=== PATIENT | female | born 1950 | race Caucasian/White ===

== ENCOUNTER 2017-06-09 10:31 | Day surgery (SDC) | payer MEDICARE, BC ==
[2017-06-05 16:12] VITALS: BMI 36.2
[~2017-06-09 10:31] MED LIST: ceFAZolin 1,000 MG in SODIUM CHLORIDE 0.9% IRRIGATIO 250 ML IRRIGATION ONE; ceFAZolin IN SWFI 2 GM/20 ML SYRINGE IVP ONE
[2017-06-09 12:01] LABS: Glucose,Whole Blood 138 mg/dL (75-99)
[2017-06-09] MEDS ORDERED: IV FLUID CONTINUATION 375 ML IV ONE (13:13)
[2017-06-09] MEDS ORDERED: MIDAZOLAM 2 MG/2 ML VIAL ONE (13:46)
[2017-06-09] MEDS ORDERED: ACETAMINOPHEN TAB 325 MG TAB PO PRN (13:48)
[2017-06-09] MEDS ORDERED: ACETAMINOPHEN IV (For NPO) 1,000 MG in EMPTY BAG 1 BAG IVPB ONE (13:48)
[2017-06-09] MEDS ORDERED: MIDAZOLAM 2 MG/2 ML VIAL IV ONE (13:52)
[2017-06-09] MEDS ORDERED: LIDOCAINE 1% INJ 10MG/ML (20 ML MDV) SQ ONE (14:00)
[2017-06-09] MEDS: LIDOCAINE 1% INJ 10MG/ML (20 ML MDV) SQ ONE ×2 (14:06→14:25)
[2017-06-09] MEDS ORDERED: LIDOCAINE 1% INJ 10MG/ML (20 ML MDV) ONE (14:18)
[2017-06-09 15:24] LABS: Glucose,Whole Blood 115 mg/dL (75-99)
--- NOTE | 2017-06-09 15:53 | CE ---
CARDIAC ELECTROPHYSIOLOGY REPORT Fatmata Jones is 67-year-old female with a history of bradycardia and was implanted with a permanent pacemaker about 11 years back. She has chronic renal failure, on dialysis. She was referred for a pacemaker generator change on account of normal battery depletion. Patient was brought to the EP lab in a fasting state. Written informed consent was obtained prior to the procedure. Left shoulder area was prepped and draped as per protocol. Lidocaine 1% was used for local anesthesia. A 4 cm incision was made directly over the pacemaker generator and carried down to the level of the generator. The generator was explanted. The device was clearly subcutaneous in location. A new subfascial pocket was made. The leads were partially freed from the surrounding soft tissue and capsule and the old generator was explanted. A new generator was implanted. The new generator is an Assurity MRI 227, serial number [id number]. The atrial lead was a Tendril SDX [id number], 52 cm length and serial number [id number]. P waves were consistent with preoperative numbers. P waves were 0.4 mV, pacing threshold 0.75 V at 1 millisecond, pacing impedance of 360 ohms. These numbers are consistent with preoperative measurements. The ventricular lead was a Tendril SDX 1688TC, 58 cm length and serial number [id number]. Once again, the ventricular pacing and sensing parameters and impedances were stable with the preoperative measurements. R waves 1.4 mV, pacing impedance 450 ohms, pacing threshold 0.75 V at 0.5 milliseconds. The device was then programmed to DDD 50 ppm with long AV delay, mode. The wound was closed in 3 layers and dressed per protocol. RESULTS: 1. Successful dual-chamber pacemaker generator change. 2. New subfascial pocket, as the original pocket was subcutaneous in location. MMODL / IJN: [id number] /
[2017-06-09 16:15] VITALS: RESP 16
[2017-06-09 18:15] LABS: Glucose,Whole Blood 190 mg/dL (75-99)
[2017-06-09] MEDS: INSULIN ASPART 100 UNIT/ML 1 ML 10 ML VIAL SQ SCH (18:35)
[2017-06-09 20:36] LABS: Glucose,Whole Blood 218 mg/dL (75-99)
[2017-06-09] MEDS: ceFAZolin IN SWFI 2 GM/20 ML SYRINGE IVP SCH (20:47)
[2017-06-09] MEDS ORDERED: AMITRIPTYLINE HCL 50 MG TAB PO SCH (21:00)
[2017-06-09] MEDS ORDERED: INSULIN DETEMIR 100 UNIT/ML 10 ML VIAL SQ SCH (21:00)
[2017-06-09] MEDS: HYDROcodone/APAP 5-325MG 1 EACH TAB PO PRN (21:24)
[2017-06-09] MEDS: SODIUM CHLORIDE 0.9% 1,000 ML IV SCH ×4 (21:28→23:05)
[2017-06-10] MEDS: ceFAZolin IN SWFI 2 GM/20 ML SYRINGE IVP SCH ×3 (03:51→14:12)
[2017-06-10] MEDS: HYDROcodone/APAP 5-325MG 1 EACH TAB PO PRN (03:54)
[2017-06-10] MEDS ORDERED: LEVOTHYROXINE 125 MCG TAB PO SCH (06:30)
[2017-06-10 06:35] LABS: Glucose,Whole Blood 76 mg/dL (75-99)
[2017-06-10] MEDS ORDERED: AMIODARONE 200 MG TAB PO SCH (09:00)
[2017-06-10] MEDS ORDERED: METOPROLOL SUCCINATE (ER) 25 MG TAB.ER.24H PO SCH (09:00)
[2017-06-10] MEDS ORDERED: ASPIRIN 81 MG PO SCH (09:00)
[2017-06-10] MEDS ORDERED: ISOSORBIDE MONONITRATE ER 30 MG TAB.ER.24H PO SCH (09:00)
[2017-06-10] MEDS ORDERED: ATORVASTATIN 40 MG TAB PO SCH (09:00)
[2017-06-10] MEDS ORDERED: ALLOPURINOL 100 MG TAB PO SCH (09:00)
[2017-06-10 09:02] VITALS: PULSE 51
[2017-06-10] MEDS: INSULIN ASPART 100 UNIT/ML 1 ML 10 ML VIAL SQ SCH ×2 (09:18→12:43)
--- NOTE | 2017-06-10 09:41 | P.NPCON ---
History of Present Illness - Reason for Consult end stage renal disease - History of Present Illness Reason for consultation: End-stage renal disease History of present illness: Patient is a 67-year-old female seen in renal consultation for end-stage renal disease. She is maintained on hemodialysis on a Friday schedule via right upper extremity AV graft. Patient has history of bradycardia and has a pacemaker that was placed about 11 years ago. Patient was admitted to get the battery changed of the pacemaker. She tolerated the procedure well yesterday. She is currently resting in bed. Denies any chest pain or shortness of breath. No vomiting or diarrhea. Denies fever or chills. She completed hemodialysis this morning. She has no active complaints at this time. Vital signs are stable. General: The patient appeared well nourished and normally developed. HEENT: Head exam is unremarkable. Neck is without jugular venous distension. LUNGS: Lungs are clear to auscultation and percussion. Breath sounds decreased. HEART: Rate and Rhythm are regular. First and second heart sounds normal. No murmurs, rubs or gallops. ABDOMEN: Abdominal exam reveals normal bowel sounds. Non-tender and non- distended. No evidence of peritonitis. EXTREMITITES: No clubbing, cyanosis, or edema. Right [id number] amputation noted. Past Medical History Past Medical History: Heart Failure, COPD, Diabetes Mellitus, Eye Disorder, GERD /Reflux, Renal Disease Additional Past Medical History / Comment(s): See Dr. Lazo's H&P. Hx. 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, graft in right arm and old one in left arm,hx.of chest tube on left side after pneumothorax, brea upper arm tumor removal, benign large mass removed from ovaries, partial thyroidectomy, spinal surgery done at [facility] 10 years ago for infection with eliel placement.01/17/16 ANGIOPLASTY/STENT RT SFA , rt bka 02/01 Past Anesthesia/Blood Transfusion Reactions: No Reported Reaction Additional Past Anesthesia/Blood Transfusion Reaction / Comment(s): HAD BLOOD TRANFUSIONS WITHOUT COMPLICATION Type of Cardiac Device: Permanent Pacemaker Device Placement Date:: 2008 Past Psychological History: Anxiety, Depression Smoking Status: Never smoker Past Alcohol Use History: None Reported Additional Past Alcohol Use History / Comment(s): Patient is a lifelong nonsmoker. She denies any medical marijuana, marijuana, street drug or alcohol use. She lives at home with her and adult son. There is 1 dog in the home. Past Drug Use History: None Reported - Past Family History Father Family Medical History: Hypertension Additional Family Medical History / Comment(s): Father at age 56 from lung cancer. Mother Family Medical History: Cancer Additional Family Medical History / Comment(s): Mother at age 56 from lung cancer. Brother(s) Family Medical History: Diabetes Mellitus, Renal Disease Additional Family Medical History / Comment(s): Patient has 2 brothers. One at age 45 from myocardial infarction with history of heart defect from . Second brother is alive at age 59 with history of coronary artery disease and diabetes, bone marrow transplant Sister(s) Additional Family Medical History / Comment(s): Patient has a sister age 57 alive with history of diabetes and spina bifida. Daughter(s) Family Medical History: No Reported History Additional Family Medical History / Comment(s): Pre-diabetes Medications and Allergies Home Medications Medication Instructions Recorded Confirmed Type Allopurinol [Zyloprim] 100 mg PO DAILY 08/16/13 06/05/17 History Amiodarone HCl [Pacerone] 200 mg PO DAILY 08/16/13 06/05/17 History Insulin Glargine [Lantus] 50 unit SQ HS 08/16/13 06/09/17 History Isosorbide Mononitrate [Imdur] 30 mg PO DAILY 08/16/13 06/05/17 History Amitriptyline HCl 50 mg PO HS 02/06/15 06/05/17 History Levothyroxine Sodium [Synthroid] 125 mcg PO DAILY 02/06/15 06/05/17 History Metoprolol Succinate [Toprol XL] 12.5 mg PO DAILY 02/06/15 06/05/17 History Albuterol Inhaler [Ventolin Hfa 2 puff INHALATION RT-QID PRN 06/08/15 06/05/17 History Inhaler] Aspirin EC [Ecotrin Low Dose] 81 mg PO DAILY 05/12/17 06/05/17 History INSULIN LISPRO (humaLOG) [humaLOG] 10 unit SQ AC-TID 05/12/17 06/05/17 History Ofloxacin 0.3% Ophth Soln [Ocuflox 1 drops LEFT EYE QID ml 05/14/17 06/05/17 Rx Ophth Soln] Atorvastatin [Lipitor] 40 mg PO DAILY 06/05/17 06/05/17 History Justine-Kacy 1 tab PO DAILY 06/05/17 06/05/17 History Allergies Allergy/AdvReac Type Severity Reaction Status Date / Time meperidine HCl [From Demerol] AdvReac Nausea & Verified 06/05/17 15:54 Vomiting & Diarrhea Physical Exam Vitals: Vital Signs Temp Pulse Pulse Resp BP Pulse Ox 06/10/17 08:00 98.1 F 51 L 16 123/55 96 06/10/17 04:00 97.4 F L 52 L 50 L 16 125/46 98 06/09/17 23:57 54 L 16 06/09/17 23:19 98.4 F 56 L 16 120/56 97 06/09/17 20:00 43 L 16 06/09/17 19:32 98.2 F 50 L 16 127/56 95 06/09/17 17:45 134/58 06/09/17 17:15 50 L 132/53 97 06/09/17 16:45 50 L 130/59 100 06/09/17 16:30 52 L 130/58 99 06/09/17 16:15 50 L 128/58 96 06/09/17 16:00 98 F 50 L 16 132/59 99 06/09/17 15:45 18 132/62 100 06/09/17 15:30 16 136/59 99 06/09/17 15:15 16 135/60 99 06/09/17 11:06 97.7 F 99 20 129/57 99 Intake and Output 06/09/17 06/10/17 06/10/17 22:59 06:59 14:59 Intake Total 600 200 Balance 600 200 Intake: Oral 600 200 Other: Voiding Method Ileal Conduit (Right) Ileal Conduit (Right) # Voids 0 0 Weight 89.811 kg Assessment and Plan Plan: Assessment: #1. End-stage renal disease maintained on hemodialysis on a Friday schedule via right upper extremity AV graft. #2. History of bradycardia with pacemaker placement. She had the battery changed yesterday. #3. Insulin-dependent diabetes mellitus. #4. Hypertension with chronic kidney disease. Controlled. Plan: Patient completed hemodialysis this morning without any problems. Stable to be discharged home from nephrology standpoint. Thank you for the consultation. I will continue to follow the patient with you during her hospital stay.
[2017-06-10 11:59] VITALS: BP 119/58; TEMP 97.8
[2017-06-10 12:19] LABS: Glucose,Whole Blood 84 mg/dL (75-99)
--- NOTE | 2017-06-10 13:34 | P.DS ---
Providers Attending physician: Herbert Lazo Consults: 06/09/17 13:51 Consult Physician Routine Consulting Provider: Arti Jefferson Consult Reason/Comments: need for hemodialysis, one time Do you want consulting provider notified?: Yes Primary care physician: Jarret Mckeon [facility] Hospital Course: Patient is doing well. Her pacemaker site is healed well. There is minimal soakage no hematoma. Minimal discomfort Vitals are stable she's afebrile 98.1F but pressure 123/55 mmHg pulse rate in the 50s Breath sounds are clear Heart sounds are normal Patient underwent dialysis this morning Impression Sick sinus syndrome status post permanent pacemaker 11 years back status post dual-chamber pacemaker generator change yesterday for normal battery depletion Advanced chronic kidney disease on hemodialysis Adult-onset diabetes type 2 Suggest Discharge home after completion of IV antibiotics and follow-up in the device clinic in 5 days and follow with primary certified marine mechanic as before Continue current medications, no changes Patient Condition at Discharge: Stable Plan - Discharge Summary Discharge Rx Participant: Yes New Discharge Prescriptions: No Action Amiodarone HCl [Pacerone] 200 mg PO DAILY Insulin Glargine [Lantus] 50 unit SQ HS Isosorbide Mononitrate [Imdur] 30 mg PO DAILY Allopurinol [Zyloprim] 100 mg PO DAILY Metoprolol Succinate [Toprol XL] 12.5 mg PO DAILY Levothyroxine Sodium [Synthroid] 125 mcg PO DAILY Amitriptyline HCl 50 mg PO HS Albuterol Inhaler [Ventolin Hfa Inhaler] 2 puff INHALATION RT-QID PRN PRN Reason: Shortness Of Breath INSULIN LISPRO (humaLOG) [humaLOG] 10 unit SQ AC-TID Aspirin EC [Ecotrin Low Dose] 81 mg PO DAILY Ofloxacin 0.3% Ophth Soln [Ocuflox Ophth Soln] 1 drops LEFT EYE QID ml Atorvastatin [Lipitor] 40 mg PO DAILY Justine-Kacy 1 tab PO DAILY Discharge Medication List Allopurinol [Zyloprim] 100 mg PO DAILY 08/16/13 [History] Amiodarone HCl [Pacerone] 200 mg PO DAILY 08/16/13 [History] Insulin Glargine [Lantus] 50 unit SQ HS 08/16/13 [History] Isosorbide Mononitrate [Imdur] 30 mg PO DAILY 08/16/13 [History] Amitriptyline HCl 50 mg PO HS 02/06/15 [History] Levothyroxine Sodium [Synthroid] 125 mcg PO DAILY 02/06/15 [History] Metoprolol Succinate [Toprol XL] 12.5 mg PO DAILY 02/06/15 [History] Albuterol Inhaler [Ventolin Hfa Inhaler] 2 puff INHALATION RT-QID PRN 06/08/15 [ History] Aspirin EC [Ecotrin Low Dose] 81 mg PO DAILY 05/12/17 [History] INSULIN LISPRO (humaLOG) [humaLOG] 10 unit SQ AC-TID 05/12/17 [History] Ofloxacin 0.3% Ophth Soln [Ocuflox Ophth Soln] 1 drops LEFT EYE QID ml [Rx] Atorvastatin [Lipitor] 40 mg PO DAILY 06/05/17 [History] Justine-Kacy 1 tab PO DAILY 06/05/17 [History] Activity/Diet/Wound Care/Special Instructions: Keep wound dry for 5 days and follow-up in device clinic in 5 days. No changes in home medications Patient may be discharged home after completion of IV antibiotics Patient needs hemodialysis. This may be performed tomorrow while she is in the hospital and then she can go home Device clinic follow-up in 5 days and follow with primary certified marine mechanic as scheduled Discharge Disposition: HOME SELF-CARE
[2017-06-10 14:57] LABS: Hemoglobin A1C 6.6 % (4.0-6.0)
== END 2017-06-10 15:41 | disposition home or self-care (01) ==
LOC: CATHEP 10:31 → 3OBS 15:45 → CATHEP 06-10 15:41
PROVIDERS: ATTEND Internal Medicine Clinical Cardiac Electrophysiology
DX: Z45.010 Encounter for checking and testing of cardiac pacemaker pulse generator [battery] (principal); R00.1 Bradycardia, unspecified; E11.22 Type 2 diabetes mellitus with diabetic chronic kidney disease; E11.51 Type 2 diabetes mellitus with diabetic peripheral angiopathy without gangrene; Z79.4 Long term (current) use of insulin; I13.2 Hypertensive heart and chronic kidney disease with heart failure and with stage 5 chronic kidney disease, or end stage renal disease; I50.9 Heart failure, unspecified; Z99.2 Dependence on renal dialysis; E78.5 Hyperlipidemia, unspecified; Z79.82 Long term (current) use of aspirin; Z79.890 Hormone replacement therapy; Z79.899 Other long term (current) drug therapy; Z88.5 Allergy status to narcotic agent; Z86.14 Personal history of Methicillin resistant Staphylococcus aureus infection
CPT/HCPCS: 33228; 83036; G0257; C1785; J2250; J0690 ×3; J2001; 90935

== ENCOUNTER 2017-07-08 16:15 | Inpatient (IN) | payer MEDICARE, BC ==
[2017-07-08] MEDS ORDERED: AMPICILLIN-SULBACTAM 3 GM in SODIUM CHLORIDE 0.9% 100 ML IVPB STA (17:06)
[2017-07-08] MEDS ORDERED: NALOXONE 0.4 MG/ML 1 ML VIAL IV PRN (17:22)
--- NOTE | 2017-07-08 17:22 | ED ---
General Adult HPI - General Chief complaint: Wound/Laceration Stated complaint: Pacemaker poss infected Time Seen by Provider: 07/08/17 16:53 Source: patient Mode of arrival: ambulatory Limitations: no limitations - History of Present Illness Initial comments: Patient is a 67-year-old female who presents with a chief complaint of a cellulitis over the site of her pacemaker implant. The patient states that she washed the area with antibacterial soap yesterday and thinks she prematurely covered it with a Band-Aid before it was dry. The patient states that there is mild pain to the area. Area appears erythematous however it is mild in nature. The patient was instructed to come to the emergency department for IV antibiotics. The patient denies any fever, chills, nausea. Patient states she otherwise feels well. - Related Data Home Medications Medication Instructions Recorded Confirmed Allopurinol [Zyloprim] 100 mg PO DAILY 08/16/13 06/05/17 Amiodarone HCl [Pacerone] 200 mg PO DAILY 08/16/13 06/05/17 Insulin Glargine [Lantus] 50 unit SQ HS 08/16/13 06/09/17 Isosorbide Mononitrate [Imdur] 30 mg PO DAILY 08/16/13 06/05/17 Amitriptyline HCl 50 mg PO HS 02/06/15 06/05/17 Levothyroxine Sodium [Synthroid] 125 mcg PO DAILY 02/06/15 06/05/17 Metoprolol Succinate [Toprol XL] 12.5 mg PO DAILY 02/06/15 06/05/17 Albuterol Inhaler [Ventolin Hfa 2 puff INHALATION RT-QID PRN 06/08/15 06/05/17 Inhaler] Aspirin EC [Ecotrin Low Dose] 81 mg PO DAILY 05/12/17 06/05/17 INSULIN LISPRO (humaLOG) [humaLOG] 10 unit SQ AC-TID 05/12/17 06/05/17 Atorvastatin [Lipitor] 40 mg PO DAILY 06/05/17 06/05/17 Justine-Kacy 1 tab PO DAILY 06/05/17 06/05/17 Previous Rx's Medication Instructions Recorded Ofloxacin 0.3% Ophth Soln [Ocuflox 1 drops LEFT EYE QID ml 05/14/17 Ophth Soln] Allergies Allergy/AdvReac Type Severity Reaction Status Date / Time meperidine HCl [From Demerol] AdvReac Nausea & Verified 07/08/17 16:52 Vomiting & Diarrhea Review of Systems ROS Statement: Those systems with pertinent positive or pertinent negative responses have been documented in the HPI. ROS Other: All systems not noted in ROS Statement are negative. Skin: Reports: lesions Past Medical History Past Medical History: Heart Failure, COPD, Diabetes Mellitus, Eye Disorder, GERD /Reflux, Renal Disease Additional Past Medical History / Comment(s): See Dr. Lazo's H&P. Hx. 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, graft in right arm and old one in left arm,hx.of chest tube on left side after pneumothorax, brea upper arm tumor removal, benign large mass removed from ovaries, partial thyroidectomy, spinal surgery done at [facility] 10 years ago for infection with eliel placement.01/17/16 ANGIOPLASTY/STENT RT SFA , rt bka 02/01 Past Anesthesia/Blood Transfusion Reactions: No Reported Reaction Additional Past Anesthesia/Blood Transfusion Reaction / Comment(s): HAD BLOOD TRANFUSIONS WITHOUT COMPLICATION Type of Cardiac Device: Permanent Pacemaker Device Placement Date:: 2008 Past Psychological History: Anxiety, Depression Smoking Status: Never smoker Past Alcohol Use History: None Reported Past Drug Use History: None Reported - Past Family History Father Family Medical History: Hypertension Additional Family Medical History / Comment(s): Father at age 56 from lung cancer. Mother Family Medical History: Cancer Additional Family Medical History / Comment(s): Mother at age 56 from lung cancer. Brother(s) Family Medical History: Diabetes Mellitus, Renal Disease Additional Family Medical History / Comment(s): Patient has 2 brothers. One at age 45 from myocardial infarction with history of heart defect from . Second brother is alive at age 59 with history of coronary artery disease and diabetes, bone marrow transplant Sister(s) Additional Family Medical History / Comment(s): Patient has a sister age 57 alive with history of diabetes and spina bifida. Daughter(s) Family Medical History: No Reported History Additional Family Medical History / Comment(s): Pre-diabetes General Exam Limitations: no limitations General appearance: alert, in no apparent distress Head exam: Present: atraumatic, normocephalic Eye exam: Present: normal appearance ENT exam: Present: normal exam Neck exam: Present: normal inspection Respiratory exam: Present: normal lung sounds bilaterally. Absent: respiratory distress, wheezes Cardiovascular Exam: Present: regular rate, normal rhythm GI/Abdominal exam: Present: soft. Absent: distended, tenderness Rectal exam: Present: deferred Extremities exam: Present: normal inspection, other (Patient has a fistula in the right forearm with a palpable thrill. There is no old fistula in the left forearm.) Back exam: Present: normal inspection Neurological exam: Present: alert, oriented X3 Psychiatric exam: Present: normal affect, normal mood Course Vital Signs 07/08/17 16:48 Temperature 97.8 F Pulse Rate 60 Respiratory 18 Rate Blood Pressure 131/62 O2 Sat by Pulse 99 Oximetry Medical Decision Making - Medical Decision Making Patient presents with a chief complaint of cellulitis over the area of her pacemaker. She recently had a pacemaker placed. She was sent to the emergency department for concerns of infection. On initial evaluation, vital signs are stable, patient in no distress. The area appears mildly cellulitic however given the risks of infection at the pacemaker site, the patient was started on antibiotics and will be admitted for further evaluation and consult to infectious disease. The patient is agreeable to this care plan. Disposition Referrals: Jarret Arredondo MD [Primary Care Provider] - 1-2 days
[2017-07-08 18:16] LABS: Anisocytosis Slight; Basophils % (A) 1 %; Eosinophils # (A) 0.2 k/uL (0-0.7); Eosinophils % (A) 5 %; HCT 35.6 % (34.0-46.0); HGB 11.8 gm/dL (11.4-16.0); Hypochromasia Slight; Lymphocytes # (A) 0.7 k/uL (1.0-4.8); Lymphocytes % (A) 16 %; MCH 32.9 pg (25.0-35.0); MCHC 33.1 g/dL (31.0-37.0); MCV 99.5 fL (80.0-100.0); Macrocytosis Slight; Mean Platelet Volume 7.3; Monocytes # (A) 0.4 k/uL (0-1.0); Monocytes % (A) 9 %; Neutrophils % (A) 67 %; Platelet Count 180 k/uL (150-450); RBC 3.58 m/uL (3.80-5.40); RDW 16.4 % (11.5-15.5); WBC 4.5 k/uL (3.8-10.6)
[2017-07-08 18:28] LABS: Calcium 9.3 mg/dL (8.4-10.2); Potassium 5.1 mmol/L (3.5-5.1)
[2017-07-08 19:45] LABS: Glucose,Whole Blood 177 mg/dL (75-99)
[2017-07-09 05:04] LABS: Glucose,Whole Blood 216 mg/dL (75-99)
[2017-07-09 05:09] VITALS: PULSE 60
[2017-07-09] MEDS: INSULIN ASPART 100 UNIT/ML 1 ML 10 ML VIAL SQ SCH ×2 (05:56→12:44)
[2017-07-09 06:44] LABS: Glucose,Whole Blood 230 mg/dL (75-99)
[2017-07-09 07:34] LABS: Glucose,Whole Blood 208 mg/dL (75-99)
[2017-07-09 08:20] LABS: Anisocytosis Slight; Basophils % (A) 1 %; Eosinophils # (A) 0.2 k/uL (0-0.7); Eosinophils % (A) 4 %; HCT 36.4 % (34.0-46.0); HGB 11.8 gm/dL (11.4-16.0); Hypochromasia Slight; Lymphocytes # (A) 0.7 k/uL (1.0-4.8); Lymphocytes % (A) 16 %; MCH 32.4 pg (25.0-35.0); MCHC 32.4 g/dL (31.0-37.0); Macrocytosis Slight; Mean Platelet Volume 6.9; Monocytes # (A) 0.5 k/uL (0-1.0); Monocytes % (A) 11 %; Neutrophils # (A) 2.8 k/uL (1.3-7.7); Neutrophils % (A) 66 %; Platelet Count 160 k/uL (150-450); RBC 3.64 m/uL (3.80-5.40); RDW 16.4 % (11.5-15.5); WBC 4.2 k/uL (3.8-10.6)
[2017-07-09 08:27] LABS: Albumin 4.1 g/dL (3.5-5.0); Magnesium 1.8 mg/dL (1.6-2.3); Phosphorus 4.3 mg/dL (2.5-4.5); Potassium 4.6 mmol/L (3.5-5.1); Total Bilirubin 0.7 mg/dL (0.2-1.3); Total Protein 7.2 g/dL (6.3-8.2)
[2017-07-09 09:09] VITALS: BMI 36.2
--- NOTE | 2017-07-09 11:12 | P.NPCON ---
History of Present Illness - Reason for Consult end stage renal disease - History of Present Illness Reason for consultation: End-stage renal disease History of present illness: Patient is a 67-year-old female seen in renal consultation for end-stage renal disease. She is maintained on hemodialysis on a Friday schedule via right upper extremity AV graft. Patient had a pacemaker battery changed in May 2017. Yesterday she noted erythema around the pacemaker site and came to the hospital due to concern for infection. She did receive IV ampicillin in the ER. Patient denies any drainage. She denies any fever or chills. Denies chest pain or shortness of breath. No vomiting or diarrhea. Hemodynamically stable. Afebrile. She did have hemodialysis yesterday. Vital signs are stable. General: The patient appeared well nourished and normally developed. Mild erythema around pacemaker site noted. No obvious drainage. HEENT: Head exam is unremarkable. Neck is without jugular venous distension. LUNGS: Lungs are clear to auscultation and percussion. Breath sounds decreased. HEART: Rate and Rhythm are regular. First and second heart sounds normal. No murmurs, rubs or gallops. ABDOMEN: Abdominal exam reveals normal bowel sounds. Non-tender and non- distended. No evidence of peritonitis. EXTREMITITES: No clubbing, cyanosis, or edema. Past Medical History Past Medical History: Heart Failure, COPD, Diabetes Mellitus, Eye Disorder, GERD /Reflux, Renal Disease Additional Past Medical History / Comment(s): See Dr. Lazo's H&P. Hx. 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, graft in right arm and old one in left arm,hx.of chest tube on left side after pneumothorax, brea upper arm tumor removal, benign large mass removed from ovaries, partial thyroidectomy, spinal surgery done at [facility] 10 years ago for infection with eliel placement.01/17/16 ANGIOPLASTY/STENT RT SFA , rt bka 02/01 Past Anesthesia/Blood Transfusion Reactions: No Reported Reaction Additional Past Anesthesia/Blood Transfusion Reaction / Comment(s): HAD BLOOD TRANFUSIONS WITHOUT COMPLICATION Type of Cardiac Device: Permanent Pacemaker Device Placement Date:: 2017 Past Psychological History: Anxiety, Depression Smoking Status: Never smoker Past Alcohol Use History: None Reported Additional Past Alcohol Use History / Comment(s): Patient is a lifelong nonsmoker. She denies any medical marijuana, marijuana, street drug or alcohol use. She lives at home with heradult son. There is 1 dog in the home. Past Drug Use History: None Reported - Past Family History Father Family Medical History: Hypertension Additional Family Medical History / Comment(s): Father at age 56 from lung cancer. Mother Family Medical History: Cancer Additional Family Medical History / Comment(s): Mother at age 56 from lung cancer. Brother(s) Family Medical History: Diabetes Mellitus, Renal Disease Additional Family Medical History / Comment(s): Patient has 2 brothers. One at age 45 from myocardial infarction with history of heart defect from . Second brother is alive at age 59 with history of coronary artery disease and diabetes, bone marrow transplant Sister(s) Additional Family Medical History / Comment(s): Patient has a sister age 57 alive with history of diabetes and spina bifida. Daughter(s) Family Medical History: No Reported History Additional Family Medical History / Comment(s): Pre-diabetes, choley, colostomy , GI issues Medications and Allergies Home Medications Medication Instructions Recorded Confirmed Type Allopurinol [Zyloprim] 100 mg PO DAILY 08/16/13 07/08/17 History Amiodarone HCl [Pacerone] 200 mg PO DAILY 08/16/13 07/08/17 History Insulin Glargine [Lantus] 50 unit SQ HS 08/16/13 07/08/17 History Isosorbide Mononitrate [Imdur] 30 mg PO DAILY 08/16/13 07/08/17 History Amitriptyline HCl 50 mg PO HS 02/06/15 07/08/17 History Levothyroxine Sodium [Synthroid] 125 mcg PO DAILY 02/06/15 07/08/17 History Metoprolol Succinate [Toprol XL] 12.5 mg PO DAILY 02/06/15 07/08/17 History Albuterol Inhaler [Ventolin Hfa 2 puff INHALATION RT-QID PRN 06/08/15 07/08/17 History Inhaler] Aspirin EC [Ecotrin Low Dose] 81 mg PO DAILY 05/12/17 07/08/17 History INSULIN LISPRO (humaLOG) [humaLOG] 10 unit SQ ACHS 05/12/17 07/09/17 History Atorvastatin [Lipitor] 40 mg PO DAILY 06/05/17 07/09/17 History Justine-Kacy 1 tab PO DAILY 06/05/17 07/08/17 History Calcium Acetate [Phoslo] 667 mg PO TID 07/09/17 07/09/17 History SILVER sulfADIAZINE CREAM 1 applic TOPICAL HS 07/09/17 07/09/17 History [Silvadene Cream] Allergies Allergy/AdvReac Type Severity Reaction Status Date / Time meperidine HCl [From Demerol] AdvReac Nausea & Verified 07/08/17 17:06 Vomiting & Diarrhea Physical Exam Vitals: Vital Signs Temp Pulse Resp BP Pulse Ox 07/09/17 06:01 60 18 139/62 100 07/09/17 05:00 97.0 F L 60 19 127/60 100 07/09/17 04:00 15 07/09/17 02:45 97.8 F 65 16 125/57 98 07/08/17 22:24 60 19 125/58 07/08/17 19:52 60 16 144/66 96 07/08/17 16:48 97.8 F 60 18 131/62 99 Intake and Output 07/08/17 07/09/17 07/09/17 22:59 06:59 14:59 Intake Total 80 Balance 80 Intake: IV 80 Normal Saline 80 Other: # Bowel Movements 1 1 Weight 89.811 kg 89.81 kg Results - Lab Results Most recent lab results Calcium 9.0 mg/dL (8.4-10.2) 07/09/17 07:56 Phosphorus 4.3 mg/dL (2.5-4.5) 07/09/17 07:56 Magnesium 1.8 mg/dL (1.6-2.3) 07/09/17 07:56 05/23/18 07:56 07/09/17 07:56 Assessment and Plan Plan: Assessment: 1. End-stage renal disease maintained on hemodialysis on a Friday schedule via right upper extremity AV graft. 2. Questionable cellulitis around pacemaker site. 3. Insulin-dependent diabetes mellitus. 4. Chronic kidney disease mineral bone disease maintained on PhosLo. Phosphorus level at goal. Plan: Hemodialysis tomorrow with goal 2-3 L ultrafiltration. Potential discharge if cleared by infectious disease. Negative for the consultation. I will continue to follow the patient with you during her hospital stay.
--- NOTE | 2017-07-09 11:28 | P.CRDCN ---
History of Present Illness Consult date: 07/09/17 History of present illness: This is a 67-year-old female with history of end-stage renal disease on dialysis who had a GENERATOR change for the pacemaker in May of this year by Dr. Lazo. At the time, new pocket was created because old pocket was subcutaneous. Patient had follow-up yesterday in the office and seen by Dr. Mccain. Patient had significant erythema over the pocket site with a break in the skin suggestive of possible erosion. Patient denied any chest pain, shortness of breath. He doesn't seem to be any active drainage. The skin seems to be free and and not adherent. Because of her renal failure, it is not clear. And clear the infection with antibiotics alone. Dr. Lazo felt that patient to be transferred to [facility] for further care and possible lead extraction. I'll talk to Dr. Chambers, and make necessary arrangements for transfer. Review of Systems REVIEW OF SYSTEMS: CONSTITUTIONAL:. Patient is doing well. No complaints of fever or chills EYES: Denies diplopia, blurring of vision EARS, NOSE, MOUTH, THROAT: Denies headaches, denies sore throat. CARDIOVASCULAR: Denies chest pain, denies shortness of breath, denies palpitations RESPIRATORY: Denies shortness of breath, denies cough. GASTROINTESTINAL: Denies change in appetite, denies abdominal pain, denies diarrhea GENITOURINARY: Denies hematuria, denies infections. MUSKULOSKELETAL: Denies pain, denies swelling. Denies any cramps or claudication INTEGUMENTARY: Denies rash, denies eczema. NEUROLOGICAL: Denies focal weakness, or visual disturbance. Denies any dizziness or syncope PSYCHIATRIC: Denies anxiety, denies depression. HEMATOLOGIC/LYMPHATIC: Denies any bleeding, denies enlarged lymph nodes. Past Medical History Past Medical History: Heart Failure, COPD, Diabetes Mellitus, Eye Disorder, GERD /Reflux, Renal Disease Additional Past Medical History / Comment(s): See Dr. Lazo's H&P. Hx. 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, graft in right arm and old one in left arm,hx.of chest tube on left side after pneumothorax, brea upper arm tumor removal, benign large mass removed from ovaries, partial thyroidectomy, spinal surgery done at [facility] 10 years ago for infection with eliel placement.01/17/16 ANGIOPLASTY/STENT RT SFA , rt bka 02/01 Past Anesthesia/Blood Transfusion Reactions: No Reported Reaction Additional Past Anesthesia/Blood Transfusion Reaction / Comment(s): HAD BLOOD TRANFUSIONS WITHOUT COMPLICATION Type of Cardiac Device: Permanent Pacemaker Device Placement Date:: 2017 Past Psychological History: Anxiety, Depression Smoking Status: Never smoker Past Alcohol Use History: None Reported Additional Past Alcohol Use History / Comment(s): Patient is a lifelong nonsmoker. She denies any medical marijuana, marijuana, street drug or alcohol use. She lives at home with heradult son. There is 1 dog in the home. Past Drug Use History: None Reported - Past Family History Father Family Medical History: Hypertension Additional Family Medical History / Comment(s): Father at age 56 from lung cancer. Mother Family Medical History: Cancer Additional Family Medical History / Comment(s): Mother at age 56 from lung cancer. Brother(s) Family Medical History: Diabetes Mellitus, Renal Disease Additional Family Medical History / Comment(s): Patient has 2 brothers. One at age 45 from myocardial infarction with history of heart defect from . Second brother is alive at age 59 with history of coronary artery disease and diabetes, bone marrow transplant Sister(s) Additional Family Medical History / Comment(s): Patient has a sister age 57 alive with history of diabetes and spina bifida. Daughter(s) Family Medical History: No Reported History Additional Family Medical History / Comment(s): Pre-diabetes, choley, colostomy , GI issues Medications and Allergies Home Medications Medication Instructions Recorded Confirmed Type Allopurinol [Zyloprim] 100 mg PO DAILY 08/16/14 07/08/17 History Amiodarone HCl [Pacerone] 200 mg PO DAILY 08/16/13 07/08/17 History Insulin Glargine [Lantus] 50 unit SQ HS 08/16/13 07/08/17 History Isosorbide Mononitrate [Imdur] 30 mg PO DAILY 08/16/13 07/08/17 History Amitriptyline HCl 50 mg PO HS 02/06/15 07/08/17 History Levothyroxine Sodium [Synthroid] 125 mcg PO DAILY 02/06/15 07/08/17 History Metoprolol Succinate [Toprol XL] 12.5 mg PO DAILY 02/06/15 07/08/17 History Albuterol Inhaler [Ventolin Hfa 2 puff INHALATION RT-QID PRN 06/08/15 07/08/17 History Inhaler] Aspirin EC [Ecotrin Low Dose] 81 mg PO DAILY 05/12/17 07/08/17 History INSULIN LISPRO (humaLOG) [humaLOG] 10 unit SQ ACHS 05/12/17 07/09/17 History Atorvastatin [Lipitor] 40 mg PO DAILY 06/05/17 07/09/17 History Justine-Kacy 1 tab PO DAILY 06/05/17 07/08/17 History Calcium Acetate [Phoslo] 667 mg PO TID 07/09/17 07/09/17 History SILVER sulfADIAZINE CREAM 1 applic TOPICAL HS 07/09/17 07/09/17 History [Silvadene Cream] Allergies Allergy/AdvReac Type Severity Reaction Status Date / Time meperidine HCl [From Demerol] AdvReac Nausea & Verified 07/08/17 17:06 Vomiting & Diarrhea Physical Exam Vitals: Vital Signs Temp Pulse Resp BP Pulse Ox 07/09/17 06:01 60 18 139/62 100 07/09/17 05:00 97.0 F L 60 19 127/60 100 07/09/17 04:00 15 07/09/17 02:45 97.8 F 65 16 125/57 98 07/08/17 22:24 60 19 125/58 07/08/17 19:52 60 16 144/66 96 07/08/17 16:48 97.8 F 60 18 131/62 99 Intake and Output 07/08/17 07/09/17 07/09/17 22:59 06:59 14:59 Intake Total 80 Balance 80 Intake: IV 80 Normal Saline 80 Other: # Bowel Movements 1 1 Weight 89.811 kg 89.81 kg GENERAL EXAM: Patient is alert and oriented and doesn't appear to be in any acute distress HEENT: Normocephalic. Normal reaction of pupils, equal size, normal range of extraocular motion. No erythema or exudates in the throat. NECK: No masses, no nuchal rigidity. CHEST: No chest wall deformity. LUNGS: Equal air entry with no crackles or wheeze. HEART: S1 and S2 normal with no audible mumurs or gallops. Regular rhythm, femorals equal on both sides.. ABDOMEN: No hepatosplenomegaly, normal bowel sounds, no guarding or rigidity. SKIN: No rashes CENTRAL NERVOUS SYSTEM: No focal deficits. EXTREMITIES: No cyanosis, clubbing or edema. Pacemaker site: The skin is erythematous with a break in the skin in the middle. The skin is free. The pocket itself appears to be soft. Results 07/09/17 07:56 07/09/17 07:56 Cardiac Enzymes 07/09/17 Range/Units 07:56 AST 32 (14-36) U/L CBC 07/08/17 07/09/17 Range/Units 18:00 07:56 WBC 4.5 4.2 (3.8-10.6) k/uL RBC 3.58 L 3.64 L (3.80-5.40) m/uL Hgb 11.8 11.8 (11.4-16.0) gm/dL Hct 35.6 36.4 (34.0-46.0) % Plt Count 180 160 (150-450) k/uL Comprehensive Metabolic Panel 07/08/17 07/09/17 Range/Units 18:00 07:56 Sodium 142 145 (137-145) mmol/L Potassium 5.1 4.6 (3.5-5.1) mmol/L Chloride 97 L 99 (98-107) mmol/L Carbon Dioxide 28 27 (22-30) mmol/L BUN 32 H 40 H (7-17) mg/dL Creatinine 3.35 H 4.21 H (0.52-1.04) mg/dL Glucose 188 H 195 H (74-99) mg/dL Calcium 9.3 9.0 (8.4-10.2) mg/dL AST 32 (14-36) U/L ALT 26 (9-52) U/L Alkaline Phosphatase 102 (38-126) U/L Total Protein 7.2 (6.3-8.2) g/dL Albumin 4.1 (3.5-5.0) g/dL Current Medications Generic Name Dose Route Start Last Admin Trade Name Freq PRN Reason Stop Dose Admin Calcium Acetate 667 mg 07/09/17 12:30 Phoslo PO TID-W/MEALS DOMINIQUE Insulin Aspart 0 unit 07/09/17 07:30 07/09/17 05:56 Novolog SQ 3 unit ACHS [facility] Administration Protocol Naloxone HCl 0.2 mg 07/08/17 17:22 Narcan IV Q2M PRN Opioid Reversal Intake and Output 07/08/17 07/09/17 07/09/17 22:59 06:59 14:59 Intake Total 80 Balance 80 Intake: IV 80 Normal Saline 80 Other: # Bowel Movements 1 1 Weight 89.811 kg 89.81 kg Patient Weight 07/10/17 06:59 Weight 89.81 kg 07/09/17 07:56 07/09/17 07:56 EKG Interpretations (text) Not available Assessment and Plan Assessment: This patient is admitted with pocket infection with possible erosion. Patient doesn't have any fever or signs of systemic infection at this time. Patient received ampicillin last night. I'm going to talk Dr. Chambers regarding antibiotic coverage. Dr. Lazo feels that patient be transferred to [facility]. I will make arrangements for possible transfer, after discussed with the Dr. Chambers.
--- NOTE | 2017-07-09 11:40 | P.CONS ---
History of Present Illness - Reason for Consult Consult date: 07/09/17 Cellulitis at pacemaker site - History of Present Illness This is a 65-year-old female known to ID service as patient has had non-healing wound to the right leg seen in the wound healing Center status post [id number] amputation was done by Dr. Rollins in January 2016 for gangrene. Patient also has significant history for end-stage renal failure with dialysis on Friday, diabetes mellitus type 1 that has been recently uncontrolled. Patient had a permanent pacemaker done 11 years ago and she was recently brought back in for dual-chamber pacemaker generator change that was done by Dr. Stein on June 09. A new subfascial pocket was made at the time area patient states that the site was sore for about 3 days but then about 1-2 weeks later became sore again. Patient is blind but her son has been checking it every day. He has told her that it was a little red or pink. There is been no drainage. She went to dialysis treatment yesterday and while she was there the nurse noticed that she had some redness at the site and patient was recommended to go see a pile driving setter. Patient saw Dr. Bowman in the office and there was a concern for infection that was not ruled out and patient was sent into [facility] emergency center for evaluation. Patient has denied having any fever or chills. She denies any appetite changes. No body aches. Her blood sugars have been high but she states for the past 3 years she has been under a lot of stress starting with her above-the- knee amputation in 2016 and last year her . Patient has been afebrile with white count of 4.5. Patient has been admitted to the [facility] care for evaluation by cardiology as well and nephrology is also on consult. Patient was given 1 dose of Unasyn. Vision does not make any urine. She is wheelchair bound and does not have a paracentesis for the right leg. Patient also has chronic wound across to her abdomen that has been present for a number of years. Patient uses Silvadene to the area. Review of Systems All systems: negative Constitutional: Reports poor appetite, Denies anorexia, Denies chills, Denies fatigue, Denies fever, Denies weakness, Denies weight gain, Denies weight loss Eyes: denies blurred vision, denies pain Ears, nose, mouth and throat: Denies dental pain, Denies headache, Denies mouth pain, Denies sore throat Cardiovascular: Denies chest pain, Denies decreased exercise tolerance, Denies dyspnea on exertion, Denies edema, Denies leg edema, Denies lightheadedness, Denies shortness of breath, Denies syncope Respiratory: Denies cough, Denies cough with sputum, Denies dyspnea, Denies excessive sputum, Denies hemoptysis, Denies home oxygen, Denies wheezing Gastrointestinal: Denies abdominal pain, Denies diarrhea, Denies nausea, Denies vomiting Musculoskeletal: Denies myalgias Integumentary: Reports wounds, Denies pruritus, Denies rash Neurological: Denies numbness, Denies weakness Psychiatric: Denies anxiety, Denies depression Endocrine: Denies fatigue, Denies weight change Past Medical History Past Medical History: Heart Failure, COPD, Diabetes Mellitus, Eye Disorder, GERD /Reflux, Renal Disease Additional Past Medical History / Comment(s): See Dr. Lazo's H&P. Hx. 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, graft in right arm and old one in left arm,hx.of chest tube on left side after pneumothorax, brea upper arm tumor removal, benign large mass removed from ovaries, partial thyroidectomy, spinal surgery done at [facility] 10 years ago for infection with eliel placement.01/17/16 ANGIOPLASTY/STENT RT SFA , rt bka 02/01 Past Anesthesia/Blood Transfusion Reactions: No Reported Reaction Additional Past Anesthesia/Blood Transfusion Reaction / Comm: HAD BLOOD TRANFUSIONS WITHOUT COMPLICATION Type of Cardiac Device: Permanent Pacemaker Device Placement Date:: 2006, generator change 2017 Past Psychological History: Anxiety, Depression Smoking Status: Never smoker Past Alcohol Use History: None Reported Additional Past Alcohol Use History / Comment(s): Patient is a lifelong nonsmoker. She denies any medical marijuana, marijuana, street drug or alcohol use. She lives at home with heradult son. There is 1 dog in the home. Past Drug Use History: None Reported - Past Family History Father Family Medical History: Hypertension Additional Family Medical History / Comment(s): Father at age 56 from lung cancer. Mother Family Medical History: Cancer Additional Family Medical History / Comment(s): Mother at age 56 from lung cancer. Brother(s) Family Medical History: Diabetes Mellitus, Renal Disease Additional Family Medical History / Comment(s): Patient has 2 brothers. One at age 45 from myocardial infarction with history of heart defect from . Second brother is alive at age 59 with history of coronary artery disease and diabetes, bone marrow transplant Sister(s) Additional Family Medical History / Comment(s): Patient has a sister age 57 alive with history of diabetes and spina bifida. Daughter(s) Family Medical History: No Reported History Additional Family Medical History / Comment(s): Pre-diabetes, choley, colostomy , GI issues Medications and Allergies Home Medications Medication Instructions Recorded Confirmed Type Allopurinol [Zyloprim] 100 mg PO DAILY 08/16/13 07/08/17 History Amiodarone HCl [Pacerone] 200 mg PO DAILY 08/16/13 07/08/17 History Insulin Glargine [Lantus] 50 unit SQ HS 08/16/13 07/08/17 History Isosorbide Mononitrate [Imdur] 30 mg PO DAILY 08/16/13 07/08/17 History Amitriptyline HCl 50 mg PO HS 02/06/15 07/08/17 History Levothyroxine Sodium [Synthroid] 125 mcg PO DAILY 02/06/15 07/08/17 History Metoprolol Succinate [Toprol XL] 12.5 mg PO DAILY 02/06/15 07/08/17 History Albuterol Inhaler [Ventolin Hfa 2 puff INHALATION RT-QID PRN 06/08/15 07/08/17 History Inhaler] Aspirin EC [Ecotrin Low Dose] 81 mg PO DAILY 05/12/17 07/08/17 History INSULIN LISPRO (humaLOG) [humaLOG] 10 unit SQ ACHS 05/12/17 07/09/17 History Atorvastatin [Lipitor] 40 mg PO DAILY 06/05/17 07/09/17 History Justine-Kacy 1 tab PO DAILY 06/05/17 07/08/17 History Calcium Acetate [Phoslo] 667 mg PO TID 07/09/17 07/09/17 History SILVER sulfADIAZINE CREAM 1 applic TOPICAL HS 07/09/17 07/09/17 History [Silvadene Cream] Allergies Allergy/AdvReac Type Severity Reaction Status Date / Time meperidine HCl [From Demerol] AdvReac Nausea & Verified 07/08/17 17:06 Vomiting & Diarrhea Physical Exam Vitals: Vital Signs Temp Pulse Resp BP Pulse Ox 07/09/17 06:01 60 18 139/62 100 07/09/17 05:00 97.0 F L 60 19 127/60 100 07/09/17 04:00 15 07/09/17 02:45 97.8 F 65 16 125/57 98 07/08/17 22:24 60 19 125/58 07/08/17 19:52 60 16 144/66 96 07/08/17 16:48 97.8 F 60 18 131/62 99 Intake and Output 07/08/17 07/09/17 07/09/17 22:59 06:59 14:59 Intake Total 80 Balance 80 Intake: IV 80 Normal Saline 80 Other: # Bowel Movements 1 1 Weight 89.811 kg 89.81 kg Gen: This is a morbidly obese 67-year-old female. She is sittingup in bed and appears to be in no acute distress. HEENT: Head is atraumatic, normocephalic. Pupils equal, round. Sclerae is anicteric. Conjunctiva pink. Mucous membranes of the mouth are moist. No thrush noted. NECK: Supple. No JVD. No lymphadenopathy. No thyromegaly. LUNGS: Clear to auscultation. No wheezes or rhonchi. No intercostal retractions. HEART: Regular rate and rhythm. No murmur. Pacemaker to the left anterior chest wall with erythema/ecchymosis. No drainage. ABDOMEN: Morbidly obese with lungs across the abdominal fold. Soft. Bowel sounds are present. No masses. No tenderness. EXTREMITIES: Trace pedal edema. Dorsalis pedis is weak on the left. There is an [id number]-[id number] amputation on the right. Wound has completely healed with no erythema to the stump. NEUROLOGICAL: Patient is awake, alert and oriented x3. Cranial nerves 2 through 12 are grossly intact. Results Results: Laboratory Results WBC 4.2 k/uL (3.8-10.6) 07/09/17 07:56 RBC 3.64 m/uL (3.80-5.40) L 07/09/17 07:56 Hgb 11.8 gm/dL (11.4-16.0) 07/09/17 07:56 Hct 36.4 % (34.0-46.0) 07/09/17 07:56 MCV 100.0 fL (80.0-100.0) 07/09/17 07:56 MCH 32.4 pg (25.0-35.0) 07/09/17 07:56 MCHC 32.4 g/dL (31.0-37.0) 07/09/17 07:56 RDW 16.4 % (11.5-15.5) H 07/09/17 07:56 Plt Count 160 k/uL (150-450) 07/09/17 07:56 Neutrophils % 66 % 07/09/17 07:56 Lymphocytes % 16 % 07/09/17 07:56 Monocytes % 11 % 07/09/17 07:56 Eosinophils % 4 % 07/09/17 07:56 Basophils % 1 % 07/09/17 07:56 Neutrophils # 2.8 k/uL (1.3-7.7) 07/09/17 07:56 Lymphocytes # 0.7 k/uL (1.0-4.8) L 07/09/17 07:56 Monocytes # 0.5 k/uL (0-1.0) 07/09/17 07:56 Eosinophils # 0.2 k/uL (0-0.7) 07/09/17 07:56 Basophils # 0.0 k/uL (0-0.2) 07/09/17 07:56 Hypochromasia Slight 07/09/17 07:56 Anisocytosis Slight 07/09/17 07:56 Macrocytosis Slight 07/09/17 07:56 Sodium 145 mmol/L (137-145) 07/09/17 07:56 Potassium 4.6 mmol/L (3.5-5.1) 07/09/17 07:56 Chloride 99 mmol/L (98-107) 07/09/17 07:56 Carbon Dioxide 27 mmol/L (22-30) 07/09/17 07:56 Anion Gap 19 mmol/L 07/09/17 07:56 BUN 40 mg/dL (7-17) H 07/09/17 07:56 Creatinine 4.21 mg/dL (0.52-1.04) H 07/09/17 07:56 Est GFR (CKD-EPI)AfAm 12 (>60 ml/min/1.73 sqM) 07/09/17 07:56 Est GFR (CKD-EPI)NonAf 10 (>60 ml/min/1.73 sqM) 07/09/17 07:56 Glucose 195 mg/dL (74-99) H 07/09/17 07:56 POC Glucose (mg/dL) 208 mg/dL (75-99) H 07/09/17 07:33 POC Glu Ticket Counter ID Leonila Au 07/09/17 07:33 Calcium 9.0 mg/dL (8.4-10.2) 07/09/17 07:56 Phosphorus 4.3 mg/dL (2.5-4.5) 07/09/17 07:56 Magnesium 1.8 mg/dL (1.6-2.3) 07/09/17 07:56 Total Bilirubin 0.7 mg/dL (0.2-1.3) 07/09/17 07:56 AST 32 U/L (14-36) 07/09/17 07:56 ALT 26 U/L (9-52) 07/09/17 07:56 Alkaline Phosphatase 102 U/L (38-126) 07/09/17 07:56 Total Protein 7.2 g/dL (6.3-8.2) 07/09/17 07:56 Albumin 4.1 g/dL (3.5-5.0) 07/09/17 07:56 CBC & Chem 7: 07/09/17 07:56 07/09/17 07:56 Labs: Abnormal Lab Results - Last 24 Hours (Table) 07/08/17 07/08/17 07/08/17 Range/Units 18:00 18:00 19:43 RBC 3.58 L (3.80-5.40) m/uL RDW 16.4 H (11.5-15.5) % Lymphocytes # 0.7 L (1.0-4.8) k/uL Chloride 97 L (98-107) mmol/L BUN 32 H (7-17) mg/dL Creatinine 3.35 H (0.52-1.04) mg/dL Glucose 188 H (74-99) mg/dL POC Glucose (mg/dL) 177 H (75-99) mg/dL 07/09/17 07/09/17 07/09/17 Range/Units 05:03 06:42 07:33 RBC (3.80-5.40) m/uL RDW (11.5-15.5) % Lymphocytes # (1.0-4.8) k/uL Chloride (98-107) mmol/L BUN (7-17) mg/dL Creatinine (0.52-1.04) mg/dL Glucose (74-99) mg/dL POC Glucose (mg/dL) 216 H 230 H 208 H (75-99) mg/dL 07/09/17 07/09/17 Range/Units 07:56 07:56 RBC 3.64 L (3.80-5.40) m/uL RDW 16.4 H (11.5-15.5) % Lymphocytes # 0.7 L (1.0-4.8) k/uL Chloride (98-107) mmol/L BUN 40 H (7-17) mg/dL Creatinine 4.21 H (0.52-1.04) mg/dL Glucose 195 H (74-99) mg/dL POC Glucose (mg/dL) (75-99) mg/dL Assessment and Plan Plan: This is a 67-year-old female who presented to the hospital with possible infection of pacemaker generator change pocket. Patient will be placed on vancomycin pharmacy to dose for now. There is no active drainage at this site. Continue supportive care. Further recommendations as patient progresses. The above dictated assessment and findings were discussed with Dr. Chambers. The impression and plan of care have been directed as dictated. Darcy Mendoza nurse practitioner acting as scribe for Dr. Chambers.
[2017-07-09] MEDS ORDERED: VANCOMYCIN IV PER PHARMACY 1 EACH MISC MISCELLANE SCH (11:45)
[2017-07-09] MEDS ORDERED: VANCOMYCIN IV PER PHARMACY 1 EACH MISC MISCELLANE PRN (11:48)
[2017-07-09 12:27] LABS: Glucose,Whole Blood 245 mg/dL (75-99)
[2017-07-09] MEDS ORDERED: ALBUTEROL NEBULIZED 2.5 MG/3 ML INHALATION PRN (12:27)
[2017-07-09] MEDS ORDERED: CALCIUM ACETATE 667 MG CAP PO SCH ×2 (12:30)
[2017-07-09] MEDS ORDERED: ATORVASTATIN 40 MG TAB PO SCH (12:30)
[2017-07-09] MEDS ORDERED: FOLIC ACID-VIT B COMPLEX-VIT C 1 CAP PO SCH (12:30)
[2017-07-09] MEDS ORDERED: ISOSORBIDE MONONITRATE ER 30 MG TAB.ER.24H PO SCH (12:30)
[2017-07-09] MEDS ORDERED: ALLOPURINOL 100 MG TAB PO SCH (12:30)
[2017-07-09] MEDS ORDERED: METOPROLOL SUCCINATE (ER) 25 MG TAB.ER.24H PO SCH (12:30)
[2017-07-09] MEDS ORDERED: ASPIRIN 81 MG PO SCH (12:30)
[2017-07-09] MEDS ORDERED: LEVOTHYROXINE 125 MCG TAB PO SCH (12:30)
[2017-07-09] MEDS ORDERED: VANCOMYCIN 1,750 MG in SODIUM CHLORIDE 0.9% 250 ML IVPB ONE (12:30)
[2017-07-09] MEDS ORDERED: AMIODARONE 200 MG TAB PO SCH (12:30)
[2017-07-09] MEDS ORDERED: INSULIN ASPART 100 UNIT/ML 1 ML 10 ML VIAL SQ SCH (12:30)
--- NOTE | 2017-07-09 14:01 | HP ---
HISTORY AND PHYSICAL DATE OF ADMISSION: 07/08/2017 PRESENTING COMPLAINT: Swelling over the left pacemaker skin site. HISTORY OF PRESENTING COMPLAINT: This is a pleasant 67-year-old patient of Dr. Arredondo. Chronic stable medical conditions include diabetes with neuropathy, peripheral artery disease, permanent pacemaker, hypertensive heart disease, COPD, hypothyroid and end-stage kidney disease on hemodialysis. Gets dialyzed on Tuesdays, , and Saturdays. Patient has noticed the skin over the pacemaker getting irritated and tender and swelling. Denies any fever. The patient has been putting on it and finally decided to come in. No dizziness. No lightheadedness. REVIEW OF SYSTEMS: CONSTITUTIONAL: None. HEENT: None. RESPIRATORY: None. CARDIOVASCULAR: None. GASTROINTESTINAL: None. GENITOURINARY: None. MUSCULOSKELETAL: Pain in the joints. DERMATOLOGICAL: As above. LYMPHATICS: None. PSYCHIATRY: None. NEUROLOGICAL: Peripheral neuropathy. PAST MEDICAL HISTORY: Right above-knee amputation, end-stage kidney disease on hemodialysis Friday, and Friday, diabetes mellitus type 2 with peripheral neuropathy, peripheral artery disease, permanent pacemaker, history of atrial fibrillation, hypertensive heart disease, COPD, obstructive sleep apnea, does use CPAP, chronic anemia, hypothyroid, hemorrhoids, osteoarthritis. 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 SOCIAL HISTORY: Lives at home with her adult son. No smoking. No alcohol. FAMILY HISTORY: Father had lung cancer in his 50s. HOME MEDICATIONS: 1. Silvadene cream topical q.h.s. 2. PhosLo 667 mg p.o. t.i.d. 3. Humalog 10 units subcu a.c. and at bedtime. 4. Lipitor 40 mg p.o. daily. 5. Justine Kacy 1 tablet p.o. daily. 6. Toprol-XL 12.5 p.o. daily. 7. Synthroid 125 mcg p.o. daily. 8. Imdur 30 mg p.o. daily. 9. Lantus 50 units subcu q.h.s. 10.Aspirin 81 mg p.o. daily. 11.Amitriptyline 50 mg q.h.s. 12.Pacerone 200 mg p.o. daily. 13.Allopurinol 100 mg p.o. daily. 14.Ventolin HFA 2 puffs q.i.d. p.r.n. ALLERGIES: To MEPERIDINE causing nausea, vomiting. PHYSICAL EXAMINATION: Vital signs on presentation, temperature 97.8, pulse 50, respiration 18, blood pressure 120/62, pulse ox 99% on room air. GENERAL APPEARANCE: Well built, BMI 36.2, lying in bed, comfortable. EYES: Pupils equal, conjunctivae normal. HEENT: External appearance of the noses and ears normal, oral cavity normal. NECK: JVD not raised. Mass not palpable. RESPIRATORY: Effort normal. LUNGS: Fair entry. CARDIOVASCULAR: First and second sounds are normal. No edema. ABDOMEN: Distended, soft, liver and spleen not palpable. LYMPHATICS: No lymph node palpable in neck or axillae. PSYCHIATRY: Alert and oriented x3, mood and affect normal. NEUROLOGICAL: Pupils equal, cranial nerves grossly intact. Decreased sensation peripherally,. extremities graft in right upper extremity, right above knee amputation. DERMATOLOGICAL: Patient has got dried scab retana on the abdominal wall. The patient has got swelling and tenderness of the skin over the pacemaker site with some break in skin, slight redness. INVESTIGATIONS: White count 4.5, hemoglobin 11.8 potassium 5.1, BUN 32, creatinine 3.35. ASSESSMENT: 1. Possible infected pacemaker pocket site with probably some chronic scar tissue and some probably acute inflammation of slight infection. Patient does not have a fever or a white count and this may be inflamed scar tissue. 2. End-stage kidney disease on hemodialysis Friday, , and Friday. 3. Right above-knee amputation. 4. Diabetes mellitus type 2, chronically on insulin causing peripheral neuropathy. 5. Peripheral artery disease. 6. Permanent pacemaker for history of atrial fibrillation. 7. Hypertensive heart disease. 8. Obstructive sleep apnea, uses CPAP. 9. Chronic gout. 10.Hypothyroidism. 11.Osteoporosis. 12.Primary osteoarthritis. 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 14.Obesity; body mass index 36.2. PLAN: Consultation was made to Infectious Disease, Cardiology. Patient admitted for the same. Care was discussed with the patient. MMODL / IJN: [id number] /
[2017-07-09 16:01] VITALS: BP 140/64; RESP 26; TEMP 97.6
[2017-07-09 18:28] LABS: Hemoglobin A1C 6.8 % (4.0-6.0)
--- NOTE | 2017-07-09 20:53 | P.CON ---
Consult Note - . Consult date: 07/09/17 Assessment/Plan:: This is a 65-year-old female known to ID service as patient has had non-healing wound to the right leg seen in the wound healing Center status post [id number]-[id number] amputation was done by Dr. Rollins in January 2016 for gangrene. Patient also has significant history for end-stage renal failure with dialysis on Friday, diabetes mellitus type 1 that has been recently uncontrolled. Patient had a permanent pacemaker done 11 years ago and she was recently brought back in for dual-chamber pacemaker generator change that was done by Dr. Stein on June 09. A new subfascial pocket was made at the time area patient states that the site was sore for about 3 days but then about 1-2 weeks later became sore again. Patient is blind but her son has been checking it every day. He has told her that it was a little red or pink. There is been no drainage. She went to dialysis treatment yesterday and while she was there the nurse noticed that she had some redness at the site and patient was recommended to go see a guest request runner. Patient saw Dr. Bowman in the office and there was a concern for infection that was not ruled out and patient was sent into [facility] emergency center for evaluation. Patient has denied having any fever or chills. She denies any appetite changes. No body aches. Her blood sugars have been high but she states for the past 3 years she has been under a lot of stress starting with her above-the- knee amputation in 2016 and last year her . Patient has been afebrile with white count of 4.5. Patient has been admitted to the [facility] care for evaluation by cardiology as well and nephrology is also on consult. Patient was given 1 dose of Unasyn. Vision does not make any urine. She is wheelchair bound and does not have a paracentesis for the right leg. Patient also has chronic wound across to her abdomen that has been present for a number of years. Patient uses Silvadene to the area. Please see the consult note is dictated by nurse practitioner Darcy Cabralesstacy This pleasant woman is well-known to the service and has had further decline of her status since last being seen. Her vision is now worse and she is legally blind. She's had worsening cardiac disease and required a generator change last month. Since that time apparently has been some increasing difficulties in the areas become scabbed with erythema and no drainage but is fluctuant. The inserting surgeon is not available and the plans are for the patient to be transferred to [facility] for removal of the generator and wires. Temporary pacing since she does appear to be completely pacemaker dependent. And then replacement of the pacemaker in the future. She has chronic irritation to her large abdominal pannus for which she apply some topical Silvadene which may be continued for now. She relates that her world is very difficult in that her has since I last taking care of her. At her adult daughter has run off with an old flame leaving her adult children in somewhat of a quandary. This is all weighing heavily on her at this time. We can follow after treatment it [facility] locally and that she may require antibiotic therapy for some time that we need to be treated with her dialysis center. A quick evaluation, discussed plan as dictated by nurse practitioner Mrs. Darcy Mendoza.
[2017-07-09] MEDS ORDERED: INSULIN DETEMIR 100 UNIT/ML 10 ML VIAL SQ SCH (21:00)
[2017-07-09] MEDS ORDERED: AMITRIPTYLINE HCL 50 MG TAB PO SCH (21:00)
[2017-07-10] MEDS ORDERED: VANCOMYCIN 1,500 MG in SODIUM CHLORIDE 0.9% 250 ML IVPB ONE (18:00)
--- NOTE | 2017-07-10 22:59 | DS ---
DISCHARGE SUMMARY DATE OF ADMISSION: 07/08/2017. DATE OF TRANSFER: 07/09/2017 FINAL DIAGNOSES: 1. Infected pacemaker pocket site. 2. End-stage kidney disease on hemodialysis Friday, and Friday. 3. Right above-knee amputation, chronic. 4. Diabetes mellitus type 2 on insulin, causing peripheral neuropathy. 5. Peripheral artery disease. 6. Permanent pacemaker for atrial fibrillation. 7. Hypertensive heart disease. 8. Obstructive sleep apnea, uses a CPAP. 9. Chronic gout. 10.Hypothyroidism. 11.Chronic osteoporosis. 12.Primary osteoarthritis. 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 14.Obesity, BMI 36.2. HOSPITAL COURSE: This patient presented with infected pacemaker pocket. Because of the complex nature of same, Dr. Angulo wanted the patient to be transferred to [facility]. The patient to be transferred to the outside facility that was arranged. PHYSICAL EXAMINATION: Lungs are clear. CARDIOVASCULAR: First and second sounds normal. Skin over the pacemaker site infected- appearing. LABS: White count 4.2. BUN 40, creatinine 4.21. DISPOSITION: [facility]. MMODL / IJN: [id number] /
== END 2017-07-09 17:13 | disposition short-term general hospital (02) | DRG 314 ==
LOC: EC 16:15 → 6SEL 17:22 → 6ICU 07-09 05:36
PROVIDERS: ADMIT Hospitalist; ATTEND Hospitalist
DX: T82.7XXA Infection and inflammatory reaction due to other cardiac and vascular devices, implants and grafts, initial encounter (principal); N18.6 End stage renal disease; L03.313 Cellulitis of chest wall; I12.0 Hypertensive chronic kidney disease with stage 5 chronic kidney disease or end stage renal disease; I13.2 Hypertensive heart and chronic kidney disease with heart failure and with stage 5 chronic kidney disease, or end stage renal disease; Y71.8 Miscellaneous cardiovascular devices associated with adverse incidents, not elsewhere classified; E11.22 Type 2 diabetes mellitus with diabetic chronic kidney disease; E11.42 Type 2 diabetes mellitus with diabetic polyneuropathy; E11.51 Type 2 diabetes mellitus with diabetic peripheral angiopathy without gangrene; Z99.2 Dependence on renal dialysis; E89.0 Postprocedural hypothyroidism; G47.33 Obstructive sleep apnea (adult) (pediatric); H54.62 Unqualified visual loss, left eye, normal vision right eye; I48.91 Unspecified atrial fibrillation; I50.9 Heart failure, unspecified; J44.9 Chronic obstructive pulmonary disease, unspecified; K21.9 Gastro-esophageal reflux disease without esophagitis; M19.91 Primary osteoarthritis, unspecified site; M1A.9XX0 Chronic gout, unspecified, without tophus (tophi); M81.0 Age-related osteoporosis without current pathological fracture; Y83.1 Surgical operation with implant of artificial internal device as the cause of abnormal reaction of the patient, or of later complication, without mention of misadventure at the time of the procedure; Z68.36 Body mass index [BMI] 36.0-36.9, adult; Z79.4 Long term (current) use of insulin; Z79.82 Long term (current) use of aspirin; Z79.899 Other long term (current) drug therapy; Z80.1 Family history of malignant neoplasm of trachea, bronchus and lung; Z82.49 Family history of ischemic heart disease and other diseases of the circulatory system; Z83.3 Family history of diabetes mellitus; Z89.511 Acquired absence of right leg below knee; Z89.611 Acquired absence of right leg above knee; Z90.710 Acquired absence of both cervix and uterus; Z95.0 Presence of cardiac pacemaker; Z99.3 Dependence on wheelchair; Z79.890 Hormone replacement therapy; Z79.891 Long term (current) use of opiate analgesic; E66.01 Morbid (severe) obesity due to excess calories
CPT/HCPCS: 36415; 80048; 80053; 83036; 83735; 84100; 85025; 96365; 99284

== ENCOUNTER 2018-02-05 19:50 | Inpatient (IN) | payer MEDICARE, BC ==
[2018-02-05] MEDS ORDERED: PIPERACILLIN-TAZOBACTAM 3.375 GM in SODIUM CHLORIDE 0.9% 100 ML IVPB STA (20:29)
[2018-02-05] MEDS ORDERED: VANCOMYCIN IV PER PHARMACY 1 EACH MISC MISCELLANE PRN (20:29)
--- NOTE | 2018-02-05 20:35 | ED ---
Extremity Problem HPI - General Source: patient, family, RN notes reviewed, old records reviewed, Caregiver Mode of arrival: wheelchair Limitations: no limitations <Anay Blakely - Last Filed: 02/05/18 23:20> <Suyapa Hawkins - Last Filed: 02/11/18 03:34> - General Chief complaint: Extremity Problem,Nontraumatic Stated complaint: Leg infection Time Seen by Provider: 02/05/18 19:58 - History of Present Illness Initial comments: Patient is a 67-year-old female, with a extensive past medical history including diabetes, chronic kidney disease requiring dialysis, coronary artery disease, and right limb amputation. Patient presents emergency room today with a abscess and cellulitis over the left lower extremity. She reports that she caused a small abrasion over her wheelchair or her bed approximately 2 weeks ago. Patient reports that earlier this week she started noticed some pus coming from the area. She was seen by her primary care physician and a culture was obtained. It was revealed that the bacteria staff coppola. She was on Keflex and IM Rocephin. She reports the area is continuing to spread and worsened. She is concerned with her high blood sugars that she may have resistance infection. Patient has had no known fevers. She does receive dialysis on Tuesdays and Saturdays. Patient relates that her lead furnace operator is Dr. Jefferson. Her acquisitions editor is Dr. Bowman. (Anay Blakely) - Related Data Home Medications Medication Instructions Recorded Confirmed Allopurinol [Zyloprim] 100 mg PO DAILY 08/16/13 02/06/18 Amiodarone HCl [Pacerone] 200 mg PO DAILY 08/16/13 02/06/18 Isosorbide Mononitrate [Imdur] 30 mg PO DAILY 08/16/13 02/06/18 Insulin Aspart [NovoLOG 5 unit SQ AC-TID 02/05/18 02/06/18 (formulary)] Aspirin 81 mg PO DAILY 02/06/18 02/06/18 Atorvastatin [Lipitor] 40 mg PO HS 02/06/18 02/06/18 Calcium Acetate [PhosLo] 667 mg PO TID-W/MEALS 02/06/18 02/06/18 Insulin Glargine,Hum.rec.anlog 10 unit SQ HS 02/06/18 02/06/18 [Basaglar Kwikpen U-100] Levothyroxine Sodium [Synthroid] 125 mcg PO DAILY 02/06/18 02/06/18 Metoprolol Succinate [Kapspargo 12.5 mg PO DAILY 02/06/18 02/06/18 Sprinkle] Zmn-Lpcc-Dwuyc Acid 1 cap PO DAILY 02/06/18 02/06/18 [-U Capsule (formulary)] Previous Rx's Medication Instructions Recorded Cephalexin [Keflex] 500 mg PO Q8HR #30 cap 02/09/18 Allergies Allergy/AdvReac Type Severity Reaction Status Date / Time meperidine HCl [From Demerol] AdvReac Nausea & Verified 02/05/18 19:53 Vomiting & Diarrhea Review of Systems ROS Other: All systems not noted in ROS Statement are negative. <Anay Blakely - Last Filed: 02/05/18 23:20> ROS Other: All systems not noted in ROS Statement are negative. <Suyapa Hawkins - Last Filed: 02/11/18 03:34> ROS Statement: Those systems with pertinent positive or pertinent negative responses have been documented in the HPI. Past Medical History Past Medical History: Heart Failure, COPD, Diabetes Mellitus, Eye Disorder, GERD /Reflux, Renal Disease Additional Past Medical History / Comment(s): See Dr. Lazo's H&P. Hx. 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, graft in right arm and old one in left arm,hx.of chest tube on left side after pneumothorax, brea upper arm tumor removal, benign large mass removed from ovaries, partial thyroidectomy, spinal surgery done at [facility] 10 years ago for infection with eliel placement.01/17/16 ANGIOPLASTY/STENT RT SFA , rt bka 02/01 Past Anesthesia/Blood Transfusion Reactions: No Reported Reaction Additional Past Anesthesia/Blood Transfusion Reaction / Comment(s): HAD BLOOD TRANFUSIONS WITHOUT COMPLICATION Type of Cardiac Device: Permanent Pacemaker Device Placement Date:: 2008 Past Psychological History: Anxiety, Depression Smoking Status: Never smoker Past Alcohol Use History: None Reported Past Drug Use History: None Reported - Past Family History Father Family Medical History: Hypertension Additional Family Medical History / Comment(s): Father at age 56 from lung cancer. Mother Family Medical History: Cancer Additional Family Medical History / Comment(s): Mother at age 56 from lung cancer. Brother(s) Family Medical History: Diabetes Mellitus, Renal Disease Additional Family Medical History / Comment(s): Patient has 2 brothers. One at age 45 from myocardial infarction with history of heart defect from . Second brother is alive at age 59 with history of coronary artery disease and diabetes, bone marrow transplant Sister(s) Additional Family Medical History / Comment(s): Patient has a sister age 57 alive with history of diabetes and spina bifida. Daughter(s) Family Medical History: No Reported History Additional Family Medical History / Comment(s): Pre-diabetes <Anay Blakely - Last Filed: 02/05/18 23:20> General Exam Limitations: no limitations General appearance: alert, in no apparent distress Head exam: Present: atraumatic, normocephalic, normal inspection Eye exam: Present: normal appearance, PERRL, EOMI. Absent: scleral icterus, conjunctival injection, periorbital swelling ENT exam: Present: normal exam, mucous membranes moist Neck exam: Present: normal inspection. Absent: tenderness, meningismus, lymphadenopathy Respiratory exam: Present: normal lung sounds bilaterally. Absent: respiratory distress, wheezes, rales, rhonchi, stridor Cardiovascular Exam: Present: regular rate, normal rhythm, normal heart sounds. Absent: systolic murmur, diastolic murmur, rubs, gallop, clicks GI/Abdominal exam: Present: soft, normal bowel sounds. Absent: distended, tenderness, guarding, rebound, rigid Extremities exam: Present: full ROM, normal capillary refill, other (Patient is a right lower extremity amputation above the knee.). Absent: normal inspection , tenderness, pedal edema, joint swelling, calf tenderness Left Lower Leg exam: Absent: normal inspection (Patient has an area of abscess and ulceration over the anterior lower vasquez. Area measures proximally 3 cm. There are some pustular drainage. Culture was obtained. She has some surrounding cellulitis of the lower leg.) Ankle exam: Present: normal inspection, full ROM Foot/Toe exam: Absent: normal inspection ( has a less than 1 cm ulceration over the left second toe.) Neurovascular tendon exam: Present: no vascular compromise Back exam: Present: normal inspection Neurological exam: Present: alert, oriented X3, CN II-XII intact Psychiatric exam: Present: normal affect, normal mood Skin exam: Present: warm, dry, intact, normal color. Absent: rash <Anay Blakely - Last Filed: 02/05/18 23:20> <Suyapa Hawkins - Last Filed: 02/11/18 03:34> - General Exam Comments Initial Comments: This is a 67-year-old female. Alert and oriented. Patient appears in no acute distress. (Anay Blakely) Vital Signs 02/05/18 02/05/18 02/05/18 19:51 21:00 21:30 Temperature 98.6 F Pulse Rate 73 67 61 Respiratory 18 18 20 Rate Blood Pressure 104/58 116/54 112/58 O2 Sat by Pulse 95 96 87 L Oximetry 02/05/18 02/05/18 02/06/18 22:00 22:30 00:00 Temperature 98.2 F Pulse Rate 72 65 81 Respiratory 16 26 H 20 Rate Blood Pressure 107/53 123/57 118/54 O2 Sat by Pulse 93 L 92 L 96 Oximetry Medical Decision Making - Lab Data Result diagrams: 02/05/18 20:11 02/05/18 20:11 - Radiology Data Radiology results: report reviewed <Anay Blakely - Last Filed: 02/05/18 23:20> - Lab Data Result diagrams: 02/05/18 20:11 02/09/18 08:17 <Suyapa Hawkins - Last Filed: 02/11/18 03:34> - Medical Decision Making Is a 26-year-old female who presents emergency room today with chief complaint of left leg wound. Patient hit her leg on the edge of a wheelchair that approximately one week ago. She was started on Keflex and Rocephin through her primary physician. She's been on antibiotics for 3 days. Culture at that time grew staph aureus. Patient was evaluated again by her primary today they sent her in for completion of IV antibiotics. She has extensive medical history including chronic kidney disease requiring dialysis, diabetes. She also has a small ulceration over the left second toe. She does have capillary refill, and a normal dorsalis pedis pulse. Patient at this time was started on Zosyn and vancomycin. White blood cell count was normal. Tib-fib and foot x-ray were reviewed and negative for any acute process. Patient's EKG does show some changes. She denies any associated chest pain or shortness of breath. Patient does have an elevated troponin most likely chronic nature. We will trend these at this time. Patient will be admitted with consult to infectious disease, cardiology, and nephrology. (Anay Blakely) I was available for consultation in the emergency department. The history and physical exam were done by the midlevel provider. I was consulted for this patient's care. I reviewed the case with the midlevel provider and based on their presentation of the patient, I agree with the assessment, medical decision making and plan of care as documented. Agree with plan for admission. Admission orders were placed. (Suyapa Hawkins) - Lab Data Lab Results 02/05/18 02/05/18 02/05/18 Range/Units 20:11 20:11 20:11 WBC 5.6 (3.8-10.6) k/uL RBC 3.98 (3.80-5.40) m/uL Hgb 12.2 (11.4-16.0) gm/dL Hct 38.2 (34.0-46.0) % MCV 95.9 (80.0-100.0) fL MCH 30.5 (25.0-35.0) pg MCHC 31.8 (31.0-37.0) g/dL RDW 14.8 (11.5-15.5) % Plt Count 156 (150-450) k/uL Neutrophils % 69 % Lymphocytes % 15 % Monocytes % 8 % Eosinophils % 5 % Basophils % 1 % Neutrophils # 3.9 (1.3-7.7) k/uL Lymphocytes # 0.8 L (1.0-4.8) k/uL Monocytes # 0.4 (0-1.0) k/uL Eosinophils # 0.3 (0-0.7) k/uL Basophils # 0.0 (0-0.2) k/uL PT (9.0-12.0) sec INR (<1.2) APTT (22.0-30.0) sec Sodium 140 (137-145) mmol/L Potassium 4.3 (3.5-5.1) mmol/L Chloride 99 (98-107) mmol/L Carbon Dioxide 27 (22-30) mmol/L Anion Gap 14 mmol/L BUN 31 H (7-17) mg/dL Creatinine 3.69 H (0.52-1.04) mg/dL Est GFR (CKD-EPI)AfAm 14 (>60 ml/min/1.73 sqM) Est GFR (CKD-EPI)NonAf 12 (>60 ml/min/1.73 sqM) Glucose 238 H (74-99) mg/dL Plasma Lactic Acid Nick 1.1 (0.7-2.0) mmol/L Calcium 9.1 (8.4-10.2) mg/dL Total Bilirubin 0.6 (0.2-1.3) mg/dL AST 26 (14-36) U/L ALT 25 (9-52) U/L Alkaline Phosphatase 76 (38-126) U/L Troponin I (0.000-0.034) ng/mL Total Protein 7.4 (6.3-8.2) g/dL Albumin 4.3 (3.5-5.0) g/dL 02/05/18 02/05/18 Range/Units 20:11 22:20 WBC (3.8-10.6) k/uL RBC (3.80-5.40) m/uL Hgb (11.4-16.0) gm/dL Hct (34.0-46.0) % MCV (80.0-100.0) fL MCH (25.0-35.0) pg MCHC (31.0-37.0) g/dL RDW (11.5-15.5) % Plt Count (150-450) k/uL Neutrophils % % Lymphocytes % % Monocytes % % Eosinophils % % Basophils % % Neutrophils # (1.3-7.7) k/uL Lymphocytes # (1.0-4.8) k/uL Monocytes # (0-1.0) k/uL Eosinophils # (0-0.7) k/uL Basophils # (0-0.2) k/uL PT 11.2 (9.0-12.0) sec INR 1.1 (<1.2) APTT 30.5 H (22.0-30.0) sec Sodium (137-145) mmol/L Potassium (3.5-5.1) mmol/L Chloride (98-107) mmol/L Carbon Dioxide (22-30) mmol/L Anion Gap mmol/L BUN (7-17) mg/dL Creatinine (0.52-1.04) mg/dL Est GFR (CKD-EPI)AfAm (>60 ml/min/1.73 sqM) Est GFR (CKD-EPI)NonAf (>60 ml/min/1.73 sqM) Glucose (74-99) mg/dL Plasma Lactic Acid Nick (0.7-2.0) mmol/L Calcium (8.4-10.2) mg/dL Total Bilirubin (0.2-1.3) mg/dL AST (14-36) U/L ALT (9-52) U/L Alkaline Phosphatase (38-126) U/L Troponin I 0.043 H* (0.000-0.034) ng/mL Total Protein (6.3-8.2) g/dL Albumin (3.5-5.0) g/dL 02/05/18 22:10 EKG performed at 2046 shows atrial paced rhythm with prolonged AV conduction. Right bundle branch block. T-wave abnormality considering inferior lateral ischemia. Ventricular rate of 61 bpm. UT interval is 308 ms. QRS duration is 178 ms. QT QTc is 510/513 ms. T-wave inversions noted through leads 1 through 6 as well as II, III, and F aVF. (Anay Blakely) - Radiology Data No acute abnormality in the left tibia and fibula. Foot x-ray shows evidence of calcaneal spurring. No fracture. (Anay Blakely) Disposition Time of Disposition: 23:23 <Anay Blakely - Last Filed: 02/05/18 23:20> <Hawkins,Suyapa P - Last Filed: 02/11/18 03:34> Clinical Impression: Leg wound, left, Cellulitis and abscess of left leg, Chronic renal failure, Elevated troponin, Diabetes, Failure of outpatient treatment Disposition: ADMITTED IP TO THIS HOSP Condition: Stable
[2018-02-05 20:51] LABS: Basophils % (A) 1 %; Eosinophils # (A) 0.3 k/uL (0-0.7); Eosinophils % (A) 5 %; HCT 38.2 % (34.0-46.0); HGB 12.2 gm/dL (11.4-16.0); Lymphocytes # (A) 0.8 k/uL (1.0-4.8); Lymphocytes % (A) 15 %; MCH 30.5 pg (25.0-35.0); MCHC 31.8 g/dL (31.0-37.0); MCV 95.9 fL (80.0-100.0); Monocytes # (A) 0.4 k/uL (0-1.0); Monocytes % (A) 8 %; Neutrophils # (A) 3.9 k/uL (1.3-7.7); Neutrophils % (A) 69 %; Platelet Count 156 k/uL (150-450); RBC 3.98 m/uL (3.80-5.40); RDW 14.8 % (11.5-15.5); WBC 5.6 k/uL (3.8-10.6)
[2018-02-05 21:00] LABS: INR 1.1 (<1.2); Partial Thromboplastin Time 30.5 sec (22.0-30.0); Prothrombin Time 11.2 sec (9.0-12.0)
[2018-02-05] MEDS ORDERED: VANCOMYCIN 1,750 MG in SODIUM CHLORIDE 0.9% 500 ML 500 ML IVPB ONE (21:00)
[2018-02-05 21:07] LABS: Albumin 4.3 g/dL (3.5-5.0); Calcium 9.1 mg/dL (8.4-10.2); Potassium 4.3 mmol/L (3.5-5.1); Total Bilirubin 0.6 mg/dL (0.2-1.3); Total Protein 7.4 g/dL (6.3-8.2)
--- NOTE | 2018-02-05 21:23 | XR ---
EXAMINATION TYPE: XR foot complete LT DATE OF EXAM: 02/05/2018 COMPARISON: NONE HISTORY: Foot pain TECHNIQUE: 3 views FINDINGS: There are moderate plantar and Achilles calcaneal spurs. Metatarsals are intact. There is v ascular calcification. I see no fracture nor dislocation. IMPRESSION: Calcaneal spurring. No fracture.
--- NOTE | 2018-02-05 21:24 | XR ---
EXAMINATION TYPE: XR tibia fibula LT DATE OF EXAM: 02/05/2018 COMPARISON: NONE HISTORY: Pain TECHNIQUE: 3 views FINDINGS: There are plantar and Achilles calcaneal spurs. The tibia and fibula appear intact. I see n o fracture nor dislocation. There is some osteopenia. IMPRESSION: No acute abnormality left tibia and fibula.
[2018-02-05] MEDS: SODIUM CHLORIDE 0.9% 500 ML 500 ML IV SCH (21:48)
[2018-02-05] MEDS ORDERED: NALOXONE 0.4 MG/ML 1 ML VIAL IV PRN (23:23)
[2018-02-05] MEDS ORDERED: HYDROcodone/APAP 5-325MG 1 EACH TAB PO PRN (23:23)
[2018-02-05] MEDS ORDERED: ACETAMINOPHEN TAB 325 MG TAB PO PRN (23:23)
[2018-02-06 01:02] LABS: Glucose,Whole Blood 267 mg/dL (75-99)
[2018-02-06 06:10] LABS: Glucose,Whole Blood 206 mg/dL (75-99)
[2018-02-06] MEDS: SODIUM CHLORIDE 0.45% 1,000 ML IV SCH ×2 (06:20→11:19)
[2018-02-06] MEDS: INSULIN ASPART 100 UNIT/ML 1 ML 10 ML VIAL SQ SCH ×6 (07:32→21:38)
[2018-02-06] MEDS: ASPIRIN 81 MG PO SCH (10:42)
[2018-02-06] MEDS: AMIODARONE 200 MG TAB PO SCH (10:43)
[2018-02-06] MEDS: LEVOTHYROXINE 125 MCG TAB PO SCH (10:43)
[2018-02-06] MEDS: ALLOPURINOL 100 MG TAB PO SCH (10:43)
[2018-02-06] MEDS: METOPROLOL SUCCINATE (ER) 25 MG TAB.ER.24H PO SCH (11:21)
[2018-02-06] MEDS: ISOSORBIDE MONONITRATE ER 30 MG TAB.ER.24H PO SCH (11:22)
[2018-02-06 11:53] LABS: Glucose,Whole Blood 266 mg/dL (75-99)
[2018-02-06] MEDS: CALCIUM ACETATE 667 MG CAP PO SCH ×2 (12:47→17:35)
[2018-02-06 13:58] LABS: Hemoglobin A1C 10.1 % (4.0-6.0)
[2018-02-06 16:15] LABS: Glucose,Whole Blood 225 mg/dL (75-99)
--- NOTE | 2018-02-06 17:38 | CONS ---
CONSULTATION Fatmata Jones is a 67-year-old lady with a known history of type 2 diabetes, hypertension, hyperlipidemia, peripheral artery disease with a history of amputation of one foot and amputation of one lower extremity and cellulitis on the other one. She is here mainly with a cellulitis type issue, but had a mild troponin elevation and I was asked to see her in this regard. She has had what seems to be a history of amputation of right lower extremity. She has had extensive medical history including type 2 diabetes, chronic kidney disease on end-stage renal disease on hemodialysis with a right lower extremity amputation. She is here with purulent area from the left lower foot with where she had an abrasion before and she is on Keflex and Rocephin. I was asked to see her mainly because of elevated troponins which are very equivocal. She sees Dr. Bowman and has stable CAD. No recent issues with CHF or CAD at this point. She is resting comfortably at the time of my evaluation. PAST MEDICAL HISTORY: Past medical history is remarkable for multiple hospitalizations. Apparently she had a pulse generator. She has underlying sick sinus syndrome and has a pacemaker with a pulse generator change. She has history of COPD, type 2 diabetes. She has gastroesophageal reflux disease. End-stage renal disease on hemodialysis. LABORATORY DATA: Suggests that her that her troponin level initially was 0.04. Subsequently, there were 2 levels of 0.03. The troponin profile does not suggest any myocardial injury and there is no significant elevation. Her potassium levels are normal. There is no white count elevation. Please refer to the detailed note by Dr. Fairchild for other information. PHYSICAL EXAMINATION: Blood pressure is 118/70, pulse rate is 60 per minute. HEENT: Unremarkable. Fundus was not examined by me. NECK: Supple there is JVD of 1 cm. No carotid bruit. Heart exam reveals S1, S2 with a short systolic murmur. Lungs reveal diminished air entry. Abdomen is soft. Lower extremities reveal cellulitis on the left lower extremity. There is amputation on the right side. EKG revealed atrial paced rhythm with a right bundle branch block pattern, repolarization abnormality. IMPRESSION: 1. Cellulitis of the left foot. 2. End-stage renal disease on hemodialysis. 3. Type 2 diabetes. 4. Elevated troponin, not suggestive of myocardial injury. 5. History of sick sinus syndrome with a permanent pacemaker and also the patient has a type 2 diabetes mellitus. RECOMMENDATIONS: No intervention is necessary from a cardiac standpoint in view of the troponin rise. Troponin profile does not suggest myocardial injury. I am recommending that we can move her to the medical floor and I will see her as needed. Thank you very much for the consult. RIYA / MIAH: [id number] /
--- NOTE | 2018-02-06 19:59 | CONS ---
CONSULTATION REASON FOR CONSULT: End-stage renal disease. HISTORY OF PRESENT ILLNESS: Patient is a 67-year-old female with a history of end-stage renal disease, on hemodialysis on a Friday, , Friday schedule. Patient was admitted to the hospital with a left leg wound. She denied any fever or chills. There was some drainage, but patient states she had Neosporin on her wound at that time. Patient was being followed at the wound clinic previously. She has had a right above-knee amputation. PAST MEDICAL HISTORY: 1. End-stage renal disease, on hemodialysis. 2. Coronary artery disease. 3. History of CHF. 4. Chronic back pain. 5. CKD mineral bone disorder. 6. Anemia of chronic disease. 7. History of diverticulitis. 8. Shingles. PAST SURGICAL HISTORY: 1. AV graft in the right arm, which is new. 2. Previous placement of chest tubes. 3. Large mass removed from the ovary which was benign. 4. Partial thyroidectomy. 5. Spinal surgery. 6. History of right BKA. 7. Pacemaker placement. SOCIAL HISTORY: Negative for smoking, drug abuse or alcohol abuse. MEDICATIONS: Medications at home prior to admission included: 1. Insulin. 2. Pacerone. 3. Zyloprim. 4. Imdur. ALLERGIES: Include DEMEROL, which causes nausea, vomiting and diarrhea. PHYSICAL EXAMINATION: Patient is currently comfortable this morning, awake, not in any acute distress. Alert, oriented x3. Blood pressure was 126/56, heart rate 64 per minute. She is afebrile. EXAMINATION OF THE HEART: S1, S2. EXAMINATION OF LUNGS: Bilateral breath sounds are heard. ABDOMEN: Soft, non-tender. Examination of lower extremities shows right BKA. Patient has a wound on the left leg on the lateral aspect of the vasquez. No drainage is noted from it at this time. SUPERCHARGE REPAIR SUPERVISOR exam is grossly intact. Labs show troponin 0.043. Sodium 140, potassium 4.3, hemoglobin 12.2 g/dL. ASSESSMENT: 1. End-stage renal disease, on hemodialysis on a Friday, , Friday schedule. We will plan for hemodialysis tomorrow. 2. Wound, left lower extremity, maintained on antibiotics. 3. Chronic kidney disease mineral bone disorder. 4. History of coronary artery disease. 5. History of atrial fibrillation. PLAN: Continue with PhosLo. Continue current medications. We will plan for hemodialysis in a.m. RIYA / MIAH: [phone] /
[2018-02-06 20:06] LABS: Glucose,Whole Blood 195 mg/dL (75-99)
--- NOTE | 2018-02-06 20:41 | US ---
EXAMINATION TYPE: US venous doppler duplex LE LT DATE OF EXAM: 02/06/2018 8:20 PM COMPARISON: NONE CLINICAL HISTORY: DVT left leg. Pt states left leg pain/ Right leg amputated SIDE PERFORMED: Left TECHNIQUE: The lower extremity deep venous system is examined utilizing real time linear array sonog richard with graded compression, doppler sonography and color-flow sonography. VESSELS IMAGED: External Iliac Vein (EIV) Common Femoral Vein Deep Femoral Vein Greater Saphenous Vein * Femoral Vein Popliteal Vein Small Saphenous Vein * Proximal Calf Veins (* superficial vessels) Large pt body habitus, groin difficult to visualize Left Leg: Negative for DVT, probable Roman's cyst left pop fossa= 3.4 x 1.0 x 1.9 cm IMPRESSION: No evidence of deep venous thrombosis in the left leg. Popliteal cyst is noted.
[2018-02-06] MEDS: ATORVASTATIN 40 MG TAB PO SCH (21:38)
[2018-02-06] MEDS: INSULIN DETEMIR 100 UNIT/ML 10 ML VIAL SQ SCH (21:38)
--- NOTE | 2018-02-06 23:25 | P.CONS ---
History of Present Illness - Reason for Consult Consult date: 02/06/18 - Chief Complaint Cellulitis left leg - History of Present Illness 67-year-old female presents to Hospital from home with complaints of injury to the left leg with increasing pain and discomfort. She long-standing history of multiple medical troubles that includes her obesity, diabetes mellitus type 2 with multiple complications that include end-stage renal disease on hemodialysis as well as peripheral vascular disease with a resultant right [id number] amputation actually near the hip joint. She relates that she injured the left leg in her wheelchair possibly with transfer. It has rapidly worsened and currently sought care in the emergency center because of the swelling to the right leg and her concerns because of her prior amputation. She will exercise become somewhat painful she's not sure that she's had any fever she's not had chills rigors or night sweats. She definitely does not feel very well but this injury and secondary infection have surgery made her feel worse and her baseline. Review of Systems HEENT:Denies headache or acute visual change. Denies sinus or mouth discomforts. Denies neck stiffness or pain. Denies significant oral cavity pain. Denies difficulty on swallowing. Lungs: Chronic shortness of breath but no new sputum production or hemoptysis Cardiovascular: She has chronic shortness of breath, she has dyspnea with exertion but denies syncope or chest pain at this time Gastrointestinal:Denies nausea, vomiting, diarrhea, constipation, hematemesis, melena, hematochezia. No no significant change of bowel habit noticed. Musculoskeletal: denies significant myalgias or arthralgias. No new joint swelling. Denies new back pain. Skin: As per the HPI injury to the left leg no new difficulties with the right residual limb Neuro: Denies headache or visual change. Denies any new onset weakness or difficulty with ambulation. Denies falls or seizures. Psychiatric:Denies anxiety or depression. Endocrine: Denies significant fatigue, denies significant weight loss or weight gain. Past Medical History Past Medical History: No Reported History, Heart Failure, COPD, Diabetes Mellitus, Eye Disorder, GERD/Reflux, Renal Disease, Thyroid Disorder Additional Past Medical History / Comment(s): Hx. 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 rt bka 02/01 Past Anesthesia/Blood Transfusion Reactions: No Reported Reaction Additional Past Anesthesia/Blood Transfusion Reaction / Comm: HAD BLOOD TRANFUSIONS WITHOUT COMPLICATION Type of Cardiac Device: Permanent Pacemaker Device Placement Date:: 2008 Past Psychological History: Anxiety, Depression Smoking Status: Never smoker Past Alcohol Use History: None Reported Additional Past Alcohol Use History / Comment(s): Patient is a lifelong nonsmoker. She denies any medical marijuana, marijuana, street drug or alcohol use. She lives at home with her adult son. There is 1 dog in the home. Past Drug Use History: None Reported - Past Family History Father Family Medical History: Hypertension Additional Family Medical History / Comment(s): Father at age 56 from lung cancer. Mother Family Medical History: Cancer Additional Family Medical History / Comment(s): Mother at age 56 from lung cancer. Brother(s) Family Medical History: Diabetes Mellitus, Renal Disease Additional Family Medical History / Comment(s): Patient has 2 brothers. One at age 45 from myocardial infarction with history of heart defect from . Second brother is alive at age 59 with history of coronary artery disease and diabetes, bone marrow transplant Sister(s) Additional Family Medical History / Comment(s): Patient has a sister age 57 alive with history of diabetes and spina bifida. Daughter(s) Family Medical History: No Reported History Additional Family Medical History / Comment(s): Pre-diabetes Medications and Allergies Home Medications and Allergies Comment(s): Current Medications Acetaminophen (Tylenol Tab) 650 mg PO Q6HR PRN PRN Reason: Mild Pain or Fever > 100.5 Hydrocodone Bitart/Acetaminophen ([place] 5-325) 1 each PO Q4HR PRN PRN Reason: Moderate Pain Allopurinol (Zyloprim) 100 mg PO DAILY [facility] Last Admin: 02/06/18 10:43 Dose: 100 mg Amiodarone HCl (Cordarone) 200 mg PO DAILY [facility] Last Admin: 02/06/18 10:43 Dose: 200 mg Aspirin (Aspirin) 81 mg PO DAILY [facility] Last Admin: 02/06/18 10:42 Dose: 81 mg Atorvastatin Calcium (Lipitor) 40 mg PO HS [facility] Last Admin: 02/06/18 21:38 Dose: 40 mg Calcium Acetate (Phoslo) 667 mg PO TID-W/MEALS [facility] Last Admin: 02/06/18 17:35 Dose: 667 mg Ceftriaxone Sodium 1,000 mg/ (Sodium Chloride) 50 mls @ 100 mls/hr IVPB Q24HR [facility] Last Admin: 02/06/18 20:57 Dose: 100 mls/hr Insulin Aspart (Novolog) 0 unit SQ ACHS [facility]; Protocol Last Admin: 02/06/18 21:38 Dose: 3 unit Insulin Aspart (Novolog) 5 unit SQ AC-TID [facility] Last Admin: 02/06/18 17:36 Dose: 5 unit Insulin Detemir (Levemir) 10 unit SQ HS [facility] Last Admin: 02/06/18 21:38 Dose: 10 unit Isosorbide Mononitrate (Imdur) 30 mg PO DAILY [facility] Last Admin: 02/06/18 11:22 Dose: 30 mg Levothyroxine Sodium (Synthroid) 125 mcg PO DAILY@0630 [facility] Last Admin: 02/06/18 10:43 Dose: 125 mcg Metoprolol Succinate (Toprol Xl) 12.5 mg PO DAILY [facility] Last Admin: 02/06/18 11:21 Dose: 12.5 mg Miscellaneous Information (Pharmacy To Dose Iv Vancomycin) 1 each MISCELLANE DIRECTED PRN PRN Reason: Per Protocol Multivi/Iron Carb/Fe Sulf/FA/Prenat (-U Capsule) 1 each PO DAILY [facility] Naloxone HCl (Narcan) 0.2 mg IV Q2M PRN PRN Reason: Opioid Reversal Oxycodone/Acetaminophen (Percocet 5-325) 1 each PO Q4HR PRN PRN Reason: Severe Pain Home Medications Medication Instructions Recorded Confirmed Type Allopurinol [Zyloprim] 100 mg PO DAILY 08/16/13 02/06/18 History Amiodarone HCl [Pacerone] 200 mg PO DAILY 08/16/13 02/06/18 History Isosorbide Mononitrate [Imdur] 30 mg PO DAILY 08/16/13 02/06/18 History Cephalexin [Keflex] 500 mg PO Q8HR 02/05/18 02/06/18 History Insulin Aspart [NovoLOG 5 unit SQ AC-TID 02/05/18 02/06/18 History (formulary)] Aspirin 81 mg PO DAILY 02/06/18 02/06/18 History Atorvastatin [Lipitor] 40 mg PO HS 02/06/18 02/06/18 History Calcium Acetate [Phoslo] 667 mg PO TID-W/MEALS 02/06/18 02/06/18 History Insulin Glargine,Hum.rec.anlog 10 unit SQ HS 02/06/18 02/06/18 History [Basaglar Kwikpen U-100] Levothyroxine Sodium [Synthroid] 125 mcg PO DAILY 02/06/18 02/06/18 History Metoprolol Succinate [Kapspargo 12.5 mg PO DAILY 02/06/18 02/06/18 History Sprinkle] Waz-Dftz-Vigta Acid 1 cap PO DAILY 02/06/18 02/06/18 History [-U Capsule (formulary)] Allergies Allergy/AdvReac Type Severity Reaction Status Date / Time meperidine HCl [From Demerol] AdvReac Nausea & Verified 02/05/18 19:53 Vomiting & Diarrhea Physical Exam Vitals: Vital Signs Temp Pulse Pulse Resp BP BP Pulse Ox 02/06/18 15:49 98.1 F 65 16 118/56 96 02/06/18 11:17 97.3 F L 64 16 126/56 95 02/06/18 08:00 98.2 F 60 16 118/57 96 02/06/18 05:06 77 16 120/56 95 02/06/18 00:00 98.2 F 81 20 118/54 96 Intake and Output 02/06/18 02/06/18 02/07/18 14:59 22:59 06:59 Intake Total 687 222 Balance 687 222 Intake: IV 225 Sodium Chloride 0.45% 1, 225 000 ml @ 75 mls/hr IV . [id number] [facility] Rx#:[id number] Oral 462 222 Other: Voiding Method Bedside Commode Bedside Commode 67-year-old woman with obesity is comfortable at this time. This relates she is a bit short of breath is in need of dialysis which is planned for the morning HEENT: Anicteric conjunctiva are pink and moist nasal mucosa grossly intact without significant lesions, there is no thrush. Neck: The neck is supple without significant lymphadenopathy or thyromegaly. Lungs: Symmetrical air entry is noted. Basilar crackles are heard expiratory wheezes are scattered no bronchial sounds are noted Heart: Irregular with an audible S1 and S2 soft S4 2/6 systolic murmur left sternal border Abdomen: Obese, Positive bowel sounds soft and nontender without palpable masses or organomegaly. There was no guarding or rebound. Extremities: Upper extremity reveals evidence of the fistula to the right arm that is functioning well, no significant petechiae or telangiectasia. No splinter hemorrhages were noted. The residual limb on the right has no open lesions. Left lower extremity reveals evidence of the poor pulse to the left foot the foot is cool but not cold there is no open ulcerations to the foot. On the left lateral aspect of the calf is evidence of the injury. There is near induration and ecchymosis is present is quite tender. There is nothing expressible at this time. It is indurated but not fluctuant. There is surrounding erythematous change around the site. It is not is in the groin and there is no significant inguinal lymphadenopathy. No other abnormal lymph nodes are noted Neuro: Awake alert oriented to person place and time. There are no acute new gross focal sensory motor deficits. Results CBC & Chem 7: 02/05/18 20:11 02/05/18 20:11 Labs: Abnormal Lab Results - Last 24 Hours (Table) 02/06/18 02/06/18 02/06/18 Range/Units 00:59 02:15 06:09 POC Glucose (mg/dL) 267 H 206 H (75-99) mg/dL Hemoglobin A1c 10.1 H (4.0-6.0) % 02/06/18 02/06/18 02/06/18 Range/Units 11:51 16:07 20:05 POC Glucose (mg/dL) 266 H 225 H 195 H (75-99) mg/dL Hemoglobin A1c (4.0-6.0) % Microbiology - Last 24 Hours (Table) 02/05/18 20:11 Blood Culture - Preliminary Blood No Growth after 24 hours 02/05/18 20:11 Gram Stain - Preliminary Leg - Left Wound Culture - Preliminary Presumptive Staph aureus Microbiology 02/05/18 20:11 Blood Blood Culture - Preliminary No Growth after 24 hours 02/05/18 20:11 Leg - Left Gram Stain - Preliminary 02/05/18 20:11 Leg - Left Wound Culture - Preliminary Presumptive Staph aureus Assessment and Plan (1) Cellulitis and abscess of left leg Narrative/Plan: 67-year-old woman presents to hospital with increasing pain swelling erythema and tenderness to the left lateral leg. She recalls tabetic injury from her wheelchair at the start of the wound. There is distinct tenderness erythema and induration patient has history of multiple infections in the past and has high risk infection is a retired diabetes and peripheral vascular disease. Antimicrobial therapy with vancomycin has been started we'll add and Rocephin for now pending further culture data with you give us coverage if MSSA is isolated or other gram-negative organisms such as E. coli based on her history. Local wound care with a therahoney dressing is requested and wrapped in place. Elevation limb while at rest is helpful. We'll obtain a duplex to ensure there is no deep venous thrombosis to the area. Current Visit: Yes Status: Acute Code(s): L03.116 - CELLULITIS OF LEFT LOWER LIMB; L02.416 - CUTANEOUS ABSCESS OF LEFT LOWER LIMB SNOMED Code(s): 500690059
--- NOTE | 2018-02-06 23:47 | HP ---
HISTORY AND PHYSICAL DATE OF ADMISSION: February 06, 2018. DATE OF SERVICE: February 06, 2018. PRESENTING COMPLAINT: Left leg wound. HISTORY OF PRESENTING COMPLAINT: This is a very pleasant 67-year-old patient of Dr. Arredondo. The patient's chronic stable medical conditions include pacemaker, end-stage kidney disease on hemodialysis, right above-knee amputation, diabetes mellitus type 2, peripheral neuropathy, peripheral artery disease, obstructive sleep apnea, and gout hypothyroidism, primary osteoarthritis. Normally patient uses a wheelchair to get about. The patient bumped her left leg about a month ago. There was an open gash that was actually looking clean. She said she was using soap water topical antibiotics and continued to do that. Last couple of days, she noticed increasing amount of pain in that area and the area started becoming red. There was no fever, chills, and she decided to present to the ER. She was found to have infected appearing superficial abscess and maybe cellulitis. Admitted for the same. The patient was started on IV ceftriaxone by Dr. Chambers in the ER. The patient did get IV Zosyn and also got a dose of IV vancomycin. REVIEW OF SYSTEMS: CONSTITUTIONAL: None. HEENT: Tired. RESPIRATORY none. CARDIOVASCULAR: None. GASTROINTESTINAL: None. GENITOURINARY: None. MUSCULOSKELETAL: Pain in joints. DERMATOLOGICAL as above. LYMPHATICS: None. PSYCHIATRY none. NEUROLOGICAL: Peripheral neuropathy. PAST MEDICAL HISTORY: Right above-knee amputation, End-stage kidney disease on hemodialysis Friday, , Friday, diabetes, peripheral neuropathy, peripheral artery disease, permanent pacemaker, atrial fibrillation, hypertensive heart disease, COPD, obstructive sleep apnea uses CPAP, chronic anemia, hypothyroid, hemorrhoids, osteoarthritis. 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 SOCIAL HISTORY: Lives at home with her adult son. Uses a wheelchair. No smoking. No alcohol. FAMILY HISTORY: Lung cancer in his 50s. Father had the same. HOME MEDICATIONS: 1. PhosLo 667 mg p.o. t.i.d. with meals. 2. NovoLog 5 units a.c. t.i.d. 3. Multivitamin 1 capsule p.o. daily. 4. Lipitor 40 mg q.h.s. 5. Insulin glargine 10 units subcu q.h.s. 6. Metoprolol 12.5 p.o. daily. 7. Synthroid 125 mcg p.o. daily. 8. Imdur 30 mg daily. 9. Keflex 500 mg p.o. q.8h. 10.Amiodarone 200 mg p.o. daily. 11.Allopurinol 100 mg p.o. daily. 12.Aspirin 81 mg p.o. daily. Meperidine causing nausea, vomiting. PHYSICAL EXAMINATION: VITAL SIGNS ON PRESENTATION: Temperature 98.6, pulse 73, respiratory 18, blood pressure 104/58, pulse 95 ox 95 percent on room air. GENERAL APPEARANCE: Well built BMI 43.3, sitting at the edge of the bed tired- appearing. EYES: Pupils equal. Conjunctivae normal. HEENT: External appearance of nose and ears normal. Oral cavity normal. NECK: Short thick, JVD unable to assess. Mass not palpable. RESPIRATORY: Effort increased. LUNGS: Diminished breath sounds. CARDIOVASCULAR: 1st and 2nd sounds normal. Minimal edema. ABDOMEN: Distended, soft. Liver and spleen not palpable. LYMPHATIC: No lymph nodes palpable in the neck and axilla. PSYCHIATRY: Alert and oriented x3. Mood and affect normal. NEUROLOGICAL: Pupils equal. Cranial nerves grossly intact. Decreased sensation distally. EXTREMITIES: Right above-knee amputation. Left leg over the vasquez. There is a wound with surrounding cellulitis with superficial scab. INVESTIGATIONS: White count 5.6, hemoglobin 12.2, potassium 4.3, BUN 31, creatinine 3.69. ASSESSMENT: 1. Left lower extremity wound from local trauma having failed outpatient treatment. 2. End-stage kidney disease on hemodialysis Friday, , and Friday. 3. Right above-knee amputation. 4. Diabetes mellitus type 2, chronically on insulin causing peripheral neuropathy. 5. Peripheral artery disease. 6. Permanent pacemaker for atrial fibrillation. 7. Hypertensive heart disease. 8. Obstructive sleep apnea uses CPAP. 9. Chronic gout. 10.Hypothyroidism. 11.Primary osteoarthritis. 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 13.Morbid obesity BMI 43.3. PLAN: Home medications are resumed. Accu-Cheks will be followed. Nephrology will be consulted for dialysis schedule. The patient was started on IV ceftriaxone by Dr. Chambers. Patient also received Vanco and Zosyn in the ER. Care was discussed the patient. Questions were answered. Copy to Dr. Arredondo. MMODL / IJN: [id number] /
[2018-02-07] MEDS: oxyCODONE-APAP 5-325MG 1 EACH TAB PO PRN ×3 (05:56→22:49)
[2018-02-07 06:23] LABS: Glucose,Whole Blood 119 mg/dL (75-99)
[2018-02-07] MEDS: INSULIN ASPART 100 UNIT/ML 1 ML 10 ML VIAL SQ SCH ×7 (06:36→21:23)
[2018-02-07] MEDS: CALCIUM ACETATE 667 MG CAP PO SCH ×3 (06:52→17:28)
[2018-02-07] MEDS: LEVOTHYROXINE 125 MCG TAB PO SCH (06:52)
[2018-02-07 06:58] LABS: Calcium 8.8 mg/dL (8.4-10.2); Potassium 5.1 mmol/L (3.5-5.1)
[2018-02-07 07:03] LABS: Vancomycin,Random 13.4 ug/mL
[2018-02-07] MEDS: METOPROLOL SUCCINATE (ER) 25 MG TAB.ER.24H PO SCH (07:58)
[2018-02-07] MEDS: AMIODARONE 200 MG TAB PO SCH (07:58)
[2018-02-07] MEDS: ASPIRIN 81 MG PO SCH (07:59)
[2018-02-07] MEDS: ISOSORBIDE MONONITRATE ER 30 MG TAB.ER.24H PO SCH (07:59)
[2018-02-07] MEDS: ALLOPURINOL 100 MG TAB PO SCH (07:59)
[2018-02-07] MEDS: PRENATAL VIT-IRON-FOLIC ACID 1 EACH CAP PO SCH (09:32)
[2018-02-07 10:44] VITALS: BMI 42.7
[2018-02-07] MEDS ORDERED: VANCOMYCIN 1,750 MG in SODIUM CHLORIDE 0.9% 500 ML 500 ML IVPB ONE (11:00)
--- NOTE | 2018-02-07 11:29 | PN ---
PROGRESS NOTE Patient is seen for followup for end-stage renal disease. This morning she is comfortable. Patient denies any complaints. On examination blood pressure was 123/57, heart rate 62 per minute. She is afebrile. Examination of the heart S1, S2. Examination of the lungs, decreased breath sounds in the bases. Abdomen is soft, nontender, obese. Examination lower extremity shows right BKA. AUTOMATION TECH exam is grossly intact. Wound culture grew presumptive Staph aureus. Labs show potassium 5.1 today. ASSESSMENT: 1. End-stage renal disease, on hemodialysis on a Friday, , Friday schedule. 2. Left leg wound with wound culture growing presumptive Staph, maintained on vancomycin. 3. Fluid overload, currently off of IV fluids. We will increase UF as tolerated today. 4. Anemia of chronic disease. 5. CKD mineral bone disorder. PLAN: Increase UF as tolerated today. MMODL / IJN: [id number] /
[2018-02-07 11:53] LABS: Glucose,Whole Blood 206 mg/dL (75-99)
[2018-02-07 17:04] LABS: Glucose,Whole Blood 143 mg/dL (75-99)
[2018-02-07 20:20] LABS: Glucose,Whole Blood 218 mg/dL (75-99)
[2018-02-07] MEDS: INSULIN DETEMIR 100 UNIT/ML 10 ML VIAL SQ SCH (21:23)
[2018-02-07] MEDS: ATORVASTATIN 40 MG TAB PO SCH (21:23)
--- NOTE | 2018-02-08 00:09 | PN ---
PROGRESS NOTE DATE OF SERVICE: 02/07/2018. PRESENTING COMPLAINT: Left leg wound. INTERVAL HISTORY: This patient presented with traumatic left leg wound that did not heal, got infected. Also getting topical care. Did get hemodialysis today. Dressing is in place. Tolerating a diet. REVIEW OF SYSTEMS: Done for constitutional, cardiovascular, GI, pulmonary; relevant findings as above. CURRENT MEDICATIONS: Reviewed that include IV ceftriaxone and vancomycin. PHYSICAL EXAMINATION: Temperature 98.1, pulse 63, respirations 16, blood pressure 99/62, pulse ox 93 percent room air. GENERAL APPEARANCE: Sitting on the edge of bed, comfortable. Eyes pupils equal. Conjunctivae normal. NECK: JVD not raised. Mass not palpable. Respiratory effort normal. LUNGS: Decreased breath sounds. CARDIOVASCULAR: 1st and 2nd heart sounds normal. No edema. ABDOMEN: Soft. Liver and spleen not palpable. EXTREMITIES: Right above-knee amputation and left leg wound on the left vasquez. INVESTIGATIONS: Potassium 5.1, BUN 53, creatinine 5.77. Wound culture is growing MSSA. ASSESSMENT: 1. Left lower extremity wound from local trauma that failed outpatient treatment, growing MSSA. 2. End-stage kidney disease on hemodialysis Friday, , and Friday. 3. Right above-knee amputation. 4. Diabetes mellitus type 2, chronically on insulin, causing peripheral neuropathy. 5. Peripheral artery disease. 6. Permanent pacemaker for atrial fibrillation. 7. Hypertensive heart disease. 8. Obstructive sleep apnea uses CPAP. 9. Chronic gout. 10.Hypothyroidism. 11.Primary osteoarthritis. 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 13.Morbid obesity BMI 42.3. PLAN: Continue with IV ceftriaxone. Now dialyzed today. Probably patient can be discharged home in 1 or 2 days when wound is significantly healing better. Should be able to be discharged on Keflex. MMODL / IJN: [id number] /
[2018-02-08] MEDS: LEVOTHYROXINE 125 MCG TAB PO SCH (06:21)
[2018-02-08 06:58] LABS: Glucose,Whole Blood 161 mg/dL (75-99)
[2018-02-08 07:11] LABS: Calcium 8.5 mg/dL (8.4-10.2); Potassium 4.6 mmol/L (3.5-5.1)
[2018-02-08 07:16] LABS: Vancomycin,Random 24.1 ug/mL
[2018-02-08] MEDS: INSULIN ASPART 100 UNIT/ML 1 ML 10 ML VIAL SQ SCH ×7 (07:57→21:12)
[2018-02-08] MEDS: CALCIUM ACETATE 667 MG CAP PO SCH ×3 (07:58→17:45)
[2018-02-08] MEDS: METOPROLOL SUCCINATE (ER) 25 MG TAB.ER.24H PO SCH (08:01)
[2018-02-08] MEDS: PRENATAL VIT-IRON-FOLIC ACID 1 EACH CAP PO SCH (08:01)
[2018-02-08] MEDS: ISOSORBIDE MONONITRATE ER 30 MG TAB.ER.24H PO SCH (08:01)
[2018-02-08] MEDS: ALLOPURINOL 100 MG TAB PO SCH (08:01)
[2018-02-08] MEDS: ASPIRIN 81 MG PO SCH (08:01)
[2018-02-08] MEDS: AMIODARONE 200 MG TAB PO SCH (08:01)
[2018-02-08 11:58] LABS: Glucose,Whole Blood 206 mg/dL (75-99)
[2018-02-08 16:43] LABS: Glucose,Whole Blood 178 mg/dL (75-99)
[2018-02-08 20:39] LABS: Glucose,Whole Blood 147 mg/dL (75-99)
[2018-02-08] MEDS: ATORVASTATIN 40 MG TAB PO SCH (21:12)
[2018-02-08] MEDS: INSULIN DETEMIR 100 UNIT/ML 10 ML VIAL SQ SCH (21:13)
--- NOTE | 2018-02-08 22:16 | PN ---
PROGRESS NOTE DATE OF SERVICE: 02/08/2018 PRESENTING COMPLAINT: Left leg wound. INTERVAL HISTORY: Patient presented with traumatic left leg wound that was infected. Failed outpatient treatment. The patient is on hemodialysis. Overall feeling better, tolerating a diet. No fever. No chills. REVIEW OF SYSTEMS: Done for constitutional, cardiovascular, GI, pulmonary and findings as above. CURRENT MEDICATIONS: Reviewed that include IV ceftriaxone and vancomycin. PHYSICAL EXAMINATION: Temperature 98.7, pulse 66, respirations 16, blood pressure 103/68, pulse ox 99% on room air. GENERAL APPEARANCE: Sitting up in a chair, comfortable. EYES: Pupils equal. Conjunctivae normal. NECK: JVD not raised. Mass not palpable. Respiratory effort normal. LUNGS: Decreased breath sounds. CARDIOVASCULAR: First and second normal, no edema. ABDOMEN: Soft, nontender. Liver and spleen not palpable. EXTREMITIES: Right above-knee amputation. Left leg wound on left vasquez. INVESTIGATIONS: Potassium 4.6. Accu-Cheks are noted. Wound cultures is growing MSSA. ASSESSMENT: 1. Left lower extremity wound from local trauma that failed outpatient treatment growing MSSA. 2. End-stage kidney disease on hemodialysis Friday, , and Friday. 3. Right above-knee amputation. 4. Diabetes mellitus type 2, chronically on insulin causing peripheral neuropathy. 5. Peripheral artery disease. 6. Permanent pacemaker for atrial fibrillation. 7. Hypertensive heart disease. 8. Obstructive sleep apnea, uses CPAP. 9. Chronic gout. 10.Hypothyroidism. 11.Primary osteoarthritis. 12.Near blindness in left eye. 13.Morbid obesity, BMI 42.3. PLAN: Will give another day of IV antibiotic and should be able to switch over to Keflex before discharge. Hoping this can be done tomorrow. MMODL / IJN: [id number] /
[2018-02-09] MEDS: oxyCODONE-APAP 5-325MG 1 EACH TAB PO PRN (02:39)
[2018-02-09] MEDS: LEVOTHYROXINE 125 MCG TAB PO SCH (06:06)
[2018-02-09 07:24] LABS: Glucose,Whole Blood 168 mg/dL (75-99)
[2018-02-09 07:40] VITALS: PULSE 63
[2018-02-09] MEDS: CALCIUM ACETATE 667 MG CAP PO SCH ×2 (08:18→16:35)
[2018-02-09] MEDS: INSULIN ASPART 100 UNIT/ML 1 ML 10 ML VIAL SQ SCH ×4 (08:19→16:35)
[2018-02-09 09:24] LABS: Calcium 9.2 mg/dL (8.4-10.2); Potassium 5.6 mmol/L (3.5-5.1)
[2018-02-09 11:59] LABS: Glucose,Whole Blood 188 mg/dL (75-99)
--- NOTE | 2018-02-09 12:22 | P.PN ---
Subjective Progress Note Date: 02/09/18 Seen and examined for the follow-up of ESRD. Doing better. Objective - Vital Signs Vital signs: Vital Signs Temp 98.7 F 02/09/18 07:30 Pulse 63 02/09/18 07:30 Resp 18 02/09/18 07:30 BP 113/47 02/09/18 07:30 Pulse Ox 98 02/09/18 07:30 Intake & Output 02/08/18 02/09/18 02/09/18 18:59 06:59 18:59 Intake Total 60 150 Output Total 0 Balance 60 150 0 Weight 109 kg Intake: IV 10 0.9 10 Intake, IV Titration 50 Amount cefTRIAXone 1,000 mg In 50 Sodium Chloride 0.9% 50 ml @ 100 mls/hr IVPB Q24HR [facility] Rx#:[id number] Oral 150 Output: Stool 0 Other: Voiding Method Bedside Commode Bedside Commode # Voids 0 0 - Exam No acute distress S1-S2 heard Lungs clear No edema. Right BKA - Labs CBC & Chem 7: 02/05/18 20:11 02/09/18 08:17 Labs: Abnormal Lab Results - Last 24 Hours (Table) 02/08/18 02/08/18 02/09/18 Range/Units 16:31 20:28 07:11 Potassium (3.5-5.1) mmol/L BUN (7-17) mg/dL Creatinine (0.52-1.04) mg/dL Glucose (74-99) mg/dL POC Glucose (mg/dL) 178 H 147 H 168 H (75-99) mg/dL 02/09/18 02/09/18 Range/Units 08:17 11:47 Potassium 5.6 H (3.5-5.1) mmol/L BUN 67 H (7-17) mg/dL Creatinine 6.50 H (0.52-1.04) mg/dL Glucose 144 H (74-99) mg/dL POC Glucose (mg/dL) 188 H (75-99) mg/dL Microbiology - Last 24 Hours (Table) 02/05/18 20:11 Blood Culture - Preliminary Blood No Growth after 72 hours Assessment and Plan Assessment: #1 left leg wound cellulitis on antibiotics as per infectious diseases #2 ESRD TTS #3 hypertension with ESRD #4 anemia with ESRD #5 metabolic bone disease with ESRD. Plan: #1 hemodialysis today as per holiday schedule. Plan again on . #2 ESRD medications
[2018-02-09 15:43] VITALS: BP 108/64; RESP 16; TEMP 98.2
[2018-02-09] MEDS: ALLOPURINOL 100 MG TAB PO SCH (16:34)
[2018-02-09] MEDS: ISOSORBIDE MONONITRATE ER 30 MG TAB.ER.24H PO SCH (16:35)
[2018-02-09] MEDS: PRENATAL VIT-IRON-FOLIC ACID 1 EACH CAP PO SCH (16:35)
[2018-02-09] MEDS: AMIODARONE 200 MG TAB PO SCH (16:35)
[2018-02-09] MEDS: ASPIRIN 81 MG PO SCH (16:35)
[2018-02-09] MEDS: METOPROLOL SUCCINATE (ER) 25 MG TAB.ER.24H PO SCH (16:35)
--- NOTE | 2018-02-10 12:57 | DS ---
DISCHARGE SUMMARY DATE OF ADMISSION: 02/06/2018 DATE OF DISCHARGE: 02/09/2018 FINAL DIAGNOSES: 1. Left lower extremity wound from local trauma that failed outpatient treatment growing MSSA. 2. End-stage kidney disease on hemodialysis Friday, , and Friday. 3. Right above-knee amputation. 4. Diabetes mellitus type 2, chronically on insulin causing peripheral neuropathy. 5. Peripheral artery disease. 6. Permanent pacemaker for atrial fibrillation. 7. Hypertensive heart disease. 8. Obstructive sleep apnea, uses CPAP. 9. Chronic gout. 10.Hypothyroidism. 11.Primary osteoarthritis. 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 13.Morbid obesity, BMI 42.3. HOSPITAL COURSE: This patient who was nursing her like after she got bumped on a blunt object and it started draining, presented for the same. Cultures did grow MSSA. The patient also got honey wound dressing to which she greatly responded. The patient did get IV ceftriaxone and vancomycin here. CONSULTATION: Dr. Pattersons from Nephrology, Dr. Chambers, Infectious Disease. The patient doing much better at time of discharge. PHYSICAL EXAMINATION: Temperature 98.2, pulse 63, respirations 16, blood pressure 118/64. Lungs have fair entry. INVESTIGATIONS: Potassium 5.6, BUN 67, creatinine 6.50 before dialysis today. HOME GO MEDICATIONS: 1. Allopurinol 100 mg a day. 2. Amiodarone 200 mg a day. 3. Imdur 30 mg a day. 4. NovoLog 5 units subcu a.c. t.i.d. 5. Aspirin 81 mg a day. 6. Lipitor 40 mg q.h.s. 7. PhosLo 667 mg p.o. t.i.d. 8. Insulin Lantus 10 units subcu q.h.s. 9. Synthroid 125 mcg a day. 10.Metoprolol 12.5 p.o. daily. 11.-U capsule, 1 capsule p.o. daily. 12.Keflex 100 mg q.8, 30 capsules. 13.Wound dressing with honey on Friday, Friday and Friday with home care. Discussion and discharge planning more than [address] Arredondo in 1 week and follow with [facility]. FOLLOW UP: And follow up with [facility] copy Dr. Arredondo. MMODL / IJN: [id number] /
--- NOTE | 2018-02-12 11:44 | CDI ---
Documentation Clarification Form Date: 02/12/18 From: JAIDEN Bales Phone: If you have question, contact Anette Clark at [phone] M-F 8:30 am to 6pm Admit Date: 02/05/2018 11:20:00 PM Patient Name: Fatmata Jones Visit Number: [id number] Discharge Date: 02/09/2018 5:20:00 PM ATTENTION: The Clinical Documentation Specialists (CDI) and [facility] Coding Staff appreciate your assistance in clarifying documentation. Please respond to the clarification below the line at the bottom and electronically sign. The CDI & [facility] Coding staff will review the response and follow-up if needed. Please note: Queries are made part of the Legal Health Record. If you have any questions, please contact the author of this message via ITS. Dr. Sadiq Fairchild Ms Jones is admitted with cellulitis and abscess of the left leg. The patient has a history of diabetes with peripheral neuropathy as well as a history of peripheral artery disease with a history of one foot amputation and a right BKA. Treatment: vancomycin Compromise of the blood supply from microvascular disease, often in association with lack of sensation because of neuropathy, predisposes persons with diabetes mellitus to foot infections. These infections span the spectrum from simple, superficial cellulitis to chronic osteomyelitis. In order to link the diabetes and the cellulitis, the provider would need to document cellulitis as a diabetic skin complication. Further clarification regarding a possible link between diabetes and cellulitis is needed for proper reporting purposes. Cellulitis related to diabetes mellitus Cellulitis not related to diabetes mellitus Other (please specify) Unable to determine ____ acute cellulitis secondary to trauma NOT diabetes mellitus MTDD
== END 2018-02-09 17:20 | disposition home health service (06) | DRG 602 ==
LOC: EC 19:50 → 3SCARD 23:20 → 4SSUR 02-07 16:35
PROVIDERS: ADMIT Hospitalist; ATTEND Hospitalist
DX: L03.116 Cellulitis of left lower limb (principal); N18.6 End stage renal disease; Z68.41 Body mass index [BMI] 40.0-44.9, adult; I13.2 Hypertensive heart and chronic kidney disease with heart failure and with stage 5 chronic kidney disease, or end stage renal disease; L02.416 Cutaneous abscess of left lower limb; E11.51 Type 2 diabetes mellitus with diabetic peripheral angiopathy without gangrene; D63.1 Anemia in chronic kidney disease; M1A.9XX0 Chronic gout, unspecified, without tophus (tophi); E66.01 Morbid (severe) obesity due to excess calories; E03.9 Hypothyroidism, unspecified; M19.91 Primary osteoarthritis, unspecified site; E11.22 Type 2 diabetes mellitus with diabetic chronic kidney disease; E11.42 Type 2 diabetes mellitus with diabetic polyneuropathy; E78.5 Hyperlipidemia, unspecified; E88.89 Other specified metabolic disorders; H54.62 Unqualified visual loss, left eye, normal vision right eye; I50.9 Heart failure, unspecified; I25.10 Atherosclerotic heart disease of native coronary artery without angina pectoris; J44.9 Chronic obstructive pulmonary disease, unspecified; K21.9 Gastro-esophageal reflux disease without esophagitis; G47.33 Obstructive sleep apnea (adult) (pediatric); M81.0 Age-related osteoporosis without current pathological fracture; I48.91 Unspecified atrial fibrillation; B95.61 Methicillin susceptible Staphylococcus aureus infection as the cause of diseases classified elsewhere; Z99.2 Dependence on renal dialysis; Z79.4 Long term (current) use of insulin; Z99.89 Dependence on other enabling machines and devices; Z95.0 Presence of cardiac pacemaker; Z79.82 Long term (current) use of aspirin; Z79.890 Hormone replacement therapy; Z79.899 Other long term (current) drug therapy; Z80.1 Family history of malignant neoplasm of trachea, bronchus and lung; Z82.49 Family history of ischemic heart disease and other diseases of the circulatory system; Z83.3 Family history of diabetes mellitus; Z89.511 Acquired absence of right leg below knee; S80.922S Unspecified superficial injury of left lower leg, sequela
CPT/HCPCS: 36415; 80048; 80053; 80202; 83036; 83605; 84484; 85025; 85610; 85730; 87040; 87070; 87077; 87186; 87205; 90935; 93005; 96365; 96366; 99285

== ENCOUNTER 2018-05-15 12:52 | Inpatient (IN) | payer MEDICARE, BC ==
--- NOTE | 2018-05-15 13:02 | US ---
EXAMINATION TYPE: US venous doppler duplex UE RT DATE OF EXAM: 05/15/2018 COMPARISON: NONE CLINICAL HISTORY: M79.601 right arm pain. Pain right arm for 4 months. Dialysis graft right forearm 5 -6 years SIDE PERFORMED: right Grayscale, color doppler, spectral doppler imaging performed of the deep veins of the right upper ext remity. There is normal flow, compressibility and vascular waveforms. Right Arm: +positive for DVT, thrombus with no compression right IJV. Thready flow proximal subclavia n vein. Flow is seen within the mid subclavian vein and there is flow with compressibility of the axi llary, brachial, basilic and cephalic veins with flow seen in the ulnar and radial veins as well as c ompression. IMPRESSION: Positive deep venous thrombosis within the internal jugular vein extending into the proxi mal subclavian vein. Preliminary results given to Suyapa at the ordering physician's office at end o f exam by the oleo hasher and renderer.
[2018-05-15] MEDS ORDERED: SODIUM CHLORIDE 0.9% 500 ML 500 ML IV STA (14:26)
[2018-05-15] MEDS ORDERED: HEPARIN SODIUM,PORCINE 5,000 UNIT/ML 1 ML VIAL IV PRN (14:32)
[2018-05-15] MEDS ORDERED: HEPARIN SODIUM,PORCINE 10,000 UNIT/ML 1 ML VIAL IV ONE (14:32)
--- NOTE | 2018-05-15 14:56 | ED ---
General Adult HPI - General Chief complaint: Recheck/Abnormal Lab/Rx Stated complaint: DVT Source: patient, RN notes reviewed Mode of arrival: ambulatory Limitations: no limitations - History of Present Illness Initial comments: 68-year-old female with a past medical history of end-stage renal disease or arrhythmia dialysis, diabetes mellitus, GERD, heart failure, COPD presents to the emergency department for a chief complaint of abnormal ultrasound. Patient states she has been experiencing pain and paresthesias in the right arm for 4 months. Patient states she had an outpatient ultrasound done today. This does show a DVT was in the internal jugular vein extending into the proximal subclavian vein. Patient was sent here to the emergency department for this, started on high-dose hepari denies any significant shortness of breath. Denies chest pain. Patient states she last received dialysis yesterday through the right arm. Patient has no other complaints at this time including shortness of breath, chest pain, abdominal pain, nausea or vomiting, headache, or visual changes. - Related Data Home Medications Medication Instructions Recorded Confirmed Allopurinol [Zyloprim] 100 mg PO DAILY 08/16/13 05/15/18 Amiodarone HCl [Pacerone] 200 mg PO DAILY 08/16/13 05/15/18 Isosorbide Mononitrate [Imdur] 30 mg PO DAILY 08/16/13 05/15/18 INSULIN ASPART (NovoLOG) [NovoLOG 10 unit SQ AC-TID 02/05/18 05/15/18 (formulary)] Aspirin 81 mg PO DAILY 02/06/18 05/15/18 Atorvastatin [Lipitor] 40 mg PO HS 02/06/18 05/15/18 Insulin Glargine,Hum.rec.anlog 20 unit SQ HS 02/06/18 05/15/18 [Basaglar Kwikpen U-100] Psa-Keby-Zyeod Acid 1 cap PO DAILY 02/06/18 05/15/18 [-U Capsule (formulary)] Albuterol Inhaler [Ventolin Hfa 2 puff INHALATION RT-Q4H PRN 05/15/18 05/15/18 Inhaler] Amitriptyline HCl [Elavil] 50 mg PO HS 05/15/18 05/15/18 Levothyroxine Sodium [Synthroid] 100 mcg PO DAILY 05/15/18 05/15/18 Metoprolol Succinate (ER) [Toprol 12.5 mg PO DAILY 05/15/18 05/15/18 Xl] Allergies Allergy/AdvReac Type Severity Reaction Status Date / Time meperidine HCl [From Demerol] AdvReac Nausea & Verified 05/15/18 13:28 Vomiting & Diarrhea Review of Systems ROS Statement: Those systems with pertinent positive or pertinent negative responses have been documented in the HPI. ROS Other: All systems not noted in ROS Statement are negative. Past Medical History Past Medical History: No Reported History, Heart Failure, COPD, Diabetes Mellitus, Eye Disorder, GERD/Reflux, Renal Disease, Thyroid Disorder Additional Past Medical History / Comment(s): Hx. 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 10 years ago for infection with eliel placement.01/17/16 ANGIOPLASTY/STENT RT SFA, eye surgery. rt bka 02/01 Past Anesthesia/Blood Transfusion Reactions: No Reported Reaction Additional Past Anesthesia/Blood Transfusion Reaction / Comment(s): HAD BLOOD TRANFUSIONS WITHOUT COMPLICATION Type of Cardiac Device: Permanent Pacemaker Device Placement Date:: 2008 Past Psychological History: Anxiety, Depression Smoking Status: Never smoker Past Alcohol Use History: None Reported Past Drug Use History: None Reported - Past Family History Father Family Medical History: Hypertension Additional Family Medical History / Comment(s): Father at age 56 from lung cancer. Mother Family Medical History: Cancer Additional Family Medical History / Comment(s): Mother at age 56 from lung cancer. Brother(s) Family Medical History: Diabetes Mellitus, Renal Disease Additional Family Medical History / Comment(s): Patient has 2 brothers. One at age 45 from myocardial infarction with history of heart defect from . Second brother is alive at age 59 with history of coronary artery disease and diabetes, bone marrow transplant Sister(s) Additional Family Medical History / Comment(s): Patient has a sister age 57 alive with history of diabetes and spina bifida. Daughter(s) Family Medical History: No Reported History Additional Family Medical History / Comment(s): Pre-diabetes General Exam Limitations: no limitations General appearance: alert, in no apparent distress Head exam: Present: atraumatic, normocephalic, normal inspection Eye exam: Present: normal appearance, PERRL, EOMI. Absent: scleral icterus, conjunctival injection, periorbital swelling ENT exam: Present: normal exam, mucous membranes moist Neck exam: Present: normal inspection, full ROM. Absent: tenderness, meningismus, lymphadenopathy Respiratory exam: Present: normal lung sounds bilaterally. Absent: respiratory distress, wheezes, rales, rhonchi, stridor Cardiovascular Exam: Present: regular rate, normal rhythm, normal heart sounds. Absent: systolic murmur, diastolic murmur, rubs, gallop, clicks GI/Abdominal exam: Present: soft, normal bowel sounds. Absent: distended, tenderness, guarding, rebound, rigid Extremities exam: Present: other (port noted in the right forear, thrill palpated) Neurological exam: Present: alert, oriented X3, CN II-XII intact Psychiatric exam: Present: normal affect, normal mood Course Vital Signs 05/15/18 05/15/18 05/15/18 12:55 15:35 17:01 Temperature 97.7 F Pulse Rate 61 64 61 Respiratory 16 18 18 Rate Blood Pressure 117/61 115/59 128/59 O2 Sat by Pulse 100 99 99 Oximetry 05/15/18 18:28 Temperature 98.0 F Pulse Rate 60 Respiratory 16 Rate Blood Pressure 127/56 O2 Sat by Pulse 98 Oximetry - Reevaluation(s) Reevaluation #1: 05/15/18 17:43 Dr Rollins saw patient, recommends transfer to facility of patients vascular surgeon, Dr Hodgson, at [facility]. Discussed case with ER physician at [facility] as well as admissions department who are not able to accept patient as both the ER and the hospital are full Spoke with Dr. Hodgson personally, recommends no transfer, anticoagulation therapy. Medical Decision Making - Medical Decision Making 60-year-old female with a past medical history significant for ESRD, diabetes, COPD, heart failure presents to the emergency department for a chief complaint of DVT in the right internal jugular vein extending into the proximal subclavian vein. This was done outpatient as patient has been having her see does in the right arm for several months. Patient last received dialysis in the right arm yesterday, scheduled for dialysis tomorrow. Thrill and bruit noted in right port. CBC unremarkable. CMP does show a sodium of 133. Creatinine 6.23, this is patient's baseline. Glucose 46, patient given 6 units of regular insulin IV. Multiple phone calls were made throughout this patient's stay. Dr. Oakley first of the patient who then recommended she be transferred to facility where she has her vascular surgeon. Attempted to transfer patient to [facility] however they were full and could not accept transfer. I did then speak with her vascular surgeon Dr. Hodgson who states transfer is not necessary, patient can receive anticoagulation therapy without transfer. Dr. Lala then made several phone calls as well to ensure proper placement for patient. Patient will be admitted here for anticoagulation therapy. - Lab Data Result diagrams: 05/15/18 14:40 05/15/18 14:40 Lab Results 05/15/18 05/15/18 05/15/18 Range/Units 14:40 14:40 14:40 WBC 6.7 (3.8-10.6) k/uL RBC 3.59 L (3.80-5.40) m/uL Hgb 11.7 (11.4-16.0) gm/dL Hct 35.6 (34.0-46.0) % MCV 99.4 (80.0-100.0) fL MCH 32.5 (25.0-35.0) pg MCHC 32.7 (31.0-37.0) g/dL RDW 14.5 (11.5-15.5) % Plt Count 138 L (150-450) k/uL Neutrophils % 72 % Lymphocytes % 15 % Monocytes % 7 % Eosinophils % 4 % Basophils % 1 % Neutrophils # 4.8 (1.3-7.7) k/uL Lymphocytes # 1.0 (1.0-4.8) k/uL Monocytes # 0.4 (0-1.0) k/uL Eosinophils # 0.3 (0-0.7) k/uL Basophils # 0.0 (0-0.2) k/uL Hypochromasia Slight Poikilocytosis Slight Macrocytosis Slight PT 10.7 (9.0-12.0) sec INR 1.0 (<1.2) APTT 28.4 (22.0-30.0) sec Sodium 133 L (137-145) mmol/L Potassium 4.7 (3.5-5.1) mmol/L Chloride 93 L (98-107) mmol/L Carbon Dioxide 25 (22-30) mmol/L Anion Gap 15 mmol/L BUN 68 H (7-17) mg/dL Creatinine 6.23 H (0.52-1.04) mg/dL Est GFR (CKD-EPI)AfAm 7 (>60 ml/min/1.73 sqM) Est GFR (CKD-EPI)NonAf 6 (>60 ml/min/1.73 sqM) Glucose 486 H (74-99) mg/dL Calcium 8.7 (8.4-10.2) mg/dL Total Bilirubin 0.6 (0.2-1.3) mg/dL AST 20 (14-36) U/L ALT 32 (9-52) U/L Alkaline Phosphatase 88 (38-126) U/L Total Protein 6.9 (6.3-8.2) g/dL Albumin 4.1 (3.5-5.0) g/dL Disposition Clinical Impression: ESRD (end stage renal disease), DVT (deep venous thrombosis) Disposition: ADMITTED IP TO THIS HOSP Condition: Fair Is patient prescribed a controlled substance at d/c from ED?: No Time of Disposition: 18:51
[2018-05-15 14:58] LABS: Basophils % (A) 1 %; Eosinophils # (A) 0.3 k/uL (0-0.7); Eosinophils % (A) 4 %; HCT 35.6 % (34.0-46.0); HGB 11.7 gm/dL (11.4-16.0); Hypochromasia Slight; Lymphocytes % (A) 15 %; MCH 32.5 pg (25.0-35.0); MCHC 32.7 g/dL (31.0-37.0); MCV 99.4 fL (80.0-100.0); Macrocytosis Slight; Mean Platelet Volume 7.6; Monocytes # (A) 0.4 k/uL (0-1.0); Monocytes % (A) 7 %; Neutrophils # (A) 4.8 k/uL (1.3-7.7); Neutrophils % (A) 72 %; Platelet Count 138 k/uL (150-450); Poikilocytosis Slight; RBC 3.59 m/uL (3.80-5.40); RDW 14.5 % (11.5-15.5); WBC 6.7 k/uL (3.8-10.6)
[2018-05-15 15:07] LABS: Albumin 4.1 g/dL (3.5-5.0); Calcium 8.7 mg/dL (8.4-10.2); Potassium 4.7 mmol/L (3.5-5.1); Total Bilirubin 0.6 mg/dL (0.2-1.3); Total Protein 6.9 g/dL (6.3-8.2)
[2018-05-15 15:13] LABS: Partial Thromboplastin Time 28.4 sec (22.0-30.0); Prothrombin Time 10.7 sec (9.0-12.0)
[2018-05-15] MEDS: HEPARIN SOD,PORK IN 0.45% NACL 25,000 UNIT in 0.45% NACL 1 250ML.BAG IV SCH (15:33)
[2018-05-15] MEDS ORDERED: INSULIN REGULAR 100 UNIT/ML VIAL IV ONE (15:52)
[2018-05-15] MEDS ORDERED: NALOXONE 0.4 MG/ML 1 ML VIAL IV PRN (18:43)
--- NOTE | 2018-05-15 19:26 | P.HPIM ---
History of Present Illness H&P Date: 05/15/18 The patient is a 68 yo F with a PMH of ESRD on HD (via RUE graft), HTN, HLD, DM, COPD, and gout who presented due to R arm numbness along with R sided neck pain. The patient reports that her pain has been ongoing for several weeks to months but recently noticed that it gotten worse which prompted her to come to the ED. She associates the pain went occasional right arm numbness and tingling. She otherwise denied fever, chills, nausea, vomiting, headaches, weakness, chest pain, or SOB. The patient underwent an extensive evaluation in the emergency room with WBC count 6.0 hemoglobin 10.6, and a right upper extremity venous duplex which revealed an internal jugular and proximal subclavian vein DVT. The patient was started on heparin infusion and vascular surgery was consulted. The patient was ultimately admitted to the medicine service for further management. Review of Systems Pertinent positives and negatives as discussed in HPI, a complete review of syst ems was performed and all other systems are negative. Past Medical History Past Medical History: No Reported History, Heart Failure, COPD, Diabetes Mellitus, Eye Disorder, GERD/Reflux, Renal Disease, Thyroid Disorder Additional Past Medical History / Comment(s): Hx. 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 rt bka 02/01 Past Anesthesia/Blood Transfusion Reactions: No Reported Reaction Additional Past Anesthesia/Blood Transfusion Reaction / Comment(s): HAD BLOOD TRANFUSIONS WITHOUT COMPLICATION Type of Cardiac Device: Permanent Pacemaker Device Placement Date:: 2008 Past Psychological History: Anxiety, Depression Smoking Status: Never smoker Past Alcohol Use History: None Reported Past Drug Use History: None Reported - Past Family History Father Family Medical History: Hypertension Additional Family Medical History / Comment(s): Father at age 56 from lung cancer. Mother Family Medical History: Cancer Additional Family Medical History / Comment(s): Mother at age 56 from lung cancer. Brother(s) Family Medical History: Diabetes Mellitus, Renal Disease Additional Family Medical History / Comment(s): Patient has 2 brothers. One at age 45 from myocardial infarction with history of heart defect from . Second brother is alive at age 59 with history of coronary artery disease and diabetes, bone marrow transplant Sister(s) Additional Family Medical History / Comment(s): Patient has a sister age 57 alive with history of diabetes and spina bifida. Daughter(s) Family Medical History: No Reported History Additional Family Medical History / Comment(s): Pre-diabetes Medications and Allergies Home Medications Medication Instructions Recorded Confirmed Type Allopurinol [Zyloprim] 100 mg PO DAILY 08/16/13 05/15/18 History Amiodarone HCl [Pacerone] 200 mg PO DAILY 08/16/13 05/15/18 History Isosorbide Mononitrate [Imdur] 30 mg PO DAILY 08/16/13 05/15/18 History INSULIN ASPART (NovoLOG) [NovoLOG 10 unit SQ AC-TID 02/05/18 05/15/18 History (formulary)] Aspirin 81 mg PO DAILY 02/06/18 05/15/18 History Atorvastatin [Lipitor] 40 mg PO HS 02/06/18 05/15/18 History Insulin Glargine,Hum.rec.anlog 20 unit SQ HS 02/06/18 05/15/18 History [Gavin Hummel U-100] Xef-Tdaf-Lluqz Acid 1 cap PO DAILY 02/06/18 05/15/18 History [-U Capsule (formulary)] Albuterol Inhaler [Ventolin Hfa 2 puff INHALATION RT-Q4H PRN 05/15/18 05/15/18 History Inhaler] Amitriptyline HCl [Elavil] 50 mg PO HS 05/15/18 05/15/18 History Levothyroxine Sodium [Synthroid] 100 mcg PO DAILY 05/15/18 05/15/18 History Metoprolol Succinate (ER) [Toprol 12.5 mg PO DAILY 05/15/18 05/15/18 History Xl] Allergies Allergy/AdvReac Type Severity Reaction Status Date / Time meperidine HCl [From Demerol] AdvReac Nausea & Verified 05/15/18 13:28 Vomiting & Diarrhea Physical Exam Vitals: Vital Signs Temp Pulse Resp BP Pulse Ox 05/15/18 18:28 98.0 F 60 16 127/56 98 05/15/18 17:01 61 18 128/59 99 05/15/18 15:35 64 18 115/59 99 05/15/18 12:55 97.7 F 61 16 117/61 100 Intake and Output 05/15/18 05/15/18 05/15/18 06:59 14:59 22:59 Other: Weight 90.718 kg General: non toxic, no distress, appears older than age, obese Derm: no unusual rashes/lesions no unusual ecchymoses, warm, dry Head: atraumatic, normocephalic, symmetric Eyes: EOMI, no lid lag, anicteric sclera, pupils equal round reactive to light ENT: Nose and ears atraumatic, no thrush, no pharyngeal erythema Neck: No thyromegaly, no cervical lymphadenopathy, trachea midline, supple Mouth: no lip lesion, mucus membranes moist Cardiovascular: S1S2 reg, no murmur, positive posterior tibial pulse bilateral, no edema, capillary refill less than 2 seconds Lungs: Mild bibasilar rales, no accessory muscle use Abdominal: soft, nontender to palpation, no guarding, no appreciable organomegaly, normal bowel sounds Ext: no gross muscle atrophy, muscle strength 5 out of 5 in all 4 extremities grossly, no contractures, right upper extremity graft with decreased thrill and mild audible bruit Neuro: CN II-XI grossly intact, light touch intact all 4 extremities, finger to nose within normal limits, Psych: Alert, oriented, appropriate affect Results CBC & Chem 7: 05/16/18 03:17 05/15/18 14:40 Labs: Abnormal Lab Results - Last 24 Hours (Table) 05/15/18 05/15/18 Range/Units 14:40 14:40 RBC 3.59 L (3.80-5.40) m/uL Plt Count 138 L (150-450) k/uL Sodium 133 L (137-145) mmol/L Chloride 93 L (98-107) mmol/L BUN 68 H (7-17) mg/dL Creatinine 6.23 H (0.52-1.04) mg/dL Glucose 486 H (74-99) mg/dL Assessment and Plan Plan: Internal jugular and subclavian vein DVT -C/w Heparin infusion -Vascular surgery consulted -Monitor CBC ESRD on HD -Dialysis as per schedule -Nephrology consulted Hypertension, hyperlipidemia, COPD -Resume home medications DVT//GI prophylaxis -Heparin infusion -Protonix The patient is admitted with an anticipated greater than 2 midnight stay for evaluation of neck and arm pain. CODE STATUS:Full Code Discussed with: patient Anticipated discharge date: 05/18/[address]: Home A total of 35 minutes was spent on the care of this complex patient more than 50% of the time was spent in counseling and care coordination.
[2018-05-15 20:05] LABS: Glucose,Whole Blood 350 mg/dL (75-99)
[2018-05-15 20:50] LABS: Glucose,Whole Blood 379 mg/dL (75-99)
[2018-05-15] MEDS: INSULIN ASPART (NovoLOG) 100 UNIT/ML VIAL SQ SCH (21:12)
[2018-05-15 22:32] LABS: Glucose,Whole Blood 338 mg/dL (75-99)
[2018-05-15] MEDS ORDERED: INSULIN ASPART (NovoLOG) 100 UNIT/ML VIAL SQ ONE (23:56)
[2018-05-16] MEDS: INSULIN DETEMIR (LEVEMIR) 100 UNIT/ML SYR SQ SCH ×2 (00:32→20:43)
[2018-05-16 03:44] LABS: Basophils % (A) 1 %; Eosinophils # (A) 0.3 k/uL (0-0.7); Eosinophils % (A) 5 %; HCT 32.9 % (34.0-46.0); HGB 10.6 gm/dL (11.4-16.0); Hypochromasia Slight; Lymphocytes # (A) 1.3 k/uL (1.0-4.8); Lymphocytes % (A) 22 %; MCH 31.9 pg (25.0-35.0); MCHC 32.1 g/dL (31.0-37.0); MCV 99.2 fL (80.0-100.0); Macrocytosis Slight; Mean Platelet Volume 7.1; Monocytes # (A) 0.3 k/uL (0-1.0); Monocytes % (A) 5 %; Neutrophils # (A) 3.9 k/uL (1.3-7.7); Neutrophils % (A) 65 %; Platelet Count 119 k/uL (150-450); Poikilocytosis Slight; RBC 3.32 m/uL (3.80-5.40); RDW 14.5 % (11.5-15.5)
[2018-05-16 04:43] LABS: Glucose,Whole Blood 178 mg/dL (75-99)
[2018-05-16 07:40] LABS: Glucose,Whole Blood 115 mg/dL (75-99)
[2018-05-16] MEDS: INSULIN ASPART (NovoLOG) 100 UNIT/ML VIAL SQ SCH ×6 (08:04→20:43)
[2018-05-16] MEDS ORDERED: ALBUTEROL NEBULIZED 2.5 MG/3 ML INHALATION PRN (08:35)
[2018-05-16] MEDS: AMIODARONE 200 MG TAB PO SCH (10:39)
[2018-05-16] MEDS: ASPIRIN 81 MG PO SCH (10:39)
[2018-05-16] MEDS: ISOSORBIDE MONONITRATE ER 30 MG TAB.ER.24H PO SCH (10:39)
[2018-05-16] MEDS: ALLOPURINOL 100 MG TAB PO SCH (10:39)
[2018-05-16] MEDS: METOPROLOL SUCCINATE (ER) 25 MG TAB.ER.24H PO SCH (10:39)
[2018-05-16] MEDS: LEVOTHYROXINE 100 MCG TAB PO SCH (10:40)
[2018-05-16] MEDS: HEPARIN SOD,PORK IN 0.45% NACL 25,000 UNIT in 0.45% NACL 1 250ML.BAG IV SCH (11:22)
[2018-05-16 11:57] LABS: Glucose,Whole Blood 278 mg/dL (75-99)
[2018-05-16] MEDS: DOCUSATE 100 MG CAP PO PRN (14:20)
[2018-05-16] MEDS: PRENATAL VIT-IRON-FOLIC ACID 1 EACH CAP PO SCH (14:20)
--- NOTE | 2018-05-16 15:44 | P.NPCON ---
History of Present Illness - Reason for Consult Consult date: 05/16/18 end stage renal disease - Chief Complaint Right arm pain. - History of Present Illness Patient of Dr. Jefferson ESRD on hemodialysis. Coming to the hospital with right arm pain. Workup showed right IJ and subclavian DVT. She has multiple grafts with clotting issues. No nausea vomiting diarrhea. Tolerated. Runoff dialysis today. Currently on heparin drip. No chest pain shortness of breath or palpitations. Review of Systems Constitutional: Reports as per HPI Past Medical History Past Medical History: No Reported History, Heart Failure, COPD, Diabetes Mellitus, Eye Disorder, GERD/Reflux, Renal Disease, Thyroid Disorder Additional Past Medical History / Comment(s): Hx. 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 rt bka 02/01 Past Anesthesia/Blood Transfusion Reactions: No Reported Reaction Additional Past Anesthesia/Blood Transfusion Reaction / Comment(s): HAD BLOOD TRANFUSIONS WITHOUT COMPLICATION Type of Cardiac Device: Permanent Pacemaker Device Placement Date:: 2008 Past Psychological History: Anxiety, Depression Smoking Status: Never smoker Past Alcohol Use History: None Reported Past Drug Use History: None Reported - Past Family History Father Family Medical History: Hypertension Additional Family Medical History / Comment(s): Father at age 56 from lung cancer. Mother Family Medical History: Cancer Additional Family Medical History / Comment(s): Mother at age 56 from lung cancer. Brother(s) Family Medical History: Diabetes Mellitus, Renal Disease Additional Family Medical History / Comment(s): Patient has 2 brothers. One at age 45 from myocardial infarction with history of heart defect from . Second brother is alive at age 59 with history of coronary artery disease and diabetes, bone marrow transplant Sister(s) Additional Family Medical History / Comment(s): Patient has a sister age 57 alive with history of diabetes and spina bifida. Daughter(s) Family Medical History: No Reported History Additional Family Medical History / Comment(s): Pre-diabetes Medications and Allergies Home Medications Medication Instructions Recorded Confirmed Type Allopurinol [Zyloprim] 100 mg PO DAILY 08/16/13 05/15/18 History Amiodarone HCl [Pacerone] 200 mg PO DAILY 08/16/13 05/15/18 History Isosorbide Mononitrate [Imdur] 30 mg PO DAILY 08/16/13 05/15/18 History INSULIN ASPART (NovoLOG) [NovoLOG 10 unit SQ AC-TID 02/05/18 05/15/18 History (formulary)] Aspirin 81 mg PO DAILY 02/06/18 05/15/18 History Atorvastatin [Lipitor] 40 mg PO HS 02/06/18 05/15/18 History Insulin Glargine,Hum.rec.anlog 20 unit SQ HS 02/06/18 05/15/18 History [Basaglar Kwikpen U-100] Vzi-Rcjv-Abxsl Acid 1 cap PO DAILY 02/06/18 05/15/18 History [-U Capsule (formulary)] Albuterol Inhaler [Ventolin Hfa 2 puff INHALATION RT-Q4H PRN 05/15/18 05/15/18 History Inhaler] Amitriptyline HCl [Elavil] 50 mg PO HS 05/15/18 05/15/18 History Levothyroxine Sodium [Synthroid] 100 mcg PO DAILY 05/15/18 05/15/18 History Metoprolol Succinate (ER) [Toprol 12.5 mg PO DAILY 05/15/18 05/15/18 History Xl] Allergies Allergy/AdvReac Type Severity Reaction Status Date / Time meperidine HCl [From Demerol] AdvReac Nausea & Verified 05/15/18 13:28 Vomiting & Diarrhea Physical Exam Vitals: Vital Signs Temp Pulse Pulse Pulse Resp BP BP 05/16/18 15:33 58 L 12 05/16/18 08:00 12 05/16/18 07:00 98 F 58 L 12 103/70 05/16/18 01:02 98.2 F 60 16 112/71 05/15/18 20:40 74 18 125/78 05/15/18 18:28 98.0 F 60 16 127/56 05/15/18 17:01 61 18 128/59 Pulse Ox 05/16/18 15:33 05/16/18 08:00 05/16/18 07:00 100 05/16/18 01:02 98 05/15/18 20:40 100 05/15/18 18:28 98 05/15/18 17:01 99 Intake and Output 05/16/18 05/16/18 05/16/18 06:59 14:59 22:59 Intake Total 366.278 685.259 Balance 366.278 685.259 Intake: Intake, IV Titration 126.278 185.259 Amount Heparin Sod,Pork in 0.45% 126.278 185.259 NaCl 25,000 unit In 0.45 % NaCl 1 250ml.bag @ 18 UNITS/KG/HR 16.329 mls/hr IV .[id number] [facility] Rx#: [id number] Oral 240 500 No acute distress sitting comfortably. S1-S2 heard lungs clear Right forearm loop graft. Good radial pulse. Results - Lab Results Most recent lab results Calcium 8.7 mg/dL (8.4-10.2) 05/15/18 14:40 05/16/18 03:17 05/15/18 14:40 Assessment and Plan Assessment: #1 ESRD TTS #2 right jugular and subclavian DVT #3 hypertension with ESRD #4 anemia with ESRD #5 metabolic bone disease with ESRD Plan: #1 hemodialysis as per outpatient schedule today. #2 currently on heparin drip. Can be changed to oral anticoagulants and Eliquis or warfarin at discharge to be followed up with vascular surgery as outpatient. #3 ESRD medications
[2018-05-16 17:05] LABS: Glucose,Whole Blood 187 mg/dL (75-99)
--- NOTE | 2018-05-16 17:58 | P.PN ---
Subjective Progress Note Date: 05/16/18 The patient is a 68 yo F with a PMH of ESRD on HD (via RUE graft), HTN, HLD, DM, COPD, and gout who presented due to R arm numbness along with R sided neck pain. The patient noted that the pain has been ongoing for weeks to months and had only recently gotten worse at which point she decided to come to the ED. In the emergency room, the patient was noted to have a right internal jugular and proximal subclavian DVT. She was started on a heparin infusion and a vascular surgery consult was placed. Nephrology was also consulted for resumption of hemodialysis. Discussed the case with vascular surgery insulation cupola operator who recommended that the patient's DVT is very likely be chronic due to the timeline of her symptoms along with the fact that she continues to have function of the RUE graft. Furthermore, he noted that the patient has had multiple procedures of the upper extremity and thereby has had several provoking factors. The patient underwent hemodialysis via the graft uneventfully following hospitalization. The patient was seen and examined at the bedside on 05/16/2018. She reports no further episodes of right arm pain or dizziness continues to have mild right neck pain. She otherwise denied chest pain, shortness of breath or nausea, or vomiting. Objective - Vital Signs Vital signs: Vital Signs Temp 98 F 05/16/18 07:00 Pulse 58 L 05/16/18 07:00 Resp 12 05/16/18 08:00 BP 103/70 05/16/18 07:00 Pulse Ox 100 05/16/18 07:00 Intake & Output 05/15/18 05/16/18 05/16/18 18:59 06:59 18:59 Intake Total 606.278 123.722 Balance 606.278 123.722 Weight 90.718 kg Intake: Intake, IV Titration 126.278 123.722 Amount Heparin Sod,Pork in 0.45% 126.278 123.722 NaCl 25,000 unit In 0.45 % NaCl 1 250ml.bag @ 18 UNITS/KG/HR 16.329 mls/hr IV .[id number] [facility] Rx#: [id number] Oral 480 - Exam General: Non-toxic, in no acute distress, appears older than age, obese HEENT: NC/AT, anicteric sclerae, moist conjunctiva, no lid-lag, PERRLA Cardiovascular: S1/S2 wnl, no murmurs, rubs, or gallops Lungs: Clear to auscultation, normal respiratory effort, no accessory muscle use Abdominal: Soft, non-tender, non-distended, no guarding, rebound, or rigidity Skin: Warm, dry Extremities: 1+ bilateral pitting edema lower extremities, right upper extremity graft with mild thrill, audible bruit Psychiatric: Alert and oriented to person, place and time, appropriate affect Neuro: CN II-XII grossly intact, Strength 5/5 in all 4 extremities, Speech intact, Sensation to light touch grossly intact throughout - Labs CBC & Chem 7: 05/16/18 03:17 05/15/18 14:40 Labs: Abnormal Lab Results - Last 24 Hours (Table) 05/15/18 05/15/18 05/15/18 Range/Units 14:40 14:40 20:04 RBC 3.59 L (3.80-5.40) m/uL Hgb (11.4-16.0) gm/dL Hct (34.0-46.0) % Plt Count 138 L (150-450) k/uL APTT (22.0-30.0) sec Sodium 133 L (137-145) mmol/L Chloride 93 L (98-107) mmol/L BUN 68 H (7-17) mg/dL Creatinine 6.23 H (0.52-1.04) mg/dL Glucose 486 H (74-99) mg/dL POC Glucose (mg/dL) 350 H (75-99) mg/dL 05/15/18 05/15/18 05/15/18 Range/Units 20:48 21:53 22:29 RBC (3.80-5.40) m/uL Hgb (11.4-16.0) gm/dL Hct (34.0-46.0) % Plt Count (150-450) k/uL APTT >200.0 H* (22.0-30.0) sec Sodium (137-145) mmol/L Chloride (98-107) mmol/L BUN (7-17) mg/dL Creatinine (0.52-1.04) mg/dL Glucose (74-99) mg/dL POC Glucose (mg/dL) 379 H 338 H (75-99) mg/dL 05/16/18 05/16/18 05/16/18 Range/Units 03:17 03:17 04:42 RBC 3.32 L (3.80-5.40) m/uL Hgb 10.6 L (11.4-16.0) gm/dL Hct 32.9 L (34.0-46.0) % Plt Count 119 L (150-450) k/uL APTT 34.6 H (22.0-30.0) sec Sodium (137-145) mmol/L Chloride (98-107) mmol/L BUN (7-17) mg/dL Creatinine (0.52-1.04) mg/dL Glucose (74-99) mg/dL POC Glucose (mg/dL) 178 H (75-99) mg/dL 05/16/18 05/16/18 05/16/18 Range/Units 07:34 11:00 11:39 RBC (3.80-5.40) m/uL Hgb (11.4-16.0) gm/dL Hct (34.0-46.0) % Plt Count (150-450) k/uL APTT >200.0 H* (22.0-30.0) sec Sodium (137-145) mmol/L Chloride (98-107) mmol/L BUN (7-17) mg/dL Creatinine (0.52-1.04) mg/dL Glucose (74-99) mg/dL POC Glucose (mg/dL) 115 H 278 H (75-99) mg/dL Assessment and Plan Plan: Internal jugular and subclavian vein DVT -Switch the patient to Eliquis twice a day. Will need insurance authorization. -Vascular surgery consulted -Monitor CBC ESRD on HD -Dialysis as per schedule -Nephrology consult appreciated Diabetes mellitus -Continue with Levemir 15 units daily at bedtime and lispro 6 units 3 times a day before meals (Takes 20 U Levemir and 10 U Lispro at home) Hypertension, hyperlipidemia, COPD -Resume home medications DVT//GI prophylaxis -Eliquis -Protonix The patient is admitted with an anticipated greater than 2 midnight stay for evaluation of neck and arm pain. CODE STATUS:Full Code Discussed with: Patient Anticipated discharge date: 05/17/[address]: Home A total of 35 minutes was spent on the care of this complex patient more than 50% of the time was spent in counseling and care coordination.
[2018-05-16] MEDS ORDERED: WARFARIN 5 MG TAB PO SCH (19:00)
[2018-05-16 20:14] LABS: Glucose,Whole Blood 297 mg/dL (75-99)
[2018-05-16] MEDS: ACETAMINOPHEN TAB 325 MG TAB PO PRN (20:41)
[2018-05-16] MEDS: AMITRIPTYLINE HCL 50 MG TAB PO SCH (20:41)
[2018-05-16] MEDS: ATORVASTATIN 40 MG TAB PO SCH (20:42)
[2018-05-17] MEDS: LEVOTHYROXINE 100 MCG TAB PO SCH (06:06)
[2018-05-17] MEDS ORDERED: LEVOTHYROXINE 100 MCG TAB PO SCH (06:30)
[2018-05-17 07:06] LABS: Glucose,Whole Blood 125 mg/dL (75-99)
[2018-05-17 08:10] LABS: Basophils % (A) 0 %; Eosinophils # (A) 0.3 k/uL (0-0.7); Eosinophils % (A) 5 %; HCT 33.3 % (34.0-46.0); HGB 10.8 gm/dL (11.4-16.0); Lymphocytes # (A) 1.2 k/uL (1.0-4.8); Lymphocytes % (A) 16 %; MCH 31.9 pg (25.0-35.0); MCHC 32.3 g/dL (31.0-37.0); MCV 98.6 fL (80.0-100.0); Mean Platelet Volume 7.2; Monocytes # (A) 0.5 k/uL (0-1.0); Monocytes % (A) 6 %; Neutrophils # (A) 5.1 k/uL (1.3-7.7); Neutrophils % (A) 70 %; Platelet Count 162 k/uL (150-450); Poikilocytosis Slight; RBC 3.38 m/uL (3.80-5.40); RDW 14.6 % (11.5-15.5); WBC 7.3 k/uL (3.8-10.6)
[2018-05-17 08:28] LABS: Calcium 8.4 mg/dL (8.4-10.2); INR 1.1 (<1.2); Potassium 4.6 mmol/L (3.5-5.1); Prothrombin Time 11.6 sec (9.0-12.0)
[2018-05-17] MEDS: INSULIN ASPART (NovoLOG) 100 UNIT/ML VIAL SQ SCH ×7 (08:50→20:38)
[2018-05-17] MEDS: METOPROLOL SUCCINATE (ER) 25 MG TAB.ER.24H PO SCH (08:55)
[2018-05-17] MEDS: AMIODARONE 200 MG TAB PO SCH (08:55)
[2018-05-17] MEDS: ASPIRIN 81 MG PO SCH (08:55)
[2018-05-17] MEDS: ISOSORBIDE MONONITRATE ER 30 MG TAB.ER.24H PO SCH (08:55)
[2018-05-17] MEDS: ALLOPURINOL 100 MG TAB PO SCH (08:56)
[2018-05-17] MEDS: PRENATAL VIT-IRON-FOLIC ACID 1 EACH CAP PO SCH (08:56)
--- NOTE | 2018-05-17 11:39 | P.PN ---
Subjective Progress Note Date: 05/17/18 Principal diagnosis: right upper extremity swelling Patient is a 68-year-old female with a history of end-stage renal disease on hemodialysis via right upper extremity graft, hypertension, dyslipidemia, diabetes, COPD and gout presented with right arm numbness and righ t sided neck pain. In the ER she underwent an extensive evaluation. Her vital signs within normal limits on arrival. Venous Doppler demonstrated DVT within the internal jugular vein and the proximal subclavian vein. She was placed on a heparin drip was subsequently admitted. She was initially maintained on a heparin drip and considerations have been for Coumadin versus eliquis Patient seen and examined at bedside. She denies any chest pain or shortness of breath. She is concerned about taking a blood thinner secondary to thin skin and history of bleeding. She also does not want to take Coumadin secondary to the dietary restrictions. She has very low income is concerned about how she'll pay for medications. She states her right arm was full and when she woke up but she moved around the swelling improved and the pain resided. No other complaints currently. Objective - Vital Signs Vital signs: Vital Signs Temp 97.5 F L 05/17/18 07:00 Pulse 76 05/17/18 08:00 Resp 16 05/17/18 08:00 BP 126/79 05/17/18 07:00 Pulse Ox 97 05/17/18 07:00 Intake & Output 05/16/18 05/17/18 05/17/18 18:59 06:59 18:59 Intake Total 685.259 480 220 Balance 685.259 480 220 Intake: Intake, IV Titration 185.259 Amount Heparin Sod,Pork in 0.45% 185.259 NaCl 25,000 unit In 0.45 % NaCl 1 250ml.bag @ 18 UNITS/KG/HR 16.329 mls/hr IV .[id number] [facility] Rx#: [id number] Oral 500 480 220 - Exam General: non toxic, no distress, appears at stated age, obese Derm: Multiple areas of ecchymosis, skin warm, dry Head: atraumatic, normocephalic, symmetric Eyes: EOMI, no lid lag, anicteric sclera Mouth: no lip lesion, mucus membranes moist Cardiovascular: S1S2 reg, no murmur, positive posterior tibial pulse left, Lungs: Decreased breath sounds bilateral, no rhonchi, no rales , no accessory muscle use Abdominal: soft, nontender to palpation, no guarding, no appreciable organomegaly Ext: no gross muscle atrophy, no edema right LE, no contractures Neuro: CN II-XI grossly intact, no focal neuro deficits Psych: Alert, oriented, appropriate affect - Labs CBC & Chem 7: 05/17/18 06:58 05/17/18 06:58 Labs: Abnormal Lab Results - Last 24 Hours (Table) 05/16/18 05/16/18 05/16/18 Range/Units 11:00 11:39 17:04 RBC (3.80-5.40) m/uL Hgb (11.4-16.0) gm/dL Hct (34.0-46.0) % APTT >200.0 H* (22.0-30.0) sec Sodium (137-145) mmol/L Chloride (98-107) mmol/L BUN (7-17) mg/dL Creatinine (0.52-1.04) mg/dL Glucose (74-99) mg/dL POC Glucose (mg/dL) 278 H 187 H (75-99) mg/dL 05/16/18 05/16/18 05/17/18 Range/Units 20:02 21:04 06:54 RBC (3.80-5.40) m/uL Hgb (11.4-16.0) gm/dL Hct (34.0-46.0) % APTT 51.9 H (22.0-30.0) sec Sodium (137-145) mmol/L Chloride (98-107) mmol/L BUN (7-17) mg/dL Creatinine (0.52-1.04) mg/dL Glucose (74-99) mg/dL POC Glucose (mg/dL) 297 H 125 H (75-99) mg/dL 05/17/18 05/17/18 Range/Units 06:58 06:58 RBC 3.38 L (3.80-5.40) m/uL Hgb 10.8 L (11.4-16.0) gm/dL Hct 33.3 L (34.0-46.0) % APTT (22.0-30.0) sec Sodium 135 L (137-145) mmol/L Chloride 97 L (98-107) mmol/L BUN 56 H (7-17) mg/dL Creatinine 5.74 H (0.52-1.04) mg/dL Glucose 118 H (74-99) mg/dL POC Glucose (mg/dL) (75-99) mg/dL Assessment and Plan Assessment: Right IJ and subclavian DVT - Start eliquis - Case management to check coverage in AM, if unable to afford will need coumadin ESRD - on HD T/T/S - nephro recs DM 2 - levemir - SSI - follow blood sugars - likely home in AM, will defer A1C to outpatient COPD without exacerbation -prn bronchodilators DVT prophylaxis: eliquis Discussed with: patient, nursing Anticipated discharge: in AM once barlow of eliquis known Anticipated discharge place: home A total of 35 minutes was spent on the care of this complex patient more than 50% of the time was spent in counseling and care coordination.
[2018-05-17] MEDS: APIXABAN 5 MG TAB PO SCH ×2 (12:09→20:39)
[2018-05-17 12:21] LABS: Glucose,Whole Blood 267 mg/dL (75-99)
--- NOTE | 2018-05-17 12:47 | P.PN ---
Subjective Progress Note Date: 05/17/18 Seen and examined for the follow-up of ESRD. Had dialysis yesterday. She has TTS schedule. No nausea vomiting diarrhea. Currently on the liquids for right jugular and subclavian DVT Objective - Vital Signs Vital signs: Vital Signs Temp 97.5 F L 05/17/18 07:00 Pulse 76 05/17/18 08:00 Resp 16 05/17/18 08:00 BP 126/79 05/17/18 07:00 Pulse Ox 97 05/17/18 07:00 Intake & Output 05/16/18 05/17/18 05/17/18 18:59 06:59 18:59 Intake Total 685.259 480 220 Balance 685.259 480 220 Intake: Intake, IV Titration 185.259 Amount Heparin Sod,Pork in 0.45% 185.259 NaCl 25,000 unit In 0.45 % NaCl 1 250ml.bag @ 18 UNITS/KG/HR 16.329 mls/hr IV .[id number] [facility] Rx#: [id number] Oral 500 480 220 - Exam No acute distress, sitting comfortable S1-S2 heard Decreased breath sounds bases Right forearm AVG No edema - Labs CBC & Chem 7: 05/17/18 06:58 05/17/18 06:58 Labs: Abnormal Lab Results - Last 24 Hours (Table) 05/16/18 05/16/18 05/16/18 Range/Units 17:04 20:02 21:04 RBC (3.80-5.40) m/uL Hgb (11.4-16.0) gm/dL Hct (34.0-46.0) % APTT 51.9 H (22.0-30.0) sec Sodium (137-145) mmol/L Chloride (98-107) mmol/L BUN (7-17) mg/dL Creatinine (0.52-1.04) mg/dL Glucose (74-99) mg/dL POC Glucose (mg/dL) 187 H 297 H (75-99) mg/dL 05/17/18 05/17/18 05/17/18 Range/Units 06:54 06:58 06:58 RBC 3.38 L (3.80-5.40) m/uL Hgb 10.8 L (11.4-16.0) gm/dL Hct 33.3 L (34.0-46.0) % APTT (22.0-30.0) sec Sodium 135 L (137-145) mmol/L Chloride 97 L (98-107) mmol/L BUN 56 H (7-17) mg/dL Creatinine 5.74 H (0.52-1.04) mg/dL Glucose 118 H (74-99) mg/dL POC Glucose (mg/dL) 125 H (75-99) mg/dL 05/17/18 Range/Units 12:10 RBC (3.80-5.40) m/uL Hgb (11.4-16.0) gm/dL Hct (34.0-46.0) % APTT (22.0-30.0) sec Sodium (137-145) mmol/L Chloride (98-107) mmol/L BUN (7-17) mg/dL Creatinine (0.52-1.04) mg/dL Glucose (74-99) mg/dL POC Glucose (mg/dL) 267 H (75-99) mg/dL Assessment and Plan Assessment: #1 ESRD TTS #2 right jugular and subclavian DVT #3 hypertension with ESRD #4 anemia with ESRD #5 metabolic bone disease with ESRD Plan: #1 hemodialysis as per outpatient schedule. #2 currently on Eliquis and can be discharged to be followed up with vascular surgery as outpatient. #3 ESRD medications #4 next dialysis on Friday
[2018-05-17 17:08] LABS: Glucose,Whole Blood 283 mg/dL (75-99)
[2018-05-17] MEDS: SEVELAMER 800 MG TAB PO SCH (17:09)
[2018-05-17] MEDS: ACETAMINOPHEN TAB 325 MG TAB PO PRN (19:33)
[2018-05-17 20:05] LABS: Glucose,Whole Blood 270 mg/dL (75-99)
[2018-05-17] MEDS: INSULIN DETEMIR (LEVEMIR) 100 UNIT/ML SYR SQ SCH (20:38)
[2018-05-17] MEDS: ATORVASTATIN 40 MG TAB PO SCH (20:39)
[2018-05-17] MEDS: AMITRIPTYLINE HCL 50 MG TAB PO SCH (20:39)
[2018-05-18] MEDS: LEVOTHYROXINE 100 MCG TAB PO SCH (06:16)
[2018-05-18 07:00] LABS: Glucose,Whole Blood 170 mg/dL (75-99)
[2018-05-18 08:01] LABS: INR 1.3 (<1.2); Prothrombin Time 13.3 sec (9.0-12.0)
[2018-05-18 08:11] LABS: Basophils % (A) 1 %; Eosinophils # (A) 0.3 k/uL (0-0.7); Eosinophils % (A) 5 %; HCT 33.8 % (34.0-46.0); HGB 11.5 gm/dL (11.4-16.0); Hyperchromasia Slight; Lymphocytes # (A) 1.2 k/uL (1.0-4.8); Lymphocytes % (A) 18 %; MCH 33.1 pg (25.0-35.0); MCV 97.6 fL (80.0-100.0); Macrocytosis Slight; Mean Platelet Volume 7.8; Monocytes # (A) 0.4 k/uL (0-1.0); Monocytes % (A) 7 %; Neutrophils # (A) 4.4 k/uL (1.3-7.7); Neutrophils % (A) 68 %; Platelet Count 153 k/uL (150-450); Poikilocytosis Slight; RBC 3.46 m/uL (3.80-5.40); RDW 15.7 % (11.5-15.5); WBC 6.5 k/uL (3.8-10.6)
[2018-05-18 08:27] LABS: Calcium 8.9 mg/dL (8.4-10.2); Potassium 5.6 mmol/L (3.5-5.1)
[2018-05-18] MEDS: APIXABAN 5 MG TAB PO SCH (09:13)
[2018-05-18] MEDS: ALLOPURINOL 100 MG TAB PO SCH (09:13)
[2018-05-18] MEDS: ASPIRIN 81 MG PO SCH (09:13)
[2018-05-18] MEDS: SEVELAMER 800 MG TAB PO SCH ×3 (09:14→18:43)
[2018-05-18] MEDS: INSULIN ASPART (NovoLOG) 100 UNIT/ML VIAL SQ SCH ×7 (09:14→21:06)
[2018-05-18] MEDS: PRENATAL VIT-IRON-FOLIC ACID 1 EACH CAP PO SCH (09:14)
[2018-05-18] MEDS: METOPROLOL SUCCINATE (ER) 25 MG TAB.ER.24H PO SCH (09:15)
[2018-05-18] MEDS: AMIODARONE 200 MG TAB PO SCH (09:15)
[2018-05-18] MEDS: ISOSORBIDE MONONITRATE ER 30 MG TAB.ER.24H PO SCH (09:21)
[2018-05-18] MEDS ORDERED: HEPARIN SODIUM,PORCINE 5,000 UNIT/ML 1 ML VIAL IV PRN (11:28)
--- NOTE | 2018-05-18 11:32 | P.PN ---
Subjective Progress Note Date: 05/18/18 Patient is doing well today. No acute events overnight. Objective - Vital Signs Vital signs: Vital Signs Temp 97.3 F L 05/18/18 09:11 Pulse 61 05/18/18 09:11 Resp 16 05/18/18 09:11 BP 96/63 05/18/18 09:11 Pulse Ox 100 05/18/18 09:11 Intake & Output 05/17/18 05/18/18 05/18/18 18:59 06:59 18:59 Intake Total 700 480 Balance 700 480 Intake: Oral 700 480 Other: # Voids 0 - Exam +General: The patient is awake and alert, in no distress Eye: there is normal conjunctiva bilaterally. Neck: The neck is supple, there is no JVD. Cardiovascular: Normal S1-S2, no S3-S4, no murmurs. Respiratory: Lungs clear to auscultation bilaterally Gastrointestinal: Abdomen is soft, nontender Musculoskeletal: There is no pedal edema. Neurological:. Speech is normal. Skin: Skin is warm and dry - Labs CBC & Chem 7: 05/18/18 07:05 05/18/18 07:05 Labs: Abnormal Lab Results - Last 24 Hours (Table) 05/17/18 05/17/18 05/17/18 Range/Units 12:10 16:57 20:04 RBC (3.80-5.40) m/uL Hct (34.0-46.0) % RDW (11.5-15.5) % PT (9.0-12.0) sec INR (<1.2) Sodium (137-145) mmol/L Potassium (3.5-5.1) mmol/L BUN (7-17) mg/dL Creatinine (0.52-1.04) mg/dL Glucose (74-99) mg/dL POC Glucose (mg/dL) 267 H 283 H 270 H (75-99) mg/dL 05/18/18 05/18/18 05/18/18 Range/Units 06:59 07:05 07:05 RBC 3.46 L (3.80-5.40) m/uL Hct 33.8 L (34.0-46.0) % RDW 15.7 H (11.5-15.5) % PT (9.0-12.0) sec INR (<1.2) Sodium 136 L (137-145) mmol/L Potassium 5.6 H (3.5-5.1) mmol/L BUN 77 H (7-17) mg/dL Creatinine 6.65 H (0.52-1.04) mg/dL Glucose 170 H (74-99) mg/dL POC Glucose (mg/dL) 170 H (75-99) mg/dL 05/18/18 Range/Units 07:05 RBC (3.80-5.40) m/uL Hct (34.0-46.0) % RDW (11.5-15.5) % PT 13.3 H (9.0-12.0) sec INR 1.3 H (<1.2) Sodium (137-145) mmol/L Potassium (3.5-5.1) mmol/L BUN (7-17) mg/dL Creatinine (0.52-1.04) mg/dL Glucose (74-99) mg/dL POC Glucose (mg/dL) (75-99) mg/dL Assessment and Plan Assessment: Right IJ and subclavian DVT - Started on eliquis. the patient does not have insurance and is unable to afford it. We will bridge with Coumadin and IV heparin until INR is therapeutic. ESRD - on HD T/T/S - nephro recs DM 2 - levemir - SSI - follow blood sugars COPD without exacerbation -prn bronchodilators
[2018-05-18 11:51] LABS: Glucose,Whole Blood 295 mg/dL (75-99)
[2018-05-18] MEDS ORDERED: HEPARIN SOD,PORK IN 0.45% NACL 25,000 UNIT in 0.45% NACL 1 250ML.BAG IV SCH (12:00)
[2018-05-18 13:20] LABS: Basophils % (A) 1 %; Eosinophils # (A) 0.3 k/uL (0-0.7); Eosinophils % (A) 5 %; HCT 34.7 % (34.0-46.0); Hypochromasia Slight; Lymphocytes # (A) 1.2 k/uL (1.0-4.8); Lymphocytes % (A) 19 %; MCH 31.9 pg (25.0-35.0); MCHC 31.8 g/dL (31.0-37.0); MCV 100.5 fL (80.0-100.0); Macrocytosis Slight; Mean Platelet Volume 7.6; Monocytes # (A) 0.4 k/uL (0-1.0); Monocytes % (A) 7 %; Neutrophils # (A) 4.2 k/uL (1.3-7.7); Neutrophils % (A) 67 %; Platelet Count 144 k/uL (150-450); RBC 3.45 m/uL (3.80-5.40); RDW 14.8 % (11.5-15.5); WBC 6.3 k/uL (3.8-10.6)
[2018-05-18 13:21] LABS: INR 1.1 (<1.2); Partial Thromboplastin Time 33.3 sec (22.0-30.0); Prothrombin Time 11.9 sec (9.0-12.0)
[2018-05-18 17:07] LABS: Glucose,Whole Blood 169 mg/dL (75-99)
--- NOTE | 2018-05-18 17:50 | PN ---
PROGRESS NOTE Patient is seen for followup for end-stage renal disease. She was admitted with a right IJ and subclavian DVT and is currently maintained on anticoagulation. Patient denies any significant complaints. On examination this morning blood pressure was 96/63, heart rate 61 per minute. She is afebrile. EXAMINATION OF THE HEART: S1 and S2. EXAMINATION OF LUNGS: Bilateral breath sounds are heard. ABDOMEN: Soft, non-tender. Examination of lower extremities shows edema 1+, left lower extremity, with right AKA. [employer] exam is grossly intact. Labs show sodium 136, potassium 5.6, BUN 77, serum creatinine 6.65, hemoglobin 11.0 g/dL. ASSESSMENT: 1. End-stage renal disease, on hemodialysis on a Friday, , Friday schedule. 2. Right IJ/subclavian deep venous thrombosis, maintained on anticoagulation. 3. Chronic kidney disease mineral bone disorder. 4. Anemia with chronic kidney disease. PLAN: Hemodialysis tomorrow; goal UF of about 2 to 2.5 L. MMODL / IJN: [id number] /
[2018-05-18] MEDS ORDERED: WARFARIN 5 MG TAB PO ONE (18:00)
[2018-05-18 19:46] LABS: Glucose,Whole Blood 182 mg/dL (75-99)
[2018-05-18] MEDS: HEPARIN SOD,PORK IN 0.45% NACL 25,000 UNIT in 0.45% NACL 1 250ML.BAG IV SCH (21:05)
[2018-05-18] MEDS: AMITRIPTYLINE HCL 50 MG TAB PO SCH (21:06)
[2018-05-18] MEDS: ATORVASTATIN 40 MG TAB PO SCH (21:06)
[2018-05-18] MEDS: INSULIN DETEMIR (LEVEMIR) 100 UNIT/ML SYR SQ SCH (21:06)
[2018-05-19] MEDS: ACETAMINOPHEN TAB 325 MG TAB PO PRN ×2 (03:14→09:02)
[2018-05-19 03:35] LABS: INR 1.2 (<1.2)
[2018-05-19] MEDS: LEVOTHYROXINE 100 MCG TAB PO SCH (05:48)
[2018-05-19 07:29] LABS: Glucose,Whole Blood 198 mg/dL (75-99)
[2018-05-19 08:18] LABS: Calcium 8.5 mg/dL (8.4-10.2); Potassium 5.7 mmol/L (3.5-5.1)
[2018-05-19 08:22] LABS: Basophils % (A) 1 %; Eosinophils # (A) 0.3 k/uL (0-0.7); Eosinophils % (A) 4 %; HCT 29.4 % (34.0-46.0); Lymphocytes # (A) 1.6 k/uL (1.0-4.8); Lymphocytes % (A) 20 %; MCH 33.6 pg (25.0-35.0); MCHC 34.1 g/dL (31.0-37.0); MCV 98.6 fL (80.0-100.0); Macrocytosis Slight; Monocytes # (A) 0.5 k/uL (0-1.0); Monocytes % (A) 6 %; Neutrophils # (A) 5.5 k/uL (1.3-7.7); Neutrophils % (A) 68 %; Platelet Count 175 k/uL (150-450); Poikilocytosis Slight; RBC 2.98 m/uL (3.80-5.40); RDW 15.6 % (11.5-15.5); WBC 8.1 k/uL (3.8-10.6)
[2018-05-19] MEDS: AMIODARONE 200 MG TAB PO SCH (09:03)
[2018-05-19] MEDS: ISOSORBIDE MONONITRATE ER 30 MG TAB.ER.24H PO SCH (09:03)
[2018-05-19] MEDS: SEVELAMER 800 MG TAB PO SCH ×3 (09:04→17:13)
[2018-05-19] MEDS: ASPIRIN 81 MG PO SCH (09:04)
[2018-05-19] MEDS: ALLOPURINOL 100 MG TAB PO SCH (09:04)
[2018-05-19] MEDS: INSULIN ASPART (NovoLOG) 100 UNIT/ML VIAL SQ SCH ×7 (09:05→20:52)
[2018-05-19] MEDS: METOPROLOL SUCCINATE (ER) 25 MG TAB.ER.24H PO SCH (09:05)
[2018-05-19] MEDS: PRENATAL VIT-IRON-FOLIC ACID 1 EACH CAP PO SCH (09:10)
--- NOTE | 2018-05-19 09:46 | P.PN ---
Subjective Progress Note Date: 05/19/18 This is a 68-year-old female with past medical history noted below significant for end-stage renal disease on hemodialysis, hypertension, and history of bradycardia status post pacemaker implantation was currently admitted to the hospital and being bridged with Coumadin and heparin for R IJ DVT. Patient is doing well today. No acute events overnight. Objective - Vital Signs Vital signs: Vital Signs Temp 97.0 F L 05/19/18 01:45 Pulse 66 05/19/18 01:45 Resp 16 05/19/18 01:45 BP 113/72 05/19/18 01:45 Pulse Ox 98 05/19/18 01:45 Intake & Output 05/18/18 05/19/18 05/19/18 18:59 06:59 18:59 Intake Total 125.189 Balance 125.189 Weight 98 kg Intake: Intake, IV Titration 125.189 Amount Heparin Sod,Pork in 0.45% 125.189 NaCl 25,000 unit In 0.45 % NaCl 1 250ml.bag @ 18 UNITS/KG/HR 16.329 mls/hr IV .[id number] [facility] Rx#: [id number] Other: Voiding Method Bedside Commode # Voids 0 # Bowel Movements 1 - Exam +General: The patient is awake and alert, in no distress Eye: there is normal conjunctiva bilaterally. Neck: The neck is supple, there is no JVD. Cardiovascular: Normal S1-S2, no S3-S4, no murmurs. Respiratory: Lungs clear to auscultation bilaterally Gastrointestinal: Abdomen is soft, nontender Musculoskeletal: There is +1 pedal edema. Neurological:. Speech is normal. Skin: Skin is warm and dry - Labs CBC & Chem 7: 05/19/18 07:03 05/19/18 07:03 Labs: Abnormal Lab Results - Last 24 Hours (Table) 05/18/18 05/18/18 05/18/18 Range/Units 11:49 12:09 12:09 RBC 3.45 L (3.80-5.40) m/uL Hgb 11.0 L (11.4-16.0) gm/dL Hct (34.0-46.0) % MCV 100.5 H (80.0-100.0) fL RDW (11.5-15.5) % Plt Count 144 L (150-450) k/uL INR (<1.2) APTT 33.3 H (22.0-30.0) sec Sodium (137-145) mmol/L Potassium (3.5-5.1) mmol/L Chloride (98-107) mmol/L Carbon Dioxide (22-30) mmol/L BUN (7-17) mg/dL Creatinine (0.52-1.04) mg/dL Glucose (74-99) mg/dL POC Glucose (mg/dL) 295 H (75-99) mg/dL 05/18/18 05/18/18 05/19/18 Range/Units 17:05 19:44 03:00 RBC (3.80-5.40) m/uL Hgb (11.4-16.0) gm/dL Hct (34.0-46.0) % MCV (80.0-100.0) fL RDW (11.5-15.5) % Plt Count (150-450) k/uL INR 1.2 H (<1.2) APTT (22.0-30.0) sec Sodium (137-145) mmol/L Potassium (3.5-5.1) mmol/L Chloride (98-107) mmol/L Carbon Dioxide (22-30) mmol/L BUN (7-17) mg/dL Creatinine (0.52-1.04) mg/dL Glucose (74-99) mg/dL POC Glucose (mg/dL) 169 H 182 H (75-99) mg/dL 05/19/18 05/19/18 05/19/18 Range/Units 03:00 07:03 07:03 RBC 2.98 L (3.80-5.40) m/uL Hgb 10.0 L (11.4-16.0) gm/dL Hct 29.4 L (34.0-46.0) % MCV (80.0-100.0) fL RDW 15.6 H (11.5-15.5) % Plt Count (150-450) k/uL INR (<1.2) APTT >200.0 H* (22.0-30.0) sec Sodium 136 L (137-145) mmol/L Potassium 5.7 H (3.5-5.1) mmol/L Chloride 97 L (98-107) mmol/L Carbon Dioxide 21 L (22-30) mmol/L BUN 105 H* (7-17) mg/dL Creatinine 8.35 H* (0.52-1.04) mg/dL Glucose 180 H (74-99) mg/dL POC Glucose (mg/dL) (75-99) mg/dL 05/19/18 Range/Units 07:26 RBC (3.80-5.40) m/uL Hgb (11.4-16.0) gm/dL Hct (34.0-46.0) % MCV (80.0-100.0) fL RDW (11.5-15.5) % Plt Count (150-450) k/uL INR (<1.2) APTT (22.0-30.0) sec Sodium (137-145) mmol/L Potassium (3.5-5.1) mmol/L Chloride (98-107) mmol/L Carbon Dioxide (22-30) mmol/L BUN (7-17) mg/dL Creatinine (0.52-1.04) mg/dL Glucose (74-99) mg/dL POC Glucose (mg/dL) 198 H (75-99) mg/dL Assessment and Plan Assessment: Right IJ and subclavian DVT - Started on eliquis. the patient does not have insurance and is unable to afford it. We will bridge with Coumadin and IV heparin until INR is therapeutic. ESRD - on HD T/T/S - nephro recs DM 2 - levemir - SSI - follow blood sugars COPD without exacerbation -prn bronchodilators Hypertension -Blood pressure within acceptable range
[2018-05-19] MEDS: ONDANSETRON 4 MG/2 ML VIAL IVP PRN ×3 (10:18→22:31)
[2018-05-19 11:45] LABS: HGB 8.7 gm/dL (11.4-16.0); MCHC 34.7 g/dL (31.0-37.0); Macrocytosis Slight; Platelet Count 154 k/uL (150-450); Poikilocytosis Slight; RBC 2.55 m/uL (3.80-5.40); RDW 15.7 % (11.5-15.5)
[2018-05-19 11:54] LABS: INR 1.2 (<1.2); Partial Thromboplastin Time 84.3 sec (22.0-30.0); Prothrombin Time 12.4 sec (9.0-12.0)
[2018-05-19 12:03] LABS: Glucose,Whole Blood 235 mg/dL (75-99)
[2018-05-19 12:09] LABS: Calcium 7.8 mg/dL (8.4-10.2); Potassium 4.9 mmol/L (3.5-5.1)
[2018-05-19] MEDS: HEPARIN SOD,PORK IN 0.45% NACL 25,000 UNIT in 0.45% NACL 1 250ML.BAG IV SCH (12:15)
[2018-05-19] MEDS ORDERED: DESMOPRESSIN ACETATE 30 MCG in SODIUM CHLORIDE 0.9% 50 ML IVPB ONE (12:30)
[2018-05-19] MEDS ORDERED: CALCIUM CARBONATE 500 MG CHEWABLE PO PRN (13:38)
[2018-05-19 16:46] LABS: Hepatitis B Surface AB- Quant 3.5 mIU/mL
--- NOTE | 2018-05-19 17:00 | P.CNPUL ---
History of Present Illness Consult date: 05/19/18 Requesting physician: Branden Beltran Reason for consult: other Chief complaint: Acute GI bleed History of present illness: This is 68-year-old white female patient has medical history of end-stage renal disease on hemodialysis, hypertension, diabetes mellitus type 2, hyperlipidemia, gout, who presented to the hospital on 05/15/2018 with complaints of pain and paresthesias in the right arm for last 4 months. An outpatient ultrasound was completed and showed a DVT in the internal jugular vein extending into the proximal subclavian vein. Patient was sent to the emergency department and was started on high-dose heparin drip. She denied any shortness of breath or chest pain. Patient does have permanent pacemaker in place, straight of atrial fibrillation, and congestive heart failure, not on any chronic anticoagulation other than baby aspirin a day. Today during her dialysis patient started having coffee-ground emesis, she had a total of 3 episodes, and also had a bloody bowel movements. Rapid response team was called, since vitals did remain stable, she was given some fluids with the dialysis, tachycardia, repeat hemoglobin came back at 8.7, down from 10.0 from this morning. Platelet count was 154, down from 175, patient was on heparin drip, and PTT was greater than 200 this morning, heparin drip was placed on hold, patient was started on oral Coumadin last night, today's INR was 1.2. Patient was consented for Eliquis however did not have sufficient insurance coverage for it and would not be able to afford it. Patient has never had history of bleeding ulcers, 10 years ago she had a EGD and colonoscopy for investigation of her anemia, and reportedly it was within normal limits. Patient was transferred to the intensive care unit for closer monitoring, she seen in the ICU, resting comfortably in bed, currently on room air, with a pulse ox of 96%, hemodynamically patient is stable, no tachycardia, the paced rhythm on the monitor, with a rate of 60 BPM, afebrile, denies any chest pain or shortness of breath, no further episodes of coffee- ground emesis or rectal bleeding. She has been evaluated by GI service, and she is scheduled for EGD tomorrow, she remains nothing by mouth, Heparin drip is on hold Review of Systems All systems: negative Constitutional: Denies chills, Denies fever Eyes: denies blurred vision, denies pain Ears, nose, mouth and throat: Denies headache, Denies sore throat Cardiovascular: Denies chest pain, Denies shortness of breath Respiratory: Reports dyspnea, Denies cough Gastrointestinal: Reports bloating, Reports dyspepsia, Reports hematemesis, Reports hematochezia, Denies abdominal pain, Denies diarrhea, Denies nausea, Denies vomiting Genitourinary: Denies dysuria, Denies hematuria Musculoskeletal: Denies myalgias Integumentary: Denies pruritus, Denies rash Neurological: Denies numbness, Denies weakness Psychiatric: Denies anxiety, Denies depression Endocrine: Denies fatigue, Denies weight change Past Medical History Past Medical History: No Reported History, Heart Failure, COPD, Diabetes Mellitus, Eye Disorder, GERD/Reflux, Renal Disease, Thyroid Disorder Additional Past Medical History / Comment(s): Hx. 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 rt bka 02/01 Past Anesthesia/Blood Transfusion Reactions: No Reported Reaction Additional Past Anesthesia/Blood Transfusion Reaction / Comment(s): HAD BLOOD TRANFUSIONS WITHOUT COMPLICATION Type of Cardiac Device: Permanent Pacemaker Device Placement Date:: 2008 Past Psychological History: Anxiety, Depression Smoking Status: Never smoker Past Alcohol Use History: None Reported Past Drug Use History: None Reported - Past Family History Father Family Medical History: Hypertension Additional Family Medical History / Comment(s): Father at age 56 from lung cancer. Mother Family Medical History: Cancer Additional Family Medical History / Comment(s): Mother at age 56 from lung cancer. Brother(s) Family Medical History: Diabetes Mellitus, Renal Disease Additional Family Medical History / Comment(s): Patient has 2 brothers. One at age 45 from myocardial infarction with history of heart defect from . Second brother is alive at age 59 with history of coronary artery disease and diabetes, bone marrow transplant Sister(s) Additional Family Medical History / Comment(s): Patient has a sister age 57 alive with history of diabetes and spina bifida. Daughter(s) Family Medical History: No Reported History Additional Family Medical History / Comment(s): Pre-diabetes Medications and Allergies Home Medications Medication Instructions Recorded Confirmed Type Allopurinol [Zyloprim] 100 mg PO DAILY 08/16/13 05/15/18 History Amiodarone HCl [Pacerone] 200 mg PO DAILY 08/16/13 05/15/18 History Isosorbide Mononitrate [Imdur] 30 mg PO DAILY 08/16/13 05/15/18 History INSULIN ASPART (NovoLOG) [NovoLOG 10 unit SQ AC-TID 02/05/18 05/15/18 History (formulary)] Aspirin 81 mg PO DAILY 02/06/18 05/15/18 History Atorvastatin [Lipitor] 40 mg PO HS 02/06/18 05/15/18 History Insulin Glargine,Hum.rec.anlog 20 unit SQ HS 02/06/18 05/15/18 History [Basaglar Kwikpen U-100] [id number] Acid 1 cap PO DAILY 02/06/18 05/15/18 History [-U Capsule (formulary)] Albuterol Inhaler [Ventolin Hfa 2 puff INHALATION RT-Q4H PRN 05/15/18 05/15/18 History Inhaler] Amitriptyline HCl [Elavil] 50 mg PO HS 05/15/18 05/15/18 History Levothyroxine Sodium [Synthroid] 100 mcg PO DAILY 05/15/18 05/15/18 History Metoprolol Succinate (ER) [Toprol 12.5 mg PO DAILY 05/15/18 05/15/18 History Xl] Allergies Allergy/AdvReac Type Severity Reaction Status Date / Time meperidine HCl [From Demerol] AdvReac Nausea & Verified 05/15/18 13:28 Vomiting & Diarrhea Physical Exam Vitals: Vital Signs Temp Pulse Pulse Pulse Resp BP BP 05/19/18 16:00 97.6 F 60 17 99/28 05/19/18 15:30 73 14 99/30 05/19/18 15:00 62 22 108/31 05/19/18 14:30 60 18 97/27 05/19/18 14:00 96 10 L 107/35 05/19/18 13:30 77 12 111/46 05/19/18 13:00 59 L 18 113/71 05/19/18 12:30 60 20 101/46 05/19/18 12:00 97.8 F 63 16 99/37 05/19/18 07:00 98.6 F 75 18 115/76 05/19/18 01:45 97.0 F L 66 16 113/72 05/18/18 19:47 97.3 F L 61 18 119/75 Pulse Ox 05/19/18 16:00 96 05/19/18 15:30 96 05/19/18 15:00 98 05/19/18 14:30 99 05/19/18 14:00 94 L 05/19/18 13:30 100 05/19/18 13:00 92 L 05/19/18 12:30 92 L 05/19/18 12:00 92 L 05/19/18 07:00 96 05/19/18 01:45 98 05/18/18 19:47 98 Intake and Output 05/19/18 05/19/18 05/19/18 06:59 14:59 22:59 Intake Total 125.189 10 10 Output Total 0 Balance 125.189 10 10 Intake: IV 10 10 KVO 10 10 Intake, IV Titration 125.189 Amount Heparin Sod,Pork in 0.45% 125.189 NaCl 25,000 unit In 0.45 % NaCl 1 250ml.bag @ 18 UNITS/KG/HR 16.329 mls/hr IV .[id number] [facility] Rx#: [id number] Output: Urine 0 Other: # Bowel Movements 1 1 Weight 98 kg GENERAL EXAM: Alert, pleasant, 68-year-old white female comfortable in no apparent distress. Complaining of being mildly nauseous, and some mild cramping in the abdomen. HEAD: Normocephalic/atraumatic. EYES: Normal reaction of pupils, equal size. Conjunctiva pink, sclera white. NOSE: Clear with pink turbinates. THROAT: No erythema or exudates. NECK: No masses, no JVD, no thyroid enlargement, no adenopathy. CHEST: No chest wall deformity. Symmetrical expansion. LUNGS: Equal air entry with no crackles, wheeze, rhonchi or dullness. CVS: Regular rate and rhythm, normal S1 and S2, no gallops, no murmurs, no rubs ABDOMEN: Soft, nontender. No hepatosplenomegaly, normal bowel sounds, no guarding or rigidity. EXTREMITIES: No clubbing, no edema, no cyanosis, 2+ pulses and upper and lower extremities. MUSCULOSKELETAL: Muscle strength and tone normal. SPINE: No scoliosis or deformity SKIN: No rashes CENTRAL NERVOUS SYSTEM: Alert and oriented -3. No focal deficits, tone is normal in all 4 extremities. PSYCHIATRIC: Alert and oriented -3. Appropriate affect. Intact judgment and insight. Results - Laboratory Findings CBC and BMP: 05/19/18 11:09 05/19/18 11:09 PT/INR, D-dimer PT 12.4 sec (9.0-12.0) H 05/19/18 11:09 INR 1.2 (<1.2) H 05/19/18 11:09 Abnormal lab findings: Abnormal Labs 05/15/18 05/15/18 05/15/18 14:40 14:40 20:04 RBC 3.59 L Hgb Hct MCV RDW Plt Count 138 L PT INR APTT Sodium 133 L Potassium Chloride 93 L Carbon Dioxide BUN 68 H Creatinine 6.23 H Glucose 486 H POC Glucose (mg/dL) 350 H Calcium 05/15/18 05/15/18 05/15/18 20:48 21:53 22:29 RBC Hgb Hct MCV RDW Plt Count PT INR APTT >200.0 H* Sodium Potassium Chloride Carbon Dioxide BUN Creatinine Glucose POC Glucose (mg/dL) 379 H 338 H Calcium 05/16/18 05/16/18 05/16/18 03:17 03:17 04:42 RBC 3.32 L Hgb 10.6 L Hct 32.9 L MCV RDW Plt Count 119 L PT INR APTT 34.6 H Sodium Potassium Chloride Carbon Dioxide BUN Creatinine Glucose POC Glucose (mg/dL) 178 H Calcium 05/16/18 05/16/18 05/16/18 07:34 11:00 11:39 RBC Hgb Hct MCV RDW Plt Count PT INR APTT >200.0 H* Sodium Potassium Chloride Carbon Dioxide BUN Creatinine Glucose POC Glucose (mg/dL) 115 H 278 H Calcium 05/16/18 05/16/18 05/16/18 17:04 20:02 21:04 RBC Hgb Hct MCV RDW Plt Count PT INR APTT 51.9 H Sodium Potassium Chloride Carbon Dioxide BUN Creatinine Glucose POC Glucose (mg/dL) 187 H 297 H Calcium 05/17/18 05/17/18 05/17/18 06:54 06:58 06:58 RBC 3.38 L Hgb 10.8 L Hct 33.3 L MCV RDW Plt Count PT INR APTT Sodium 135 L Potassium Chloride 97 L Carbon Dioxide BUN 56 H Creatinine 5.74 H Glucose 118 H POC Glucose (mg/dL) 125 H Calcium 05/17/18 05/17/18 05/17/18 12:10 16:57 20:04 RBC Hgb Hct MCV RDW Plt Count PT INR APTT Sodium Potassium Chloride Carbon Dioxide BUN Creatinine Glucose POC Glucose (mg/dL) 267 H 283 H 270 H Calcium 05/18/18 05/18/18 05/18/18 06:59 07:05 07:05 RBC 3.46 L Hgb Hct 33.8 L MCV RDW 15.7 H Plt Count PT INR APTT Sodium 136 L Potassium 5.6 H Chloride Carbon Dioxide BUN 77 H Creatinine 6.65 H Glucose 170 H POC Glucose (mg/dL) 170 H Calcium 05/18/18 05/18/18 05/18/18 07:05 11:49 12:09 RBC 3.45 L Hgb 11.0 L Hct MCV 100.5 H RDW Plt Count 144 L PT 13.3 H INR 1.3 H APTT Sodium Potassium Chloride Carbon Dioxide BUN Creatinine Glucose POC Glucose (mg/dL) 295 H Calcium 05/18/18 05/18/18 05/18/18 12:09 17:05 19:44 RBC Hgb Hct MCV RDW Plt Count PT INR APTT 33.3 H Sodium Potassium Chloride Carbon Dioxide BUN Creatinine Glucose POC Glucose (mg/dL) 169 H 182 H Calcium 05/19/18 05/19/18 05/19/18 03:00 03:00 07:03 RBC 2.98 L Hgb 10.0 L Hct 29.4 L MCV RDW 15.6 H Plt Count PT INR 1.2 H APTT >200.0 H* Sodium Potassium Chloride Carbon Dioxide BUN Creatinine Glucose POC Glucose (mg/dL) Calcium 05/19/18 05/19/18 05/19/18 07:03 07:26 11:09 RBC Hgb Hct MCV RDW Plt Count PT 12.4 H INR 1.2 H APTT 84.3 H Sodium 136 L Potassium 5.7 H Chloride 97 L Carbon Dioxide 21 L BUN 105 H* Creatinine 8.35 H* Glucose 180 H POC Glucose (mg/dL) 198 H Calcium 05/19/18 05/19/18 05/19/18 11:09 11:09 12:00 RBC 2.55 L Hgb 8.7 L Hct 25.0 L MCV RDW 15.7 H Plt Count PT INR APTT Sodium 133 L Potassium Chloride Carbon Dioxide 21 L BUN 78 H Creatinine 6.03 H Glucose 235 H POC Glucose (mg/dL) 235 H Calcium 7.8 L - Diagnostic Findings Additional studies: Venous Doppler of right upper extremity Assessment and Plan Plan: Assessment: #1. Acute GI blood loss anemia related to acute GI bleed #2. Chronic anemia #3. DVT in the internal jugular vein, extending into the proximal subclavian vein #4. End-stage kidney disease on hemodialysis #5. Diabetes mellitus type 2 #6. Hypertension #7. Lifetime nonsmoker, she gives a history of COPD which is questionable. #8. 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 History of congestive heart failure #10. Permanent pacemaker, hx atrial fibrillation not on chronic anticoagulation #11. History of diverticulitis #12. History of MRSA infection in the abdominal wound #13. Anxiety/depression #14. Obstructive sleep apnea on CPAP therapy, morbid obesity. Home oxygen at 2 L Plan: We will hold her Coumadin and heparin drip, she has been boarded for EGD in the morning, nothing by mouth, has not had any more vomiting of coffee ground material did pass another maroon colored stool. Hemodynamically remains stable, she is slightly nauseous, and have an abdominal cramping. Monitor hemodynamics. We'll start IV Protonix, we'll continue to closely follow. Serial H&H's, daily PT/INR. I performed a history & physical examination of the patient and discussed their management with my nurse practitioner, Veronica Whitten. I reviewed the nurse practitioner's note and agree with the documented findings and plan of care. Lung sounds are positive for clear breath sounds. The findings and the impression was discussed with the patient. I attest to the documentation by the nurse practitioner. Time with Patient: Greater than 30
[2018-05-19 17:22] LABS: Glucose,Whole Blood 213 mg/dL (75-99)
[2018-05-19] MEDS: PANTOPRAZOLE 40 MG/10 ML VIAL IVP SCH (17:24)
[2018-05-19] MEDS ORDERED: WARFARIN 5 MG TAB PO ONE (18:00)
[2018-05-19 19:29] LABS: HCT 24.6 % (34.0-46.0); HGB 8.2 gm/dL (11.4-16.0); MCH 33.1 pg (25.0-35.0); MCHC 33.6 g/dL (31.0-37.0); MCV 98.5 fL (80.0-100.0); Macrocytosis Slight; Mean Platelet Volume 8.5; Platelet Count 138 k/uL (150-450); RBC 2.49 m/uL (3.80-5.40); RDW 14.9 % (11.5-15.5); WBC 10.6 k/uL (3.8-10.6)
--- NOTE | 2018-05-19 20:16 | PN ---
PROGRESS NOTE Patient is seen for followup for end-stage renal disease. This morning while she was undergoing dialysis patient developed coffee-grounds emesis followed by large bowel movement which was dark colored. The A-team was called and the patient's blood pressure had dropped in the 70s. The dialysis was discontinued and patient has been transferred and patient was transferred to the ICU. Hemoglobin was 10 g/dL. This morning following the bleed and episode of bleeding, her hemoglobin was at 8.7. The patient had some abdominal pain as well prior to her emesis. Her blood pressure is significantly improved with systolic above 100. She did have a fluid bolus this morning when her blood pressure had dropped. The patient is positive 300 mL. PHYSICAL EXAMINATION: This morning the patient is awake, comfortable. She is not in any acute distress. She is alert and oriented x3. She is being transferred to the ICU. The blood pressure 99/37, heart rate about 80 per minute. Patient is afebrile. Examination of the heart S1, S2. Examination of lungs bilateral breath sounds are heard. Abdomen is soft, obese, nontender. 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 The patient has chronic skin changes. Trace edema on the left lower extremity. She has an old healed abdominal wound and scar with some areas of redness on it and it does not appear to be infected. LAB: Show hemoglobin this morning was 10. It looks like it did drop down to 8.7. The PTT was more than 200. The INR was 1.2. ASSESSMENT: 1. End-stage renal disease, on hemodialysis on a Friday, , Friday schedule, status post partial dialysis today. We will reassess tomorrow for need for dialysis depending upon her hemodynamics stability and labs. I expect the potassium to be high given the gastrointestinal bleed. At this time, however, patient is not significantly volume overloaded. 2. Gastrointestinal bleed and the heparin is now on hold. We will continue with the hemoglobin check q.6 hours for now. If it worsens, she may need an endoscopy this admission. I will also give her a dose of DDAVP. 3. 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 Discussed with vascular surgery. We will hold off on anticoagulation for now. Her access is currently functioning well. This is most likely chronic and she will follow up with her primary vascular surgeon as outpatient once she is discharged. PLAN: Monitor hemoglobin, DDAVP x1. Re-evaluate for need for dialysis tomorrow based on hemodynamics stability. RIYA / YUNGN: [id number] /
--- NOTE | 2018-05-19 20:38 | P.CONS ---
History of Present Illness - Reason for Consult Consult date: 05/19/18 GI bleed Requesting physician: Onelia Cobos - Chief Complaint Neck and arm pain - History of Present Illness Very pleasant 68-year-old female with medical history significant for end-stage renal disease, hypertension, bradycardia status post pacemaker placement who presents to the hospital with complaints of right neck pain and numbness in her fingers. The patient was subsequently found to have a thrombosis of the right internal jugular. The patient at that time was started on a heparin drip and Coumadin. Subsequently the patient reports waking up nauseated with cramping in her abdomen and subsequently had multiple episodes of coffee-ground emesis and dark colored stool. The patient denies any prior episodes of upper GI bleeding. She denies any NSAID use and reports using Tylenol for pain. No prior histories of peptic ulcer disease. She denies any home PPI therapy. She does not believe she had an EGD in the past. She reports a remote history of colono scopy approximately 10 years ago and is unsure of the results. Initially on presentation hemoglobin was found to be 11 and subsequently trended down to 8.7 Review of Systems REVIEW OF SYSTEMS: CONSTITUTIONAL: Denies any fevers, chills, weight change or fatigue. CARDIOVASCULAR: Denies any chest pain, palpitations high or low blood pressures RESPIRATORY: Denies any shortness of breath, hemoptysis or cough. GENITOURINARY: History of end-stage renal disease on hemodialysis. MUSCULOSKELETAL: No weakness reported. SKIN: Denies any new rashes or lesions, jaundice or pallor. PSYCHIATRIC: Denies any depression or anxiety. NEUROLOGY: Denies headache, denies any new focal deficits, had complained of tingling in right hand on presentation. EARS/NOSE/THROAT: No recent hearing change, congestion, nasal discharge or sore throat. EYES: No pain in eyes, discharge or change in vision. GASTROINTESTINAL: As per HPI. Past Medical History Past Medical History: No Reported History, Heart Failure, COPD, Diabetes Mellitus, Eye Disorder, GERD/Reflux, Renal Disease, Thyroid Disorder Additional Past Medical History / Comment(s): Hx. 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 rt bka 02/01 Past Anesthesia/Blood Transfusion Reactions: No Reported Reaction Additional Past Anesthesia/Blood Transfusion Reaction / Comm: HAD BLOOD TRANFUSIONS WITHOUT COMPLICATION Type of Cardiac Device: Permanent Pacemaker Device Placement Date:: 2008 Past Psychological History: Anxiety, Depression Smoking Status: Never smoker Past Alcohol Use History: None Reported Past Drug Use History: None Reported - Past Family History Father Family Medical History: Hypertension Additional Family Medical History / Comment(s): Father at age 56 from lung cancer. Mother Family Medical History: Cancer Additional Family Medical History / Comment(s): Mother at age 56 from lung cancer. Brother(s) Family Medical History: Diabetes Mellitus, Renal Disease Additional Family Medical History / Comment(s): Patient has 2 brothers. One at age 45 from myocardial infarction with history of heart defect from . Second brother is alive at age 59 with history of coronary artery disease and diabetes, bone marrow transplant Sister(s) Additional Family Medical History / Comment(s): Patient has a sister age 57 alive with history of diabetes and spina bifida. Daughter(s) Family Medical History: No Reported History Additional Family Medical History / Comment(s): Pre-diabetes Medications and Allergies Home Medications Medication Instructions Recorded Confirmed Type Allopurinol [Zyloprim] 100 mg PO DAILY 08/16/13 05/15/18 History Amiodarone HCl [Pacerone] 200 mg PO DAILY 08/16/13 05/15/18 History Isosorbide Mononitrate [Imdur] 30 mg PO DAILY 08/16/13 05/15/18 History INSULIN ASPART (NovoLOG) [NovoLOG 10 unit SQ AC-TID 02/05/18 05/15/18 History (formulary)] Aspirin 81 mg PO DAILY 02/06/18 05/15/18 History Atorvastatin [Lipitor] 40 mg PO HS 02/06/18 05/15/18 History Insulin Glargine,Hum.rec.anlog 20 unit SQ HS 02/06/18 05/15/18 History [Basaglar Kwikpen U-100] Jhf-Kjgt-Tacxl Acid 1 cap PO DAILY 02/06/18 05/15/18 History [-U Capsule (formulary)] Albuterol Inhaler [Ventolin Hfa 2 puff INHALATION RT-Q4H PRN 05/15/18 05/15/18 History Inhaler] Amitriptyline HCl [Elavil] 50 mg PO HS 05/15/18 05/15/18 History Levothyroxine Sodium [Synthroid] 100 mcg PO DAILY 05/15/18 05/15/18 History Metoprolol Succinate (ER) [Toprol 12.5 mg PO DAILY 05/15/18 05/15/18 History Xl] Allergies Allergy/AdvReac Type Severity Reaction Status Date / Time meperidine HCl [From Demerol] AdvReac Nausea & Verified 05/15/18 13:28 Vomiting & Diarrhea Physical Exam Vitals: Vital Signs Temp Pulse Pulse Pulse Resp BP BP 05/19/18 19:30 79 26 H 99/31 05/19/18 19:00 60 20 95/28 05/19/18 18:30 60 20 101/27 05/19/18 18:00 61 20 96/40 05/19/18 17:30 73 19 100/32 05/19/18 17:00 60 17 104/38 05/19/18 16:30 77 24 99/24 05/19/18 16:00 97.6 F 60 17 99/28 05/19/18 15:30 73 14 99/30 05/19/18 15:00 62 22 108/31 05/19/18 14:30 60 18 97/27 05/19/18 14:00 96 10 L 107/35 05/19/18 13:30 77 12 111/46 05/19/18 13:00 59 L 18 113/71 05/19/18 12:30 60 20 101/46 05/19/18 12:00 97.8 F 63 16 99/37 05/19/18 07:00 98.6 F 75 18 115/76 05/19/18 01:45 97.0 F L 66 16 113/72 Pulse Ox 05/19/18 19:30 99 05/19/18 19:00 100 05/19/18 18:30 100 05/19/18 18:00 100 05/19/18 17:30 95 05/19/18 17:00 100 05/19/18 16:30 94 L 05/19/18 16:00 96 05/19/18 15:30 96 05/19/18 15:00 98 05/19/18 14:30 99 05/19/18 14:00 94 L 05/19/18 13:30 100 05/19/18 13:00 92 L 05/19/18 12:30 92 L 05/19/18 12:00 92 L 05/19/18 07:00 96 05/19/18 01:45 98 Intake and Output 05/19/18 05/19/18 05/19/18 06:59 14:59 22:59 Intake Total 125.189 10 40 Output Total 0 Balance 125.189 10 40 Intake: IV 10 40 KVO 10 40 Intake, IV Titration 125.189 Amount Heparin Sod,Pork in 0.45% 125.189 NaCl 25,000 unit In 0.45 % NaCl 1 250ml.bag @ 18 UNITS/KG/HR 16.329 mls/hr IV .[id number] [facility] Rx#: [id number] Output: Urine 0 Other: # Bowel Movements 1 1 Weight 98 kg On physical examination, patient appears comfortable in no apparent distress. HEAD: Normocephalic, atraumatic. EYES: No scleral icterus. No conjunctival injection. MOUTH: No lesions, tongue midline. NECK: Trachea midline, no gross abnormalities. CHEST: Decreased air entry in all lung coleman. HEART: S1-S2 appreciated. ABDOMEN: Soft, obese. Bowel sounds are positive. No organomegaly. No guarding or rigidity. EXTREMITIES: No pedal edema right lower extremity. SKIN: No rashes, no jaundice. NEUROLOGIC: Alert and oriented x3. No focal deficits. Results CBC & Chem 7: 05/19/18 18:24 05/19/18 11:09 Labs: Abnormal Lab Results - Last 24 Hours (Table) 05/19/18 05/19/18 05/19/18 Range/Units 03:00 03:00 07:03 RBC 2.98 L (3.80-5.40) m/uL Hgb 10.0 L (11.4-16.0) gm/dL Hct 29.4 L (34.0-46.0) % RDW 15.6 H (11.5-15.5) % Plt Count (150-450) k/uL PT (9.0-12.0) sec INR 1.2 H (<1.2) APTT >200.0 H* (22.0-30.0) sec Sodium (137-145) mmol/L Potassium (3.5-5.1) mmol/L Chloride (98-107) mmol/L Carbon Dioxide (22-30) mmol/L BUN (7-17) mg/dL Creatinine (0.52-1.04) mg/dL Glucose (74-99) mg/dL POC Glucose (mg/dL) (75-99) mg/dL Calcium (8.4-10.2) mg/dL 05/19/18 05/19/18 05/19/18 Range/Units 07:03 07:26 11:09 RBC (3.80-5.40) m/uL Hgb (11.4-16.0) gm/dL Hct (34.0-46.0) % RDW (11.5-15.5) % Plt Count (150-450) k/uL PT 12.4 H (9.0-12.0) sec INR 1.2 H (<1.2) APTT 84.3 H (22.0-30.0) sec Sodium 136 L (137-145) mmol/L Potassium 5.7 H (3.5-5.1) mmol/L Chloride 97 L (98-107) mmol/L Carbon Dioxide 21 L (22-30) mmol/L BUN 105 H* (7-17) mg/dL Creatinine 8.35 H* (0.52-1.04) mg/dL Glucose 180 H (74-99) mg/dL POC Glucose (mg/dL) 198 H (75-99) mg/dL Calcium (8.4-10.2) mg/dL 05/19/18 05/19/18 05/19/18 Range/Units 11:09 11:09 12:00 RBC 2.55 L (3.80-5.40) m/uL Hgb 8.7 L (11.4-16.0) gm/dL Hct 25.0 L (34.0-46.0) % RDW 15.7 H (11.5-15.5) % Plt Count (150-450) k/uL PT (9.0-12.0) sec INR (<1.2) APTT (22.0-30.0) sec Sodium 133 L (137-145) mmol/L Potassium (3.5-5.1) mmol/L Chloride (98-107) mmol/L Carbon Dioxide 21 L (22-30) mmol/L BUN 78 H (7-17) mg/dL Creatinine 6.03 H (0.52-1.04) mg/dL Glucose 235 H (74-99) mg/dL POC Glucose (mg/dL) 235 H (75-99) mg/dL Calcium 7.8 L (8.4-10.2) mg/dL 05/19/18 05/19/18 Range/Units 16:57 18:24 RBC 2.49 L (3.80-5.40) m/uL Hgb 8.2 L (11.4-16.0) gm/dL Hct 24.6 L (34.0-46.0) % RDW (11.5-15.5) % Plt Count 138 L (150-450) k/uL PT (9.0-12.0) sec INR (<1.2) APTT (22.0-30.0) sec Sodium (137-145) mmol/L Potassium (3.5-5.1) mmol/L Chloride (98-107) mmol/L Carbon Dioxide (22-30) mmol/L BUN (7-17) mg/dL Creatinine (0.52-1.04) mg/dL Glucose (74-99) mg/dL POC Glucose (mg/dL) 213 H (75-99) mg/dL Calcium (8.4-10.2) mg/dL Assessment and Plan (1) Coffee ground emesis Narrative/Plan: Patient found to have right internal jugular thrombosis and started on anticoagulation, subsequently had multiple episodes of coffee-ground emesis and dark stool with concern for upper GI bleed with differential including peptic ulcer disease, erosive gastritis/esophagitis, AVM or other etiology Current Visit: Yes Status: Acute Code(s): K92.0 - HEMATEMESIS SNOMED Code(s): 71021704 (2) Anemia associated with acute blood loss Current Visit: Yes Status: Acute Code(s): D62 - ACUTE POSTHEMORRHAGIC ANEMIA SNOMED Code(s): 976300382 Plan: Supportive care Okay for liquids Nothing by mouth after midnight Continue Protonix therapy Continue to monitor hemoglobin and hematocrit and transfuse as needed Heparin drip has been held Plan for upper endoscopy for further evaluation tomorrow Further recommendations pending findings of EGD Thank you for allowing us to participate in the care of the patient we will continue to follow
[2018-05-19] MEDS: AMITRIPTYLINE HCL 50 MG TAB PO SCH (20:52)
[2018-05-19] MEDS: INSULIN DETEMIR (LEVEMIR) 100 UNIT/ML SYR SQ SCH (20:53)
[2018-05-19] MEDS: ATORVASTATIN 40 MG TAB PO SCH (20:53)
[2018-05-19 21:09] LABS: Glucose,Whole Blood 201 mg/dL (75-99)
[2018-05-20 00:46] LABS: HCT 24.4 % (34.0-46.0); HGB 8.1 gm/dL (11.4-16.0); MCH 32.5 pg (25.0-35.0); MCHC 33.3 g/dL (31.0-37.0); MCV 97.6 fL (80.0-100.0); Platelet Count 138 k/uL (150-450); Poikilocytosis Slight; RDW 15.1 % (11.5-15.5); WBC 14.7 k/uL (3.8-10.6)
[2018-05-20 05:18] LABS: Basophils % (A) 0 %; Eosinophils # (A) 0.1 k/uL (0-0.7); Eosinophils % (A) 1 %; HCT 23.7 % (34.0-46.0); HGB 7.7 gm/dL (11.4-16.0); Lymphocytes # (A) 1.1 k/uL (1.0-4.8); Lymphocytes % (A) 9 %; MCH 32.3 pg (25.0-35.0); MCHC 32.4 g/dL (31.0-37.0); MCV 99.8 fL (80.0-100.0); Macrocytosis Slight; Mean Platelet Volume 7.8; Monocytes # (A) 0.6 k/uL (0-1.0); Monocytes % (A) 5 %; Neutrophils # (A) 10.1 k/uL (1.3-7.7); Neutrophils % (A) 84 %; Platelet Count 149 k/uL (150-450); RBC 2.38 m/uL (3.80-5.40)
[2018-05-20 05:27] LABS: INR 1.3 (<1.2); Partial Thromboplastin Time 34.3 sec (22.0-30.0); Prothrombin Time 13.2 sec (9.0-12.0)
[2018-05-20 05:50] LABS: Calcium 8.2 mg/dL (8.4-10.2); Magnesium 1.8 mg/dL (1.6-2.3); Phosphorus 4.8 mg/dL (2.5-4.5)
[2018-05-20 06:01] LABS: Potassium 6.1 mmol/L (3.5-5.1)
[2018-05-20] MEDS: SEVELAMER 800 MG TAB PO SCH ×3 (06:57→18:04)
[2018-05-20] MEDS: ONDANSETRON 4 MG/2 ML VIAL IVP PRN (06:57)
[2018-05-20] MEDS: LEVOTHYROXINE 100 MCG TAB PO SCH (06:57)
[2018-05-20 07:04] LABS: Glucose,Whole Blood 181 mg/dL (75-99)
[2018-05-20] MEDS: INSULIN ASPART (NovoLOG) 100 UNIT/ML VIAL SQ SCH ×7 (07:11→21:03)
--- NOTE | 2018-05-20 09:20 | P.PN ---
Subjective Progress Note Date: 05/20/18 Principal diagnosis: Acute GI bleed This is 68-year-old white female patient has medical history of end-stage renal disease on hemodialysis, hypertension, diabetes mellitus type 2, hyperlipidemia, gout, who presented to the hospital on 05/15/2018 with complaints of pain and paresthesias in the right arm for last 4 months. An outpatient ultrasound was completed and showed a DVT in the internal jugular vein extending into the proximal subclavian vein. Patient was sent to the emergency department and was started on high-dose heparin drip. She denied any shortness of breath or chest pain. Patient does have permanent pacemaker in place, straight of atrial fibrillation, and congestive heart failure, not on any chronic anticoagulation other than baby aspirin a day. Today during her dialysis patient started having coffee-ground emesis, she had a total of 3 episodes, and also had a bloody bowel movements. Rapid response team was called, since vitals did remain stable, she was given some fluids with the dialysis, tachycardia, repeat hemoglobin came back at 8.7, down from 10.0 from this morning. Platelet count was 154, down from 175, patient was on heparin drip, and PTT was greater than 200 this morning, heparin drip was placed on hold, patient was started on oral Coumadin last night, today's INR was 1.2. Patient was consented for Eliquis however did not have sufficient insurance coverage for it and would not be able to afford it. Patient has never had history of bleeding ulcers, 10 years ago she had a EGD and colonoscopy for investigation of her anemia, and reportedly it was within normal limits. Patient was transferred to the intensive care unit for c loser monitoring, she seen in the ICU, resting comfortably in bed, currently on room air, with a pulse ox of 96%, hemodynamically patient is stable, no tachycardia, the paced rhythm on the monitor, with a rate of 60 BPM, afebrile, denies any chest pain or shortness of breath, no further episodes of coffee- ground emesis or rectal bleeding. She has been evaluated by GI service, and she is scheduled for EGD tomorrow, she remains nothing by mouth, Heparin drip is on hold On 05/20/2018 patient seen in follow-up in the intensive care unit, she is awake and alert, no acute distress, still feels slightly nauseous, no abdominal pain, through the night patient apparently had 3 small episodes of maroon colored stools. No hematemesis, this morning's hemoglobin is 7.7, patient is hemodynamically stable. Serum sodium is 132, potassium is 6.1, chloride is 98, CO2 is 19, BUN is 121 in creatinine is 7.83, patient will have a hemodialysis treatment, and will receive a unit of blood with the hemodialysis. Patient is boarded for EGD with Dr. Young today. Heparin and Coumadin remain on hold for now. No complaints of chest pain or shortness of breath, lung sounds are clear, patient is wearing her home CPAP at bedtime and as needed during the day. Objective - Vital Signs Vital signs: Vital Signs Temp 97.7 F 05/20/18 04:00 Pulse 59 L 05/20/18 07:00 Resp 17 05/20/18 07:00 BP 99/38 05/20/18 07:00 Pulse Ox 93 L 05/20/18 07:00 Intake & Output 05/19/18 05/20/18 05/20/18 18:59 06:59 18:59 Intake Total 40 200 Output Total 0 Balance 40 200 Weight 90.7 kg Intake: IV 40 70 KVO 40 70 Oral 130 Output: Urine 0 Other: # Bowel Movements 1 1 0 - Exam GENERAL EXAM: Alert, pleasant, 68-year-old white female comfortable in no apparent distress. Complaining of being mildly nauseous, denies any abdominal pain HEAD: Normocephalic/atraumatic. EYES: Normal reaction of pupils, equal size. Conjunctiva pink, sclera white. NOSE: Clear with pink turbinates. THROAT: No erythema or exudates. NECK: No masses, no JVD, no thyroid enlargement, no adenopathy. CHEST: No chest wall deformity. Symmetrical expansion. LUNGS: Equal air entry with no crackles, wheeze, rhonchi or dullness. CVS: Regular rate and rhythm, normal S1 and S2, no gallops, no murmurs, no rubs ABDOMEN: Soft, nontender. No hepatosplenomegaly, normal bowel sounds, no guarding or rigidity. EXTREMITIES: No clubbing, no edema, no cyanosis, 2+ pulses and upper and lower extremities. Right [id number] amputation MUSCULOSKELETAL: Muscle strength and tone normal. SPINE: No scoliosis or deformity SKIN: No rashes CENTRAL NERVOUS SYSTEM: Alert and oriented -3. No focal deficits, tone is normal in all 4 extremities. PSYCHIATRIC: Alert and oriented -3. Appropriate affect. Intact judgment and insight. - Labs CBC & Chem 7: 05/20/18 04:53 05/20/18 04:53 Labs: Abnormal Lab Results - Last 24 Hours (Table) 05/19/18 05/19/18 05/19/18 Range/Units 11:09 11:09 11:09 WBC (3.8-10.6) k/uL RBC 2.55 L (3.80-5.40) m/uL Hgb 8.7 L (11.4-16.0) gm/dL Hct 25.0 L (34.0-46.0) % RDW 15.7 H (11.5-15.5) % Plt Count (150-450) k/uL Neutrophils # (1.3-7.7) k/uL PT 12.4 H (9.0-12.0) sec INR 1.2 H (<1.2) APTT 84.3 H (22.0-30.0) sec Sodium 133 L (137-145) mmol/L Potassium (3.5-5.1) mmol/L Carbon Dioxide 21 L (22-30) mmol/L BUN 78 H (7-17) mg/dL Creatinine 6.03 H (0.52-1.04) mg/dL Glucose 235 H (74-99) mg/dL POC Glucose (mg/dL) (75-99) mg/dL Calcium 7.8 L (8.4-10.2) mg/dL Phosphorus (2.5-4.5) mg/dL 05/19/18 05/19/18 05/19/18 Range/Units 12:00 16:57 18:24 WBC (3.8-10.6) k/uL RBC 2.49 L (3.80-5.40) m/uL Hgb 8.2 L (11.4-16.0) gm/dL Hct 24.6 L (34.0-46.0) % RDW (11.5-15.5) % Plt Count 138 L (150-450) k/uL Neutrophils # (1.3-7.7) k/uL PT (9.0-12.0) sec INR (<1.2) APTT (22.0-30.0) sec Sodium (137-145) mmol/L Potassium (3.5-5.1) mmol/L Carbon Dioxide (22-30) mmol/L BUN (7-17) mg/dL Creatinine (0.52-1.04) mg/dL Glucose (74-99) mg/dL POC Glucose (mg/dL) 235 H 213 H (75-99) mg/dL Calcium (8.4-10.2) mg/dL Phosphorus (2.5-4.5) mg/dL 05/19/18 05/20/18 05/20/18 Range/Units 20:41 00:18 04:53 WBC 14.7 H (3.8-10.6) k/uL RBC 2.50 L (3.80-5.40) m/uL Hgb 8.1 L (11.4-16.0) gm/dL Hct 24.4 L (34.0-46.0) % RDW (11.5-15.5) % Plt Count 138 L (150-450) k/uL Neutrophils # (1.3-7.7) k/uL PT 13.2 H (9.0-12.0) sec INR 1.3 H (<1.2) APTT 34.3 H (22.0-30.0) sec Sodium (137-145) mmol/L Potassium (3.5-5.1) mmol/L Carbon Dioxide (22-30) mmol/L BUN (7-17) mg/dL Creatinine (0.52-1.04) mg/dL Glucose (74-99) mg/dL POC Glucose (mg/dL) 201 H (75-99) mg/dL Calcium (8.4-10.2) mg/dL Phosphorus (2.5-4.5) mg/dL 05/20/18 05/20/18 05/20/18 Range/Units 04:53 04:53 07:01 WBC 12.0 H (3.8-10.6) k/uL RBC 2.38 L (3.80-5.40) m/uL Hgb 7.7 L (11.4-16.0) gm/dL Hct 23.7 L (34.0-46.0) % RDW (11.5-15.5) % Plt Count 149 L (150-450) k/uL Neutrophils # 10.1 H (1.3-7.7) k/uL PT (9.0-12.0) sec INR (<1.2) APTT (22.0-30.0) sec Sodium 132 L (137-145) mmol/L Potassium 6.1 H* (3.5-5.1) mmol/L Carbon Dioxide 19 L (22-30) mmol/L BUN 121 H* (7-17) mg/dL Creatinine 7.83 H* (0.52-1.04) mg/dL Glucose 155 H (74-99) mg/dL POC Glucose (mg/dL) 181 H (75-99) mg/dL Calcium 8.2 L (8.4-10.2) mg/dL Phosphorus 4.8 H (2.5-4.5) mg/dL Assessment and Plan Plan: Assessment: #1. Acute GI blood loss anemia related to acute GI bleed #2. Chronic anemia #3. DVT in the internal jugular vein, extending into the proximal subclavian vein #4. End-stage kidney disease on hemodialysis #5. Diabetes mellitus type 2 #6. Hypertension #7. Lifetime nonsmoker, she gives a history of COPD which is questionable. #8. 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 History of congestive heart failure #10. Permanent pacemaker, hx atrial fibrillation not on chronic anticoagulation #11. History of diverticulitis #12. History of MRSA infection in the abdominal wound #13. Anxiety/depression #14. Obstructive sleep apnea on CPAP therapy, morbid obesity. Home oxygen at 2 L Plan: We'll continue with current plan of treatment, patient will receive a unit of blood hemodialysis today, will await the results of the EGD today. Hemodynamically patient remains stable, no specific complaints, mildly nauseous, but no abdominal pain. No shortness of breath or chest pain. Continue with PPI. Will decide on anticoagulation depending on the results of the EGD and and any more episodes of bleeding I performed a history & physical examination of the patient and discussed their management with my nurse practitioner, Veronica Whitten. I reviewed the nurse practitioner's note and agree with the documented findings and plan of care. Lung sounds are positive for clear breath sounds. The findings and the impression was discussed with the patient. I attest to the documentation by the nurse practitioner. Time with Patient: Less than 30
[2018-05-20] MEDS: PANTOPRAZOLE 40 MG/10 ML VIAL IVP SCH (09:23)
[2018-05-20 12:02] LABS: Glucose,Whole Blood 130 mg/dL (75-99)
[2018-05-20] MEDS: METOPROLOL SUCCINATE (ER) 25 MG TAB.ER.24H PO SCH (13:00)
[2018-05-20 13:17] LABS: Anisocytosis Slight; HGB 8.4 gm/dL (11.4-16.0); MCH 31.4 pg (25.0-35.0); MCHC 33.5 g/dL (31.0-37.0); Mean Platelet Volume 7.6; Platelet Count 124 k/uL (150-450); Poikilocytosis Slight; RBC 2.67 m/uL (3.80-5.40); RDW 16.6 % (11.5-15.5); WBC 10.6 k/uL (3.8-10.6)
[2018-05-20 13:30] LABS: MCV 93.7 fL (80.0-100.0)
[2018-05-20] MEDS: ASPIRIN 81 MG PO SCH (13:39)
[2018-05-20] MEDS: ALLOPURINOL 100 MG TAB PO SCH (13:39)
[2018-05-20] MEDS: ISOSORBIDE MONONITRATE ER 30 MG TAB.ER.24H PO SCH (13:39)
[2018-05-20] MEDS: AMIODARONE 200 MG TAB PO SCH (13:40)
[2018-05-20] MEDS: PRENATAL VIT-IRON-FOLIC ACID 1 EACH CAP PO SCH (13:44)
--- NOTE | 2018-05-20 15:47 | PN ---
PROGRESS NOTE Patient is seen for followup for end-stage renal disease. She was transferred to the ICU yesterday with episode of GI bleed. She had about 3 episodes of maroon-colored stools overnight. No vomiting. The patient is n.p.o. Her potassium is elevated along with the BUN and patient will be dialyzed today. There are plans for EGD today. Anticoagulation is on hold. PHYSICAL EXAMINATION: This morning, blood pressure was 107/55, heart rate of 68 per minute. Patient is afebrile. Examination of the heart S1, S2. Examination of the lungs bilateral breath sounds are heard. Decreased breath sounds bases. Abdomen is soft, nontender, obese. Examination of lower extremities shows right AKA, chronic skin changes. Left lower extremity with trace edema. [employer] exam is grossly intact. LABS: Hemoglobin 8.4, sodium of 132, potassium 6.1, BUN 121, serum creatinine 7.83, phosphorus 4.8, calcium 8.2. ASSESSMENT: 1. End-stage renal disease, on hemodialysis on a Friday, , Friday schedule. Patient will be dialyzed today as her potassium is elevated and significant elevation in the BUN also from the gastrointestinal bleed. 2. Hyperkalemia associated with gastrointestinal bleed in a patient with end-stage renal disease. I expect improvement after treatment today. 3. Gastrointestinal bleed. Anticoagulation is currently on hold. Patient is scheduled for EGD today. She received DDAVP yesterday. Patient will be transfuse packed RBCs as well. 4. CKD mineral bone disorder, currently stable. 5. Hypertension. Blood pressure medications are currently on hold. 6. Right IJ deep vein thrombosis. We will hold off on anticoagulation for now. Patient will follow up with her primary vascular surgeon as outpatient. PLAN: Hemodialysis today and then again in a.m. as tomorrow is her regular day. Hemodialysis today and as well as in a.m. Monitor hemoglobin and repeat labs in a.m. MMODL / IJN: [id number] /
[2018-05-20 17:13] LABS: Glucose,Whole Blood 174 mg/dL (75-99)
--- NOTE | 2018-05-20 17:42 | P.PN ---
Subjective Progress Note Date: 05/20/18 Principal diagnosis: Coffee-ground emesis, melena, anemia of acute blood loss The patient is seen lying in bed this afternoon. She is remain nothing by mouth, and denies any further episodes of nausea, vomiting, coffee-ground emesis or dark-colored stool. The patient was scheduled for an EGD today for further evaluation of symptoms, however procedure was postponed by the anesthesia department due to hyperkalemia. Currently she is undergoing hemodialysis. Objective - Vital Signs Vital signs: Vital Signs Temp 98 F 05/20/18 16:00 Pulse 67 05/20/18 16:00 Resp 16 05/20/18 16:00 BP 123/64 05/20/18 16:00 Pulse Ox 95 05/20/18 16:00 Intake & Output 05/19/18 05/20/18 05/20/18 18:59 06:59 18:59 Intake Total 40 200 610 Output Total 0 700 Balance 40 200 -90 Weight 90.7 kg Intake: IV 40 70 KVO 40 70 Oral 130 300 Blood Product 310 Rc As-1 Unit 310 [id number] Output: Urine 0 Other 700 Other: Voiding Method Bedside Commode # Voids 0 # Bowel Movements 1 1 0 - Exam On physical examination, patient appears comfortable in no apparent distress. HEAD: Normocephalic, atraumatic. EYES: No scleral icterus. No conjunctival injection. MOUTH: No lesions, tongue midline. NECK: Trachea midline, no gross abnormalities. CHEST: Decreased air entry in all lung [place]. ABDOMEN: Soft, obese. Bowel sounds are positive. No organomegaly. No guarding or rigidity. EXTREMITIES: No pedal edema. SKIN: No rashes, no jaundice. NEUROLOGIC: Alert and oriented x3. No focal deficits. - Labs CBC & Chem 7: 05/20/18 12:48 05/20/18 04:53 Labs: Abnormal Lab Results - Last 24 Hours (Table) 05/19/18 05/19/18 05/20/18 Range/Units 18:24 20:41 00:18 WBC 14.7 H (3.8-10.6) k/uL RBC 2.49 L 2.50 L (3.80-5.40) m/uL Hgb 8.2 L 8.1 L (11.4-16.0) gm/dL Hct 24.6 L 24.4 L (34.0-46.0) % RDW (11.5-15.5) % Plt Count 138 L 138 L (150-450) k/uL Neutrophils # (1.3-7.7) k/uL PT (9.0-12.0) sec INR (<1.2) APTT (22.0-30.0) sec Sodium (137-145) mmol/L Potassium (3.5-5.1) mmol/L Carbon Dioxide (22-30) mmol/L BUN (7-17) mg/dL Creatinine (0.52-1.04) mg/dL Glucose (74-99) mg/dL POC Glucose (mg/dL) 201 H (75-99) mg/dL Calcium (8.4-10.2) mg/dL Phosphorus (2.5-4.5) mg/dL Crossmatch 05/20/18 05/20/18 05/20/18 Range/Units 04:53 04:53 04:53 WBC 12.0 H (3.8-10.6) k/uL RBC 2.38 L (3.80-5.40) m/uL Hgb 7.7 L (11.4-16.0) gm/dL Hct 23.7 L (34.0-46.0) % RDW (11.5-15.5) % Plt Count 149 L (150-450) k/uL Neutrophils # 10.1 H (1.3-7.7) k/uL PT 13.2 H (9.0-12.0) sec INR 1.3 H (<1.2) APTT 34.3 H (22.0-30.0) sec Sodium 132 L (137-145) mmol/L Potassium 6.1 H* (3.5-5.1) mmol/L Carbon Dioxide 19 L (22-30) mmol/L BUN 121 H* (7-17) mg/dL Creatinine 7.83 H* (0.52-1.04) mg/dL Glucose 155 H (74-99) mg/dL POC Glucose (mg/dL) (75-99) mg/dL Calcium 8.2 L (8.4-10.2) mg/dL Phosphorus 4.8 H (2.5-4.5) mg/dL Crossmatch 04/03/19 04/03/19 04/03/19 Range/Units 07:01 07:06 11:50 WBC (3.8-10.6) k/uL RBC (3.80-5.40) m/uL Hgb (11.4-16.0) gm/dL Hct (34.0-46.0) % RDW (11.5-15.5) % Plt Count (150-450) k/uL Neutrophils # (1.3-7.7) k/uL PT (9.0-12.0) sec INR (<1.2) APTT (22.0-30.0) sec Sodium (137-145) mmol/L Potassium (3.5-5.1) mmol/L Carbon Dioxide (22-30) mmol/L BUN (7-17) mg/dL Creatinine (0.52-1.04) mg/dL Glucose (74-99) mg/dL POC Glucose (mg/dL) 181 H 130 H (75-99) mg/dL Calcium (8.4-10.2) mg/dL Phosphorus (2.5-4.5) mg/dL Crossmatch See Detail 05/20/18 05/20/18 Range/Units 12:48 16:57 WBC (3.8-10.6) k/uL RBC 2.67 L (3.80-5.40) m/uL Hgb 8.4 L (11.4-16.0) gm/dL Hct 25.0 L (34.0-46.0) % RDW 16.6 H (11.5-15.5) % Plt Count 124 L (150-450) k/uL Neutrophils # (1.3-7.7) k/uL PT (9.0-12.0) sec INR (<1.2) APTT (22.0-30.0) sec Sodium (137-145) mmol/L Potassium (3.5-5.1) mmol/L Carbon Dioxide (22-30) mmol/L BUN (7-17) mg/dL Creatinine (0.52-1.04) mg/dL Glucose (74-99) mg/dL POC Glucose (mg/dL) 174 H (75-99) mg/dL Calcium (8.4-10.2) mg/dL Phosphorus (2.5-4.5) mg/dL Crossmatch Assessment and Plan (1) Coffee ground emesis Narrative/Plan: Patient found to have right internal jugular thrombosis and started on anticoagulation, subsequently had multiple episodes of coffee-ground emesis and dark stool with concern for upper GI bleed with differential including peptic ulcer disease, erosive gastritis/esophagitis, AVM or other etiology Current Visit: Yes Status: Acute Code(s): K92.0 - HEMATEMESIS SNOMED Code(s): 92610566 (2) Anemia associated with acute blood loss Current Visit: Yes Status: Acute Code(s): D62 - ACUTE POSTHEMORRHAGIC ANEMIA SNOMED Code(s): 353412821 Plan: Supportive care Okay for liquids Nothing by mouth after midnight Continue Protonix therapy Continue to monitor hemoglobin and hematocrit and transfuse as needed Heparin drip has been held Plan for upper endoscopy for further evaluation tomorrow, procedure was plan for today however this was performed by the anesthesia department due to hyperkalemia for which the patient is currently undergoing Further recommendations pending findings of EGD Thank you for allowing us to participate in the care of the patient we will continue to follow
[2018-05-20 18:24] LABS: Anisocytosis Slight; HCT 23.7 % (34.0-46.0); HGB 8.3 gm/dL (11.4-16.0); MCH 33.3 pg (25.0-35.0); MCHC 34.9 g/dL (31.0-37.0); MCV 95.3 fL (80.0-100.0); Mean Platelet Volume 7.6; Platelet Count 123 k/uL (150-450); Poikilocytosis Slight; RBC 2.49 m/uL (3.80-5.40); RDW 17.4 % (11.5-15.5)
[2018-05-20 20:31] LABS: Glucose,Whole Blood 228 mg/dL (75-99)
[2018-05-20] MEDS: ATORVASTATIN 40 MG TAB PO SCH (21:02)
[2018-05-20] MEDS: AMITRIPTYLINE HCL 50 MG TAB PO SCH (21:02)
[2018-05-20] MEDS: INSULIN DETEMIR (LEVEMIR) 100 UNIT/ML SYR SQ SCH (21:03)
[2018-05-21] MEDS: ACETAMINOPHEN TAB 325 MG TAB PO PRN ×2 (06:11→22:32)
[2018-05-21] MEDS: LEVOTHYROXINE 100 MCG TAB PO SCH (06:11)
[2018-05-21 06:27] LABS: Anisocytosis Slight; Basophils % (A) 0 %; Eosinophils # (A) 0.2 k/uL (0-0.7); Eosinophils % (A) 3 %; HCT 22.5 % (34.0-46.0); HGB 7.5 gm/dL (11.4-16.0); Lymphocytes # (A) 1.2 k/uL (1.0-4.8); Lymphocytes % (A) 15 %; MCH 31.3 pg (25.0-35.0); MCHC 33.2 g/dL (31.0-37.0); MCV 94.3 fL (80.0-100.0); Mean Platelet Volume 8.1; Monocytes # (A) 0.5 k/uL (0-1.0); Monocytes % (A) 6 %; Neutrophils % (A) 74 %; Platelet Count 130 k/uL (150-450); Poikilocytosis Slight; RBC 2.38 m/uL (3.80-5.40); RDW 17.1 % (11.5-15.5)
[2018-05-21 06:30] LABS: INR 1.4 (<1.2); Prothrombin Time 14.6 sec (9.0-12.0)
[2018-05-21 07:17] LABS: Magnesium 1.7 mg/dL (1.6-2.3); Phosphorus 3.7 mg/dL (2.5-4.5); Potassium 5.2 mmol/L (3.5-5.1)
[2018-05-21 07:19] LABS: Glucose,Whole Blood 111 mg/dL (75-99)
[2018-05-21] MEDS: INSULIN ASPART (NovoLOG) 100 UNIT/ML VIAL SQ SCH ×7 (09:14→21:06)
[2018-05-21] MEDS: PANTOPRAZOLE 40 MG/10 ML VIAL IVP SCH (09:15)
[2018-05-21] MEDS: SEVELAMER 800 MG TAB PO SCH ×3 (09:15→17:34)
--- NOTE | 2018-05-21 09:41 | P.PN ---
Subjective Progress Note Date: 05/21/18 This is a 68-year-old female with past medical history noted below significant for end-stage renal disease on hemodialysis, hypertension, and history of bradycardia status post pacemaker implantation was currently admitted to the hospital and being bridged with Coumadin and heparin for R IJ DVT. Patient is doing well today. No acute events overnight. No evidence of further bleed. EGD was postponed from yesterday to today secondary to hyperkalemia. Objective - Vital Signs Vital signs: Vital Signs Temp 97.9 F 05/21/18 04:00 Pulse 60 05/21/18 07:00 Resp 12 05/21/18 07:00 BP 102/39 05/21/18 07:00 Pulse Ox 95 05/21/18 07:00 Intake & Output 05/20/18 05/21/18 05/21/18 18:59 06:59 18:59 Intake Total 860 250 20 Output Total 700 0 Balance 160 250 20 Intake: Oral 550 250 20 Blood Product 310 Rc As-1 Unit 310 [id number] Output: Urine 0 Other 700 Other: Voiding Method Bedside Commode Bedside Commode Bedside Commode # Voids 0 0 0 # Bowel Movements 0 - Exam +General: The patient is awake and alert, in no distress Eye: there is normal conjunctiva bilaterally. Neck: The neck is supple, there is no JVD. Cardiovascular: Normal S1-S2, no S3-S4, no murmurs. Respiratory: Lungs clear to auscultation bilaterally Gastrointestinal: Abdomen is soft, nontender Musculoskeletal: There is +1 pedal edema. Neurological:. Speech is normal. Skin: Skin is warm and dry - Labs CBC & Chem 7: 05/21/18 05:26 05/21/18 05:26 Labs: Abnormal Lab Results - Last 24 Hours (Table) 05/20/18 05/20/18 05/20/18 Range/Units 07:06 11:50 12:48 RBC 2.67 L (3.80-5.40) m/uL Hgb 8.4 L (11.4-16.0) gm/dL Hct 25.0 L (34.0-46.0) % RDW 16.6 H (11.5-15.5) % Plt Count 124 L (150-450) k/uL PT (9.0-12.0) sec INR (<1.2) Sodium (137-145) mmol/L Potassium (3.5-5.1) mmol/L Chloride (98-107) mmol/L BUN (7-17) mg/dL Creatinine (0.52-1.04) mg/dL Glucose (74-99) mg/dL POC Glucose (mg/dL) 130 H (75-99) mg/dL Calcium (8.4-10.2) mg/dL Crossmatch See Detail 05/20/18 05/20/18 05/20/18 Range/Units 16:57 18:10 20:15 RBC 2.49 L (3.80-5.40) m/uL Hgb 8.3 L (11.4-16.0) gm/dL Hct 23.7 L (34.0-46.0) % RDW 17.4 H (11.5-15.5) % Plt Count 123 L (150-450) k/uL PT (9.0-12.0) sec INR (<1.2) Sodium (137-145) mmol/L Potassium (3.5-5.1) mmol/L Chloride (98-107) mmol/L BUN (7-17) mg/dL Creatinine (0.52-1.04) mg/dL Glucose (74-99) mg/dL POC Glucose (mg/dL) 174 H 228 H (75-99) mg/dL Calcium (8.4-10.2) mg/dL Crossmatch 05/21/18 05/21/18 05/21/18 Range/Units 05:26 05:26 05:26 RBC 2.38 L (3.80-5.40) m/uL Hgb 7.5 L (11.4-16.0) gm/dL Hct 22.5 L (34.0-46.0) % RDW 17.1 H (11.5-15.5) % Plt Count 130 L (150-450) k/uL PT 14.6 H (9.0-12.0) sec INR 1.4 H (<1.2) Sodium 134 L (137-145) mmol/L Potassium 5.2 H (3.5-5.1) mmol/L Chloride 95 L (98-107) mmol/L BUN 72 H (7-17) mg/dL Creatinine 5.59 H (0.52-1.04) mg/dL Glucose 101 H (74-99) mg/dL POC Glucose (mg/dL) (75-99) mg/dL Calcium 8.0 L (8.4-10.2) mg/dL Crossmatch 05/21/18 Range/Units 07:15 RBC (3.80-5.40) m/uL Hgb (11.4-16.0) gm/dL Hct (34.0-46.0) % RDW (11.5-15.5) % Plt Count (150-450) k/uL PT (9.0-12.0) sec INR (<1.2) Sodium (137-145) mmol/L Potassium (3.5-5.1) mmol/L Chloride (98-107) mmol/L BUN (7-17) mg/dL Creatinine (0.52-1.04) mg/dL Glucose (74-99) mg/dL POC Glucose (mg/dL) 111 H (75-99) mg/dL Calcium (8.4-10.2) mg/dL Crossmatch Assessment and Plan Assessment: Right IJ and subclavian DVT - Anticoagulation currently on hold secondary to upper GI bleed and acute blood loss anemia. Upper GI bleed -Scheduled for EGD today. Continue Protonix. Acute blood loss anemia -Hemoglobin 7.5 today. We will transfuse as needed ESRD - on HD T/T/S - nephro recs DM 2 - levemir - SSI - follow blood sugars COPD without exacerbation -prn bronchodilators Hypertension -Blood pressure within acceptable range
--- NOTE | 2018-05-21 09:43 | P.PN ---
Subjective Progress Note Date: 05/20/18 This is a late entry progress note. Patient was seen, examined, and evaluated by me on 05/20/2018 Patient was transferred to the ICU on 05/19/2018 after she had an episode of black tarry stool and coffee ground emesis. She was hypotensive but this quickly resolved. This episode happened during dialysis. Patient was transferred to the ICU. She remained hemodynamically stable. Hemoglobin is trending down. She denies any abdominal pain. IV heparin was discontinued. She denies a history of GI bleed that she is aware off. Objective - Vital Signs Vital signs: Vital Signs Temp 97.9 F 05/21/18 04:00 Pulse 60 05/21/18 07:00 Resp 12 05/21/18 07:00 BP 102/39 05/21/18 07:00 Pulse Ox 95 05/21/18 07:00 Intake & Output 05/20/18 05/21/18 05/21/18 18:59 06:59 18:59 Intake Total 860 250 20 Output Total 700 0 Balance 160 250 20 Intake: Oral 550 250 20 Blood Product 310 Rc As-1 Unit 310 [id number] Output: Urine 0 Other 700 Other: Voiding Method Bedside Commode Bedside Commode Bedside Commode # Voids 0 0 0 # Bowel Movements 0 - Exam +General: The patient is awake and alert, in no distress Eye: there is normal conjunctiva bilaterally. Neck: The neck is supple, there is no JVD. Cardiovascular: Normal S1-S2, no S3-S4, no murmurs. Respiratory: Lungs clear to auscultation bilaterally Gastrointestinal: Abdomen is soft, nontender Musculoskeletal: There is +1 pedal edema. Neurological:. Speech is normal. Skin: Skin is warm and dry - Labs CBC & Chem 7: 05/21/18 05:26 05/21/18 05:26 Labs: Abnormal Lab Results - Last 24 Hours (Table) 05/20/18 05/20/18 05/20/18 Range/Units 07:06 11:50 12:48 RBC 2.67 L (3.80-5.40) m/uL Hgb 8.4 L (11.4-16.0) gm/dL Hct 25.0 L (34.0-46.0) % RDW 16.6 H (11.5-15.5) % Plt Count 124 L (150-450) k/uL PT (9.0-12.0) sec INR (<1.2) Sodium (137-145) mmol/L Potassium (3.5-5.1) mmol/L Chloride (98-107) mmol/L BUN (7-17) mg/dL Creatinine (0.52-1.04) mg/dL Glucose (74-99) mg/dL POC Glucose (mg/dL) 130 H (75-99) mg/dL Calcium (8.4-10.2) mg/dL Crossmatch See Detail 05/20/18 05/20/18 05/20/18 Range/Units 16:57 18:10 20:15 RBC 2.49 L (3.80-5.40) m/uL Hgb 8.3 L (11.4-16.0) gm/dL Hct 23.7 L (34.0-46.0) % RDW 17.4 H (11.5-15.5) % Plt Count 123 L (150-450) k/uL PT (9.0-12.0) sec INR (<1.2) Sodium (137-145) mmol/L Potassium (3.5-5.1) mmol/L Chloride (98-107) mmol/L BUN (7-17) mg/dL Creatinine (0.52-1.04) mg/dL Glucose (74-99) mg/dL POC Glucose (mg/dL) 174 H 228 H (75-99) mg/dL Calcium (8.4-10.2) mg/dL Crossmatch 05/21/18 05/21/18 05/21/18 Range/Units 05:26 05:26 05:26 RBC 2.38 L (3.80-5.40) m/uL Hgb 7.5 L (11.4-16.0) gm/dL Hct 22.5 L (34.0-46.0) % RDW 17.1 H (11.5-15.5) % Plt Count 130 L (150-450) k/uL PT 14.6 H (9.0-12.0) sec INR 1.4 H (<1.2) Sodium 134 L (137-145) mmol/L Potassium 5.2 H (3.5-5.1) mmol/L Chloride 95 L (98-107) mmol/L BUN 72 H (7-17) mg/dL Creatinine 5.59 H (0.52-1.04) mg/dL Glucose 101 H (74-99) mg/dL POC Glucose (mg/dL) (75-99) mg/dL Calcium 8.0 L (8.4-10.2) mg/dL Crossmatch 05/21/18 Range/Units 07:15 RBC (3.80-5.40) m/uL Hgb (11.4-16.0) gm/dL Hct (34.0-46.0) % RDW (11.5-15.5) % Plt Count (150-450) k/uL PT (9.0-12.0) sec INR (<1.2) Sodium (137-145) mmol/L Potassium (3.5-5.1) mmol/L Chloride (98-107) mmol/L BUN (7-17) mg/dL Creatinine (0.52-1.04) mg/dL Glucose (74-99) mg/dL POC Glucose (mg/dL) 111 H (75-99) mg/dL Calcium (8.4-10.2) mg/dL Crossmatch Assessment and Plan Assessment: Right IJ and subclavian DVT - Anticoagulation currently on hold secondary to upper GI bleed and acute blood loss anemia. Upper GI bleed -Scheduled for EGD today. Continue Protonix. Acute blood loss anemia -We will transfuse as needed ESRD - on HD T/T/S - nephro recs DM 2 - levemir - SSI - follow blood sugars COPD without exacerbation -prn bronchodilators Hypertension -Blood pressure within acceptable range
--- NOTE | 2018-05-21 09:46 | P.PN ---
Subjective Progress Note Date: 05/21/18 Principal diagnosis: Acute GI bleed This is 68-year-old white female patient has medical history of end-stage renal disease on hemodialysis, hypertension, diabetes mellitus type 2, hyperlipidemia, gout, who presented to the hospital on 05/15/2018 with complaints of pain and paresthesias in the right arm for last 4 months. An outpatient ultrasound was completed and showed a DVT in the internal jugular vein extending into the proximal subclavian vein. Patient was sent to the emergency department and was started on high-dose heparin drip. She denied any shortness of breath or chest pain. Patient does have permanent pacemaker in place, straight of atrial fibrillation, and congestive heart failure, not on any chronic anticoagulation other than baby aspirin a day. Today during her dialysis patient started having coffee-ground emesis, she had a total of 3 episodes, and also had a bloody bowel movements. Rapid response team was called, since vitals did remain stable, she was given some fluids with the dialysis, tachycardia, repeat hemoglobin came back at 8.7, down from 10.0 from this morning. Platelet count was 154, down from 175, patient was on heparin drip, and PTT was greater than 200 this morning, heparin drip was placed on hold, patient was started on oral Coumadin last night, today's INR was 1.2. Patient was consented for Eliquis however did not have sufficient insurance coverage for it and would not be able to afford it. Patient has never had history of bleeding ulcers, 10 years ago she had a EGD and colonoscopy for investigation of her anemia, and reportedly it was within normal limits. Patient was transferred to the intensive care unit for c loser monitoring, she seen in the ICU, resting comfortably in bed, currently on room air, with a pulse ox of 96%, hemodynamically patient is stable, no tachycardia, the paced rhythm on the monitor, with a rate of 60 BPM, afebrile, denies any chest pain or shortness of breath, no further episodes of coffee- ground emesis or rectal bleeding. She has been evaluated by GI service, and she is scheduled for EGD tomorrow, she remains nothing by mouth, Heparin drip is on hold On 05/20/2018 patient seen in follow-up in the intensive care unit, she is awake and alert, no acute distress, still feels slightly nauseous, no abdominal pain, through the night patient apparently had 3 small episodes of maroon colored stools. No hematemesis, this morning's hemoglobin is 7.7, patient is hemodynamically stable. Serum sodium is 132, potassium is 6.1, chloride is 98, CO2 is 19, BUN is 121 in creatinine is 7.83, patient will have a hemodialysis treatment, and will receive a unit of blood with the hemodialysis. Patient is boarded for EGD with Dr. Young today. Heparin and Coumadin remain on hold for now. No complaints of chest pain or shortness of breath, lung sounds are clear, patient is wearing her home CPAP at bedtime and as needed during the day. 05/21/2017 patient seen in follow-up in intensive care unit. She is sitting up in the recliner, in no acute distress, patient did not have her EGD yesterday related to elevated serum potassium level, she did have a hemodialysis treatments and was transfused with 1 unit of PRBC. This morning's hemoglobin is 7.5, patient has not had any further bleeding, no hematemesis, no blood per rectum, no melena. Room air pulse ox is 95%, hemodynamically patient is stable. Today her white blood cell count is 8.0, INR is 1.4, sodium is 134, potassium is 5.2, chloride is 95, BUN is 72, creatinine is 5.59. No chest pain, no shortness of breath, lung sounds are clear. Anticoagulation remains on hold, will await results of the EGD decide on anticoagulation, no specific complaints, no paresthesias. Objective - Vital Signs Vital signs: Vital Signs Temp 97.9 F 05/21/18 04:00 Pulse 60 05/21/18 07:00 Resp 12 05/21/18 07:00 BP 102/39 05/21/18 07:00 Pulse Ox 95 05/21/18 07:00 Intake & Output 05/20/18 05/21/18 05/21/18 18:59 06:59 18:59 Intake Total 860 250 20 Output Total 700 0 Balance 160 250 20 Intake: Oral 550 250 20 Blood Product 310 Rc As-1 Unit 310 [id number] Output: Urine 0 Other 700 Other: Voiding Method Bedside Commode Bedside Commode Bedside Commode # Voids 0 0 0 # Bowel Movements 0 - Exam GENERAL EXAM: Alert, pleasant, 68-year-old white female comfortable in no apparent distress. HEAD: Normocephalic/atraumatic. EYES: Normal reaction of pupils, equal size. Conjunctiva pink, sclera white. NOSE: Clear with pink turbinates. THROAT: No erythema or exudates. NECK: No masses, no JVD, no thyroid enlargement, no adenopathy. CHEST: No chest wall deformity. Symmetrical expansion. LUNGS: Equal air entry with no crackles, wheeze, rhonchi or dullness. CVS: Regular rate and rhythm, normal S1 and S2, no gallops, no murmurs, no rubs ABDOMEN: Soft, nontender. No hepatosplenomegaly, normal bowel sounds, no guarding or rigidity. EXTREMITIES: No clubbing, no edema, no cyanosis, 2+ pulses and upper and lower extremities. Right [id number] amputation MUSCULOSKELETAL: Muscle strength and tone normal. SPINE: No scoliosis or deformity SKIN: No rashes CENTRAL NERVOUS SYSTEM: Alert and oriented -3. No focal deficits, tone is normal in all 4 extremities. PSYCHIATRIC: Alert and oriented -3. Appropriate affect. Intact judgment and insight. - Labs CBC & Chem 7: 05/21/18 05:26 05/21/18 05:26 Labs: Abnormal Lab Results - Last 24 Hours (Table) 05/20/18 05/20/18 05/20/18 Range/Units 07:06 11:50 12:48 RBC 2.67 L (3.80-5.40) m/uL Hgb 8.4 L (11.4-16.0) gm/dL Hct 25.0 L (34.0-46.0) % RDW 16.6 H (11.5-15.5) % Plt Count 124 L (150-450) k/uL PT (9.0-12.0) sec INR (<1.2) Sodium (137-145) mmol/L Potassium (3.5-5.1) mmol/L Chloride (98-107) mmol/L BUN (7-17) mg/dL Creatinine (0.52-1.04) mg/dL Glucose (74-99) mg/dL POC Glucose (mg/dL) 130 H (75-99) mg/dL Calcium (8.4-10.2) mg/dL Crossmatch See Detail 05/20/18 05/20/18 05/20/18 Range/Units 16:57 18:10 20:15 RBC 2.49 L (3.80-5.40) m/uL Hgb 8.3 L (11.4-16.0) gm/dL Hct 23.7 L (34.0-46.0) % RDW 17.4 H (11.5-15.5) % Plt Count 123 L (150-450) k/uL PT (9.0-12.0) sec INR (<1.2) Sodium (137-145) mmol/L Potassium (3.5-5.1) mmol/L Chloride (98-107) mmol/L BUN (7-17) mg/dL Creatinine (0.52-1.04) mg/dL Glucose (74-99) mg/dL POC Glucose (mg/dL) 174 H 228 H (75-99) mg/dL Calcium (8.4-10.2) mg/dL Crossmatch 05/21/18 05/21/18 05/21/18 Range/Units 05:26 05:26 05:26 RBC 2.38 L (3.80-5.40) m/uL Hgb 7.5 L (11.4-16.0) gm/dL Hct 22.5 L (34.0-46.0) % RDW 17.1 H (11.5-15.5) % Plt Count 130 L (150-450) k/uL PT 14.6 H (9.0-12.0) sec INR 1.4 H (<1.2) Sodium 134 L (137-145) mmol/L Potassium 5.2 H (3.5-5.1) mmol/L Chloride 95 L (98-107) mmol/L BUN 72 H (7-17) mg/dL Creatinine 5.59 H (0.52-1.04) mg/dL Glucose 101 H (74-99) mg/dL POC Glucose (mg/dL) (75-99) mg/dL Calcium 8.0 L (8.4-10.2) mg/dL Crossmatch 05/21/18 Range/Units 07:15 RBC (3.80-5.40) m/uL Hgb (11.4-16.0) gm/dL Hct (34.0-46.0) % RDW (11.5-15.5) % Plt Count (150-450) k/uL PT (9.0-12.0) sec INR (<1.2) Sodium (137-145) mmol/L Potassium (3.5-5.1) mmol/L Chloride (98-107) mmol/L BUN (7-17) mg/dL Creatinine (0.52-1.04) mg/dL Glucose (74-99) mg/dL POC Glucose (mg/dL) 111 H (75-99) mg/dL Calcium (8.4-10.2) mg/dL Crossmatch Assessment and Plan Plan: Assessment: #1. Acute GI blood loss anemia related to acute GI bleed #2. Chronic anemia #3. DVT in the internal jugular vein, extending into the proximal subclavian vein #4. End-stage kidney disease on hemodialysis #5. Diabetes mellitus type 2 #6. Hypertension #7. Lifetime nonsmoker, she gives a history of COPD which is questionable. #8. 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 History of congestive heart failure #10. Permanent pacemaker, hx atrial fibrillation not on chronic anticoagulation #11. History of diverticulitis #12. History of MRSA infection in the abdominal wound #13. Anxiety/depression #14. Obstructive sleep apnea on CPAP therapy, morbid obesity. Home oxygen at 2 L Plan: Acute current medical treatment, monitor for signs of bleeding, patient is scheduled for EGD today, has had no further bleeding. Hemodynamically patient is stable, will await the results of the EGD to decide on anticoagulation. Continue IV Protonix. She denies any nausea, or abdominal pain. She will be transfused as needed. I performed a history & physical examination of the patient and discussed their management with my nurse practitioner, Veronica Whitten. I reviewed the nurse practitioner's note and agree with the documented findings and plan of care. Lung sounds are positive for clear breath sounds. The findings and the impression was discussed with the patient. I attest to the documentation by the nurse practitioner. Time with Patient: Less than 30
[2018-05-21] MEDS ORDERED: LACTATED RINGERS 1,000 ML IV ONE (11:34)
[2018-05-21] MEDS ORDERED: LIDOCAINE 1% INJ 10MG/ML (20 ML MDV) ONE (11:35)
[2018-05-21] MEDS ORDERED: PROPOFOL 10 MG/ML 20 ML VIAL IV ONE (11:35)
--- NOTE | 2018-05-21 12:04 | P.PCN ---
Date of Procedure: 05/21/18 Description of Procedure: BRIEF HISTORY: Very pleasant 68-year-old female with medical history significant for end-stage renal disease, hypertension, bradycardia status post pacemaker placement who presents to the hospital with complaints of right neck pain and numbness in her fingers. The patient was subsequently found to have a thrombosis of the right internal jugular. The patient at that time was started on a heparin drip and Coumadin. Subsequently the patient reports waking up nauseated with cramping in her abdomen and subsequently had multiple episodes of coffee-ground emesis and dark colored stool. The patient denies any prior episodes of upper GI bleeding. She denies any NSAID use and reports using Tylenol for pain. No prior histories of peptic ulcer disease. She denies any home PPI therapy. She does not believe she had an EGD in the past. She reports a remote history of colonoscopy approximately 10 years ago and is unsure of the results. Initially on presentation hemoglobin was found to be 11 and subsequently trended down to 8.7. Stable at 7.5 today. PROCEDURE PERFORMED: Esophagogastroduodenoscopy with biopsy. PREOPERATIVE DIAGNOSIS: Melena, anemia of acute blood loss. ESTIMATED BLOOD LOSS: Minimal. IV sedation per anesthesia. PROCEDURE: After informed consent was obtained, the patient was brought into the endoscopy unit. IV sedation was administered by Anesthesia under continuous monitoring. Initially the Olympus GIF-190 video endoscope was inserted into the mouth. Esophagus intubated without any difficulty. It was gradually advanced into the stomach and duodenum and carefully examined. The bulb and the second part of the duodenum appeared normal, with biopsies taken. The scope at this time was withdrawn to the stomach, adequately insufflated with air, and upon careful examination, mucosa of the antrum, body, cardia and the fundus appeared grossly normal. There was scattered mild erythema with some superficial erosions noted in the entire stomach with biopsies taken of the antrum and body, as well as see fundus and cardia. No old blood or active bleeding seen in the entire examined GI tract. Small hiatal hernia noted. The scope was then withdrawn into the esophagus. The GE junction was located at 40 cm from the incisors. The esophagus appeared normal. There were no erosions or ulcerations seen and the patient tolerated the procedure well. IMPRESSION: 1. Mild to moderate gastritis, biopsies of the antrum and body, and the fundus and cardia. 2. Small hiatal hernia. 3. No active bleeding or old blood noted. RECOMMENDATIONS: The findings of this examination were discussed with the patient. Okay to resume renal diet. Continue Protonix daily. Monitor for signs or symptoms of GI bleeding. Continue to monitor hemoglobin. If further signs or symptoms of bleeding develop we'll consider further evaluation otherwise we'll continue to monitor and conservative management at this time.
[2018-05-21 12:42] LABS: Glucose,Whole Blood 122 mg/dL (75-99)
[2018-05-21 13:22] VITALS: BMI 36.6
[2018-05-21] MEDS: ISOSORBIDE MONONITRATE ER 30 MG TAB.ER.24H PO SCH (13:42)
[2018-05-21] MEDS: AMIODARONE 200 MG TAB PO SCH (13:43)
[2018-05-21] MEDS: PANTOPRAZOLE 40 MG TABLET PO SCH (13:43)
[2018-05-21] MEDS: ALLOPURINOL 100 MG TAB PO SCH (13:43)
[2018-05-21] MEDS: PRENATAL VIT-IRON-FOLIC ACID 1 EACH CAP PO SCH (13:43)
[2018-05-21] MEDS ORDERED: DARBEPOETIN ALFA 40 MCG/0.4 ML SYRINGE SQ SCH (16:00)
--- NOTE | 2018-05-21 16:24 | PN ---
PROGRESS NOTE Patient is seen for followup for end-stage renal disease. Patient was seen this morning. She was scheduled for endoscopy today, which was done by Dr. Phan. Patient was found to have no active bleeding. She had mild to moderate gastritis. There has not been any active bleeding noted overnight. On examination this morning blood pressure was 102/39, heart rate of 70 per minute. Patient is afebrile. EXAMINATION OF THE HEART: S1 and S2. EXAMINATION OF LUNGS: Bilateral breath sounds are heard. ABDOMEN: Soft, non-tender. Examination of lower extremities shows no significant edema. Patient has right AKA. Labs show sodium of 134, potassium 5.2, chloride 95, hemoglobin 7.5 g/dL. ASSESSMENT: 1. End-stage renal disease, on hemodialysis on a Friday, , Friday schedule. 2. Hyperkalemia associated with end-stage renal disease as well as gastrointestinal bleed, currently improved. Expect further improvement with hemodialysis today. 3. Acute gastrointestinal bleed, currently off of anticoagulation. 4. Right internal jugular/subclavian deep venous thrombosis; unclear if this is old or new. However, clinically her access in the right arm is functioning well and patient is off of anticoagulation. She will follow up as outpatient with her primary vascular surgeon. We will keep her off of anticoagulation for now. 5. Anemia secondary to gastrointestinal bleed. 6. Chronic kidney disease mineral bone disorder. 7. Volume overload, currently improved. PLAN: Maintain patient on Aranesp. Continue the Renvela. Hemodialysis today. MMODL / IJN: [id number] /
[2018-05-21 16:34] LABS: Glucose,Whole Blood 139 mg/dL (75-99)
[2018-05-21] MEDS: ASPIRIN 81 MG PO SCH (17:21)
[2018-05-21] MEDS: METOPROLOL SUCCINATE (ER) 25 MG TAB.ER.24H PO SCH (17:34)
[2018-05-21] MEDS: WARFARIN 5 MG TAB PO SCH (17:34)
[2018-05-21] MEDS: ENOXAPARIN 100 MG/ML SYRINGE SQ SCH (17:36)
[2018-05-21 21:04] LABS: Glucose,Whole Blood 180 mg/dL (75-99)
[2018-05-21] MEDS: ATORVASTATIN 40 MG TAB PO SCH (21:06)
[2018-05-21] MEDS: AMITRIPTYLINE HCL 50 MG TAB PO SCH (21:06)
[2018-05-21] MEDS: INSULIN DETEMIR (LEVEMIR) 100 UNIT/ML SYR SQ SCH (21:06)
[2018-05-22] MEDS: ACETAMINOPHEN TAB 325 MG TAB PO PRN ×2 (04:45→17:52)
[2018-05-22] MEDS: LEVOTHYROXINE 100 MCG TAB PO SCH (05:54)
[2018-05-22 07:04] LABS: Glucose,Whole Blood 158 mg/dL (75-99)
[2018-05-22 07:19] LABS: Anisocytosis Slight; Basophils % (A) 0 %; Eosinophils # (A) 0.2 k/uL (0-0.7); Eosinophils % (A) 4 %; HCT 22.6 % (34.0-46.0); HGB 7.5 gm/dL (11.4-16.0); Lymphocytes # (A) 0.8 k/uL (1.0-4.8); Lymphocytes % (A) 12 %; MCH 31.3 pg (25.0-35.0); MCHC 33.4 g/dL (31.0-37.0); MCV 93.8 fL (80.0-100.0); Mean Platelet Volume 9.3; Monocytes # (A) 0.4 k/uL (0-1.0); Monocytes % (A) 7 %; Neutrophils # (A) 4.6 k/uL (1.3-7.7); Neutrophils % (A) 75 %; Platelet Count 118 k/uL (150-450); Poikilocytosis Slight; RBC 2.41 m/uL (3.80-5.40); RDW 17.9 % (11.5-15.5); WBC 6.1 k/uL (3.8-10.6)
[2018-05-22 07:20] LABS: INR 1.5 (<1.2)
[2018-05-22] MEDS: INSULIN ASPART (NovoLOG) 100 UNIT/ML VIAL SQ SCH ×7 (07:44→21:09)
[2018-05-22] MEDS: PANTOPRAZOLE 40 MG TABLET PO SCH (07:45)
[2018-05-22 08:15] LABS: Magnesium 1.8 mg/dL (1.6-2.3); Phosphorus 3.8 mg/dL (2.5-4.5); Potassium 4.5 mmol/L (3.5-5.1)
[2018-05-22] MEDS: SEVELAMER 800 MG TAB PO SCH ×3 (08:31→17:49)
[2018-05-22] MEDS: ASPIRIN 81 MG PO SCH (08:49)
[2018-05-22] MEDS: PRENATAL VIT-IRON-FOLIC ACID 1 EACH CAP PO SCH (08:49)
[2018-05-22] MEDS: ISOSORBIDE MONONITRATE ER 30 MG TAB.ER.24H PO SCH (08:49)
[2018-05-22] MEDS: ALLOPURINOL 100 MG TAB PO SCH (08:49)
[2018-05-22] MEDS: AMIODARONE 200 MG TAB PO SCH (08:49)
[2018-05-22] MEDS ORDERED: HEPARIN SODIUM,PORCINE 5,000 UNIT/ML 1 ML VIAL IV PRN (09:19)
[2018-05-22] MEDS: ENOXAPARIN 100 MG/ML SYRINGE SQ SCH (09:23)
--- NOTE | 2018-05-22 10:15 | P.PN ---
Subjective Progress Note Date: 05/22/18 Patient is doing fairly well today. Hemoglobin is stable. No evidence of further bleeding. Objective - Vital Signs Vital signs: Vital Signs Temp 97.0 F L 05/22/18 07:35 Pulse 71 05/22/18 07:35 Resp 19 05/22/18 01:59 BP 103/66 05/22/18 07:35 Pulse Ox 100 05/22/18 07:35 Intake & Output 05/21/18 05/22/18 05/22/18 18:59 06:59 18:59 Intake Total 620 740 Output Total 1000 Balance -380 740 Weight 90.7 kg Intake: IV 100 Oral 520 740 Output: Other 1000 Other: Voiding Method Bedside Commode Bedside Commode # Voids 0 0 - Exam +General: The patient is awake and alert, in no distress Eye: there is normal conjunctiva bilaterally. Neck: The neck is supple, there is no JVD. Cardiovascular: Normal S1-S2, no S3-S4, no murmurs. Respiratory: Lungs clear to auscultation bilaterally Gastrointestinal: Abdomen is soft, nontender Musculoskeletal: There is +1 pedal edema. On the left. BKA on the right. Neurological:. Speech is normal. Skin: Skin is warm and dry - Labs CBC & Chem 7: 05/22/18 06:35 05/22/18 06:35 Labs: Abnormal Lab Results - Last 24 Hours (Table) 05/20/18 05/21/18 05/21/18 Range/Units 07:06 12:39 16:30 RBC (3.80-5.40) m/uL Hgb (11.4-16.0) gm/dL Hct (34.0-46.0) % RDW (11.5-15.5) % Plt Count (150-450) k/uL Lymphocytes # (1.0-4.8) k/uL PT (9.0-12.0) sec INR (<1.2) APTT (22.0-30.0) sec Sodium (137-145) mmol/L BUN (7-17) mg/dL Creatinine (0.52-1.04) mg/dL Glucose (74-99) mg/dL POC Glucose (mg/dL) 122 H 139 H (75-99) mg/dL Calcium (8.4-10.2) mg/dL Crossmatch See Detail 05/21/18 05/22/18 05/22/18 Range/Units 21:01 06:35 06:35 RBC 2.41 L (3.80-5.40) m/uL Hgb 7.5 L (11.4-16.0) gm/dL Hct 22.6 L (34.0-46.0) % RDW 17.9 H (11.5-15.5) % Plt Count 118 L (150-450) k/uL Lymphocytes # 0.8 L (1.0-4.8) k/uL PT 15.0 H (9.0-12.0) sec INR 1.5 H (<1.2) APTT (22.0-30.0) sec Sodium (137-145) mmol/L BUN (7-17) mg/dL Creatinine (0.52-1.04) mg/dL Glucose (74-99) mg/dL POC Glucose (mg/dL) 180 H (75-99) mg/dL Calcium (8.4-10.2) mg/dL Crossmatch 05/22/18 05/22/18 05/22/18 Range/Units 06:35 06:35 06:53 RBC (3.80-5.40) m/uL Hgb (11.4-16.0) gm/dL Hct (34.0-46.0) % RDW (11.5-15.5) % Plt Count (150-450) k/uL Lymphocytes # (1.0-4.8) k/uL PT (9.0-12.0) sec INR (<1.2) APTT 40.8 H (22.0-30.0) sec Sodium 135 L (137-145) mmol/L BUN 40 H (7-17) mg/dL Creatinine 3.99 H (0.52-1.04) mg/dL Glucose 151 H (74-99) mg/dL POC Glucose (mg/dL) 158 H (75-99) mg/dL Calcium 8.0 L (8.4-10.2) mg/dL Crossmatch Assessment and Plan Assessment: Right IJ and subclavian DVT - Anticoagulation resumed with IV heparin bridging with Coumadin. Patient unable to afford newer anticoagulant secondary to lack of insurance coverage. Upper GI bleed -Underwent EGD with mild to moderate gastritis and no active bleeding or old blood noted. Cleared to resume anticoagulation. Continue Protonix. Acute blood loss anemia, hemoglobin stabilized around 7.5 -We will transfuse as needed ESRD - on HD T/T/S - nephro recs DM 2 - levemir - SSI - follow blood sugars COPD without exacerbation -prn bronchodilators Hypertension -Blood pressure within acceptable range Patient will be ready for discharge when her INR is therapeutic
[2018-05-22] MEDS: HEPARIN SOD,PORK IN 0.45% NACL 25,000 UNIT in 0.45% NACL 1 250ML.BAG IV SCH (10:16)
[2018-05-22 11:45] LABS: Glucose,Whole Blood 222 mg/dL (75-99)
[2018-05-22] MEDS: METOPROLOL SUCCINATE (ER) 25 MG TAB.ER.24H PO SCH (13:12)
--- NOTE | 2018-05-22 14:25 | PN ---
PROGRESS NOTE Patient is seen for followup for end-stage renal disease. She was admitted to the hospital with right IJ/subclavian DVT. The patient was maintained on anticoagulation. However, she developed severe GI bleed. All anticoagulation is on hold. The patient did have an EGD, which it did not reveal any active bleeding. The patient was transfused one unit packed RBCs. She currently does not have any active bleeding. Hemoglobin was 7.5 g/dL. The patient is scheduled for hemodialysis tomorrow. PHYSICAL EXAMINATION: On examination, blood pressure this morning 103/66, heart rate 71 per minute. Patient is afebrile. EXAMINATION OF THE HEART: S1, S2. EXAMINATION OF THE LUNGS: Bilateral breath sounds are heard. Abdomen is soft, nontender, obese. Examination of the lower extremities shows the right AKA, chronic skin changes left lower extremity. No significant edema is noted. LABS: Labs show hemoglobin 7.5, sodium 135, potassium 4.5, BUN 40, serum creatinine 3.9. ASSESSMENT: 1. End-stage renal disease, on hemodialysis on a Friday, , Friday schedule. We will arrange for hemodialysis in a.m. 2. Gastrointestinal bleed, currently stopped and patient is maintained off of anticoagulation. EGD did not reveal any active bleeding. 3. Right IJ deep venous thrombosis. No plans to continue with anticoagulation for now. Her access in the right arm is functioning well. Patient will follow up with her primary vascular surgeon as outpatient. 4. Anemia secondary to gastrointestinal bleed. Maintained on Aranesp. No active bleeding noted at this time. Patient also received one unit packed RBCs. PLAN: Hemodialysis in a.m.. MMODL / IJN: [id number] /
[2018-05-22 16:28] LABS: Glucose,Whole Blood 165 mg/dL (75-99)
[2018-05-22] MEDS: WARFARIN 5 MG TAB PO SCH (17:52)
--- NOTE | 2018-05-22 19:15 | P.PN ---
Subjective Progress Note Date: 05/22/18 Principal diagnosis: Coffee-ground emesis, melena, anemia of acute blood loss The patient is seen sitting bedside. She reports doing well. No abdominal pain. No signs or symptoms GI bleeding. Objective - Vital Signs Vital signs: Vital Signs Temp 97.4 F L 05/22/18 14:00 Pulse 64 05/22/18 14:00 Resp 19 05/22/18 01:59 BP 96/55 05/22/18 14:00 Pulse Ox 100 05/22/18 14:00 Intake & Output 05/22/18 05/22/18 05/23/18 06:59 18:59 06:59 Intake Total 740 Balance 740 Intake: Oral 740 Other: Voiding Method Bedside Commode # Voids 0 0 - Exam On physical examination, patient appears comfortable in no apparent distress. HEAD: Normocephalic, atraumatic. EYES: No scleral icterus. No conjunctival injection. MOUTH: No lesions, tongue midline. NECK: Trachea midline, no gross abnormalities. CHEST: Decreased air entry in all lung co[place]. ABDOMEN: Soft, obese. Bowel sounds are positive. No organomegaly. No guarding or rigidity. EXTREMITIES: No pedal edema. SKIN: No rashes, no jaundice. NEUROLOGIC: Alert and oriented x3. No focal deficits. - Labs CBC & Chem 7: 05/22/18 06:35 05/22/18 06:35 Labs: Abnormal Lab Results - Last 24 Hours (Table) 05/20/18 05/21/18 05/22/18 Range/Units 07:06 21:01 06:35 RBC (3.80-5.40) m/uL Hgb (11.4-16.0) gm/dL Hct (34.0-46.0) % RDW (11.5-15.5) % Plt Count (150-450) k/uL Lymphocytes # (1.0-4.8) k/uL PT 15.0 H (9.0-12.0) sec INR 1.5 H (<1.2) APTT (22.0-30.0) sec Sodium (137-145) mmol/L BUN (7-17) mg/dL Creatinine (0.52-1.04) mg/dL Glucose (74-99) mg/dL POC Glucose (mg/dL) 180 H (75-99) mg/dL Calcium (8.4-10.2) mg/dL Crossmatch See Detail 05/22/18 05/22/18 05/22/18 Range/Units 06:35 06:35 06:35 RBC 2.41 L (3.80-5.40) m/uL Hgb 7.5 L (11.4-16.0) gm/dL Hct 22.6 L (34.0-46.0) % RDW 17.9 H (11.5-15.5) % Plt Count 118 L (150-450) k/uL Lymphocytes # 0.8 L (1.0-4.8) k/uL PT (9.0-12.0) sec INR (<1.2) APTT 40.8 H (22.0-30.0) sec Sodium 135 L (137-145) mmol/L BUN 40 H (7-17) mg/dL Creatinine 3.99 H (0.52-1.04) mg/dL Glucose 151 H (74-99) mg/dL POC Glucose (mg/dL) (75-99) mg/dL Calcium 8.0 L (8.4-10.2) mg/dL Crossmatch 05/22/18 05/22/18 05/22/18 Range/Units 06:53 11:34 15:25 RBC (3.80-5.40) m/uL Hgb (11.4-16.0) gm/dL Hct (34.0-46.0) % RDW (11.5-15.5) % Plt Count (150-450) k/uL Lymphocytes # (1.0-4.8) k/uL PT (9.0-12.0) sec INR (<1.2) APTT 64.5 H (22.0-30.0) sec Sodium (137-145) mmol/L BUN (7-17) mg/dL Creatinine (0.52-1.04) mg/dL Glucose (74-99) mg/dL POC Glucose (mg/dL) 158 H 222 H (75-99) mg/dL Calcium (8.4-10.2) mg/dL Crossmatch 05/22/18 Range/Units 16:17 RBC (3.80-5.40) m/uL Hgb (11.4-16.0) gm/dL Hct (34.0-46.0) % RDW (11.5-15.5) % Plt Count (150-450) k/uL Lymphocytes # (1.0-4.8) k/uL PT (9.0-12.0) sec INR (<1.2) APTT (22.0-30.0) sec Sodium (137-145) mmol/L BUN (7-17) mg/dL Creatinine (0.52-1.04) mg/dL Glucose (74-99) mg/dL POC Glucose (mg/dL) 165 H (75-99) mg/dL Calcium (8.4-10.2) mg/dL Crossmatch Assessment and Plan (1) Coffee ground emesis Narrative/Plan: Patient found to have right internal jugular thrombosis and started on anticoagulation, subsequently had multiple episodes of coffee-ground emesis and dark stool with concern for upper GI bleed. EGD performed with no active bleeding or old blood noted. [id number] gastritis with hiatal hernia noted. Current Visit: Yes Status: Acute Code(s): K92.0 - HEMATEMESIS SNOMED Code(s): 23148657 (2) Anemia associated with acute blood loss Current Visit: Yes Status: Acute Code(s): D62 - ACUTE POSTHEMORRHAGIC ANEMIA SNOMED Code(s): 708810996 Plan: Supportive care Renal diet Continue Protonix daily Continue to monitor hemoglobin and hematocrit and transfuse as needed Okay for discharge from gastroenterology Thank you for allowing us to participate in the care of the patient the gastroenterology service will stand by, please call us back with any questions or concerns
[2018-05-22 20:29] LABS: Glucose,Whole Blood 131 mg/dL (75-99)
[2018-05-22] MEDS: ATORVASTATIN 40 MG TAB PO SCH (21:29)
[2018-05-22] MEDS: INSULIN DETEMIR (LEVEMIR) 100 UNIT/ML SYR SQ SCH (21:30)
[2018-05-22] MEDS: AMITRIPTYLINE HCL 50 MG TAB PO SCH (22:20)
[2018-05-23] MEDS: ACETAMINOPHEN TAB 325 MG TAB PO PRN ×3 (00:04→23:20)
[2018-05-23] MEDS: LEVOTHYROXINE 100 MCG TAB PO SCH (05:22)
[2018-05-23 07:17] LABS: Glucose,Whole Blood 132 mg/dL (75-99)
[2018-05-23] MEDS: PRENATAL VIT-IRON-FOLIC ACID 1 EACH CAP PO SCH (08:05)
[2018-05-23] MEDS: ALLOPURINOL 100 MG TAB PO SCH (08:05)
[2018-05-23] MEDS: PANTOPRAZOLE 40 MG TABLET PO SCH (08:05)
[2018-05-23] MEDS: INSULIN ASPART (NovoLOG) 100 UNIT/ML VIAL SQ SCH ×7 (08:05→20:53)
[2018-05-23] MEDS: SEVELAMER 800 MG TAB PO SCH ×3 (08:05→17:21)
[2018-05-23] MEDS: ASPIRIN 81 MG PO SCH (08:05)
[2018-05-23 09:00] LABS: Anisocytosis Moderate; Basophils % (A) 0 %; Eosinophils # (A) 0.2 k/uL (0-0.7); Eosinophils % (A) 4 %; HCT 22.4 % (34.0-46.0); HGB 7.4 gm/dL (11.4-16.0); Hypochromasia Slight; Lymphocytes % (A) 17 %; MCH 31.3 pg (25.0-35.0); MCV 94.8 fL (80.0-100.0); Macrocytosis Slight; Mean Platelet Volume 10.3; Monocytes # (A) 0.4 k/uL (0-1.0); Monocytes % (A) 6 %; Neutrophils # (A) 4.2 k/uL (1.3-7.7); Neutrophils % (A) 71 %; Platelet Count 137 k/uL (150-450); Poikilocytosis Slight; RBC 2.36 m/uL (3.80-5.40); RDW 20.3 % (11.5-15.5); WBC 5.9 k/uL (3.8-10.6)
[2018-05-23 09:19] LABS: INR 1.7 (<1.2); Prothrombin Time 16.7 sec (9.0-12.0)
[2018-05-23] MEDS ORDERED: MIDODRINE 5 MG TAB PO ONE (09:48)
[2018-05-23] MEDS ORDERED: HYDROmorphone 0.5 MG/0.5 ML SYRINGE IVP STA (09:50)
--- NOTE | 2018-05-23 09:52 | P.PN ---
Subjective Patient is seen in follow-up for end-stage renal disease. She is maintained on hemodialysis on a Friday schedule via right upper extremity AV graft. Currently seeing while undergoing hemodialysis. Admits to pain in her right hand. Denies chest pain or shortness of breath. Vital signs are stable. General: The patient appeared well nourished and normally developed. HEENT: Head exam is unremarkable. Neck is without jugular venous distension. LUNGS: Lungs are clear to auscultation and percussion. Breath sounds decreased. HEART: Rate and Rhythm are regular. First and second heart sounds normal. No murmurs, rubs or gallops. ABDOMEN: Abdominal exam reveals normal bowel sounds. Non-tender and non- distended. No evidence of peritonitis. EXTREMITITES: No clubbing, cyanosis, or edema. Objective - Vital Signs Vital signs: Vital Signs Temp 97.5 F L 05/23/18 01:38 Pulse 68 05/23/18 01:38 Resp 16 05/23/18 01:38 BP 117/72 05/23/18 01:38 Pulse Ox 98 05/23/18 01:38 Intake & Output 05/22/18 05/23/18 05/23/18 18:59 06:59 18:59 Intake Total 100 Balance 100 Intake: Intake, IV Titration 100 Amount Heparin Sod,Pork in 0.45% 100 NaCl 25,000 unit In 0.45 % NaCl 1 250ml.bag @ 11. 025 UNITS/KG/HR 10 mls/hr IV .Q24H [facility] Rx#: [id number] Other: Voiding Method Bedside Commode Bedside Commode # Voids 0 - Labs CBC & Chem 7: 05/23/18 08:00 05/22/18 06:35 Labs: Abnormal Lab Results - Last 24 Hours (Table) 05/22/18 05/22/18 05/22/18 Range/Units 11:34 15:25 16:17 RBC (3.80-5.40) m/uL Hgb (11.4-16.0) gm/dL Hct (34.0-46.0) % RDW (11.5-15.5) % Plt Count (150-450) k/uL APTT 64.5 H (22.0-30.0) sec POC Glucose (mg/dL) 222 H 165 H (75-99) mg/dL 05/22/18 05/23/18 05/23/18 Range/Units 20:18 07:04 08:00 RBC 2.36 L (3.80-5.40) m/uL Hgb 7.4 L (11.4-16.0) gm/dL Hct 22.4 L (34.0-46.0) % RDW 20.3 H (11.5-15.5) % Plt Count 137 L (150-450) k/uL APTT (22.0-30.0) sec POC Glucose (mg/dL) 131 H 132 H (75-99) mg/dL Assessment and Plan Plan: Assessment: 1. End-stage renal disease maintained on hemodialysis on a Friday schedule via right upper extremity AV graft. 2. Anemia due to GI bleed and chronic kidney disease maintained on Aranesp. No active bleeding noted. 3. Insulin-dependent diabetes mellitus. 4. Chronic kidney disease mineral bone disease maintained on Renvela. 5. Right IJ DVT. Maintained on Coumadin. Plan: Currently seen while undergoing hemodialysis. 10 mg of midodrine once now. 0.5 mg of IV Dilaudid once now.
[2018-05-23 10:00] LABS: Partial Thromboplastin Time 130.1 sec (22.0-30.0)
[2018-05-23 10:18] LABS: Potassium 5.6 mmol/L (3.5-5.1)
--- NOTE | 2018-05-23 10:41 | P.PN ---
Subjective Progress Note Date: 05/23/18 Principal diagnosis: DVT Patient seen and examined. No acute events overnight. Currently undergoing dialysis. Patient reports right upper extremity pain, 9 out of 10 in severity. Given one time Dilaudid injection. Patient complains of dizziness, described as lightheadedness especially with standing. She denies any chest pain or palpitations. She does complain of slight nausea but no vomiting. No fever or chills. Objective - Vital Signs Vital signs: Vital Signs Temp 98.6 F 05/23/18 07:57 Pulse 64 05/23/18 07:57 Resp 14 05/23/18 07:57 BP 95/47 05/23/18 07:57 Pulse Ox 95 05/23/18 07:57 Intake & Output 05/22/18 05/23/18 05/23/18 18:59 06:59 18:59 Intake Total 100 Balance 100 Intake: Intake, IV Titration 100 Amount Heparin Sod,Pork in 0.45% 100 NaCl 25,000 unit In 0.45 % NaCl 1 250ml.bag @ 11. 025 UNITS/KG/HR 10 mls/hr IV .Q24H [facility] Rx#: [id number] Other: Voiding Method Bedside Commode Bedside Commode # Voids 0 - Exam General: [non toxic], [no distress], [appears at stated age] Derm: [warm], [dry] Head: [atraumatic], [normocephalic], [symmetric] Eyes: [EOMI], [no lid lag], [anicteric sclera] Mouth: [no lip lesion], [mucus membranes moist] Cardiovascular: [S1S2 reg], [no murmur], [positive DP pulse bilateral] Lungs: [Decreased breath sounds bilaterally], [no rhonchi, no rales] , [no accessory muscle use] Abdominal: [soft], [ nontender to palpation], [no guarding], [no appreciable organomegaly] Ext: [no gross muscle atrophy], [no edema], [no contractures] Neuro: [no focal neuro deficits] Psych: [Alert], [oriented], [appropriate affect] - Labs CBC & Chem 7: 05/23/18 08:00 05/23/18 08:00 Labs: Abnormal Lab Results - Last 24 Hours (Table) 05/22/18 05/22/1805/22/19 Range/Units 11:34 15:25 16:17 RBC (3.80-5.40) m/uL Hgb (11.4-16.0) gm/dL Hct (34.0-46.0) % RDW (11.5-15.5) % Plt Count (150-450) k/uL PT (9.0-12.0) sec INR (<1.2) APTT 64.5 H (22.0-30.0) sec POC Glucose (mg/dL) 222 H 165 H (75-99) mg/dL 05/22/18 05/23/18 05/23/18 Range/Units 20:18 07:04 08:00 RBC (3.80-5.40) m/uL Hgb (11.4-16.0) gm/dL Hct (34.0-46.0) % RDW (11.5-15.5) % Plt Count (150-450) k/uL PT 16.7 H (9.0-12.0) sec INR 1.7 H (<1.2) APTT 130.1 H* (22.0-30.0) sec POC Glucose (mg/dL) 131 H 132 H (75-99) mg/dL 05/23/18 Range/Units 08:00 RBC 2.36 L (3.80-5.40) m/uL Hgb 7.4 L (11.4-16.0) gm/dL Hct 22.4 L (34.0-46.0) % RDW 20.3 H (11.5-15.5) % Plt Count 137 L (150-450) k/uL PT (9.0-12.0) sec INR (<1.2) APTT (22.0-30.0) sec POC Glucose (mg/dL) (75-99) mg/dL Assessment and Plan Assessment: Assessment and Plan Dizziness Right IJ and subclavian DVT GI bleed Acute blood loss anemia ESRD Diabetes mellitus COPD Hypertension Atrial fibrillation Hypothyroidism States has been ongoing for a couple days now. Appears to be positional from sitting to standing. Follow orthostatic vitals. Seen on venous duplex. Currently on heparin drip. Bridge with Coumadin. INR 1.7. Daily INR. EGD showing mild to moderate gastritis, small hiatal hernia. Continue Protonix by mouth. Monitor as patient is being anticoagulated. Follow gastroenterology recommendations. Hemoglobin 7.4 this morning, stable from yesterday. Given 1 unit PRBC throughout hospitalization. Likely from acute blood loss from GI source. Daily CBC. Transfuse if hemoglobin less than 7. Creatinine 5.40 on hemodialysis Friday schedule. Monitor and replace electrolytes. Continue Aranesp. Continue sevelamer. Dialysis today. Follow nephrology recommendations. [id number] glucose 120. NovoLog 6 units 3 times a day. Levemir 15 units at bedtime. Regular Accu-Cheks. Hypoglycemic precautions. Stable. Albuterol nebulizer as needed for shortness of breath or wheezing. BP 95/47. Hypotensive due to current dialysis. Continue metoprolol, Imdur. Monitor vitals, adjust medications as necessary. Rate controlled with metoprolol. Rhythm control with amiodarone. Currently on heparin drip being bridged with warfarin. Keep potassium greater than 4 and magnesium greater than 2. Stable. Continue Synthroid. Dialysis today. Patient being bridged from heparin to Coumadin, INR subtherapeutic, anticipate therapeutic tomorrow. Complains of dizziness, will check orthostatics.
[2018-05-23] MEDS: ISOSORBIDE MONONITRATE ER 30 MG TAB.ER.24H PO SCH (10:49)
[2018-05-23] MEDS: HEPARIN SOD,PORK IN 0.45% NACL 25,000 UNIT in 0.45% NACL 1 250ML.BAG IV SCH (11:09)
[2018-05-23 12:17] LABS: Glucose,Whole Blood 119 mg/dL (75-99)
[2018-05-23] MEDS: METOPROLOL SUCCINATE (ER) 25 MG TAB.ER.24H PO SCH (16:10)
[2018-05-23] MEDS: AMIODARONE 200 MG TAB PO SCH (16:15)
[2018-05-23 16:59] LABS: Anisocytosis Moderate; Basophils % (A) 0 %; Eosinophils # (A) 0.2 k/uL (0-0.7); Eosinophils % (A) 3 %; HCT 22.2 % (34.0-46.0); HGB 7.5 gm/dL (11.4-16.0); Hypochromasia Slight; Lymphocytes # (A) 1.1 k/uL (1.0-4.8); Lymphocytes % (A) 18 %; MCH 32.4 pg (25.0-35.0); MCV 95.4 fL (80.0-100.0); Macrocytosis Slight; Monocytes # (A) 0.4 k/uL (0-1.0); Monocytes % (A) 6 %; Neutrophils # (A) 4.4 k/uL (1.3-7.7); Neutrophils % (A) 71 %; Platelet Count 142 k/uL (150-450); Poikilocytosis Moderate; RBC 2.33 m/uL (3.80-5.40); RDW 20.9 % (11.5-15.5); WBC 6.2 k/uL (3.8-10.6)
[2018-05-23 17:18] LABS: Glucose,Whole Blood 134 mg/dL (75-99)
[2018-05-23] MEDS: WARFARIN 5 MG TAB PO SCH (17:23)
[2018-05-23 19:50] LABS: Glucose,Whole Blood 213 mg/dL (75-99)
[2018-05-23] MEDS: ATORVASTATIN 40 MG TAB PO SCH (20:53)
[2018-05-23] MEDS: INSULIN DETEMIR (LEVEMIR) 100 UNIT/ML SYR SQ SCH (20:53)
[2018-05-23] MEDS: AMITRIPTYLINE HCL 50 MG TAB PO SCH (20:53)
[2018-05-24 00:06] LABS: Glucose,Whole Blood 69 mg/dL (75-99)
[2018-05-24 00:22] LABS: Glucose,Whole Blood 110 mg/dL (75-99)
[2018-05-24] MEDS: LEVOTHYROXINE 100 MCG TAB PO SCH (05:38)
[2018-05-24] MEDS: ACETAMINOPHEN TAB 325 MG TAB PO PRN (05:40)
[2018-05-24] MEDS: INSULIN ASPART (NovoLOG) 100 UNIT/ML VIAL SQ SCH ×7 (07:31→20:18)
[2018-05-24] MEDS: ISOSORBIDE MONONITRATE ER 30 MG TAB.ER.24H PO SCH (07:32)
[2018-05-24 07:39] LABS: Glucose,Whole Blood 81 mg/dL (75-99)
[2018-05-24] MEDS: SEVELAMER 800 MG TAB PO SCH ×3 (07:39→17:36)
[2018-05-24] MEDS: PANTOPRAZOLE 40 MG TABLET PO SCH (07:40)
[2018-05-24] MEDS: DOCUSATE 100 MG CAP PO PRN (07:40)
[2018-05-24 09:12] LABS: Anisocytosis Moderate; Basophils % (A) 1 %; Eosinophils # (A) 0.3 k/uL (0-0.7); Eosinophils % (A) 5 %; HCT 22.4 % (34.0-46.0); HGB 7.9 gm/dL (11.4-16.0); Hypochromasia Slight; Lymphocytes % (A) 18 %; MCH 34.4 pg (25.0-35.0); MCHC 35.3 g/dL (31.0-37.0); MCV 97.4 fL (80.0-100.0); Macrocytosis Slight; Mean Platelet Volume 8.2; Monocytes # (A) 0.4 k/uL (0-1.0); Monocytes % (A) 7 %; Neutrophils # (A) 3.8 k/uL (1.3-7.7); Neutrophils % (A) 68 %; Platelet Count 143 k/uL (150-450); Poikilocytosis Moderate; RDW 20.2 % (11.5-15.5); WBC 5.7 k/uL (3.8-10.6)
--- NOTE | 2018-05-24 10:04 | P.PN ---
Subjective Patient is seen in follow-up for end-stage renal disease. She is maintained on hemodialysis on a Friday schedule via right upper extremity AV graft. Tolerated hemodialysis well yesterday. Denies chest pain or shortness of breath. No active complaints at this time. Vital signs are stable. General: The patient appeared well nourished and normally developed. HEENT: Head exam is unremarkable. Neck is without jugular venous distension. LUNGS: Lungs are clear to auscultation and percussion. Breath sounds decreased. HEART: Rate and Rhythm are regular. First and second heart sounds normal. No murmurs, rubs or gallops. ABDOMEN: Abdominal exam reveals normal bowel sounds. Non-tender and non- distended. No evidence of peritonitis. EXTREMITITES: No clubbing, cyanosis, or edema. Objective - Vital Signs Vital signs: Vital Signs Temp 97.8 F 05/24/18 07:25 Pulse 57 L 05/24/18 07:25 Resp 14 05/24/18 07:25 BP 95/48 05/24/18 07:25 Pulse Ox 100 05/24/18 07:25 Intake & Output 05/23/18 05/24/18 05/24/18 18:59 06:59 18:59 Intake Total 748.833 280 166.446 Balance 748.833 280 166.446 Intake: Intake, IV Titration 248.833 166.446 Amount Heparin Sod,Pork in 0.45% 248.833 166.446 NaCl 25,000 unit In 0.45 % NaCl 1 250ml.bag @ 11. 025 UNITS/KG/HR 10 mls/hr IV .Q24H [facility] Rx#: [id number] Oral 500 280 Other: Voiding Method Bedside Commode Bedside Commode - Labs CBC & Chem 7: 05/24/18 07:09 05/23/18 08:00 Labs: Abnormal Lab Results - Last 24 Hours (Table) 05/23/18 05/23/18 05/23/18 Range/Units 08:00 12:05 16:30 RBC 2.33 L (3.80-5.40) m/uL Hgb 7.5 L (11.4-16.0) gm/dL Hct 22.2 L (34.0-46.0) % RDW 20.9 H (11.5-15.5) % Plt Count 142 L (150-450) k/uL APTT (22.0-30.0) sec Sodium 135 L (137-145) mmol/L Potassium 5.6 H (3.5-5.1) mmol/L BUN 55 H (7-17) mg/dL Creatinine 5.40 H (0.52-1.04) mg/dL Glucose 120 H (74-99) mg/dL POC Glucose (mg/dL) 119 H (75-99) mg/dL Calcium 8.0 L (8.4-10.2) mg/dL 05/23/18 05/23/18 05/23/18 Range/Units 16:30 17:07 19:39 RBC (3.80-5.40) m/uL Hgb (11.4-16.0) gm/dL Hct (34.0-46.0) % RDW (11.5-15.5) % Plt Count (150-450) k/uL APTT 70.5 H (22.0-30.0) sec Sodium (137-145) mmol/L Potassium (3.5-5.1) mmol/L BUN (7-17) mg/dL Creatinine (0.52-1.04) mg/dL Glucose (74-99) mg/dL POC Glucose (mg/dL) 134 H 213 H (75-99) mg/dL Calcium (8.4-10.2) mg/dL 05/23/18 05/24/18 05/24/18 Range/Units 23:55 00:11 07:09 RBC 2.30 L (3.80-5.40) m/uL Hgb 7.9 L (11.4-16.0) gm/dL Hct 22.4 L (34.0-46.0) % RDW 20.2 H (11.5-15.5) % Plt Count 143 L (150-450) k/uL APTT (22.0-30.0) sec Sodium (137-145) mmol/L Potassium (3.5-5.1) mmol/L BUN (7-17) mg/dL Creatinine (0.52-1.04) mg/dL Glucose (74-99) mg/dL POC Glucose (mg/dL) 69 L 110 H (75-99) mg/dL Calcium (8.4-10.2) mg/dL 05/24/18 Range/Units 07:09 RBC (3.80-5.40) m/uL Hgb (11.4-16.0) gm/dL Hct (34.0-46.0) % RDW (11.5-15.5) % Plt Count (150-450) k/uL APTT 91.9 H (22.0-30.0) sec Sodium (137-145) mmol/L Potassium (3.5-5.1) mmol/L BUN (7-17) mg/dL Creatinine (0.52-1.04) mg/dL Glucose (74-99) mg/dL POC Glucose (mg/dL) (75-99) mg/dL Calcium (8.4-10.2) mg/dL Assessment and Plan Plan: Assessment: 1. End-stage renal disease maintained on hemodialysis on a Friday schedule via right upper extremity AV graft. 2. Anemia due to GI bleed and chronic kidney disease maintained on Aranesp. No active bleeding noted. 3. Insulin-dependent diabetes mellitus. 4. Chronic kidney disease mineral bone disease maintained on Renvela. 5. Right IJ DVT. Maintained on Coumadin. Plan: Next hemodialysis on Friday.
[2018-05-24 10:28] LABS: Calcium 8.3 mg/dL (8.4-10.2); Potassium 4.7 mmol/L (3.5-5.1)
[2018-05-24] MEDS: HEPARIN SOD,PORK IN 0.45% NACL 25,000 UNIT in 0.45% NACL 1 250ML.BAG IV SCH (11:09)
[2018-05-24] MEDS: METOPROLOL SUCCINATE (ER) 25 MG TAB.ER.24H PO SCH (11:10)
[2018-05-24] MEDS: ALLOPURINOL 100 MG TAB PO SCH (11:13)
[2018-05-24] MEDS: ASPIRIN 81 MG PO SCH (11:13)
[2018-05-24] MEDS: PRENATAL VIT-IRON-FOLIC ACID 1 EACH CAP PO SCH (11:13)
[2018-05-24] MEDS: AMIODARONE 200 MG TAB PO SCH (11:13)
[2018-05-24] MEDS ORDERED: HYDROcodone/APAP 5-325MG 1 EACH TAB PO STA (11:26)
--- NOTE | 2018-05-24 11:33 | P.PN ---
Subjective Progress Note Date: 05/24/18 Principal diagnosis: DVT right upper extremity Patient was seen and examined. No acute events overnight. Underwent dialysis without complications yesterday. Patient continues to complain of right upper extremity pain, related to pulmonary DVT. Pain is 5 out of 10 in severity. Patient is only taking Tylenol at this time. She denies any chest pain, shortness of breath or palpitations. No nausea or vomiting. No fever or chills. Objective - Vital Signs Vital signs: Vital Signs Temp 97.8 F 05/24/18 07:25 Pulse 63 05/24/18 11:08 Resp 14 05/24/18 07:25 BP 98/48 05/24/18 11:08 Pulse Ox 100 05/24/18 07:25 Intake & Output 05/23/18 05/24/18 05/24/18 18:59 06:59 18:59 Intake Total 748.833 280 166.446 Balance 748.833 280 166.446 Intake: Intake, IV Titration 248.833 166.446 Amount Heparin Sod,Pork in 0.45% 248.833 166.446 NaCl 25,000 unit In 0.45 % NaCl 1 250ml.bag @ 11. 025 UNITS/KG/HR 10 mls/hr IV .Q24H PENDING SALE TO [facility] Rx#: [id number] Oral 500 280 Other: Voiding Method Bedside Commode Bedside Commode - Exam General: [non toxic], [no distress], [appears at stated age] Derm: [warm], [dry] Head: [atraumatic], [normocephalic], [symmetric] Eyes: [EOMI], [no lid lag], [anicteric sclera] Mouth: [no lip lesion], [mucus membranes moist] Cardiovascular: [S1S2 reg], [no murmur], [positive DP pulse bilateral] Lungs: [Decreased breath sounds bilaterally], [no rhonchi, no rales] , [no accessory muscle use] Abdominal: [soft], [ nontender to palpation], [no guarding], [no appreciable organomegaly] Ext: [no gross muscle atrophy], [no edema], [no contractures] Neuro: [no focal neuro deficits] Psych: [Alert], [oriented], [appropriate affect] - Labs CBC & Chem 7: 05/24/18 07:09 05/24/18 07:53 Labs: Abnormal Lab Results - Last 24 Hours (Table) 05/23/18 05/23/18 05/23/18 Range/Units 12:05 16:30 16:30 RBC 2.33 L (3.80-5.40) m/uL Hgb 7.5 L (11.4-16.0) gm/dL Hct 22.2 L (34.0-46.0) % RDW 20.9 H (11.5-15.5) % Plt Count 142 L (150-450) k/uL APTT 70.5 H (22.0-30.0) sec Sodium (137-145) mmol/L Chloride (98-107) mmol/L BUN (7-17) mg/dL Creatinine (0.52-1.04) mg/dL Glucose (74-99) mg/dL POC Glucose (mg/dL) 119 H (75-99) mg/dL Calcium (8.4-10.2) mg/dL 05/23/18 05/23/18 05/23/18 Range/Units 17:07 19:39 23:55 RBC (3.80-5.40) m/uL Hgb (11.4-16.0) gm/dL Hct (34.0-46.0) % RDW (11.5-15.5) % Plt Count (150-450) k/uL APTT (22.0-30.0) sec Sodium (137-145) mmol/L Chloride (98-107) mmol/L BUN (7-17) mg/dL Creatinine (0.52-1.04) mg/dL Glucose (74-99) mg/dL POC Glucose (mg/dL) 134 H 213 H 69 L (75-99) mg/dL Calcium (8.4-10.2) mg/dL 05/24/18 05/24/18 05/24/18 Range/Units 00:11 07:09 07:09 RBC 2.30 L (3.80-5.40) m/uL Hgb 7.9 L (11.4-16.0) gm/dL Hct 22.4 L (34.0-46.0) % RDW 20.2 H (11.5-15.5) % Plt Count 143 L (150-450) k/uL APTT 91.9 H (22.0-30.0) sec Sodium (137-145) mmol/L Chloride (98-107) mmol/L BUN (7-17) mg/dL Creatinine (0.52-1.04) mg/dL Glucose (74-99) mg/dL POC Glucose (mg/dL) 110 H (75-99) mg/dL Calcium (8.4-10.2) mg/dL 05/24/18 Range/Units 07:53 RBC (3.80-5.40) m/uL Hgb (11.4-16.0) gm/dL Hct (34.0-46.0) % RDW (11.5-15.5) % Plt Count (150-450) k/uL APTT (22.0-30.0) sec Sodium 134 L (137-145) mmol/L Chloride 94 L (98-107) mmol/L BUN 36 H (7-17) mg/dL Creatinine 3.61 H (0.52-1.04) mg/dL Glucose 71 L (74-99) mg/dL POC Glucose (mg/dL) (75-99) mg/dL Calcium 8.3 L (8.4-10.2) mg/dL Assessment and Plan Assessment: Assessment and Plan Dizziness Right IJ and subclavian DVT GI bleed Acute blood loss anemia ESRD Diabetes mellitus COPD Hypertension Atrial fibrillation Hypothyroidism Resolved today. States has been ongoing for a couple days now. Appears to be positional from sitting to standing. Follow orthostatic vitals (will be done today). Seen on venous duplex. Currently on heparin drip. Bridge with Coumadin. INR 1.7. FU INR EGD showing mild to moderate gastritis, small hiatal hernia. Continue Protonix by mouth. Monitor as patient is being anticoagulated. Follow gastroenterology recommendations. Hemoglobin 7.9 this morning, stable from yesterday. Given 1 unit PRBC throughout hospitalization. Likely from acute blood loss from GI source. Daily CBC. Transfuse if hemoglobin less than 7. Creatinine 3.61 on hemodialysis Friday schedule. Monitor and replace electrolytes. Continue Aranesp. Continue sevelamer. Follow nephrology recommendations. Fetqt-lo-kwbb glucose 71. NovoLog 6 units 3 times a day. Levemir 15 units at bedtime. Regular Accu-Cheks. Hypoglycemic precautions. Stable. Albuterol nebulizer as needed for shortness of breath or wheezing. BP 98/48. Continue metoprolol, Imdur. Monitor vitals, adjust medications as necessary. Rate controlled with metoprolol. Rhythm control with amiodarone. Currently on heparin drip being bridged with warfarin. Keep potassium greater than 4 and magnesium greater than 2. Stable. Continue Synthroid. Patient being bridged from heparin to Coumadin, INR subtherapeutic, INR pending this morning. Complaints of dizziness from yesterday, will check orthostatics. Likely discharge home today if INR therapeutic.
[2018-05-24 12:03] LABS: Glucose,Whole Blood 115 mg/dL (75-99)
[2018-05-24 14:04] LABS: INR 2.8 (<1.2); Prothrombin Time 26.9 sec (9.0-12.0)
[2018-05-24 17:28] LABS: Glucose,Whole Blood 202 mg/dL (75-99)
[2018-05-24] MEDS: WARFARIN 5 MG TAB PO SCH (17:43)
[2018-05-24 19:55] LABS: Glucose,Whole Blood 201 mg/dL (75-99)
[2018-05-24] MEDS: INSULIN DETEMIR (LEVEMIR) 100 UNIT/ML SYR SQ SCH (20:14)
[2018-05-24] MEDS: DOCUSATE 100 MG CAP PO SCH (20:18)
[2018-05-24] MEDS: AMITRIPTYLINE HCL 50 MG TAB PO SCH (20:18)
[2018-05-24] MEDS: ATORVASTATIN 40 MG TAB PO SCH (20:18)
[2018-05-25] MEDS: LEVOTHYROXINE 100 MCG TAB PO SCH (05:18)
[2018-05-25 07:33] LABS: Glucose,Whole Blood 131 mg/dL (75-99)
[2018-05-25 07:50] LABS: Prothrombin Time 52.1 sec (9.0-12.0)
[2018-05-25 08:04] LABS: Anisocytosis Moderate; Basophils # (A) 0.1 k/uL (0-0.2); Basophils % (A) 1 %; Eosinophils # (A) 0.3 k/uL (0-0.7); Eosinophils % (A) 5 %; HGB 7.7 gm/dL (11.4-16.0); Hypochromasia Slight; Lymphocytes % (A) 14 %; MCH 33.7 pg (25.0-35.0); MCHC 33.3 g/dL (31.0-37.0); MCV 101.1 fL (80.0-100.0); Macrocytosis Moderate; Mean Platelet Volume 8.4; Monocytes # (A) 0.6 k/uL (0-1.0); Monocytes % (A) 8 %; Neutrophils # (A) 5.3 k/uL (1.3-7.7); Neutrophils % (A) 72 %; Platelet Count 176 k/uL (150-450); Poikilocytosis Moderate; RBC 2.27 m/uL (3.80-5.40); RDW 20.1 % (11.5-15.5); WBC 7.4 k/uL (3.8-10.6)
[2018-05-25 08:31] LABS: INR 5.4 (<1.2)
[2018-05-25] MEDS: INSULIN ASPART (NovoLOG) 100 UNIT/ML VIAL SQ SCH ×4 (08:32→13:31)
[2018-05-25] MEDS: PANTOPRAZOLE 40 MG TABLET PO SCH (09:06)
[2018-05-25] MEDS: SEVELAMER 800 MG TAB PO SCH ×2 (09:09→13:39)
[2018-05-25] MEDS: AMIODARONE 200 MG TAB PO SCH (09:10)
[2018-05-25] MEDS: ALLOPURINOL 100 MG TAB PO SCH (09:10)
[2018-05-25] MEDS: METOPROLOL SUCCINATE (ER) 25 MG TAB.ER.24H PO SCH (09:10)
[2018-05-25] MEDS: DOCUSATE 100 MG CAP PO SCH (09:11)
[2018-05-25] MEDS: ISOSORBIDE MONONITRATE ER 30 MG TAB.ER.24H PO SCH (09:12)
[2018-05-25] MEDS: WARFARIN 5 MG TAB PO SCH (09:15)
[2018-05-25] MEDS: PRENATAL VIT-IRON-FOLIC ACID 1 EACH CAP PO SCH (09:17)
[2018-05-25] MEDS: ASPIRIN 81 MG PO SCH (09:17)
[2018-05-25 12:39] LABS: Glucose,Whole Blood 209 mg/dL (75-99)
--- NOTE | 2018-05-25 14:07 | PN ---
PROGRESS NOTE Patient is seen for followup for end-stage renal disease. DATE OF SERVICE: 05/25/2018 Patient denies any significant complaints, there has not been any active bleeding. There are plans for possible discharge today. PHYSICAL EXAMINATION: This morning, blood pressure is 115/75, heart rate 71 per minute. She is afebrile. Examination of the heart, S1, S2. Examination of the lungs. bilateral breath sounds are heard. Abdomen is soft, nontender, obese. 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 Chronic skin changes, left lower extremity. G[employer]IST[employer] exam is grossly intact. LABS: Show hemoglobin 7.7 g/dL. ASSESSMENT: 1. End-stage renal disease, on hemodialysis on a Friday, , Friday schedule. 2. Gastrointestinal bleed. Status post EGD, which showed no active bleeding. 3. Right IJ and subclavian DVT with no plans for anticoagulation currently. Patient will follow up as outpatient with her primary vascular surgeon. 4. CKD mineral bone disorder. PLAN: Hemodialysis in a.m. Patient can be discharged from nephrology standpoint. Followup as outpatient with from Vascular Surgery. MMODL / YUNGN: [id number] /
[2018-05-25 16:20] VITALS: BP 90/46; PULSE 83; RESP 15; TEMP 97.4
== END 2018-05-25 16:25 | disposition home or self-care (01) | DRG 299 ==
LOC: EC 12:52 → 4SSUR 19:37 → 2SICU 05-19 11:51 → 4SSUR 05-21 23:00
PROVIDERS: ADMIT Hospitalist; ATTEND Hospitalist
PROC: 5A1D70Z Performance of Urinary Filtration, Intermittent, Less than 6 Hours Per Day (ICD-10-PCS; principal; 2018-05-16)
PROC: 30243N1 Transfusion of Nonautologous Red Blood Cells into Central Vein, Percutaneous Approach (ICD-10-PCS; 2018-05-20)
PROC: 0DB78ZX Excision of Stomach, Pylorus, Via Natural or Artificial Opening Endoscopic, Diagnostic (ICD-10-PCS; 2018-05-21)
PROC: 0DB98ZX Excision of Duodenum, Via Natural or Artificial Opening Endoscopic, Diagnostic (ICD-10-PCS; 2018-05-21)
DX: I82.C11 Acute embolism and thrombosis of right internal jugular vein (principal); N18.6 End stage renal disease; K29.51 Unspecified chronic gastritis with bleeding; I13.2 Hypertensive heart and chronic kidney disease with heart failure and with stage 5 chronic kidney disease, or end stage renal disease; D62 Acute posthemorrhagic anemia; K92.1 Melena; I95.9 Hypotension, unspecified; I50.9 Heart failure, unspecified; E11.42 Type 2 diabetes mellitus with diabetic polyneuropathy; E11.22 Type 2 diabetes mellitus with diabetic chronic kidney disease; B02.9 Zoster without complications; E87.5 Hyperkalemia; E66.01 Morbid (severe) obesity due to excess calories; I48.91 Unspecified atrial fibrillation; J44.9 Chronic obstructive pulmonary disease, unspecified; K21.9 Gastro-esophageal reflux disease without esophagitis; I82.B11 Acute embolism and thrombosis of right subclavian vein; M81.0 Age-related osteoporosis without current pathological fracture; D63.1 Anemia in chronic kidney disease; M19.90 Unspecified osteoarthritis, unspecified site; M10.9 Gout, unspecified; F41.9 Anxiety disorder, unspecified; F32.9 Major depressive disorder, single episode, unspecified; H26.9 Unspecified cataract; E89.0 Postprocedural hypothyroidism; K44.9 Diaphragmatic hernia without obstruction or gangrene; E78.5 Hyperlipidemia, unspecified; G47.33 Obstructive sleep apnea (adult) (pediatric); Z59.6 Low income; Z68.36 Body mass index [BMI] 36.0-36.9, adult; Z71.3 Dietary counseling and surveillance; Z79.899 Other long term (current) drug therapy; Z79.4 Long term (current) use of insulin; Z79.82 Long term (current) use of aspirin; Z79.890 Hormone replacement therapy; Z86.14 Personal history of Methicillin resistant Staphylococcus aureus infection; Z90.710 Acquired absence of both cervix and uterus; Z89.611 Acquired absence of right leg above knee; Z95.0 Presence of cardiac pacemaker; Z95.5 Presence of coronary angioplasty implant and graft; Z99.2 Dependence on renal dialysis; Z88.5 Allergy status to narcotic agent; Z82.49 Family history of ischemic heart disease and other diseases of the circulatory system; Z80.1 Family history of malignant neoplasm of trachea, bronchus and lung; Z83.3 Family history of diabetes mellitus
CPT/HCPCS: 36415; 43239; 80048; 80053; 83735; 84100; 85025; 85027; 85610; 85730; 86706; 86850; 86900; 86901; 86920; 87340; 88305; 90935; 93005; 96365; 96366; 96376; 99285

== ENCOUNTER 2018-08-04 04:23 | Emergency (ER) | payer MEDICARE, BC ==
[2018-08-04] MEDS ORDERED: SILVER NITRATE APPLICATOR 1 EACH STICK..EA. TOPICAL STA (05:11)
--- NOTE | 2018-08-04 05:20 | ED ---
General Adult HPI - General Chief complaint: Recheck/Abnormal Lab/Rx Stated complaint: Wound Time Seen by Provider: 08/04/18 05:09 Source: patient, EMS Mode of arrival: EMS Limitations: no limitations - History of Present Illness Initial comments: Patient is a 68-year-old woman who presents with complaint that she has had bleeding from the skin of the abdominal wall since about 11 PM. She states she was watching TV at the time and then scratched her her abdomen and then noticed that there was bleeding. She has had frequent episodes of this and states that because of her dialysis she tends to have prolonged bleeding. Patient denies pains. No lightheadedness, dyspnea, chest pain or other symptoms of anemia. Onset/Timin -: hour(s) Location: abdomen Severity scale (1-10): 0 Improves with: none Worsens with: none Treatments Prior to Arrival: none - Related Data Home Medications Medication Instructions Recorded Confirmed Allopurinol [Zyloprim] 100 mg PO DAILY 08/16/13 05/15/18 Amiodarone HCl [Pacerone] 200 mg PO DAILY 08/16/13 05/15/18 Isosorbide Mononitrate [Imdur] 30 mg PO DAILY 08/16/13 05/15/18 INSULIN ASPART (NovoLOG) [NovoLOG 10 unit SQ AC-TID 02/05/18 05/15/18 (formulary)] Aspirin 81 mg PO DAILY 02/06/18 05/15/18 Atorvastatin [Lipitor] 40 mg PO HS 02/06/18 05/15/18 Insulin Glargine,Hum.rec.anlog 20 unit SQ HS 02/06/18 05/15/18 [Basaglar Kwikpen U-100] Nco-Pgcr-Lyupp Acid 1 cap PO DAILY 02/06/18 05/15/18 [-U Capsule (formulary)] Albuterol Inhaler [Ventolin Hfa 2 puff INHALATION RT-Q4H PRN 05/15/18 05/15/18 Inhaler] Amitriptyline HCl [Elavil] 50 mg PO HS 05/15/18 05/15/18 Levothyroxine Sodium [Synthroid] 100 mcg PO DAILY 05/15/18 05/15/18 Metoprolol Succinate (ER) [Toprol 12.5 mg PO DAILY 05/15/18 05/15/18 XL] Previous Rx's Medication Instructions Recorded Acetaminophen Tab [Tylenol] 650 mg PO Q6HR PRN tab 05/25/18 Warfarin [Coumadin] 5 mg PO DIRECTED #30 tab 05/25/18 Allergies Allergy/AdvReac Type Severity Reaction Status Date / Time meperidine HCl [From Demerol] AdvReac Nausea & Verified 05/15/18 13:28 Vomiting & Diarrhea Review of Systems ROS Statement: Those systems with pertinent positive or pertinent negative responses have been documented in the HPI. ROS Other: All systems not noted in ROS Statement are negative. Constitutional: Denies: fever, weakness Respiratory: Denies: dyspnea Cardiovascular: Denies: chest pain, palpitations Gastrointestinal: Denies: abdominal pain Skin: Reports: as per HPI Hematological/Lymphatic: Reports: as per HPI, easy bleeding Past Medical History Past Medical History: No Reported History, Heart Failure, COPD, Diabetes Mellitus, Eye Disorder, GERD/Reflux, Renal Disease, Thyroid Disorder Additional Past Medical History / Comment(s): Hx. 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 rt bka 02/01 Past Anesthesia/Blood Transfusion Reactions: No Reported Reaction Additional Past Anesthesia/Blood Transfusion Reaction / Comment(s): HAD BLOOD TRANFUSIONS WITHOUT COMPLICATION Type of Cardiac Device: Permanent Pacemaker Device Placement Date:: 2008 Past Psychological History: Anxiety, Depression Smoking Status: Never smoker Past Alcohol Use History: None Reported Past Drug Use History: None Reported - Past Family History Father Family Medical History: Hypertension Additional Family Medical History / Comment(s): Father at age 56 from lung cancer. Mother Family Medical History: Cancer Additional Family Medical History / Comment(s): Mother at age 56 from lung cancer. Brother(s) Family Medical History: Diabetes Mellitus, Renal Disease Additional Family Medical History / Comment(s): Patient has 2 brothers. One at age 45 from myocardial infarction with history of heart defect from . Second brother is alive at age 59 with history of coronary artery disease and diabetes, bone marrow transplant Sister(s) Additional Family Medical History / Comment(s): Patient has a sister age 57 alive with history of diabetes and spina bifida. Daughter(s) Family Medical History: No Reported History Additional Family Medical History / Comment(s): Pre-diabetes General Exam Limitations: no limitations General appearance: alert, in no apparent distress Respiratory exam: Present: normal lung sounds bilaterally. Absent: respiratory distress, wheezes, rales, rhonchi, stridor Cardiovascular Exam: Present: regular rate, normal rhythm, normal heart sounds. Absent: systolic murmur, diastolic murmur, rubs, gallop GI/Abdominal exam: Present: soft. Absent: distended, tenderness Skin exam: Present: warm, dry, normal color, other (Patient has had erosion into what appears to be a skin varicosity with constant slow trickle.) Course Vital Signs 08/04/18 04:34 Temperature 98.3 F Pulse Rate 61 Respiratory 18 Rate Blood Pressure 108/59 O2 Sat by Pulse 97 Oximetry Medical Decision Making - Medical Decision Making I applied silver nitrate cautery and then we have observed for a period in the ER. Disposition Clinical Impression: Bleeding from varicose vein Disposition: HOME SELF-CARE Condition: Good Is patient prescribed a controlled substance at d/c from ED?: No Referrals: Jarret Arredondo MD [Primary Care Provider] - 1-2 days
[2018-08-04 06:34] VITALS: BP 110/78; PULSE 68; RESP 17; TEMP 98
== END 2018-08-04 06:28 | disposition home or self-care (01) ==
LOC: EC 04:23
DX: I83.899 Varicose veins of unspecified lower extremity with other complications (principal); I50.9 Heart failure, unspecified; E11.42 Type 2 diabetes mellitus with diabetic polyneuropathy; N18.6 End stage renal disease; E07.9 Disorder of thyroid, unspecified; Z79.82 Long term (current) use of aspirin; Z79.4 Long term (current) use of insulin; Z79.890 Hormone replacement therapy; Z79.899 Other long term (current) drug therapy; Z88.5 Allergy status to narcotic agent; Z95.0 Presence of cardiac pacemaker; Z90.89 Acquired absence of other organs
CPT/HCPCS: 99283

== ENCOUNTER 2018-10-20 09:18 | Inpatient (IN) | payer MEDICARE, BC ==
[2018-10-20] MEDS ORDERED: SODIUM CHLORIDE 0.9% 1,000 ML IV STA (09:34)
--- NOTE | 2018-10-20 09:37 | ED ---
General Adult HPI - General Chief complaint: Recheck/Abnormal Lab/Rx Stated complaint: Palpitations Time Seen by Provider: 10/20/18 09:24 Source: patient, RN notes reviewed Mode of arrival: wheelchair Limitations: physical limitation - History of Present Illness Initial comments: Patient is a pleasant 68-year-old female presenting to the emergency Department with complaints of palpitations. Onset of symptoms was a couple of days ago. Symptoms have been mostly steady. Patient feels like her heart is racing a little bit faster than normal. Patient states she does have a pacemaker present which she believes was placed secondary to increased heart rate. Patient states she may have some minimal associated dyspnea. No chest pain. - Related Data Home Medications Medication Instructions Recorded Confirmed Allopurinol [Zyloprim] 100 mg PO DAILY 08/16/13 10/20/18 Amiodarone HCl [Pacerone] 200 mg PO DAILY 08/16/13 10/20/18 Isosorbide Mononitrate [Imdur] 30 mg PO DAILY 08/16/13 10/20/18 INSULIN ASPART (NovoLOG) [NovoLOG 10 unit SQ AC-TID 02/05/18 10/20/18 (formulary)] Aspirin 81 mg PO DAILY 02/06/18 10/20/18 Atorvastatin [Lipitor] 40 mg PO HS 02/06/18 10/20/18 Insulin Glargine,Hum.rec.anlog 22 - 24 unit SQ HS 02/06/18 10/20/18 [Basaglar Kwikpen U-100] Amitriptyline HCl [Elavil] 50 mg PO HS 05/15/18 10/20/18 Levothyroxine Sodium [Synthroid] 100 mcg PO DAILY 05/15/18 10/20/18 Metoprolol Succinate (ER) [Toprol 12.5 mg PO DAILY 05/15/18 10/20/18 XL] Calcium Acetate [Phoslo] 667 mg PO DAILY 10/20/18 10/20/18 Justine Kacy 1 tab PO DAILY 10/20/18 10/20/18 Warfarin Sodium [Jantoven] 7.5 mg PO W/SUPPER 10/20/18 10/20/18 Allergies Allergy/AdvReac Type Severity Reaction Status Date / Time meperidine HCl [From Demerol] AdvReac Nausea & Verified 10/20/18 10:10 Vomiting & Diarrhea Review of Systems ROS Statement: Those systems with pertinent positive or pertinent negative responses have been documented in the HPI. ROS Other: All systems not noted in ROS Statement are negative. Constitutional: Denies: fever Eyes: Denies: eye pain ENT: Denies: ear pain Respiratory: Reports: as per HPI Cardiovascular: Reports: palpitations. Denies: chest pain Endocrine: Denies: fatigue Gastrointestinal: Denies: abdominal pain Genitourinary: Denies: dysuria Musculoskeletal: Denies: back pain Skin: Denies: rash Neurological: Denies: weakness 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 rt bka 02/01 Past Anesthesia/Blood Transfusion Reactions: No Reported Reaction Additional Past Anesthesia/Blood Transfusion Reaction / Comment(s): HAD BLOOD TRANFUSIONS WITHOUT COMPLICATION Type of Cardiac Device: Permanent Pacemaker Device Placement Date:: 2008 Past Psychological History: Anxiety, Depression Smoking Status: Never smoker Past Alcohol Use History: None Reported Past Drug Use History: None Reported - Past Family History Father Family Medical History: Hypertension Additional Family Medical History / Comment(s): Father at age 56 from lung cancer. Mother Family Medical History: Cancer Additional Family Medical History / Comment(s): Mother at age 56 from lung cancer. Brother(s) Family Medical History: Diabetes Mellitus, Renal Disease Additional Family Medical History / Comment(s): Patient has 2 brothers. One at age 45 from myocardial infarction with history of heart defect from . Second brother is alive at age 59 with history of coronary artery disease and diabetes, bone marrow transplant Sister(s) Additional Family Medical History / Comment(s): Patient has a sister age 57 alive with history of diabetes and spina bifida. Daughter(s) Family Medical History: No Reported History Additional Family Medical History / Comment(s): Pre-diabetes General Exam Limitations: physical limitation General appearance: alert, in no apparent distress Head exam: Present: atraumatic Eye exam: Present: normal appearance Neck exam: Present: normal inspection Respiratory exam: Present: normal lung sounds bilaterally Cardiovascular Exam: Present: tachycardia GI/Abdominal exam: Present: soft. Absent: tenderness Extremities exam: Present: other (Right AKA) Back exam: Present: normal inspection Neurological exam: Present: alert Psychiatric exam: Present: normal affect, normal mood Skin exam: Present: normal color Course Vital Signs 10/20/18 10/20/18 10/20/18 09:23 09:33 09:35 Temperature 97.8 F Pulse Rate 126 H 112 H 120 H Respiratory 18 15 15 Rate Blood Pressure 73/50 74/44 73/39 O2 Sat by Pulse 96 97 97 Oximetry 10/20/18 10/20/18 10/20/18 09:54 10:34 10:43 Temperature Pulse Rate 117 H 130 H Respiratory 18 20 Rate Blood Pressure 84/55 80/54 O2 Sat by Pulse 98 97 Oximetry 10/20/18 10/20/18 10/20/18 10:55 11:24 12:17 Temperature Pulse Rate 86 130 H 96 Respiratory 18 20 18 Rate Blood Pressure 91/74 125/77 101/61 O2 Sat by Pulse 100 100 100 Oximetry - Reevaluation(s) Reevaluation #1: 10/20/18 10:19 Case was discussed with practitioner yulia who requests pacemaker interpretation and will consult. It was determined that patient does have [employer] 10/20/18 12:33 Patient reevaluated and unchanged. Heart rate did drop to 85 with a paced rhythm for a short period of time however return back to 1:30. Blood pressure has improved and is stable. Lab has been called however magnesium level is still pending at this time. 10/20/18 12:53 Practitioner yulia is not available at this time. Dr. modi has been called for updated regarding availability of interpretation and consult. Dr. Fairchild Has been paged for admission covering for Dr. Arredondo. 10/20/18 13:18 Case was discussed with Dr. Fairchild, who will admit. Case also again discussed with practitioner yulia who will consult on patient. Pacemaker interpretation has been sent to her. EKG Findings - EKG Comments: EKG Findings:: Paced rhythm with a rate of 132. TN 96. QRS 180. QT 334. QTC 494. Superior axis. Right QRS complex. Nonspecific ST-T. Occasional prematu re complexes. Medical Decision Making - Lab Data Result diagrams: 10/20/18 10:15 10/20/18 10:15 Lab Results 10/20/18 10/20/18 10/20/18 Range/Units 10:15 10:15 10:15 WBC 8.3 (3.8-10.6) k/uL RBC 3.10 L (3.80-5.40) m/uL Hgb 9.9 L (11.4-16.0) gm/dL Hct 31.0 L (34.0-46.0) % MCV 100.1 H (80.0-100.0) fL MCH 32.0 (25.0-35.0) pg MCHC 32.0 (31.0-37.0) g/dL RDW 17.7 H (11.5-15.5) % Plt Count 169 (150-450) k/uL Neutrophils % 79 % Lymphocytes % 12 % Monocytes % 5 % Eosinophils % 2 % Basophils % 1 % Neutrophils # 6.6 (1.3-7.7) k/uL Lymphocytes # 1.0 (1.0-4.8) k/uL Monocytes # 0.4 (0-1.0) k/uL Eosinophils # 0.2 (0-0.7) k/uL Basophils # 0.0 (0-0.2) k/uL Hypochromasia Slight Poikilocytosis Slight Anisocytosis Slight Macrocytosis Slight PT 33.2 H (9.0-12.0) sec INR 3.5 H (<1.2) APTT 32.6 H (22.0-30.0) sec Sodium 135 L (137-145) mmol/L Potassium 5.7 H (3.5-5.1) mmol/L Chloride 95 L (98-107) mmol/L Carbon Dioxide 22 (22-30) mmol/L Anion Gap 18 mmol/L BUN 88 H (7-17) mg/dL Creatinine 7.52 H* (0.52-1.04) mg/dL Est GFR (CKD-EPI)AfAm 6 (>60 ml/min/1.73 sqM) Est GFR (CKD-EPI)NonAf 5 (>60 ml/min/1.73 sqM) Glucose 355 H (74-99) mg/dL Calcium 8.7 (8.4-10.2) mg/dL Total Bilirubin 0.6 (0.2-1.3) mg/dL AST 39 H (14-36) U/L ALT 22 (9-52) U/L Alkaline Phosphatase 78 (38-126) U/L Troponin I (0.000-0.034) ng/mL Total Protein 7.3 (6.3-8.2) g/dL Albumin 4.2 (3.5-5.0) g/dL TSH 8.280 H (0.465-4.680) mIU/L Free T4 1.19 (0.78-2.19) ng/dL Free T3 pg/mL 2.0 L (2.8-5.3) pg/ml 10/20/18 Range/Units 10:15 WBC (3.8-10.6) k/uL RBC (3.80-5.40) m/uL Hgb (11.4-16.0) gm/dL Hct (34.0-46.0) % MCV (80.0-100.0) fL MCH (25.0-35.0) pg MCHC (31.0-37.0) g/dL RDW (11.5-15.5) % Plt Count (150-450) k/uL Neutrophils % % Lymphocytes % % Monocytes % % Eosinophils % % Basophils % % Neutrophils # (1.3-7.7) k/uL Lymphocytes # (1.0-4.8) k/uL Monocytes # (0-1.0) k/uL Eosinophils # (0-0.7) k/uL Basophils # (0-0.2) k/uL Hypochromasia Poikilocytosis Anisocytosis Macrocytosis PT (9.0-12.0) sec INR (<1.2) APTT (22.0-30.0) sec Sodium (137-145) mmol/L Potassium (3.5-5.1) mmol/L Chloride (98-107) mmol/L Carbon Dioxide (22-30) mmol/L Anion Gap mmol/L BUN (7-17) mg/dL Creatinine (0.52-1.04) mg/dL Est GFR (CKD-EPI)AfAm (>60 ml/min/1.73 sqM) Est GFR (CKD-EPI)NonAf (>60 ml/min/1.73 sqM) Glucose (74-99) mg/dL Calcium (8.4-10.2) mg/dL Total Bilirubin (0.2-1.3) mg/dL AST (14-36) U/L ALT (9-52) U/L Alkaline Phosphatase (38-126) U/L Troponin I 0.026 (0.000-0.034) ng/mL Total Protein (6.3-8.2) g/dL Albumin (3.5-5.0) g/dL TSH (0.465-4.680) mIU/L Free T4 (0.78-2.19) ng/dL Free T3 pg/mL (2.8-5.3) pg/ml - Radiology Data Radiology results: image reviewed (Chest x-ray shows low lung volumes and left hilar prominence, cannot rule out mass.) Disposition Clinical Impression: Tachycardia Disposition: ADMITTED IP TO THIS HOSP Is patient prescribed a controlled substance at d/c from ED?: No Referrals: Jarret Arredondo MD [Primary Care Provider] - 1-2 days Decision Time: 13:18
[2018-10-20] MEDS ORDERED: SODIUM CHLORIDE 0.9% 500 ML 500 ML IV STA (09:58)
--- NOTE | 2018-10-20 10:48 | XR ---
EXAMINATION TYPE: XR chest 1V portable DATE OF EXAM: 10/20/2018 COMPARISON: 05/12/2017 HISTORY: Tachycardia and shortness of breath TECHNIQUE: Single frontal view of the chest is obtained. FINDINGS: The lungs are hypoventilatory. There is an enlarged cardiomediastinal silhouette with left hilar prominence as seen on the prior. Multilead left-sided cardiac device is noted. Blunting of the costophrenic angles likely relates to copious overlying soft tissues rather than pleural effusion. R ight lung remains well aerated. Postsurgical change of the cervical thoracic spine is seen. Cardia me diastinal silhouette is enlarged. IMPRESSION: Low lung volumes with left hilar prominence. Perihilar mass is possible and could be fur ther evaluated with CT.
[2018-10-20 10:53] LABS: INR 3.5 (<1.2); Partial Thromboplastin Time 32.6 sec (22.0-30.0); Prothrombin Time 33.2 sec (9.0-12.0)
[2018-10-20 11:07] LABS: Anisocytosis Slight; Basophils % (A) 1 %; Eosinophils # (A) 0.2 k/uL (0-0.7); Eosinophils % (A) 2 %; HGB 9.9 gm/dL (11.4-16.0); Hypochromasia Slight; Lymphocytes % (A) 12 %; MCV 100.1 fL (80.0-100.0); Macrocytosis Slight; Mean Platelet Volume 8.8; Monocytes # (A) 0.4 k/uL (0-1.0); Monocytes % (A) 5 %; Neutrophils # (A) 6.6 k/uL (1.3-7.7); Neutrophils % (A) 79 %; Platelet Count 169 k/uL (150-450); Poikilocytosis Slight; RDW 17.7 % (11.5-15.5); WBC 8.3 k/uL (3.8-10.6)
[2018-10-20 11:08] LABS: T4, Free (Free Thyroxine) 1.19 ng/dL (0.78-2.19)
[2018-10-20 11:12] LABS: Albumin 4.2 g/dL (3.5-5.0); Calcium 8.7 mg/dL (8.4-10.2); Total Bilirubin 0.6 mg/dL (0.2-1.3); Total Protein 7.3 g/dL (6.3-8.2)
[2018-10-20 11:14] LABS: Potassium 5.7 mmol/L (3.5-5.1)
[2018-10-20] MEDS ORDERED: NALOXONE 0.4 MG/ML 1 ML VIAL IV PRN (13:19)
[2018-10-20] MEDS ORDERED: SODIUM CHLORIDE 0.9% 1,000 ML IV SCH (13:30)
[2018-10-20] MEDS ORDERED: DILTIAZEM DRIP BOLUS FROM BAG 1 MG SOLN IV ONE (14:12)
[2018-10-20] MEDS ORDERED: DILTIAZEM 125 MG in SODIUM CHLORIDE 0.9% 100 ML IV SCH (14:30)
[2018-10-20] MEDS ORDERED: AMIODARONE 360 MG in DEXTROSE 5% IN WATER 200 ML IV ONE ×2 (14:45)
[2018-10-20] MEDS ORDERED: DEXTROSE 5% IN WATER 100 ML with AMIODARONE 150 MG IV ONE (14:45)
[2018-10-20] MEDS: INSULIN ASPART (NovoLOG) 100 UNIT/ML VIAL SQ SCH ×2 (18:59→22:27)
--- NOTE | 2018-10-20 19:13 | P.PCN ---
Preoperative Diagnosis: Device interrogation for Fatmata Jones Patient has a dual-chamber pacemaker [employer] adapta An abnormal ECG with ventricular paced beats at 130 beats a minute with a atypical right bundle branch block morphology was noted Atrial sensing is very poor. No clear-cut P waves noted on twelve-lead ECG, suggestion of a P wave in V1 during the pauses and ventricular pacing In the bipolar mode the RV pacing threshold is high at 7.5 V at 0.4 ms. Bipolar sensing between 1.4-2.0 mV Unipolar sensing in the RV was between 4 and 5.6 mV with much better thresholds Atrial sensing was reprogrammed to 0.5 mV Impression High rate atrial tracking The patient was atrial tracking, picking up atrial signals that resulted in tracking at 130 beats a minute Patient has a dual-chamber device with right bundle branch block pattern paced beats consistent with LV pacing which could either represent deep septal RV pacing close to the apex or middle cardiac vein pacing Chest x-ray was reviewed and is a portable film and very suboptimal. RV and RA Lead positions cannot be seen Plan Atrial sensitivity has been increased to 0.5 mV Device programmed to DDDR mode Clear-cut P waves noted on twelve-lead ECG upon reprogramming RV pacing has a right bundle branch block morphology in the unipolar as well as in the bipolar mode
--- NOTE | 2018-10-20 19:41 | P.CRDCN ---
History of Present Illness History of present illness: This is Dr. Lazo dictating an electrophysiology consult on this patient, requested by Dr. VC Shine The patient was interviewed and examined by me IMPRESSION / ASSESSMENT: Ventricular pacing, on account of atrial high rate sensing Poor/suboptimal atrial signals noted on pacemaker interrogation No evidence for ventricular tachycardia, On surface ECG P waves cannot be clearly seen but atrial pacing is possible after pacemaker reprogramming Abnormal Atrial sensing, poor atrial signals on atrial channel Diminutive R waves noted in the bipolar mode with high thresholds, improved R wa ve sensing in the unipolar mode Paced morphology is a right bundle branch block with negative QRS is in lead 1 as well as inferior leads consistent with LV pacing either in the deep septum or middle cardiac vein Chest x-ray is portable and suboptimal in the lead position cannot be discerned Hyperkalemia Hypothyroidism End-stage renal disease on dialysis, currently undergoing hemodialysis PLAN: No indication for amiodarone, treat hyperkalemia, chronic kidney disease and hypothyroidism Pacemaker has been reprogrammed to DDDR mode. Atrial capture is noted on twelve-lead ECG after atrial sensing was increased to 0.5 mV Ventricular pacing and sensing is in unipolar mode Chest x-ray upright PA lateral tomorrow HPI Patient presents to the emergency room with complaint of palpitations. She has palpitations off and on but this episode was continuous for a few hours She's been palpitations for the last several days. No chest discomfort no loss of consciousness. Initially IV amiodarone bolus was started but this was discontinued ROS: No fever chills or rigors, no cough, phlegm or expectoration, no nausea, vomiting or diarrhea, no hematuria, dysuria, no musculoskeletal complaints, no strokes or seizures, no skin lesions. EXAMINATION: Afebrile 97.6F, respirations normal, pulse rate now in the 60s but upon admission was unremarkable and 32 beats a minute, low blood pressure 93/47 mmHg Morbid obesity Patient lying comfortably in bed no respiratory distress Systolic murmur over the precordium Reduced breath sounds bilaterally Abdomen soft No edema in lower extremities REVIEW OF LABS, ECG & MEDICAL DATA Hemoglobin 9.9, potassium 5.7, creatinine 7.5 TSH 8.28 elevated glucose First 12-lead ECG shows ventricular paced beats without clear-cut P waves although there may be a suggestion of a P wave in lead V1 Right bundle branch block morphology negative QRS is in leads one to 3 aVF and V3-V6 Follow-up twelve-lead ECG after reprogramming atrial sensing to 0.5 mV and p rogramming ventricular pacing and sensing to unipolar mode shows AV sequential pacing but the paced ventricular morphology is again right bundle branch block 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 rt bka 02/01 Past Anesthesia/Blood Transfusion Reactions: No Reported Reaction Additional Past Anesthesia/Blood Transfusion Reaction / Comment(s): HAD BLOOD TRANFUSIONS WITHOUT COMPLICATION Type of Cardiac Device: Permanent Pacemaker Device Placement Date:: 2008 Past Psychological History: Anxiety, Depression Smoking Status: Never smoker Past Alcohol Use History: None Reported Additional Past Alcohol Use History / Comment(s): Patient is a lifelong nonsmoker. She denies any medical marijuana, marijuana, street drug or alcohol use. She lives at home with her adult son. There is 1 dog in the home. Past Drug Use History: None Reported - Past Family History Father Family Medical History: Hypertension Additional Family Medical History / Comment(s): Father at age 56 from lung cancer. Mother Family Medical History: Cancer Additional Family Medical History / Comment(s): Mother at age 56 from lung cancer. Brother(s) Family Medical History: Diabetes Mellitus, Renal Disease Additional Family Medical History / Comment(s): Patient has 2 brothers. One at age 45 from myocardial infarction with history of heart defect from . Second brother is alive at age 59 with history of coronary artery disease and diabetes, bone marrow transplant Sister(s) Additional Family Medical History / Comment(s): Patient has a sister age 57 alive with history of diabetes and spina bifida. Daughter(s) Family Medical History: No Reported History Additional Family Medical History / Comment(s): Pre-diabetes Medications and Allergies Home Medications Medication Instructions Recorded Confirmed Type Allopurinol [Zyloprim] 100 mg PO DAILY 08/16/13 10/20/18 History Amiodarone HCl [Pacerone] 200 mg PO DAILY 08/16/13 10/20/18 History Isosorbide Mononitrate [Imdur] 30 mg PO DAILY 08/16/13 10/20/18 History INSULIN ASPART (NovoLOG) [NovoLOG 10 unit SQ AC-TID 02/05/18 10/20/18 History (formulary)] Aspirin 81 mg PO DAILY 02/06/18 10/20/18 History Atorvastatin [Lipitor] 40 mg PO HS 02/06/18 10/20/18 History Insulin Glargine,Hum.rec.anlog 22 - 24 unit SQ HS 02/06/18 10/20/18 History [Basaglar Kwikpen U-100] Amitriptyline HCl [Elavil] 50 mg PO HS 05/15/18 10/20/18 History Levothyroxine Sodium [Synthroid] 100 mcg PO DAILY 05/15/18 10/20/18 History Metoprolol Succinate (ER) [Toprol 12.5 mg PO DAILY 05/15/18 10/20/18 History XL] Calcium Acetate [Phoslo] 667 mg PO DAILY 10/20/18 10/20/18 History Justine Kacy 1 tab PO DAILY 10/20/18 10/20/18 History Warfarin Sodium [Jantoven] 7.5 mg PO W/SUPPER 10/20/18 10/20/18 History Allergies Allergy/AdvReac Type Severity Reaction Status Date / Time meperidine HCl [From Demerol] AdvReac Nausea & Verified 10/20/18 10:10 Vomiting & Diarrhea Physical Exam Vitals: Vital Signs Temp Pulse Pulse Resp BP BP Pulse Ox 10/20/18 18:23 99 10/20/18 17:40 97.6 F 60 15 93/47 98 10/20/18 16:00 97.9 F 71 18 107/59 97 10/20/18 12:17 96 18 101/61 100 10/20/18 11:24 130 H 20 125/77 100 10/20/18 10:55 86 18 91/74 100 10/20/18 10:43 80/54 10/20/18 10:34 130 H 20 97 10/20/18 09:54 117 H 18 84/55 98 10/20/18 09:35 120 H 15 73/39 97 10/20/18 09:33 112 H 15 74/44 97 10/20/18 09:23 97.8 F 126 H 18 73/50 96 Intake and Output 10/20/18 10/20/18 10/20/18 06:59 14:59 22:59 Other: Voiding Method Incontinent Weight 92.533 kg Results 10/20/18 10:15 10/20/18 10:15 Cardiac Enzymes 10/20/18 10/20/18 Range/Units 10:15 10:15 AST 39 H (14-36) U/L Troponin I 0.026 (0.000-0.034) ng/mL Coagulation 10/20/18 Range/Units 10:15 PT 33.2 H (9.0-12.0) sec APTT 32.6 H (22.0-30.0) sec CBC 10/20/18 Range/Units 10:15 WBC 8.3 (3.8-10.6) k/uL RBC 3.10 L (3.80-5.40) m/uL Hgb 9.9 L (11.4-16.0) gm/dL Hct 31.0 L (34.0-46.0) % Plt Count 169 (150-450) k/uL Comprehensive Metabolic Panel 10/20/18 Range/Units 10:15 Sodium 135 L (137-145) mmol/L Potassium 5.7 H (3.5-5.1) mmol/L Chloride 95 L (98-107) mmol/L Carbon Dioxide 22 (22-30) mmol/L BUN 88 H (7-17) mg/dL Creatinine 7.52 H* (0.52-1.04) mg/dL Glucose 355 H (74-99) mg/dL Calcium 8.7 (8.4-10.2) mg/dL AST 39 H (14-36) U/L ALT 22 (9-52) U/L Alkaline Phosphatase 78 (38-126) U/L Total Protein 7.3 (6.3-8.2) g/dL Albumin 4.2 (3.5-5.0) g/dL Current Medications Generic Name Dose Route Start Last Admin Trade Name Freq PRN Reason Stop Dose Admin Amiodarone HCl 200 mg 10/21/18 09:00 Cordarone PO DAILY [facility] Atorvastatin Calcium 40 mg 10/20/18 21:00 Lipitor PO HS [facility] Calcium Acetate 667 mg 10/21/18 07:30 Phoslo PO AC-BRKFST [facility] Sodium Chloride 1,000 mls @ 20 mls/hr 10/20/18 13:30 10/20/18 14:07 Saline 0.9% IV Not Given .Q24H [facility] Insulin Aspart 0 unit 10/20/18 17:30 10/20/18 18:59 Novolog SQ Not Given ACHS [facility] Protocol Levothyroxine Sodium 100 mcg 10/21/18 06:30 Synthroid PO DAILY@0630 [facility] Metoprolol Succinate 12.5 mg 10/21/18 09:00 Toprol Xl PO DAILY [facility] Naloxone HCl 0.2 mg 10/20/18 13:19 Narcan IV Q2M PRN Opioid Reversal Warfarin Sodium 7.5 mg 10/21/18 17:30 Coumadin PO W/SUPPER [facility] Intake and Output 10/20/18 10/20/18 10/20/18 06:59 14:59 22:59 Other: Voiding Method Incontinent Weight 92.533 kg Patient Weight 10/21/18 06:59 Weight 92.533 kg 10/20/18 10:15 10/20/18 10:15
[2018-10-20] MEDS ORDERED: AMIODARONE 300 MG in DEXTROSE 5% IN WATER 250 ML IV SCH ×4 (20:30)
[2018-10-20] MEDS ORDERED: ATORVASTATIN 40 MG TAB PO SCH (21:00)
[2018-10-20 22:01] LABS: Glucose,Whole Blood 160 mg/dL (75-99)
--- NOTE | 2018-10-20 22:24 | P.HPIM ---
History of Present Illness H&P Date: 10/20/18 Chief Complaint: Heart racing History of presenting complaint: This is a pleasant 68-year-old patient of Dr. Arredondo. Chronic stable medical conditions include end-stage kidney disease with hemodialysis, chronic kidney disease minimal bone disease, diabetes mellitus type 2, anemia of chronic kidney disease, obesity, hypothyroidism. Patient presented with her heart racing feeling dizzy lightheaded. Pacemaker check was carried out. That showed a very high atrial rate and a ventricular rate of about 1:30. Dr. Stein from EP service was consulted. He did make adjustment to the pacemaker sensing. Following that the patient is feeling much better. No change in medications are recommended. No chest pain. Not no fever no chills. 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 Has a wheelchair. Son lives with her. Family history: Father age 56 from lung cancer. Hypertension Physical examination: VITAL SIGNS: 97.8, 126, 18, 73 x 50, 96% room air upon admission GENERAL: BMI 37.3, laying in bed not in distress. EYES: Pupils equal. Conjunctiva normal. HEENT: External appearance of nose and ears normal, oral cavity grossly normal. NECK: Neck is short and thick, unable to assess JVD, mass palpable. HEART: Sounds irregular; no edema. LUNGS: Respiratory rate normal; decreased breath sounds. ABDOMEN: Soft, nontender, liver spleen not palpable, no masses palpable, right- sided abdominal wall hernia, nontender. PSYCH: Alert and oriented x3; mood and affect normal. NEUROLOGICAL: Cranial nerves grossly intact; no facial asymmetry, power and sensation grossly intact. LYMPHATICS: No lymph nodes palpable in the axilla and neck INVESTIGATIONS, reviewed in the clinical context: White count 8.3 hemoglobin 9.9 platelets 169 INR 3.5 potassium 5.7. 88 creatinine 7.5 to glucose 355 Assessment: -Patient has a pacemaker in place with a rapid atrial rate and a ventricular rate about 1:30. Pacemaker adjustment was carried out per Dr. Stein. 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 Barnes from electrophysiology service.. Home medications are to be continued. Accu-Cheks will be followed. Patient getting hemodialyzed today. That will handle the potassium. Consultation was also made to nephrology. Care was discussed with the patient. Patient remains on telemetry. 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 rt bka 02/01 Past Anesthesia/Blood Transfusion Reactions: No Reported Reaction Additional Past Anesthesia/Blood Transfusion Reaction / Comment(s): HAD BLOOD TRANFUSIONS WITHOUT COMPLICATION Type of Cardiac Device: Permanent Pacemaker Device Placement Date:: 2008 Past Psychological History: Anxiety, Depression Smoking Status: Never smoker Past Alcohol Use History: None Reported Additional Past Alcohol Use History / Comment(s): Patient is a lifelong nonsmoker. She denies any medical marijuana, marijuana, street drug or alcohol use. She lives at home with her adult son. There is 1 dog in the home. Past Drug Use History: None Reported - Past Family History Father Family Medical History: Hypertension Additional Family Medical History / Comment(s): Father at age 56 from lung cancer. Mother Family Medical History: Cancer Additional Family Medical History / Comment(s): Mother at age 56 from lung cancer. Brother(s) Family Medical History: Diabetes Mellitus, Renal Disease Additional Family Medical History / Comment(s): Patient has 2 brothers. One d at age 45 from myocardial infarction with history of heart defect from . Second brother is alive at age 59 with history of coronary artery disease and diabetes, bone marrow transplant Sister(s) Additional Family Medical History / Comment(s): Patient has a sister age 57 alive with history of diabetes and spina bifida. Daughter(s) Family Medical History: No Reported History Additional Family Medical History / Comment(s): Pre-diabetes Medications and Allergies Home Medications Medication Instructions Recorded Confirmed Type Allopurinol [Zyloprim] 100 mg PO DAILY 08/16/13 10/20/18 History Amiodarone HCl [Pacerone] 200 mg PO DAILY 08/16/13 10/20/18 History Isosorbide Mononitrate [Imdur] 30 mg PO DAILY 08/16/13 10/20/18 History INSULIN ASPART (NovoLOG) [NovoLOG 10 unit SQ AC-TID 02/05/18 10/20/18 History (formulary)] Aspirin 81 mg PO DAILY 02/06/18 10/20/18 History Atorvastatin [Lipitor] 40 mg PO HS 02/06/18 10/20/18 History Insulin Glargine,Hum.rec.anlog 22 - 24 unit SQ HS 02/06/18 10/20/18 History [Basaglar Kwikpen U-100] Amitriptyline HCl [Elavil] 50 mg PO HS 05/15/18 10/20/18 History Levothyroxine Sodium [Synthroid] 100 mcg PO DAILY 05/15/18 10/20/18 History Metoprolol Succinate (ER) [Toprol 12.5 mg PO DAILY 05/15/18 10/20/18 History XL] Calcium Acetate [Phoslo] 667 mg PO DAILY 10/20/18 10/20/18 History Justine Kacy 1 tab PO DAILY 10/20/18 10/20/18 History Warfarin Sodium [Jantoven] 7.5 mg PO W/SUPPER 10/20/18 10/20/18 History Allergies Allergy/AdvReac Type Severity Reaction Status Date / Time meperidine HCl [From Demerol] AdvReac Nausea & Verified 10/20/18 10:10 Vomiting & Diarrhea Physical Exam Vitals: Vital Signs Temp Pulse Pulse Resp BP BP Pulse Ox 10/20/18 21:55 97.7 F 61 18 107/57 10/20/18 18:23 99 10/20/18 17:40 97.6 F 60 15 93/47 98 10/20/18 16:00 97.9 F 71 18 107/59 97 10/20/18 12:17 96 18 101/61 100 10/20/18 11:24 130 H 20 125/77 100 10/20/18 10:55 86 18 91/74 100 10/20/18 10:43 80/54 10/20/18 10:34 130 H 20 97 10/20/18 09:54 117 H 18 84/55 98 10/20/18 09:35 120 H 15 73/39 97 10/20/18 09:33 112 H 15 74/44 97 10/20/18 09:23 97.8 F 126 H 18 73/50 96 Intake and Output 10/20/18 10/20/18 10/20/18 06:59 14:59 22:59 Output Total 1999 Balance -1999 Output: Hemodialysis 1999 Other: Voiding Method Incontinent Weight 92.533 kg Results CBC & Chem 7: 10/20/18 10:15 10/20/18 10:15 Labs: Abnormal Lab Results - Last 24 Hours (Table) 10/20/18 10/20/18 10/20/18 Range/Units 10:15 10:15 10:15 RBC 3.10 L (3.80-5.40) m/uL Hgb 9.9 L (11.4-16.0) gm/dL Hct 31.0 L (34.0-46.0) % MCV 100.1 H (80.0-100.0) fL RDW 17.7 H (11.5-15.5) % PT 33.2 H (9.0-12.0) sec INR 3.5 H (<1.2) APTT 32.6 H (22.0-30.0) sec Sodium 135 L (137-145) mmol/L Potassium 5.7 H (3.5-5.1) mmol/L Chloride 95 L (98-107) mmol/L BUN 88 H (7-17) mg/dL Creatinine 7.52 H* (0.52-1.04) mg/dL Glucose 355 H (74-99) mg/dL POC Glucose (mg/dL) (75-99) mg/dL AST 39 H (14-36) U/L TSH 8.280 H (0.465-4.680) mIU/L Free T3 pg/mL 2.0 L (2.8-5.3) pg/ml 10/20/18 Range/Units 22:00 RBC (3.80-5.40) m/uL Hgb (11.4-16.0) gm/dL Hct (34.0-46.0) % MCV (80.0-100.0) fL RDW (11.5-15.5) % PT (9.0-12.0) sec INR (<1.2) APTT (22.0-30.0) sec Sodium (137-145) mmol/L Potassium (3.5-5.1) mmol/L Chloride (98-107) mmol/L BUN (7-17) mg/dL Creatinine (0.52-1.04) mg/dL Glucose (74-99) mg/dL POC Glucose (mg/dL) 160 H (75-99) mg/dL AST (14-36) U/L TSH (0.465-4.680) mIU/L Free T3 pg/mL (2.8-5.3) pg/ml
--- NOTE | 2018-10-20 22:57 | CONS ---
CONSULTATION Mrs. Jones is a 68-year-old female who is seen for cardiac evaluation. The history was obtained from the patient as well as from the medical records. This patient came to the hospital with a complaint that she was having palpitations. Patient has been having symptoms for the last couple of days and she feels that her heart is racing more than usually. She checked her heart rate and it was beating at a rate of 130. She denies any significant chest pain or shortness of breath. The patient has a history of end-stage renal disease and a history of a dialysis. The patient has a history of a dual-chamber pacemaker. The pacemaker was interrogated. Intermittent atrial high rates were noted and ventricular rate of about 120 to 130 beats was noted. There is no definite previous history of myocardial infarction. The patient's home medications include: 1. Zyloprim once a day. 2. Pacerone 200 mg daily. 3. Imdur 30 mg daily. 4. Lipitor 40 mg daily. 5. Insulin. 6. Synthroid. 7. Toprol 12.5 mg daily. 8. Coumadin. PAST MEDICAL HISTORY: Past medical history includes: 1. Prior history of infection in the spine. 2. End-stage renal disease. 3. History of hemodialysis. 4. Diverticulitis. 5. Chronic open sore. 6. Neuropathy. 7. Osteoporosis. 8. The patient had a 40-pound tumor removed from the stomach. 9. The patient has a graft in the right arm. 10.Partial thyroidectomy. 11.Spinal surgery was done at [facility] 10 years ago. 12.History of stent placement in the right superficial artery. 13.History of permanent pacemaker which was complicated by infection. PHYSICAL EXAMINATION: Physical examination at present reveals a 68-year-old female who does not appear to be in any acute distress. Patient's heart rate is 130, blood pressure 101/61 mmHg. Head/ENT examination is negative. NECK: Supple. HEART: First and second heart sounds are normal. Lungs are clinically clear to auscultation and percussion. ABDOMEN: Soft. EXTREMITIES: Peripheral pulsations are not felt. The patient's creatinine is 7.52, potassium is 5.7 and INR is 3.5. Hemoglobin is 9.9. FINAL IMPRESSION: This patient's EKG is reviewed. It shows evidence of atrial tracking with ventricular paced rhythm. The patient's pacemaker was interrogated and intermittent high atrial rates are noted. Discussed the patient's condition with Dr. Lazo. We will change it to VVIR mode. The patient will be seen in consultation by him and we will continue the rest of the medications. RIYA / MIAH: [id number] /
[2018-10-21 06:10] LABS: Glucose,Whole Blood 274 mg/dL (75-99)
[2018-10-21] MEDS ORDERED: LEVOTHYROXINE 100 MCG TAB PO SCH (06:30)
[2018-10-21 06:32] LABS: Anisocytosis Slight; Basophils % (A) 0 %; Eosinophils # (A) 0.2 k/uL (0-0.7); Eosinophils % (A) 4 %; HGB 9.3 gm/dL (11.4-16.0); Hypochromasia Slight; Lymphocytes # (A) 0.8 k/uL (1.0-4.8); Lymphocytes % (A) 13 %; MCH 31.9 pg (25.0-35.0); MCV 99.7 fL (80.0-100.0); Macrocytosis Slight; Mean Platelet Volume 7.6; Monocytes # (A) 0.3 k/uL (0-1.0); Monocytes % (A) 6 %; Neutrophils # (A) 4.6 k/uL (1.3-7.7); Neutrophils % (A) 76 %; Platelet Count 162 k/uL (150-450); RBC 2.91 m/uL (3.80-5.40); RDW 16.7 % (11.5-15.5); WBC 6.1 k/uL (3.8-10.6)
[2018-10-21 06:51] LABS: Albumin 3.5 g/dL (3.5-5.0); Calcium 8.5 mg/dL (8.4-10.2); Potassium 4.4 mmol/L (3.5-5.1); Total Bilirubin 0.4 mg/dL (0.2-1.3)
[2018-10-21] MEDS: INSULIN ASPART (NovoLOG) 100 UNIT/ML VIAL SQ SCH ×3 (06:51→17:18)
[2018-10-21] MEDS ORDERED: CALCIUM ACETATE 667 MG CAP PO SCH (07:30)
[2018-10-21 08:23] VITALS: RESP 16; TEMP 97.4
[2018-10-21] MEDS ORDERED: AMIODARONE 200 MG TAB PO SCH (09:00)
[2018-10-21] MEDS ORDERED: METOPROLOL SUCCINATE (ER) 25 MG TAB.ER.24H PO SCH (09:00)
--- NOTE | 2018-10-21 10:51 | P.NPCON ---
History of Present Illness - Reason for Consult end stage renal disease - History of Present Illness Reason for consultation: End-stage renal disease History of present illness: Patient is a 68-year-old female seen in consultation for end-stage renal disease. She is maintained on hemodialysis on a Friday schedule. Patient states during dialysis on Friday her heart rate went up to 118 and she also felt dizzy. Patient monitored her heart rate over the weekend and it continued to remain high. Patient came to the hospital yesterday morning. Pacemaker settings were adjusted. She feels better. No vomiting or diarrhea. No fever or chills. Denies chest pain or shortness of breath. Tolerated hemodialysis well yesterday. No complaints at this time. Vital signs are stable. General: The patient appeared well nourished and normally developed. HEENT: Head exam is unremarkable. Neck is without jugular venous distension. LUNGS: Lungs are clear to auscultation and percussion. Breath sounds decreased. HEART: Rate and Rhythm are regular. First and second heart sounds normal. No murmurs, rubs or gallops. ABDOMEN: Abdominal exam reveals normal bowel sounds. Non-tender and non- distended. No evidence of peritonitis. EXTREMITITES: No clubbing, cyanosis, or edema. 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 rt bka 02/01 Past Anesthesia/Blood Transfusion Reactions: No Reported Reaction Additional Past Anesthesia/Blood Transfusion Reaction / Comment(s): HAD BLOOD TRANFUSIONS WITHOUT COMPLICATION Type of Cardiac Device: Permanent Pacemaker Device Placement Date:: 2008 Past Psychological History: Anxiety, Depression Smoking Status: Never smoker Past Alcohol Use History: None Reported Additional Past Alcohol Use History / Comment(s): Patient is a lifelong nonsmoker. She denies any medical marijuana, marijuana, street drug or alcohol use. She lives at home with her adult son. There is 1 dog in the home. Past Drug Use History: None Reported - Past Family History Father Family Medical History: Hypertension Additional Family Medical History / Comment(s): Father at age 56 from lung cancer. Mother Family Medical History: Cancer Additional Family Medical History / Comment(s): Mother at age 56 from lung cancer. Brother(s) Family Medical History: Diabetes Mellitus, Renal Disease Additional Family Medical History / Comment(s): Patient has 2 brothers. One at age 45 from myocardial infarction with history of heart defect from . Second brother is alive at age 59 with history of coronary artery disease and diabetes, bone marrow transplant Sister(s) Additional Family Medical History / Comment(s): Patient has a sister age 57 alive with history of diabetes and spina bifida. Daughter(s) Family Medical History: No Reported History Additional Family Medical History / Comment(s): Pre-diabetes Medications and Allergies Home Medications Medication Instructions Recorded Confirmed Type Allopurinol [Zyloprim] 100 mg PO DAILY 08/16/13 10/20/18 History Amiodarone HCl [Pacerone] 200 mg PO DAILY 08/16/13 10/20/18 History Isosorbide Mononitrate [Imdur] 30 mg PO DAILY 08/16/13 10/20/18 History INSULIN ASPART (NovoLOG) [NovoLOG 10 unit SQ AC-TID 02/05/18 10/20/18 History (formulary)] Aspirin 81 mg PO DAILY 02/06/18 10/20/18 History Atorvastatin [Lipitor] 40 mg PO HS 02/06/18 10/20/18 History Insulin Glargine,Hum.rec.anlog 22 - 24 unit SQ HS 02/06/18 10/20/18 History [Gavin Zelayajoel U-100] Amitriptyline HCl [Elavil] 50 mg PO HS 05/15/18 10/20/18 History Levothyroxine Sodium [Synthroid] 100 mcg PO DAILY 05/15/18 10/20/18 History Metoprolol Succinate (ER) [Toprol 12.5 mg PO DAILY 05/15/18 10/20/18 History XL] Calcium Acetate [Phoslo] 667 mg PO DAILY 10/20/18 10/20/18 History Justine Kacy 1 tab PO DAILY 10/20/18 10/20/18 History Warfarin Sodium [Jantoven] 7.5 mg PO W/SUPPER 10/20/18 10/20/18 History Allergies Allergy/AdvReac Type Severity Reaction Status Date / Time meperidine HCl [From Demerol] AdvReac Nausea & Verified 10/20/18 10:10 Vomiting & Diarrhea Physical Exam Vitals: Vital Signs Temp Pulse Pulse Resp BP BP Pulse Ox 10/21/18 08:00 97.4 F L 63 16 94/46 100 10/21/18 04:00 98 F 60 17 98/54 10/21/18 00:00 61 18 118/59 95 10/20/18 21:55 97.7 F 61 18 107/57 10/20/18 20:00 97.9 F 63 18 109/45 97 10/20/18 18:23 99 10/20/18 17:40 97.6 F 60 15 93/47 98 10/20/18 16:00 97.9 F 71 18 107/59 97 10/20/18 12:17 96 18 101/61 100 10/20/18 11:24 130 H 20 125/77 100 10/20/18 10:55 86 18 91/74 100 Intake and Output 10/20/18 10/21/18 10/21/18 22:59 06:59 14:59 Intake Total 240 Output Total 1999 -1999 240 Intake: Oral 240 Output: Hemodialysis 1999 Other: Voiding Method Incontinent Incontinent Weight 100.5 kg Results - Lab Results Most recent lab results Calcium 8.5 mg/dL (8.4-10.2) 10/21/18 05:54 Magnesium 2.0 mg/dL (1.6-2.3) 10/20/18 10:15 10/21/18 05:54 10/21/18 05:54 Assessment and Plan Plan: Assessment: 1. End-stage renal disease maintained on hemodialysis on Friday schedule. 2. Hyperkalemia secondary to chronic kidney disease. Improved postdialysis. 3. Tachycardia from ventricular pacing/abnormal atrial sensing status post reprogramming of the pacemaker. 4. Chronic kidney disease mineral bone disease maintained on PhosLo. 5. Anemia of chronic kidney disease. 6. Diabetes mellitus. Plan: Hemodialysis tomorrow. Check iron studies. Add Carla. Thank you for the consultation. I will continue to follow the patient with you during her hospital stay.
[2018-10-21] MEDS ORDERED: DARBEPOETIN ALFA 40 MCG/0.4 ML SYRINGE SQ SCH (11:00)
[2018-10-21 11:43] LABS: Glucose,Whole Blood 316 mg/dL (75-99)
[2018-10-21 13:25] VITALS: BP 91/49; PULSE 60
--- NOTE | 2018-10-21 14:22 | XR ---
EXAMINATION TYPE: XR chest 2V DATE OF EXAM: 10/21/2018 COMPARISON: 10/20/2018 TECHNIQUE: PA and lateral views submitted. HISTORY: Shortness of breath FINDINGS: Chronic rib deformities are seen and there is postsurgical change involving the vertebral column and right upper quadrant of the abdomen. Cardiac device and cardiomegaly seen. Subsegmental consolidation at both lung bases with left perihilar consolidation or mass. Degenerative change of the spine. IMPRESSION: 1. Persistent basilar atelectasis or infiltrate with left perihilar prominence. Could not exclude renetta nopathy or mass in this region correlate clinically to assess for possible neoplasm with CT scan.
[2018-10-21 16:41] LABS: Glucose,Whole Blood 257 mg/dL (75-99)
[2018-10-21] MEDS ORDERED: WARFARIN 7.5 MG TAB PO SCH (17:30)
[2018-10-21 17:57] LABS: Iron Saturation 16.1 (12.00-45.00)
--- NOTE | 2018-10-21 18:16 | PN ---
PROGRESS NOTE This patient was admitted with palpitations. Patient's pacemaker was interrogated. The patient's atrial sensitivity was significantly low and it was tracking the T-waves. The pacemaker atrial sensitivity was increased and now patient is in DDD mode and she is feeling much better. Denies any shortness of breath, orthopnea or PND. The patient's vital signs remain stable and she is discharged home. RIYA / YUNGN: [id number] /
--- NOTE | 2018-10-21 21:07 | P.DS ---
Providers Date of admission: 10/20/18 13:19 Expected date of discharge: 10/21/18 Attending physician: Sadiq Fairchild Consults: 10/20/18 13:02 Consult Physician Urgent Consulting Provider: Arti Jefferson Consult Reason/Comments: esrd on hd Do you want consulting provider notified?: Yes 10/20/18 13:03 Consult Physician Stat Consulting Provider: Dorothy Shine Consult Reason/Comments: tachycardia Do you want consulting provider notified?: Yes 10/20/18 15:49 Consult Physician Stat Consulting Provider: Herbert Lazo Consult Reason/Comments: arrythmia Do you want consulting provider notified?: Already Contacted [facility] Chief Complaint: Heart racing Hospital course: This is a pleasant 68-year-old patient of Dr. Arredondo. Chronic stable medical conditions include end-stage kidney disease with hemodialysis, chronic kidney disease minimal bone disease, diabetes mellitus type 2, anemia of chronic kidney disease, obesity, hypothyroidism. Patient presented with her heart racing feeling dizzy lightheaded. Pacemaker check was carried out. That showed a very high atrial rate and a ventricular rate of about 1:30. Dr. Stein from EP service was consulted. He did make adjustment to the pacemaker sensing. Following that the patient is feeling much better. No change in medications are recommended. No chest pain. Not no fever no chills. Pacemaker was adjusted per Dr. Stein. Patient was doing well astigmatic. Underlying problem was-ventricular pacing on account of high rate atrial sensing. Consultation: Dr. kassie Stein from EP Dr. VC Shine from cardiology Physical examination: VITAL SIGNS: 97.4, 63, 16, 94 x 46, 100% room air GENERAL: BMI 40.5, sitting up in bed, comfortable. EYES: Pupils equal. Conjunctiva normal. HEENT: External appearance of nose and ears normal, oral cavity grossly normal. NECK: Neck is short and thick, unable to assess JVD, mass palpable. HEART: Sounds irregular; no edema. LUNGS: Respiratory rate normal; decreased breath sounds. ABDOMEN: Soft, nontender, liver spleen not palpable, no masses palpable, right- abdominal wall hernia, nontender. PSYCH: Alert and oriented x3; mood and affect normal. EXTREMITY: Right above-knee amputation INVESTIGATIONS, reviewed in the clinical context: White count 6.1 hemoglobin 9.3 potassium 4.4 149 creatinine 4.82 Assessment: -High ventricular rate due to high rate atrial sensing from the pacemaker -Obesity morbid BMI 40.5 -End-stage kidney disease on hemodialysis -Mineral bone disease with chronic kidney disease -Diabetes mellitus type 2, uncontrolled with hyperglycemia -Anemia of chronic kidney disease -Hypothyroidism -Diabetic peripheral neuropathy -Hyperkalemia secondary to end-stage kidney disease - Disposition: Home Patient Condition at Discharge: Stable Plan - Discharge Summary New Discharge Prescriptions: Continue Amiodarone HCl [Pacerone] 200 mg PO DAILY Allopurinol [Zyloprim] 100 mg PO DAILY INSULIN ASPART (NovoLOG) [NovoLOG (formulary)] 10 unit SQ AC-TID Aspirin 81 mg PO DAILY Atorvastatin [Lipitor] 40 mg PO HS Insulin Glargine,Hum.rec.anlog [Basaglar Kwikpen U-100] 22 - 24 unit SQ HS Levothyroxine Sodium [Synthroid] 100 mcg PO DAILY Metoprolol Succinate (ER) [Toprol XL] 12.5 mg PO DAILY Amitriptyline HCl [Elavil] 50 mg PO HS Warfarin Sodium [Jantoven] 7.5 mg PO W/SUPPER Calcium Acetate [PhosLo] 667 mg PO DAILY Justine Kacy 1 tab PO DAILY Discontinued Isosorbide Mononitrate [Imdur] 30 mg PO DAILY Discharge Medication List Allopurinol [Zyloprim] 100 mg PO DAILY 08/16/13 [History] Amiodarone HCl [Pacerone] 200 mg PO DAILY 08/16/13 [History] INSULIN ASPART (NovoLOG) [NovoLOG (formulary)] 10 unit SQ AC-TID 02/05/18 [History] Aspirin 81 mg PO DAILY 02/06/18 [History] Atorvastatin [Lipitor] 40 mg PO HS 02/06/18 [History] Insulin Glargine,Hum.rec.anlog [Basaglar Kwikpen U-100] 22 - 24 unit SQ HS 02/06/18 [History] Amitriptyline HCl [Elavil] 50 mg PO HS 05/15/18 [History] Levothyroxine Sodium [Synthroid] 100 mcg PO DAILY 05/15/18 [History] Metoprolol Succinate (ER) [Toprol XL] 12.5 mg PO DAILY 05/15/18 [History] Calcium Acetate [PhosLo] 667 mg PO DAILY 10/20/18 [History] Justine Kacy 1 tab PO DAILY 10/20/18 [History] Warfarin Sodium [Jantoven] 7.5 mg PO W/SUPPER 10/20/18 [History] Follow up Appointment(s)/Referral(s): Davy Bowman MD [STAFF PHYSICIAN] - 1 Week (Please keep previous appointments set up for testing.) Jarret Arredondo MD [Primary Care Provider] - 3 Days (Please follow up with primary provider. ) Patient Instructions/Handouts: Tachycardia (ED) Discharge Disposition: HOME SELF-CARE
== END 2018-10-21 18:55 | disposition home or self-care (01) | DRG 308 ==
LOC: EC 09:18 → 3SCARD 13:19
PROVIDERS: ADMIT Hospitalist; ATTEND Hospitalist
PROC: 4B02XSZ Measurement of Cardiac Pacemaker, External Approach (ICD-10-PCS; principal; 2018-10-20)
PROC: 5A1D70Z Performance of Urinary Filtration, Intermittent, Less than 6 Hours Per Day (ICD-10-PCS; 2018-10-20)
DX: R00.0 Tachycardia, unspecified (principal); N18.6 End stage renal disease; Z68.41 Body mass index [BMI] 40.0-44.9, adult; E11.22 Type 2 diabetes mellitus with diabetic chronic kidney disease; E11.42 Type 2 diabetes mellitus with diabetic polyneuropathy; I50.9 Heart failure, unspecified; E11.65 Type 2 diabetes mellitus with hyperglycemia; E66.01 Morbid (severe) obesity due to excess calories; E87.5 Hyperkalemia; J44.9 Chronic obstructive pulmonary disease, unspecified; F32.9 Major depressive disorder, single episode, unspecified; D63.1 Anemia in chronic kidney disease; E89.0 Postprocedural hypothyroidism; F41.9 Anxiety disorder, unspecified; H54.7 Unspecified visual loss; I45.10 Unspecified right bundle-branch block; K21.9 Gastro-esophageal reflux disease without esophagitis; M81.0 Age-related osteoporosis without current pathological fracture; E83.89 Other disorders of mineral metabolism; H26.9 Unspecified cataract; M10.9 Gout, unspecified; M19.90 Unspecified osteoarthritis, unspecified site; K57.90 Diverticulosis of intestine, part unspecified, without perforation or abscess without bleeding; K64.9 Unspecified hemorrhoids; R32 Unspecified urinary incontinence; Z79.01 Long term (current) use of anticoagulants; Z79.4 Long term (current) use of insulin; Z79.82 Long term (current) use of aspirin; Z79.890 Hormone replacement therapy; Z79.899 Other long term (current) drug therapy; Z95.0 Presence of cardiac pacemaker; Z99.2 Dependence on renal dialysis; Z90.710 Acquired absence of both cervix and uterus; Z89.511 Acquired absence of right leg below knee; Z88.8 Allergy status to other drugs, medicaments and biological substances; Z86.14 Personal history of Methicillin resistant Staphylococcus aureus infection; Z80.1 Family history of malignant neoplasm of trachea, bronchus and lung; Z82.49 Family history of ischemic heart disease and other diseases of the circulatory system; Z83.3 Family history of diabetes mellitus; Z84.1 Family history of disorders of kidney and ureter
CPT/HCPCS: 36415; 71045; 71046; 80053; 82728; 83540; 83550; 83735; 84439; 84443; 84481; 84484; 85025; 85610; 85730; 90935; 93005; 94660; 94760; 96361; 96374; 99285

== ENCOUNTER 2018-10-31 11:53 | Observation (INO) | payer MEDICARE, BC ==
--- NOTE | 2018-10-31 12:28 | ED ---
General Adult HPI - General Chief complaint: Recheck/Abnormal Lab/Rx Stated complaint: shunt problem/unable to receive dialysis Time Seen by Provider: 10/31/18 12:01 Source: patient Mode of arrival: wheelchair Limitations: no limitations - History of Present Illness Initial comments: Dictation was produced using [employer] dictation software. please excuse any grammatical, word or spelling errors. Chief Complaint: 68-year-old female with end-stage renal disease presents with malfunctioning dialysis access. History of Present Illness: 68-year-old female she has past medical history of heart failure COPD diabetes. She was at dialysis today and they attempted to access her AV graft. They're unable to initiate hemodialysis. She is instructed to come to the emergency department for evaluation. She has no other complaints at this time. She gets dialysis on Friday and Friday. Her veterinarian helper is Dr. Jefferson. She did receive full treatment of dialysis on . She has a arteriovenous fistula in the right upper extremity. She's had multiple revisions of this site. Initial hemodialysis access was performed down [facility]. She does not have a vascular surgeon at this time. The ROS documented in this emergency department record has been reviewed and confirmed by me. Those systems with pertinent positive or negative responses have been documented in the HPI. All other systems are other negative and/or noncontributory. PHYSICAL EXAM: General Impression: Alert and oriented x3, not in acute distress, obese HEENT: Normocephalic atraumatic, extra-ocular movements intact, pupils equal and reactive to light bilaterally, mucous membranes moist. Cardiovascular: Heart regular rate and rhythm, S1&S2 audible, no murmurs, rubs or gallops Chest: Lungs clear to auscultation bilaterally, no rhonchi, no wheeze, no rales Abdomen: Bowel sounds present, abdomen soft, non-tender, non-distended, no orga nomegaly Musculoskeletal: Dictation of the right lower extremity Right upper extremity: Dialysis access site with scar. No palpable thrill or audible bruit Motor: no focal deficits noted Neurological: CN II-XII grossly intact, no focal motor or sensory deficits noted Skin: Intact with no visualized rashes Psych: Normal affect and mood ED course: 68-year-old male presents with malfunctioning dialysis access. Vital signs upon arrival are within acceptable limits. Laboratory evaluation obtained. CBC, coag panel, metabolic panels obtained. No hyperkalemia. Creatinine elevated. Baseline. EKG shows no abnormalities. Discussed patient case with Dr. Rollins on-call vascular surgery. He request patient be admitted to hospitalist. Patient be nothing by mouth at this time. Discussed patient case with Dr. Frost from [facility] who is willing to accept patients care. Nephrology be on consult. EKG interpretation: Ventricular rate 66, pacemaker, QS 174, QTC 555. No LA prolongation, no QTC prolongation, no ST or T-wave changes noted. EKG compared to 10/20/2018 showing no changes. Overall, this EKG is unremarkable - Related Data Home Medications Medication Instructions Recorded Confirmed Allopurinol [Zyloprim] 100 mg PO DAILY 08/16/13 10/31/18 Amiodarone HCl [Pacerone] 200 mg PO DAILY 08/16/13 10/31/18 INSULIN ASPART (NovoLOG) [NovoLOG 10 unit SQ AC-TID 02/05/18 10/31/18 (formulary)] Aspirin 81 mg PO DAILY 02/06/18 10/31/18 Atorvastatin [Lipitor] 40 mg PO HS 02/06/18 10/31/18 Insulin Glargine,Hum.rec.anlog 22 - 24 unit SQ HS 02/06/18 10/31/18 [Basaglar Kwikpen U-100] Amitriptyline HCl [Elavil] 50 mg PO HS 05/15/18 10/31/18 Levothyroxine Sodium [Synthroid] 100 mcg PO DAILY 05/15/18 10/31/18 Metoprolol Succinate (ER) [Toprol 12.5 mg PO DAILY 05/15/18 10/31/18 XL] Calcium Acetate [PhosLo] 667 mg PO DAILY 10/20/18 10/31/18 Justine Kacy 1 tab PO DAILY 10/20/18 10/31/18 Warfarin Sodium [Jantoven] 7.5 mg PO W/SUPPER 10/20/18 10/31/18 Allergies Allergy/AdvReac Type Severity Reaction Status Date / Time meperidine HCl [From Demerol] AdvReac Nausea & Verified 10/31/18 12:09 Vomiting & Diarrhea Review of Systems ROS Statement: Those systems with pertinent positive or pertinent negative responses have been documented in the HPI. ROS Other: All systems not noted in ROS Statement are negative. 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 rt bka 02/01 Past Anesthesia/Blood Transfusion Reactions: No Reported Reaction Additional Past Anesthesia/Blood Transfusion Reaction / Comment(s): HAD BLOOD TRANFUSIONS WITHOUT COMPLICATION Type of Cardiac Device: Permanent Pacemaker Device Placement Date:: 2008 Past Psychological History: Anxiety, Depression Smoking Status: Never smoker Past Alcohol Use History: None Reported Past Drug Use History: None Reported - Past Family History Father Family Medical History: Hypertension Additional Family Medical History / Comment(s): Father at age 56 from lung cancer. Mother Family Medical History: Cancer Additional Family Medical History / Comment(s): Mother at age 56 from lung cancer. Brother(s) Family Medical History: Diabetes Mellitus, Renal Disease Additional Family Medical History / Comment(s): Patient has 2 brothers. One at age 45 from myocardial infarction with history of heart defect from . Second brother is alive at age 59 with history of coronary artery disease and diabetes, bone marrow transplant Sister(s) Additional Family Medical History / Comment(s): Patient has a sister age 57 alive with history of diabetes and spina bifida. Daughter(s) Family Medical History: No Reported History Additional Family Medical History / Comment(s): Pre-diabetes General Exam Limitations: no limitations Course Vital Signs 10/31/18 10/31/18 11:57 13:31 Temperature 97.8 F Pulse Rate 65 72 Respiratory 18 16 Rate Blood Pressure 124/78 129/81 O2 Sat by Pulse 98 99 Oximetry Medical Decision Making - Lab Data Result diagrams: 10/31/18 12:20 10/31/18 12:20 Lab Results 10/31/18 10/31/18 10/31/18 Range/Units 12:20 12:20 12:20 WBC 5.9 (3.8-10.6) k/uL RBC 3.24 L (3.80-5.40) m/uL Hgb 10.4 L (11.4-16.0) gm/dL Hct 32.7 L (34.0-46.0) % MCV 100.9 H (80.0-100.0) fL MCH 32.0 (25.0-35.0) pg MCHC 31.7 (31.0-37.0) g/dL RDW 16.8 H (11.5-15.5) % Plt Count 156 (150-450) k/uL Neutrophils % 73 % Lymphocytes % 11 % Monocytes % 8 % Eosinophils % 5 % Basophils % 2 % Neutrophils # 4.3 (1.3-7.7) k/uL Lymphocytes # 0.6 L (1.0-4.8) k/uL Monocytes # 0.5 (0-1.0) k/uL Eosinophils # 0.3 (0-0.7) k/uL Basophils # 0.1 (0-0.2) k/uL Hypochromasia Moderate Poikilocytosis Slight Anisocytosis Slight Macrocytosis Slight PT 11.9 (9.0-12.0) sec INR 1.1 (<1.2) APTT 28.4 (22.0-30.0) sec Sodium 139 (137-145) mmol/L Potassium 4.2 (3.5-5.1) mmol/L Chloride 98 (98-107) mmol/L Carbon Dioxide 27 (22-30) mmol/L Anion Gap 14 mmol/L BUN 53 H (7-17) mg/dL Creatinine 5.82 H (0.52-1.04) mg/dL Est GFR (CKD-EPI)AfAm 8 (>60 ml/min/1.73 sqM) Est GFR (CKD-EPI)NonAf 7 (>60 ml/min/1.73 sqM) Glucose 170 H (74-99) mg/dL Calcium 8.6 (8.4-10.2) mg/dL Disposition Clinical Impression: Dialysis AV fistula malfunction Disposition: ADMITTED IP TO THIS HOSP Condition: Fair Referrals: Jarret Arredondo MD [Primary Care Provider] - 1-2 days Decision Time: 14:05
[2018-10-31 12:35] LABS: Anisocytosis Slight; Basophils # (A) 0.1 k/uL (0-0.2); Basophils % (A) 2 %; Eosinophils # (A) 0.3 k/uL (0-0.7); Eosinophils % (A) 5 %; HCT 32.7 % (34.0-46.0); HGB 10.4 gm/dL (11.4-16.0); Hypochromasia Moderate; Lymphocytes # (A) 0.6 k/uL (1.0-4.8); Lymphocytes % (A) 11 %; MCHC 31.7 g/dL (31.0-37.0); MCV 100.9 fL (80.0-100.0); Macrocytosis Slight; Mean Platelet Volume 7.5; Monocytes # (A) 0.5 k/uL (0-1.0); Monocytes % (A) 8 %; Neutrophils # (A) 4.3 k/uL (1.3-7.7); Neutrophils % (A) 73 %; Platelet Count 156 k/uL (150-450); Poikilocytosis Slight; RBC 3.24 m/uL (3.80-5.40); RDW 16.8 % (11.5-15.5); WBC 5.9 k/uL (3.8-10.6)
[2018-10-31 12:45] LABS: INR 1.1 (<1.2); Partial Thromboplastin Time 28.4 sec (22.0-30.0); Prothrombin Time 11.9 sec (9.0-12.0)
[2018-10-31 12:48] LABS: Calcium 8.6 mg/dL (8.4-10.2); Potassium 4.2 mmol/L (3.5-5.1)
[2018-10-31] MEDS ORDERED: NALOXONE 0.4 MG/ML 1 ML VIAL IV PRN (14:06)
[2018-10-31] MEDS ORDERED: ACETAMINOPHEN TAB 325 MG TAB PO PRN (14:06)
[2018-10-31] MEDS ORDERED: ONDANSETRON 4 MG/2 ML VIAL IVP PRN (14:06)
[2018-10-31] MEDS ORDERED: MORPHINE SULFATE 4 MG/ML SYRINGE IV PRN (14:06)
[2018-10-31 14:11] LABS: Glucose,Whole Blood 128 mg/dL (75-99)
--- NOTE | 2018-10-31 16:04 | P.HPIM ---
History of Present Illness H&P Date: 10/31/18 Chief Complaint: Malfunctioning AV graft 60-year-old female with PMH of CHF with pacemaker, COPD, diabetes mellitus on insulin, ESRD on hemodialysis Friday, hypothyroidism, gout presents to the ED after an attempt was made to access her AV graft. They were unable to access her AV graft for dialysis. She was advised to come to the ED. Patient follows nephrology, Dr. Jefferson in clinic. Her last complete dialysis session was on . Otherwise, patient has no complaints. She denies any headaches, lower extremity edema, nausea or vomiting, fever or chills, cough, chest pain, shortness of breath, palpitations, changes in urination or bowel habits. No changes in appetite or weight. Patient denies any dizziness, numbness/weakness/tingling of the extremities. Patient states that she is anuric. In the ED, vital signs were stable. CBC showed hemoglobin of 10.4 with MCV of 100.9. Coagulation panel is within normal limits. CMP showed BUN of 53, creatinine 5.82, glucose of 170. Patient is admitted for malfunctioning AV graft, with vascular surgery Dr. Rollins consulted. Review of Systems Pertinent positives and negatives as discussed in HPI, a complete review of systems was performed and all other systems are negative. 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 rt bka 02/01 Past Anesthesia/Blood Transfusion Reactions: No Reported Reaction Additional Past Anesthesia/Blood Transfusion Reaction / Comment(s): HAD BLOOD TRANFUSIONS WITHOUT COMPLICATION Type of Cardiac Device: Permanent Pacemaker Device Placement Date:: 2008 Past Psychological History: Anxiety, Depression Smoking Status: Never smoker Past Alcohol Use History: None Reported Past Drug Use History: None Reported - Past Family History Father Family Medical History: Hypertension Additional Family Medical History / Comment(s): Father at age 56 from lung cancer. Mother Family Medical History: Cancer Additional Family Medical History / Comment(s): Mother at age 56 from lung cancer. Brother(s) Family Medical History: Diabetes Mellitus, Renal Disease Additional Family Medical History / Comment(s): Patient has 2 brothers. One at age 45 from myocardial infarction with history of heart defect from . Second brother is alive at age 59 with history of coronary artery disease and diabetes, bone marrow transplant Sister(s) Additional Family Medical History / Comment(s): Patient has a sister age 57 alive with history of diabetes and spina bifida. Daughter(s) Family Medical History: No Reported History Additional Family Medical History / Comment(s): Pre-diabetes Medications and Allergies Home Medications Medication Instructions Recorded Confirmed Type Allopurinol [Zyloprim] 100 mg PO DAILY 08/16/13 10/31/18 History Amiodarone HCl [Pacerone] 200 mg PO DAILY 08/16/13 10/31/18 History INSULIN ASPART (NovoLOG) [NovoLOG 10 unit SQ AC-TID 02/05/18 10/31/18 History (formulary)] Aspirin 81 mg PO DAILY 02/06/18 10/31/18 History Atorvastatin [Lipitor] 40 mg PO HS 02/06/18 10/31/18 History Insulin Glargine,Hum.rec.anlog 22 - 24 unit SQ HS 02/06/18 10/31/18 History [Basaglar Kwikpen U-100] Amitriptyline HCl [Elavil] 50 mg PO HS 05/15/18 10/31/18 History Levothyroxine Sodium [Synthroid] 100 mcg PO DAILY 05/15/18 10/31/18 History Metoprolol Succinate (ER) [Toprol 12.5 mg PO DAILY 05/15/18 10/31/18 History XL] Calcium Acetate [PhosLo] 667 mg PO DAILY 10/20/18 10/31/18 History Justine Kacy 1 tab PO DAILY 10/20/18 10/31/18 History Warfarin Sodium [Jantoven] 7.5 mg PO W/SUPPER 10/20/18 10/31/18 History Allergies Allergy/AdvReac Type Severity Reaction Status Date / Time meperidine HCl [From Demerol] AdvReac Nausea & Verified 10/31/18 12:09 Vomiting & Diarrhea Physical Exam Vitals: Vital Signs Temp Pulse Resp BP Pulse Ox 10/31/18 15:18 76 16 126/80 100 10/31/18 13:31 72 16 129/81 99 10/31/18 11:57 97.8 F 65 18 124/78 98 Intake and Output 10/31/18 10/31/18 10/31/18 06:59 14:59 22:59 Other: Weight 106.594 kg General: [non toxic], [no distress], [appears at stated age] Derm: [warm], [dry] Head: [atraumatic], [normocephalic], [symmetric] Eyes: [EOMI], [no lid lag], [anicteric sclera] Mouth: [no lip lesion], [mucus membranes moist] Cardiovascular: [S1S2 reg], [no murmur] Lungs: [CTA bilateral], [no rhonchi, no rales] , [no accessory muscle use] Abdominal: [soft], [ nontender to palpation], [no guarding], [no appreciable organomegaly] Ext: [no gross muscle atrophy], [no edema], [no contractures], [right AKA], [right AV graft upper extremity, no palpable thrill or bruit] Neuro: [ CN II-XI grossly intact], [no focal neuro deficits, unable to check in right lower extremity] Psych: [Alert], [oriented], [appropriate affect] Results CBC & Chem 7: 10/31/18 12:20 10/31/18 12:20 Labs: Abnormal Lab Results - Last 24 Hours (Table) 10/31/18 10/31/18 10/31/18 Range/Units 12:20 12:20 14:09 RBC 3.24 L (3.80-5.40) m/uL Hgb 10.4 L (11.4-16.0) gm/dL Hct 32.7 L (34.0-46.0) % MCV 100.9 H (80.0-100.0) fL RDW 16.8 H (11.5-15.5) % Lymphocytes # 0.6 L (1.0-4.8) k/uL BUN 53 H (7-17) mg/dL Creatinine 5.82 H (0.52-1.04) mg/dL Glucose 170 H (74-99) mg/dL POC Glucose (mg/dL) 128 H (75-99) mg/dL Assessment and Plan Assessment: Malfunctioning AV graft ESRD on hemodialysis Friday schedule Macrocytic anemia Right IJ and subclavian DVT Stable combined systolic and diastolic CHF with EF 50-55% Diabetes mellitus, insulin-dependent with hyperglycemia Chronic conditions: Hypothyroidism, Gout Unable to access AV graft for HD. Does not follow vascular surgery. Plans: Hold Coumadin and aspirin in hopes for possible procedure. Discussed with Dr. Rollins, plans for femoral catheter tomorrow. Follow vascular surgery recommendations. Creatinine 5.82. Potassium is within normal limits. Blood pressure is well controlled. Plans: Consult nephrology to initiate dialysis. Continue calcium acetate phosphate binder. Daily BMP. Renal diet. Hemoglobin 10.4. MCV 100.9. Iron studies done earlier this month show anemia of chronic disease. Likely due to ESRD. Plans: Daily CBC. Transfuse if hemoglobin less than 7. Check B12 and folate. INR 1.1. Plans: Holding Coumadin and aspirin for possible procedure tomorrow. Restart Coumadin after catheter placement. Most recent echocardiogram showing EF 50-55% with diastolic dysfunction. Plans: Restart metoprolol. Patient would likely benefit from MONTRELL inhibitor. Keep potassium greater than 4 and magnesium greater than 2. [id number] glucose 128. Plans: Start Levemir 20 units at bedtime. NovoLog 10 units 3 times a day with meals. Insulin sliding scale. Regular Accu-Cheks. Hypoglycemic precautions. Plans: Resume home medications for hypothyroidism and gout. DVT prophylaxis: [SCD boots] Discussed with: [Patient] Anticipated discharge: [1-2 days] Anticipated discharge place: [Home] A total of [45] minutes was spent on the care of this complex patient more than 50% of the time was spent in counseling and care coordination. Patient name son Rojas decision-maker in the case that she can't make decisions for herself. Patient reiterates wanting to remain full code. Her PCP is Dr. Arredondo. Patient is anticipated for less than 48-hour admission due to malfunctioning AV graft.
--- NOTE | 2018-10-31 16:04 | P.GSCN ---
History of Present Illness History of present illness: 68-year-old white female, patient is known to me from the past patient had a right above-knee amputation done by me about 3 years ago. Patient has history of chronic renal failure patient had multiple graft placed in the right arm patient had a multiple revision of the loop graft in the right forearm by Dr. draper and also patient had a right upper arm cordis graft placed at the [facility] in the past patient also had a left upper arm loop graft placed in the past on this graft has been occluded. Patient also diagnosed with a DVT of the right intrajugular vein and she has been on Coumadin her INR is 1.1 and PT is 11.9 patient also has a pacemaker on the left side in the left subclavian vein On examination neck is supple chest is clear patient has a pacemaker on the left side abdomen is protuberant patient had a right above-knee position in the past her right jugular is occluded by ultrasound. 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,GOUT, "End Stage Renal disease" receives HEMODIALYSIS TUES THURS, SAT, ABD HERNIA, SHINGLES X2,DIVERTICULITIS, CHRONIC OPEN SORE ON ABD,NEUROPATHY,OSTEOPOROSIS,ANEMIA,HEMMORRHOIDS,ARTHRITIS, BACK PAIN, brea cataracts with rt eye sees bright lights lt eye very limited vision "almost blind" History of Any Multi-Drug Resistant Organisms: MRSA Year Discovered:: 2010 MDRO Source:: Abdomen wound Past Surgical History: Back Surgery, Hysterectomy, Orthopedic Surgery, Pacemaker Additional Past Surgical History / Comment(s): 40 pound tumor removed from stomach, graft in right arm and old one in left arm,hx.of chest tube on left side after pneumothorax, brea upper arm tumor removal, benign large mass removed from ovaries, partial thyroidectomy, spinal surgery done at [facility] 10 years ago for infection with eliel placement.01/17/16 ANGIOPLASTY/STENT RT SFA, eye surgery. rt bka 02/01 Past Anesthesia/Blood Transfusion Reactions: No Reported Reaction Additional Past Anesthesia/Blood Transfusion Reaction / Comm: HAD BLOOD TRANFUSIONS WITHOUT COMPLICATION Type of Cardiac Device: Permanent Pacemaker Device Placement Date:: 2008 Past Psychological History: Anxiety, Depression Smoking Status: Never smoker Past Alcohol Use History: None Reported Past Drug Use History: None Reported - Past Family History Father Family Medical History: Hypertension Additional Family Medical History / Comment(s): Father at age 56 from lung cancer. Mother Family Medical History: Cancer Additional Family Medical History / Comment(s): Mother at age 56 from lung cancer. Brother(s) Family Medical History: Diabetes Mellitus, Renal Disease Additional Family Medical History / Comment(s): Patient has 2 brothers. One at age 45 from myocardial infarction with history of heart defect from . Second brother is alive at age 59 with history of coronary artery disease and diabetes, bone marrow transplant Sister(s) Additional Family Medical History / Comment(s): Patient has a sister age 57 alive with history of diabetes and spina bifida. Daughter(s) Family Medical History: No Reported History Additional Family Medical History / Comment(s): Pre-diabetes Medications and Allergies Home Medications Medication Instructions Recorded Confirmed Type Allopurinol [Zyloprim] 100 mg PO DAILY 08/16/13 10/31/18 History Amiodarone HCl [Pacerone] 200 mg PO DAILY 08/16/13 10/31/18 History INSULIN ASPART (NovoLOG) [NovoLOG 10 unit SQ AC-TID 02/05/18 10/31/18 History (formulary)] Aspirin 81 mg PO DAILY 02/06/18 10/31/18 History Atorvastatin [Lipitor] 40 mg PO HS 02/06/18 10/31/18 History Insulin Glargine,Hum.rec.anlog 22 - 24 unit SQ HS 02/06/18 10/31/18 History [Basaglar Kwikpen U-100] Amitriptyline HCl [Elavil] 50 mg PO HS 05/15/18 10/31/18 History Levothyroxine Sodium [Synthroid] 100 mcg PO DAILY 05/15/18 10/31/18 History Metoprolol Succinate (ER) [Toprol 12.5 mg PO DAILY 05/15/18 10/31/18 History XL] Calcium Acetate [PhosLo] 667 mg PO DAILY 10/20/18 10/31/18 History Justine Kacy 1 tab PO DAILY 10/20/18 10/31/18 History Warfarin Sodium [Jantoven] 5 mg PO W/SUPPER 10/20/18 10/31/18 History Allergies Allergy/AdvReac Type Severity Reaction Status Date / Time meperidine HCl [From Demerol] AdvReac Nausea & Verified 10/31/18 12:09 Vomiting & Diarrhea Surgical - Exam Vital Signs Temp Pulse Resp BP Pulse Ox 97.8 F 65 18 124/78 98 10/31/18 11:57 10/31/18 11:57 10/31/18 11:57 10/31/18 11:57 10/31/18 11:57 Results - Labs 10/31/18 12:20 10/31/18 12:20 Abnormal Lab Results - Last 24 Hours (Table) 10/31/18 10/31/18 10/31/18 Range/Units 12:20 12:20 14:09 RBC 3.24 L (3.80-5.40) m/uL Hgb 10.4 L (11.4-16.0) gm/dL Hct 32.7 L (34.0-46.0) % MCV 100.9 H (80.0-100.0) fL RDW 16.8 H (11.5-15.5) % Lymphocytes # 0.6 L (1.0-4.8) k/uL BUN 53 H (7-17) mg/dL Creatinine 5.82 H (0.52-1.04) mg/dL Glucose 170 H (74-99) mg/dL POC Glucose (mg/dL) 128 H (75-99) mg/dL Diabetes panel 10/31/18 Range/Units 12:20 Sodium 139 (137-145) mmol/L Potassium 4.2 (3.5-5.1) mmol/L Chloride 98 (98-107) mmol/L Carbon Dioxide 27 (22-30) mmol/L BUN 53 H (7-17) mg/dL Creatinine 5.82 H (0.52-1.04) mg/dL Glucose 170 H (74-99) mg/dL Calcium 8.6 (8.4-10.2) mg/dL Calcium panel 10/31/18 Range/Units 12:20 Calcium 8.6 (8.4-10.2) mg/dL Pituitary panel 10/31/18 Range/Units 12:20 Sodium 139 (137-145) mmol/L Potassium 4.2 (3.5-5.1) mmol/L Chloride 98 (98-107) mmol/L Carbon Dioxide 27 (22-30) mmol/L BUN 53 H (7-17) mg/dL Creatinine 5.82 H (0.52-1.04) mg/dL Glucose 170 H (74-99) mg/dL Calcium 8.6 (8.4-10.2) mg/dL Adrenal panel 10/31/18 Range/Units 12:20 Sodium 139 (137-145) mmol/L Potassium 4.2 (3.5-5.1) mmol/L Chloride 98 (98-107) mmol/L Carbon Dioxide 27 (22-30) mmol/L BUN 53 H (7-17) mg/dL Creatinine 5.82 H (0.52-1.04) mg/dL Glucose 170 H (74-99) mg/dL Calcium 8.6 (8.4-10.2) mg/dL
[2018-10-31 17:02] LABS: Glucose,Whole Blood 194 mg/dL (75-99)
[2018-10-31] MEDS: INSULIN ASPART (NovoLOG) 100 UNIT/ML VIAL SQ SCH ×3 (17:18→21:05)
[2018-10-31 20:39] LABS: Glucose,Whole Blood 176 mg/dL (75-99)
[2018-10-31] MEDS ORDERED: ATORVASTATIN 40 MG TAB PO SCH (21:00)
[2018-10-31] MEDS ORDERED: INSULIN DETEMIR (LEVEMIR) 100 UNIT/ML SYR SQ SCH (21:00)
[2018-10-31] MEDS ORDERED: AMITRIPTYLINE HCL 50 MG TAB PO SCH (21:00)
[2018-11-01 06:07] LABS: INR 1.2 (<1.2); Prothrombin Time 12.5 sec (9.0-12.0)
[2018-11-01] MEDS ORDERED: LEVOTHYROXINE 100 MCG TAB PO SCH (06:30)
[2018-11-01 06:59] LABS: Glucose,Whole Blood 106 mg/dL (75-99)
[2018-11-01] MEDS ORDERED: PANTOPRAZOLE 40 MG TABLET PO SCH (07:30)
[2018-11-01 08:03] LABS: Anisocytosis Slight; HCT 30.2 % (34.0-46.0); HGB 9.6 gm/dL (11.4-16.0); Hypochromasia Moderate; MCH 32.2 pg (25.0-35.0); MCHC 31.6 g/dL (31.0-37.0); MCV 101.9 fL (80.0-100.0); Macrocytosis Moderate; Mean Platelet Volume 7.6; Platelet Count 153 k/uL (150-450); Poikilocytosis Slight; RBC 2.97 m/uL (3.80-5.40); RDW 16.7 % (11.5-15.5); WBC 5.8 k/uL (3.8-10.6)
[2018-11-01 08:07] LABS: Calcium 8.4 mg/dL (8.4-10.2); Potassium 4.4 mmol/L (3.5-5.1)
[2018-11-01 08:16] VITALS: BP 121/73; PULSE 63; RESP 16; TEMP 97.8
--- NOTE | 2018-11-01 08:50 | P.NPCON ---
History of Present Illness - Reason for Consult Consult date: 11/01/18 end stage renal disease - Chief Complaint ESRD with a clotted graft - History of Present Illness This is a 68-year-old female known to us with ESRD on dialysis Friday She was admitted to the hospital because of a clotted graft. Her last dialysis was , 10/29/2018. She came in last night after attempted dialysis on a scheduled Friday did not work. She's had multiple grafts on both upper and lower arms on both sides. Additionally supposedly she has a clot in her right IJ. On the left side she has a pacemaker. She is not a PD candidate because of her very pendulous large abdominal pannus. She denies any nausea vomiting chest pain shortness of breath. No dizziness headache. No chest pain. No nausea vomiting. She is comfortable. She has chronic obstructive sleep apnea and uses BiPAP. Her past history significant for diabetes COPD, left above-knee amputation. 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 rt bka 02/01 Past Anesthesia/Blood Transfusion Reactions: No Reported Reaction Additional Past Anesthesia/Blood Transfusion Reaction / Comment(s): HAD BLOOD TRANFUSIONS WITHOUT COMPLICATION Type of Cardiac Device: Permanent Pacemaker Device Placement Date:: 2008 Past Psychological History: Anxiety, Depression Smoking Status: Never smoker Past Alcohol Use History: None Reported Past Drug Use History: None Reported - Past Family History Father Family Medical History: Hypertension Additional Family Medical History / Comment(s): Father at age 56 from lung cancer. Mother Family Medical History: Cancer Additional Family Medical History / Comment(s): Mother at age 56 from lung cancer. Brother(s) Family Medical History: Diabetes Mellitus, Renal Disease Additional Family Medical History / Comment(s): Patient has 2 brothers. One at age 45 from myocardial infarction with history of heart defect from . Second brother is alive at age 59 with history of coronary artery disease and diabetes, bone marrow transplant Sister(s) Additional Family Medical History / Comment(s): Patient has a sister age 57 alive with history of diabetes and spina bifida. Daughter(s) Family Medical History: No Reported History Additional Family Medical History / Comment(s): Pre-diabetes Medications and Allergies Home Medications Medication Instructions Recorded Confirmed Type Allopurinol [Zyloprim] 100 mg PO DAILY 08/16/13 10/31/18 History Amiodarone HCl [Pacerone] 200 mg PO DAILY 08/16/13 10/31/18 History INSULIN ASPART (NovoLOG) [NovoLOG 10 unit SQ AC-TID 02/05/18 10/31/18 History (formulary)] Aspirin 81 mg PO DAILY 02/06/18 10/31/18 History Atorvastatin [Lipitor] 40 mg PO HS 02/06/18 10/31/18 History Insulin Glargine,Hum.rec.anlog 22 - 24 unit SQ HS 02/06/18 10/31/18 History [Basaglar Kwikpen U-100] Amitriptyline HCl [Elavil] 50 mg PO HS 05/15/18 10/31/18 History Levothyroxine Sodium [Synthroid] 100 mcg PO DAILY 05/15/18 10/31/18 History Metoprolol Succinate (ER) [Toprol 12.5 mg PO DAILY 05/15/18 10/31/18 History XL] Calcium Acetate [PhosLo] 667 mg PO DAILY 10/20/18 10/31/18 History Justine Kacy 1 tab PO DAILY 10/20/18 10/31/18 History Warfarin Sodium [Jantoven] 5 mg PO W/SUPPER 10/20/18 10/31/18 History Allergies Allergy/AdvReac Type Severity Reaction Status Date / Time meperidine HCl [From Demerol] AdvReac Nausea & Verified 10/31/18 12:09 Vomiting & Diarrhea Physical Exam Vitals: Vital Signs Temp Pulse Pulse Resp BP BP Pulse Ox 11/01/18 07:00 97.8 F 63 16 121/73 97 11/01/18 00:39 97.5 F L 69 15 111/68 100 10/31/18 19:51 97.3 F L 67 16 134/83 97 10/31/18 16:00 89 12 10/31/18 15:44 97.8 F 65 46 H 140/83 98 10/31/18 15:18 76 16 126/80 100 10/31/18 13:31 72 16 129/81 99 10/31/18 11:57 97.8 F 65 18 124/78 98 Intake and Output 10/31/18 11/01/18 11/01/18 22:59 06:59 14:59 Intake Total 100 Balance 100 Intake: Oral 100 On examination is awake alert oriented comfortable on room air HEENT exam no JVP neck is supple no facial asymmetry Lungs are clear to auscultation good air entry bilaterally Heart sounds are unremarkable for any murmur rub gallop somewhat distant heart sounds Abdomen is large pannus and significantly protruding. No masses are felt. She will exam reveals multiple grafts on both sides and all over both upper and lower arms. There is no edema in the right side on the left she has an amputation Neurologically awake alert oriented no asterixis. Results - Lab Results Most recent lab results Calcium 8.4 mg/dL (8.4-10.2) 11/01/18 05:27 11/01/18 05:27 11/01/18 05:27 Assessment and Plan Assessment: Impression 1. ESRD on dialysis approximately 20 years on Friday. Her labs are stable creatinine 6.6 BUN 63. Sodium 138, potassium 4.4 o, bicarb 26 and chloride 98 Calcium is 8.4 Hemoglobin is 9.6, and 53,000 and white count is 5800 2. Admitted with a clotted graft. Her last functioning graft was right forearm 3. Multiple old grafts in both upper and lower arms. Additionally a clot roy pposedly in the right IJ, left side has a pacemaker. 4. Diabetes mellitus 5. COPD on BiPAP 6. History of peripheral vascular disease and intervention. Plan- 1. Patient states was discussed with Dr. Rollins. Further discussion with Dr. Hodgson , he has accepted her to be admitted to [facility]. 2. The plan is to try to declot her graft. 3. Patient will be discharged from [facility] and advised to go to the emergency room at [facility] tomorrow 11/02/2018, she's been advised to be very careful about her potassium and fluids. Thank you for this consultation.
[2018-11-01] MEDS ORDERED: FOLIC ACID-VIT B COMPLEX-VIT C 1 CAP PO SCH (09:00)
[2018-11-01] MEDS ORDERED: METOPROLOL SUCCINATE (ER) 25 MG TAB.ER.24H PO SCH (09:00)
[2018-11-01] MEDS ORDERED: AMIODARONE 200 MG TAB PO SCH (09:00)
[2018-11-01] MEDS ORDERED: ALLOPURINOL 100 MG TAB PO SCH (09:00)
[2018-11-01] MEDS ORDERED: CALCIUM ACETATE 667 MG CAP PO SCH (09:00)
[2018-11-01] MEDS: INSULIN ASPART (NovoLOG) 100 UNIT/ML VIAL SQ SCH ×2 (09:01)
--- NOTE | 2018-11-01 10:30 | P.DS ---
Providers Date of admission: 10/31/18 14:06 Expected date of discharge: 11/01/18 Attending physician: Carlos Alberto Ross MD Consults: 10/31/18 13:13 Consult Physician Routine Consulting Provider: Fuentes Rollins Consult Reason/Comments: malfunctioning fistula Do you want consulting provider notified?: Already Contacted 10/31/18 14:07 Consult Physician Routine Consulting Provider: Arit Jefferson Consult Reason/Comments: esrd Do you want consulting provider notified?: Yes Primary care physician: [facility] Course: 60-year-old female with PMH of CHF with pacemaker, COPD, diabetes mellitus on insulin, ESRD on hemodialysis Friday, hypothyroidism, gout presents to the ED after an attempt was made to access her AV graft. They were unable to access her AV graft for dialysis. She was advised to come to the ED. Patient follows nephrology, Dr. Jefferson in clinic. Her last complete dialysis session was on . Otherwise, patient has no complaints. She denies any headaches, lower extremity edema, nausea or vomiting, fever or chills, cough, chest pain, shortness of breath, palpitations, changes in urination or bowel habits. No changes in appetite or weight. Patient denies any dizziness, numbness/weakness/tingling of the extremities. Patient states that she is anuric. In the ED, vital signs were stable. CBC showed hemoglobin of 10.4 with MCV of 100.9. Coagulation panel is within normal limits. CMP showed BUN of 53, creatinine 5.82, glucose of 170. Patient is admitted for malfunctioning AV graft, with vascular surgery Dr. Rollins consulted. Vascular surgery recommended catheter placement in the jugular femoral vein. Nephrology was consulted and decision was made that patient will follow-up at [facility] with Dr. Hodgson as he is her vascular surgeon and knows her anatomy very well for possible declotting. Patient was seen and examined prior to discharge. No acute events overnight. Patient denies any chest pain, shortness of breath or palpitations. No nausea or vomiting. No fever or chills. General: [non toxic], [no distress], [appears at stated age] Derm: [warm], [dry] Head: [atraumatic], [normocephalic], [symmetric] Eyes: [no lid lag], [anicteric sclera] Mouth: [no lip lesion], [mucus membranes moist] Cardiovascular: [S1S2 reg], [no murmur] Lungs: [CTA bilateral], [no rhonchi, no rales] , [no accessory muscle use] Ext: [no gross muscle atrophy], [no edema], [no contractures], [right AKA], [right AV graft upper extremity, no palpable thrill or bruit] Psych: [Alert], [oriented], [appropriate affect] Malfunctioning AV graft ESRD on hemodialysis Friday schedule Macrocytic anemia Right IJ and subclavian DVT Stable combined systolic and diastolic CHF with EF 50-55% Diabetes mellitus, insulin-dependent with hyperglycemia Chronic conditions: Hypothyroidism, Gout Unable to access AV graft for HD. Plans: Follow Dr. Hodgson tomorrow at [facility] (ED on Friday) for possible intervention. Follow vascular surgery recommendations. Creatinine 6.68. Potassium is within normal limits. Blood pressure is well controlled. Plans: Consult nephrology to initiate dialysis. Continue calcium acetate phosphate binder. Daily BMP. Renal diet. Hemoglobin 10.4-9.6. MCV 100.9-101.9. Iron studies done earlier this month show anemia of chronic disease. Likely due to ESRD. Plans: Daily CBC. Transfuse if hemoglobin less than 7. Check B12 and folate. INR 1.1-1.2. Plans: Will restart Coumadin and ASA in the meantime. Most recent echocardiogram showing EF 50-55% with diastolic dysfunction. Plans: Restart metoprolol. Patient would likely benefit from MONTRELL inhibitor, to be initiated by PCP. Keep potassium greater than 4 and magnesium greater than 2. [id number] glucose 106. Plans: Start Levemir 20 units at bedtime. NovoLog 10 units 3 times a day with meals. Insulin sliding scale. Regular Accu-Cheks. Hypoglycemic precautions. Plans: Resume home medications for hypothyroidism and gout. [Patient will be discharged today to follow with vascular surgery at [facility] tomorrow. She has been instructed to present to the ED Friday morning. Patient verbalized understanding of the plan.] Patient Condition at Discharge: Stable Plan - Discharge Summary New Discharge Prescriptions: Continue Amiodarone HCl [Pacerone] 200 mg PO DAILY Allopurinol [Zyloprim] 100 mg PO DAILY INSULIN ASPART (NovoLOG) [NovoLOG (formulary)] 10 unit SQ AC-TID Aspirin 81 mg PO DAILY Atorvastatin [Lipitor] 40 mg PO HS Insulin Glargine,Hum.rec.anlog [Basaglar Kwikpen U-100] 22 - 24 unit SQ HS Levothyroxine Sodium [Synthroid] 100 mcg PO DAILY Metoprolol Succinate (ER) [Toprol XL] 12.5 mg PO DAILY Amitriptyline HCl [Elavil] 50 mg PO HS Warfarin Sodium [Jantoven] 5 mg PO W/SUPPER Calcium Acetate [PhosLo] 667 mg PO DAILY Justine Kacy 1 tab PO DAILY Discharge Medication List Allopurinol [Zyloprim] 100 mg PO DAILY 08/16/13 [History] Amiodarone HCl [Pacerone] 200 mg PO DAILY 08/16/13 [History] INSULIN ASPART (NovoLOG) [NovoLOG (formulary)] 10 unit SQ AC-TID 02/05/18 [History] Aspirin 81 mg PO DAILY 02/06/18 [History] Atorvastatin [Lipitor] 40 mg PO HS 02/06/18 [History] Insulin Glargine,Hum.rec.anlog [Basaglar Kwikpen U-100] 22 - 24 unit SQ HS 02/06/18 [History] Amitriptyline HCl [Elavil] 50 mg PO HS 05/15/18 [History] Levothyroxine Sodium [Synthroid] 100 mcg PO DAILY 05/15/18 [History] Metoprolol Succinate (ER) [Toprol XL] 12.5 mg PO DAILY 05/15/18 [History] Calcium Acetate [PhosLo] 667 mg PO DAILY 10/20/18 [History] Justine Kacy 1 tab PO DAILY 10/20/18 [History] Warfarin Sodium [Jantoven] 5 mg PO W/SUPPER 10/20/18 [History] Follow up Appointment(s)/Referral(s): Jarret Arredondo MD [Primary Care Provider] - 1-2 days Fuentes Rollins MD [STAFF PHYSICIAN] - 1 Week Arti Jefferson MD [STAFF PHYSICIAN] - 1 Week Activity/Diet/Wound Care/Special Instructions: Diet: Renal Follow-up PCP within 1-2 days of discharge. Follow-up nephrology within 1 week of discharge. Follow-up with vascular surgery within 1 week of discharge. [facility] ED to be seen by Dr. Hodgson. Discharge Disposition: HOME SELF-CARE
== END 2018-11-01 11:00 | disposition home or self-care (01) ==
LOC: EC 11:53 → 4SSUR 14:06
PROVIDERS: ADMIT Family Medicine; ATTEND Family Medicine
DX: T82.510A Breakdown (mechanical) of surgically created arteriovenous fistula, initial encounter (principal); Y71.2 Prosthetic and other implants, materials and accessory cardiovascular devices associated with adverse incidents; E11.22 Type 2 diabetes mellitus with diabetic chronic kidney disease; Z99.2 Dependence on renal dialysis; N18.6 End stage renal disease; D53.9 Nutritional anemia, unspecified; I50.40 Unspecified combined systolic (congestive) and diastolic (congestive) heart failure; M10.9 Gout, unspecified; E11.51 Type 2 diabetes mellitus with diabetic peripheral angiopathy without gangrene; E11.65 Type 2 diabetes mellitus with hyperglycemia; E11.40 Type 2 diabetes mellitus with diabetic neuropathy, unspecified; Z89.611 Acquired absence of right leg above knee; J44.9 Chronic obstructive pulmonary disease, unspecified; K21.9 Gastro-esophageal reflux disease without esophagitis; L98.9 Disorder of the skin and subcutaneous tissue, unspecified; M81.0 Age-related osteoporosis without current pathological fracture; F41.9 Anxiety disorder, unspecified; F32.9 Major depressive disorder, single episode, unspecified; M19.90 Unspecified osteoarthritis, unspecified site; R34 Anuria and oliguria; H54.7 Unspecified visual loss; G62.9 Polyneuropathy, unspecified; M54.9 Dorsalgia, unspecified; I82.B19 Acute embolism and thrombosis of unspecified subclavian vein; D63.8 Anemia in other chronic diseases classified elsewhere; G47.33 Obstructive sleep apnea (adult) (pediatric); Z99.89 Dependence on other enabling machines and devices; E65 Localized adiposity; E89.0 Postprocedural hypothyroidism; E66.9 Obesity, unspecified; Z68.41 Body mass index [BMI] 40.0-44.9, adult; Z79.899 Other long term (current) drug therapy; Z79.4 Long term (current) use of insulin; Z79.82 Long term (current) use of aspirin; Z79.890 Hormone replacement therapy; Z79.01 Long term (current) use of anticoagulants; Z88.5 Allergy status to narcotic agent; Z86.19 Personal history of other infectious and parasitic diseases; Z86.14 Personal history of Methicillin resistant Staphylococcus aureus infection; Z95.828 Presence of other vascular implants and grafts; Z95.0 Presence of cardiac pacemaker; Z82.49 Family history of ischemic heart disease and other diseases of the circulatory system; Z80.1 Family history of malignant neoplasm of trachea, bronchus and lung; Z83.3 Family history of diabetes mellitus; Z84.1 Family history of disorders of kidney and ureter
CPT/HCPCS: 99285; 36415; 93005; 80048 ×2; 85025; 85027; 85610 ×2; 85730; G0378 ×2

== ENCOUNTER 2019-06-27 09:50 | Inpatient (IN) | payer MEDICARE, BC ==
[2019-06-27 09:58] LABS: Glucose,Whole Blood 228 mg/dL (75-99)
[2019-06-27] MEDS ORDERED: ACETAMINOPHEN TAB 500 MG TAB PO STA (09:58)
--- NOTE | 2019-06-27 10:01 | ED ---
General Adult HPI - General Stated complaint: Altered Mental Time Seen by Provider: 06/27/19 09:50 Source: patient, RN notes reviewed, old records reviewed - History of Present Illness Initial comments: This is a 69-year-old female comes in with a past history significant for renal dialysis diabetes hypertension and a right AKA. Patient was sent in today because she had a fever at home and was very weak and lethargic. Patient herself is she has no complaints other than she is very tired. Patient denies a cough patient denies any known exposure COVID. Patient denies any nausea vomiting diarrhea. Patient denies any rashes redness or swelling. Patient states she does not make urine at this time. Patient states she was dialyzed yesterday. Patient denies any lightheadedness or dizziness. Per EMS report pressure was 80/40 on arrival was 90/50. Patient states her blood pressure systolically is usually in the 80s and 90s. - Related Data Home Medications Medication Instructions Recorded Confirmed Allopurinol [Zyloprim] 100 mg PO DAILY 08/16/13 06/27/19 Amiodarone HCl [Pacerone] 200 mg PO DAILY 08/16/13 06/27/19 INSULIN ASPART (NovoLOG) [NovoLOG 10 unit SQ AC-TID 02/05/18 06/27/19 (formulary)] Atorvastatin [Lipitor] 40 mg PO HS 02/06/18 06/27/19 Insulin Glargine,Hum.rec.anlog 25 unit SQ HS 02/06/18 06/27/19 [Basaglar Kwikpen U-100] Amitriptyline HCl [Elavil] 50 mg PO HS 05/15/18 06/27/19 Levothyroxine Sodium [Synthroid] 100 mcg PO DAILY 05/15/18 06/27/19 Metoprolol Succinate (ER) [Toprol 12.5 mg PO DAILY 05/15/18 06/27/19 XL] Calcium Acetate [PhosLo] 667 mg PO DAILY 10/20/18 06/27/19 Justine Kacy 1 tab PO DAILY 10/20/18 06/27/19 Isosorbide Mononitrate ER [Imdur] 30 mg PO DAILY 06/27/19 06/27/19 Midodrine [ProAmatine] 5 mg PO DIRECTED PRN 06/27/19 06/27/19 Rivaroxaban [Xarelto] 15 mg PO DAILY 06/27/19 06/27/19 Allergies Allergy/AdvReac Type Severity Reaction Status Date / Time meperidine HCl [From Demerol] AdvReac Nausea & Verified 06/27/19 11:10 Vomiting & Diarrhea Review of Systems ROS Statement: Those systems with pertinent positive or pertinent negative responses have been documented in the HPI. ROS Other: All systems not noted in ROS Statement are negative. 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 rt bka 02/01 Past Anesthesia/Blood Transfusion Reactions: No Reported Reaction Additional Past Anesthesia/Blood Transfusion Reaction / Comment(s): HAD BLOOD TRANFUSIONS WITHOUT COMPLICATION Type of Cardiac Device: Permanent Pacemaker Device Placement Date:: 2008 Past Psychological History: Anxiety, Depression Smoking Status: Never smoker Past Alcohol Use History: None Reported Past Drug Use History: None Reported - Past Family History Father Family Medical History: Hypertension Additional Family Medical History / Comment(s): Father at age 56 from lung cancer. Mother Family Medical History: Cancer Additional Family Medical History / Comment(s): Mother at age 56 from lung cancer. Brother(s) Family Medical History: Diabetes Mellitus, Renal Disease Additional Family Medical History / Comment(s): Patient has 2 brothers. One at age 45 from myocardial infarction with history of heart defect from . Second brother is alive at age 59 with history of coronary artery disease and diabetes, bone marrow transplant Sister(s) Additional Family Medical History / Comment(s): Patient has a sister age 57 alive with history of diabetes and spina bifida. Daughter(s) Family Medical History: No Reported History Additional Family Medical History / Comment(s): Pre-diabetes General Exam - General Exam Comments Initial Comments: GENERAL: Patient is well-developed and well-nourished. Patient is nontoxic and well- hydrated and is in mild distress. Patient is very tired but does answer all questions accurately ENT: Neck is soft and supple. No significant lymphadenopathy is noted. Oropharynx is clear. Moist mucous membranes. Neck has full range of motion without eliciting any pain. EYES: The sclera were anicteric and conjunctiva were pink and moist. Extraocular movements were intact and pupils were equal round and reactive to light. Eyelids were unremarkable. PULMONARY: Unlabored respirations. Good breath sounds bilaterally. No audible rales rhonchi or wheezing was noted. CARDIOVASCULAR: There is a regular rate and rhythm without any murmurs gallops or rubs. ABDOMEN: Soft and nontender with normal bowel sounds. Morbid obesity SKIN: Skin is clear with no lesions or rashes and otherwise unremarkable. NEUROLOGIC: Patient is alert and oriented x3. Cranial nerves II through XII are grossly intact. Motor and sensory are also intact. Normal speech, volume and content. Symmetrical smile. MUSCULOSKELETAL: Patient has an AKA on the right LYMPHATICS: No significant lymphadenopathy is noted PSYCHIATRIC: Normal psychiatric evaluation. Course Vital Signs 06/27/19 06/27/19 06/27/19 09:57 10:02 11:02 Temperature 100.5 F H 98.1 F Pulse Rate 94 80 84 Respiratory 18 20 20 Rate Blood Pressure 90/52 72/48 74/40 O2 Sat by Pulse 98 96 100 Oximetry 06/27/19 06/27/19 12:15 12:52 Temperature Pulse Rate 76 75 Respiratory 20 20 Rate Blood Pressure 78/50 81/49 O2 Sat by Pulse 100 100 Oximetry Medical Decision Making - Medical Decision Making EKG shows paced rhythm at 84 bpm QRS is 206 QT interval 510 QTC is 602. Patient was giving 2 L of IV fluids and 2 g of Rocephin emergency department. Patient's blood pressure came up to 95/38 and patient herself was feeling considerably better. I spoke with some physicians agreed to admit the patient admitted the patient wrote admitting orders. Patient's ideal body weight is 49 kg. - Lab Data Result diagrams: 06/27/19 09:57 06/27/19 09:57 Lab Results 06/27/19 06/27/19 06/27/19 Range/Units 09:56 09:57 09:57 WBC 16.8 H (3.8-10.6) k/uL RBC 3.34 L (3.80-5.40) m/uL Hgb 11.1 L (11.4-16.0) gm/dL Hct 36.5 (34.0-46.0) % MCV 109.3 H (80.0-100.0) fL MCH 33.3 (25.0-35.0) pg MCHC 30.5 L (31.0-37.0) g/dL RDW 16.2 H (11.5-15.5) % Plt Count 114 L (150-450) k/uL Neutrophils % 93 % Lymphocytes % 3 % Monocytes % 3 % Eosinophils % 0 % Basophils % 0 % Neutrophils # 15.6 H (1.3-7.7) k/uL Lymphocytes # 0.5 L (1.0-4.8) k/uL Monocytes # 0.5 (0-1.0) k/uL Eosinophils # 0.1 (0-0.7) k/uL Basophils # 0.0 (0-0.2) k/uL Manual Slide Review Performed Hypochromasia Marked Poikilocytosis Slight Anisocytosis Slight Macrocytosis Marked A Target Cells Stomatocytes Present PT 14.5 H (9.0-12.0) sec INR 1.5 H (<1.2) APTT 35.7 H (22.0-30.0) sec D-Dimer 0.65 H (<0.60) mg/L FEU Sodium (137-145) mmol/L Potassium (3.5-5.1) mmol/L Chloride (98-107) mmol/L Carbon Dioxide (22-30) mmol/L Anion Gap mmol/L BUN (7-17) mg/dL Creatinine (0.52-1.04) mg/dL Est GFR (CKD-EPI)AfAm (>60 ml/min/1.73 sqM) Est GFR (CKD-EPI)NonAf (>60 ml/min/1.73 sqM) Glucose (74-99) mg/dL POC Glucose (mg/dL) 228 H (75-99) mg/dL POC Glu Telephone Technician ID Fern Cervantes Lactic Ac Sepsis Rflx Plasma Lactic Acid Nick (0.7-2.0) mmol/L Calcium (8.4-10.2) mg/dL Magnesium (1.6-2.3) mg/dL Total Bilirubin (0.2-1.3) mg/dL AST (14-36) U/L ALT (4-34) U/L Alkaline Phosphatase (38-126) U/L Lactate Dehydrogenase (313-618) U/L C-Reactive Protein (<10.0) mg/L Total Protein (6.3-8.2) g/dL Albumin (3.5-5.0) g/dL Coronavirus (PCR) (Not Detectd) 06/27/19 06/27/19 06/27/19 Range/Units 09:57 09:57 10:15 WBC (3.8-10.6) k/uL RBC (3.80-5.40) m/uL Hgb (11.4-16.0) gm/dL Hct (34.0-46.0) % MCV (80.0-100.0) fL MCH (25.0-35.0) pg MCHC (31.0-37.0) g/dL RDW (11.5-15.5) % Plt Count (150-450) k/uL Neutrophils % % Lymphocytes % % Monocytes % % Eosinophils % % Basophils % % Neutrophils # (1.3-7.7) k/uL Lymphocytes # (1.0-4.8) k/uL Monocytes # (0-1.0) k/uL Eosinophils # (0-0.7) k/uL Basophils # (0-0.2) k/uL Manual Slide Review Hypochromasia Poikilocytosis Anisocytosis Macrocytosis Target Cells Stomatocytes PT (9.0-12.0) sec INR (<1.2) APTT (22.0-30.0) sec D-Dimer (<0.60) mg/L FEU Sodium 132 L (137-145) mmol/L Potassium 4.7 (3.5-5.1) mmol/L Chloride 92 L (98-107) mmol/L Carbon Dioxide 28 (22-30) mmol/L Anion Gap 12 mmol/L BUN 20 H (7-17) mg/dL Creatinine 3.97 H (0.52-1.04) mg/dL Est GFR (CKD-EPI)AfAm 13 (>60 ml/min/1.73 sqM) Est GFR (CKD-EPI)NonAf 11 (>60 ml/min/1.73 sqM) Glucose 226 H (74-99) mg/dL POC Glucose (mg/dL) (75-99) mg/dL POC Glu Telephone Technician ID Lactic Ac Sepsis Rflx Plasma Lactic Acid Nick 2.9 H* (0.7-2.0) mmol/L Calcium 8.3 L (8.4-10.2) mg/dL Magnesium 1.8 (1.6-2.3) mg/dL Total Bilirubin 0.9 (0.2-1.3) mg/dL AST 35 (14-36) U/L ALT 16 (4-34) U/L Alkaline Phosphatase 86 (38-126) U/L Lactate Dehydrogenase 463 (313-618) U/L C-Reactive Protein 149.8 H (<10.0) mg/L Total Protein 6.3 (6.3-8.2) g/dL Albumin 3.6 (3.5-5.0) g/dL Coronavirus (PCR) Not Detected (Not Detectd) 06/27/19 Range/Units 10:25 WBC (3.8-10.6) k/uL RBC (3.80-5.40) m/uL Hgb (11.4-16.0) gm/dL Hct (34.0-46.0) % MCV (80.0-100.0) fL MCH (25.0-35.0) pg MCHC (31.0-37.0) g/dL RDW (11.5-15.5) % Plt Count (150-450) k/uL Neutrophils % % Lymphocytes % % Monocytes % % Eosinophils % % Basophils % % Neutrophils # (1.3-7.7) k/uL Lymphocytes # (1.0-4.8) k/uL Monocytes # (0-1.0) k/uL Eosinophils # (0-0.7) k/uL Basophils # (0-0.2) k/uL Manual Slide Review Hypochromasia Poikilocytosis Anisocytosis Macrocytosis Target Cells Stomatocytes PT (9.0-12.0) sec INR (<1.2) APTT (22.0-30.0) sec D-Dimer (<0.60) mg/L FEU Sodium (137-145) mmol/L Potassium (3.5-5.1) mmol/L Chloride (98-107) mmol/L Carbon Dioxide (22-30) mmol/L Anion Gap mmol/L BUN (7-17) mg/dL Creatinine (0.52-1.04) mg/dL Est GFR (CKD-EPI)AfAm (>60 ml/min/1.73 sqM) Est GFR (CKD-EPI)NonAf (>60 ml/min/1.73 sqM) Glucose (74-99) mg/dL POC Glucose (mg/dL) (75-99) mg/dL POC Glu Telephone Technician ID Lactic Ac Sepsis Rflx Y Plasma Lactic Acid Nick (0.7-2.0) mmol/L Calcium (8.4-10.2) mg/dL Magnesium (1.6-2.3) mg/dL Total Bilirubin (0.2-1.3) mg/dL AST (14-36) U/L ALT (4-34) U/L Alkaline Phosphatase (38-126) U/L Lactate Dehydrogenase (313-618) U/L C-Reactive Protein (<10.0) mg/L Total Protein (6.3-8.2) g/dL Albumin (3.5-5.0) g/dL Coronavirus (PCR) (Not Detectd) Critical Care Time Critical Care Time: Yes Total Critical Care Time: 35 Disposition Clinical Impression: Sepsis, Pneumonia Disposition: ADMITTED IP TO THIS [facility] Time of Disposition: 11:55
[2019-06-27 10:21] LABS: Albumin 3.6 g/dL (3.5-5.0); Calcium 8.3 mg/dL (8.4-10.2); Magnesium 1.8 mg/dL (1.6-2.3); Potassium 4.7 mmol/L (3.5-5.1); Total Bilirubin 0.9 mg/dL (0.2-1.3); Total Protein 6.3 g/dL (6.3-8.2)
[2019-06-27 10:22] LABS: INR 1.5 (<1.2); Partial Thromboplastin Time 35.7 sec (22.0-30.0); Prothrombin Time 14.5 sec (9.0-12.0)
[2019-06-27 10:29] LABS: Anisocytosis Slight; Basophils % (A) 0 %; Eosinophils # (A) 0.1 k/uL (0-0.7); Eosinophils % (A) 0 %; HCT 36.5 % (34.0-46.0); HGB 11.1 gm/dL (11.4-16.0); Hypochromasia Marked; Lymphocytes # (A) 0.5 k/uL (1.0-4.8); Lymphocytes % (A) 3 %; MCH 33.3 pg (25.0-35.0); MCHC 30.5 g/dL (31.0-37.0); MCV 109.3 fL (80.0-100.0); Macrocytosis Marked; Mean Platelet Volume 9.3; Monocytes # (A) 0.5 k/uL (0-1.0); Monocytes % (A) 3 %; Neutrophils # (A) 15.6 k/uL (1.3-7.7); Neutrophils % (A) 93 %; Platelet Count 114 k/uL (150-450); Poikilocytosis Slight; RBC 3.34 m/uL (3.80-5.40); RDW 16.2 % (11.5-15.5); WBC 16.8 k/uL (3.8-10.6)
[2019-06-27 10:37] LABS: C Reactive Protein 149.8 mg/L (<10.0)
[2019-06-27 10:43] LABS: D-Dimer 0.65 mg/L FEU (<0.60)
[2019-06-27] MEDS ORDERED: SODIUM CHLORIDE 0.9% 500 ML 500 ML IV ONE (10:47)
[2019-06-27 11:04] LABS: Stomatocytes Present
--- NOTE | 2019-06-27 11:14 | XR ---
EXAMINATION TYPE: XR chest 1V portable DATE OF EXAM: 06/27/2019 HISTORY: Suspected COVID-19 pneumonia. REFERENCE: Previous study dated 10/21/2018. FINDINGS: There has been a previous interpedicular fusion in the mid dorsal spine. A bipolar pacemake r projects over the left side of the chest. Heart is mildly enlarged. There is prominent interstitial markings present bilaterally. No lobar cons olidation is seen. There is some airspace disease in the left lung base. Both CP angles are blunted a nd I could not exclude small effusions. IMPRESSION: 1. CARDIOMEGALY. 2. LEFT BASILAR AIRSPACE DISEASE. 3. DIFFUSE INCREASED MARKINGS WHICH APPEAR LARGELY CHRONIC.
[2019-06-27] MEDS ORDERED: SODIUM CHLORIDE 0.9% 1,000 ML IV ONE (11:15)
[2019-06-27] MEDS ORDERED: cefTRIAXone IN SWFI 1,000 MG/10 ML SYRINGE IVP STA (11:40)
[2019-06-27] MEDS ORDERED: VANCOMYCIN IV PER PHARMACY 1 EACH MISC MISCELLANE PRN (12:03)
[2019-06-27] MEDS ORDERED: VANCOMYCIN 1,500 MG in SODIUM CHLORIDE 0.9% 250 ML IVPB STA (12:07)
[2019-06-27] MEDS: HYDROCORTISONE SUCCINATE 100 MG/2 ML VIAL IV SCH ×2 (12:18→21:04)
[2019-06-27] MEDS ORDERED: MIDODRINE 5 MG TAB PO PRN (16:09)
[2019-06-27] MEDS ORDERED: ISOSORBIDE MONONITRATE ER 30 MG TAB.ER.24H PO SCH (16:15)
[2019-06-27] MEDS ORDERED: AMIODARONE 200 MG TAB PO SCH (16:15)
[2019-06-27 16:41] LABS: Glucose,Whole Blood 281 mg/dL (75-99)
[2019-06-27] MEDS ORDERED: IPRATROPIUM-ALBUTEROL 3 ML NEB INHALATION PRN (16:41)
--- NOTE | 2019-06-27 17:01 | P.HPIM ---
History of Present Illness H&P Date: 06/27/19 Chief Complaint: Pneumonia Patient is a 69-year-old female with a complicated medical history that includes insulin-dependent diabetes mellitus type 2, congestive heart failure, atrial fibrillation, hypertension, hyperlipidemia, hypothyroid, right AKA, end-stage renal disease on hemodialysis Friday, pacemaker, GERD and COPD. Patient presents to [facility] with increased fatigue and weakness. Patient was found by her son unable to respond. Patient states yesterday she was nauseated and was vomiting and she did not feel well. Patient fell asleep and she found herself being awakened by medical personnel. Once evaluated in the emergency department chest x-ray revealed left basilar airspace disease. Patient was also found to be hypotensive with initial blood pressure reading of 80/40. On arrival patient's blood pressure was 90/50. Patient was given IV fluids in the ER. Patient states that her blood pressure is usually low running around 80s and 90s systolic. Initial temperature reading was 100.5F in the emergency department. Laboratory data revealed an elevated white blood cell count of 16.8 hemoglobin 11.1 hematocrit 36.5 MCV 109.3 platelet count 114. Patient's d-dimer was 0.65. Sodium is 132 chloride 92 BUN 20 creatinine 3.97 glucose 226 lactic acid 2.9 went down to 2.6. COV ID 19 was not detected. EKG reveals possible failure of the pacemaker not capturing Patient seen and examined at bedside. Patient appears to be resting comfortably. Patient is alert and oriented 4. Patient denies chest pain or shortness of breath at this time. Patient further denies nausea vomiting fevers or chills. Review of Systems A 12 point review of systems was assessed patient was only positive for those pertinent in HPI 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 rt bka 02/01; right arm fistula 07/06 Past Anesthesia/Blood Transfusion Reactions: No Reported Reaction Additional Past Anesthesia/Blood Transfusion Reaction / Comment(s): HAD BLOOD TRANFUSIONS WITHOUT COMPLICATION Type of Cardiac Device: Permanent Pacemaker Device Placement Date:: 2008 Past Psychological History: Anxiety, Depression Smoking Status: Never smoker Past Alcohol Use History: None Reported Additional Past Alcohol Use History / Comment(s): Patient is a lifelong nonsmoker. She denies any medical marijuana, marijuana, street drug or alcohol use. She lives at home with her adult son. There is 1 dog in the home. Past Drug Use History: None Reported - Past Family History Father Family Medical History: Hypertension Additional Family Medical History / Comment(s): Father at age 56 from lung cancer. Mother Family Medical History: Cancer Additional Family Medical History / Comment(s): Mother at age 56 from lung cancer. Brother(s) Family Medical History: Diabetes Mellitus, Renal Disease Additional Family Medical History / Comment(s): Patient has 2 brothers. One at age 45 from myocardial infarction with history of heart defect from . Second brother is alive at age 59 with history of coronary artery disease and diabetes, bone marrow transplant Sister(s) Additional Family Medical History / Comment(s): Patient has a sister age 57 alive with history of diabetes and spina bifida. Daughter(s) Family Medical History: No Reported History Additional Family Medical History / Comment(s): Pre-diabetes Medications and Allergies Home Medications Medication Instructions Recorded Confirmed Type Allopurinol [Zyloprim] 100 mg PO DAILY 08/16/13 06/27/19 History Amiodarone HCl [Pacerone] 200 mg PO DAILY 08/16/13 06/27/19 History INSULIN ASPART (NovoLOG) [NovoLOG 10 unit SQ AC-TID 02/05/18 06/27/19 History (formulary)] Atorvastatin [Lipitor] 40 mg PO HS 02/06/18 06/27/19 History Insulin Glargine,Hum.rec.anlog 25 unit SQ HS 02/06/18 06/27/19 History [Basaglar Kwikpen U-100] Amitriptyline HCl [Elavil] 50 mg PO HS 05/15/18 06/27/19 History Levothyroxine Sodium [Synthroid] 100 mcg PO DAILY 05/15/18 06/27/19 History Metoprolol Succinate (ER) [Toprol 12.5 mg PO DAILY 05/15/18 06/27/19 History XL] Calcium Acetate [PhosLo] 667 mg PO DAILY 10/20/18 06/27/19 History Justine Kacy 1 tab PO DAILY 10/20/18 06/27/19 History Isosorbide Mononitrate ER [Imdur] 30 mg PO DAILY 06/27/19 06/27/19 History Midodrine [ProAmatine] 5 mg PO DIRECTED PRN 06/27/19 06/27/19 History Rivaroxaban [Xarelto] 15 mg PO DAILY 06/27/19 06/27/19 History Allergies Allergy/AdvReac Type Severity Reaction Status Date / Time meperidine HCl [From Demerol] AdvReac Nausea & Verified 06/27/19 11:10 Vomiting & Diarrhea Physical Exam Osteopathic Statement: *. No significant issues noted on an osteopathic structural exam other than those noted in the History and Physical/Consult. Vitals: Vital Signs Temp Pulse Pulse Resp BP BP Pulse Ox 06/27/19 15:01 85 06/27/19 14:30 97.7 F 85 16 76/41 94 L 06/27/19 13:37 75 20 85/51 100 06/27/19 12:52 75 20 81/49 100 06/27/19 12:15 76 20 78/50 100 06/27/19 11:02 98.1 F 84 20 74/40 100 06/27/19 10:02 80 20 72/48 96 06/27/19 09:57 100.5 F H 94 18 90/52 98 Intake and Output 06/27/19 06/27/19 06/27/19 06:59 14:59 22:59 Intake Total 10 Balance 10 Intake: IV 10 Invasive Line 2 10 Other: Weight 90.718 kg Results CBC & Chem 7: 06/27/19 09:57 06/27/19 09:57 Labs: Abnormal Lab Results - Last 24 Hours (Table) 06/27/19 06/27/19 06/27/19 Range/Units 09:56 09:57 09:57 WBC 16.8 H (3.8-10.6) k/uL RBC 3.34 L (3.80-5.40) m/uL Hgb 11.1 L (11.4-16.0) gm/dL MCV 109.3 H (80.0-100.0) fL MCHC 30.5 L (31.0-37.0) g/dL RDW 16.2 H (11.5-15.5) % Plt Count 114 L (150-450) k/uL Neutrophils # 15.6 H (1.3-7.7) k/uL Lymphocytes # 0.5 L (1.0-4.8) k/uL Macrocytosis Marked A PT 14.5 H (9.0-12.0) sec INR 1.5 H (<1.2) APTT 35.7 H (22.0-30.0) sec D-Dimer 0.65 H (<0.60) mg/L FEU Sodium (137-145) mmol/L Chloride (98-107) mmol/L BUN (7-17) mg/dL Creatinine (0.52-1.04) mg/dL Glucose (74-99) mg/dL POC Glucose (mg/dL) 228 H (75-99) mg/dL Plasma Lactic Acid Nick (0.7-2.0) mmol/L Calcium (8.4-10.2) mg/dL C-Reactive Protein (<10.0) mg/L 06/27/19 06/27/19 06/27/19 Range/Units 09:57 09:57 14:53 WBC (3.8-10.6) k/uL RBC (3.80-5.40) m/uL Hgb (11.4-16.0) gm/dL MCV (80.0-100.0) fL MCHC (31.0-37.0) g/dL RDW (11.5-15.5) % Plt Count (150-450) k/uL Neutrophils # (1.3-7.7) k/uL Lymphocytes # (1.0-4.8) k/uL Macrocytosis PT (9.0-12.0) sec INR (<1.2) APTT (22.0-30.0) sec D-Dimer (<0.60) mg/L FEU Sodium 132 L (137-145) mmol/L Chloride 92 L (98-107) mmol/L BUN 20 H (7-17) mg/dL Creatinine 3.97 H (0.52-1.04) mg/dL Glucose 226 H (74-99) mg/dL POC Glucose (mg/dL) (75-99) mg/dL Plasma Lactic Acid Nick 2.9 H* 2.6 H* (0.7-2.0) mmol/L Calcium 8.3 L (8.4-10.2) mg/dL C-Reactive Protein 149.8 H (<10.0) mg/L Thrombosis Risk Factor Assmnt - DVT/VTE Prophylaxis DVT/VTE Prophylaxis: Pharmacologic Prophylaxis ordered - Choose All That Apply Each Factor Represents 1 point: Abnormal pulmonary function (COPD), Obesity (BMI >25), Sepsis (< 1month) Other Risk Factors: Yes Each Risk Factor Represents 2 Points: Age 61-74 years Each Risk Factor Represents 3 Points: History of DVT/PE Other congenital or acquired thrombophilia - If yes, enter type in comment: No Thrombosis Risk Factor Assessment Total Risk Factor Score: 8 Thrombosis Risk Factor Assessment Level: High Risk Assessment and Plan Assessment: #1 Lethargy secondary to sepsis caused by community acquired pneumonia -IV antibiotics -Slow IV hydration -Monitor white blood cell count -Monitor lactic acid -Consult ID #[id number] Acute on chronic hypotension -Secondary to #1 -Slow IV hydration -Vitals every 4 hours #3 End-stage renal disease on HD Friday -Consult nephrology #4 insulin-dependent diabetes mellitus -Restart home medication -Monitor blood sugars -Insulin sliding scale -Check hemoglobin A1c #Pacemaker malfunction -Consult electrophysiology #5 congestive heart failure with history of atrial fibrillation -Consult cardiology #6 hypothyroid -Restart levothyroxine -Check TSH #7 history of COPD DuoNeb nebs when necessary #8 a.m. labs #9 GI & DVT prophylaxis Greater than 45 minutes spent coordinating care and counseling patient
[2019-06-27] MEDS: LEVOTHYROXINE 100 MCG TAB PO SCH (17:07)
[2019-06-27] MEDS: MAGNESIUM OXIDE 400 MG TAB PO SCH (17:07)
[2019-06-27] MEDS: ALLOPURINOL 100 MG TAB PO SCH (17:07)
[2019-06-27] MEDS: RIVAROXABAN 15 MG TAB PO SCH (17:07)
[2019-06-27] MEDS: FOLIC ACID-VIT B COMPLEX-VIT C 1 CAP PO SCH (17:07)
[2019-06-27] MEDS: INSULIN ASPART (NovoLOG) 100 UNIT/ML VIAL SQ SCH (17:07)
[2019-06-27] MEDS: CALCIUM ACETATE 667 MG TAB PO SCH (17:07)
[2019-06-27] MEDS: PANTOPRAZOLE 40 MG TABLET PO SCH (17:07)
[2019-06-27] MEDS: SODIUM CHLORIDE 0.9% 1,000 ML IV SCH (17:08)
[2019-06-27 20:29] LABS: Glucose,Whole Blood 304 mg/dL (75-99)
[2019-06-27] MEDS: ATORVASTATIN 40 MG TAB PO SCH (21:04)
[2019-06-27] MEDS: INSULIN DETEMIR (LEVEMIR) 100 UNIT/ML SYR SQ SCH (21:05)
[2019-06-27] MEDS: AMITRIPTYLINE HCL 50 MG TAB PO SCH (21:13)
--- NOTE | 2019-06-28 00:44 | P.CONS ---
History of Present Illness - Reason for Consult Consult date: 06/27/19 sepsis , pneumonia Requesting physician: Ceasar Valadez - Chief Complaint weakness and fever x 1 day - History of Present Illness Patient is a 69-year female with a past medical history significant for end-stage renal disease on hemodialysis Friday history of hypertension PAD status post right [id number] progression patient has been brought into the ER although the patient was noticed to be lethargic week and the son was able to wake her up patient said she went for her dialysis yesterday) she was feeling tired feeling nauseated and went to sleep the next thing she woke up she noticed there was EMS around her trying to wake her up p atient was noticed to be hypertensive by the EMS with 80s systolic she received fluid bolus and was transferred to the [facility] ER on arrival to the ER the patient did have a low-grade fever 100.5 F patient needs to be hypotensive she was noticed to have a white count of 16.8 lactic acid was elevated at 2.9 and has been up to 3.7-3.6 CRP was elevated liver enzymes were normal as well as LDH patient did have a chest x-ray with left basilar airspace disease with concern for pneumonia patient started on Rocephin and vancomycin she has been admitted to hospital infectious was consulted for further recommendations on antibiotic patient had denies having any chest pain some shortness of breath and minimal cough but no sputum production known further vomiting or any diarrhea no abdominal pain. 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 rt bka 02/01; right arm fistula 07/06 Past Anesthesia/Blood Transfusion Reactions: No Reported Reaction Additional Past Anesthesia/Blood Transfusion Reaction / Comm: HAD BLOOD TRANFUSIONS WITHOUT COMPLICATION Type of Cardiac Device: Permanent Pacemaker Device Placement Date:: 2008 Past Psychological History: Anxiety, Depression Smoking Status: Never smoker Past Alcohol Use History: None Reported Additional Past Alcohol Use History / Comment(s): Patient is a lifelong nonsmoker. She denies any medical marijuana, marijuana, street drug or alcohol use. She lives at home with her adult son. There is 1 dog in the home. Past Drug Use History: None Reported - Past Family History Father Family Medical History: Hypertension Additional Family Medical History / Comment(s): Father at age 56 from lung cancer. Mother Family Medical History: Cancer Additional Family Medical History / Comment(s): Mother at age 56 from lung cancer. Brother(s) Family Medical History: Diabetes Mellitus, Renal Disease Additional Family Medical History / Comment(s): Patient has 2 brothers. One at age 45 from myocardial infarction with history of heart defect from . Second brother is alive at age 59 with history of coronary artery disease and diabetes, bone marrow transplant Sister(s) Additional Family Medical History / Comment(s): Patient has a sister age 57 alive with history of diabetes and spina bifida. Daughter(s) Family Medical History: No Reported History Additional Family Medical History / Comment(s): Pre-diabetes Medications and Allergies Home Medications Medication Instructions Recorded Confirmed Type Allopurinol [Zyloprim] 100 mg PO DAILY 08/16/13 06/27/19 History Amiodarone HCl [Pacerone] 200 mg PO DAILY 08/16/13 06/27/19 History INSULIN ASPART (NovoLOG) [NovoLOG 10 unit SQ AC-TID 02/05/18 06/27/19 History (formulary)] Atorvastatin [Lipitor] 40 mg PO HS 02/06/18 06/27/19 History Insulin Glargine,Hum.rec.anlog 25 unit SQ HS 02/06/18 06/27/19 History [Gavin Zelayajoel U-100] Amitriptyline HCl [Elavil] 50 mg PO HS 05/15/18 06/27/19 History Levothyroxine Sodium [Synthroid] 100 mcg PO DAILY 05/15/18 06/27/19 History Metoprolol Succinate (ER) [Toprol 12.5 mg PO DAILY 05/15/18 06/27/19 History XL] Calcium Acetate [PhosLo] 667 mg PO DAILY 10/20/18 06/27/19 History Justine Kacy 1 tab PO DAILY 10/20/18 06/27/19 History Isosorbide Mononitrate ER [Imdur] 30 mg PO DAILY 06/27/19 06/27/19 History Midodrine [ProAmatine] 5 mg PO DIRECTED PRN 06/27/19 06/27/19 History Rivaroxaban [Xarelto] 15 mg PO DAILY 06/27/19 06/27/19 History Allergies Allergy/AdvReac Type Severity Reaction Status Date / Time meperidine HCl [From Demerol] AdvReac Nausea & Verified 06/27/19 11:10 Vomiting & Diarrhea Physical Exam Vitals: Vital Signs Temp Pulse Pulse Resp BP BP Pulse Ox 06/27/19 21:34 98.8 F 64 20 80/50 100 06/27/19 17:28 98 06/27/19 16:38 82/52 06/27/19 15:01 85 06/27/19 14:30 97.7 F 85 16 76/41 94 L 06/27/19 13:37 75 20 85/51 100 06/27/19 12:52 75 20 81/49 100 06/27/19 12:15 76 20 78/50 100 06/27/19 11:02 98.1 F 84 20 74/40 100 06/27/19 10:02 80 20 72/48 96 06/27/19 09:57 100.5 F H 94 18 90/52 98 Intake and Output 06/27/19 06/27/19 06/28/19 14:59 22:59 06:59 Intake Total 550 300 Output Total 0 Balance 550 300 Intake: IV 10 Invasive Line 2 10 Intake, IV Titration 300 Amount Sodium Chloride 0.9% 1, 300 000 ml @ 75 mls/hr IV . [id number] [facility] Rx#:[id number] Oral 540 Output: Urine 0 Other: Weight 90.718 kg GENERAL DESCRIPTION: Elderly female up in bed, no distress. No tachypnea or ac cessory muscle of respiration use. HEENT: Shows Pallor , no scleral icterus. Oral mucous membrane is dry. NECK: Trachea central, no thyromegaly. LUNGS: Unlabored breathing. Decreased breath sound at base. No wheeze or crackle. HEART: S1, S2, regular rate and rhythm. ABDOMEN: Soft, no tenderness , guarding or rigidity EXTREMITIES: No edema of feet. SKIN: No rash, no masses palpable. NEUROLOGICAL: The patient is awake, alert, oriented x3, mood and affect normal. Results CBC & Chem 7: 06/27/19 09:57 06/27/19 09:57 Labs: Abnormal Lab Results - Last 24 Hours (Table) 06/27/19 06/27/19 06/27/19 Range/Units 09:56 09:57 09:57 WBC 16.8 H (3.8-10.6) k/uL RBC 3.34 L (3.80-5.40) m/uL Hgb 11.1 L (11.4-16.0) gm/dL MCV 109.3 H (80.0-100.0) fL MCHC 30.5 L (31.0-37.0) g/dL RDW 16.2 H (11.5-15.5) % Plt Count 114 L (150-450) k/uL Neutrophils # 15.6 H (1.3-7.7) k/uL Lymphocytes # 0.5 L (1.0-4.8) k/uL Macrocytosis Marked A PT 14.5 H (9.0-12.0) sec INR 1.5 H (<1.2) APTT 35.7 H (22.0-30.0) sec D-Dimer 0.65 H (<0.60) mg/L FEU Sodium (137-145) mmol/L Chloride (98-107) mmol/L BUN (7-17) mg/dL Creatinine (0.52-1.04) mg/dL Glucose (74-99) mg/dL POC Glucose (mg/dL) 228 H (75-99) mg/dL Plasma Lactic Acid Nick (0.7-2.0) mmol/L Calcium (8.4-10.2) mg/dL C-Reactive Protein (<10.0) mg/L 06/27/19 06/27/19 06/27/19 Range/Units 09:57 09:57 14:53 WBC (3.8-10.6) k/uL RBC (3.80-5.40) m/uL Hgb (11.4-16.0) gm/dL MCV (80.0-100.0) fL MCHC (31.0-37.0) g/dL RDW (11.5-15.5) % Plt Count (150-450) k/uL Neutrophils # (1.3-7.7) k/uL Lymphocytes # (1.0-4.8) k/uL Macrocytosis PT (9.0-12.0) sec INR (<1.2) APTT (22.0-30.0) sec D-Dimer (<0.60) mg/L FEU Sodium 132 L (137-145) mmol/L Chloride 92 L (98-107) mmol/L BUN 20 H (7-17) mg/dL Creatinine 3.97 H (0.52-1.04) mg/dL Glucose 226 H (74-99) mg/dL POC Glucose (mg/dL) (75-99) mg/dL Plasma Lactic Acid Nick 2.9 H* 2.6 H* (0.7-2.0) mmol/L Calcium 8.3 L (8.4-10.2) mg/dL C-Reactive Protein 149.8 H (<10.0) mg/L 06/27/19 06/27/19 06/27/19 Range/Units 16:38 18:44 20:27 WBC (3.8-10.6) k/uL RBC (3.80-5.40) m/uL Hgb (11.4-16.0) gm/dL MCV (80.0-100.0) fL MCHC (31.0-37.0) g/dL RDW (11.5-15.5) % Plt Count (150-450) k/uL Neutrophils # (1.3-7.7) k/uL Lymphocytes # (1.0-4.8) k/uL Macrocytosis PT (9.0-12.0) sec INR (<1.2) APTT (22.0-30.0) sec D-Dimer (<0.60) mg/L FEU Sodium (137-145) mmol/L Chloride (98-107) mmol/L BUN (7-17) mg/dL Creatinine (0.52-1.04) mg/dL Glucose (74-99) mg/dL POC Glucose (mg/dL) 281 H 304 H (75-99) mg/dL Plasma Lactic Acid Nick 3.7 H* (0.7-2.0) mmol/L Calcium (8.4-10.2) mg/dL C-Reactive Protein (<10.0) mg/L 06/27/19 Range/Units 23:53 WBC (3.8-10.6) k/uL RBC (3.80-5.40) m/uL Hgb (11.4-16.0) gm/dL MCV (80.0-100.0) fL MCHC (31.0-37.0) g/dL RDW (11.5-15.5) % Plt Count (150-450) k/uL Neutrophils # (1.3-7.7) k/uL Lymphocytes # (1.0-4.8) k/uL Macrocytosis PT (9.0-12.0) sec INR (<1.2) APTT (22.0-30.0) sec D-Dimer (<0.60) mg/L FEU Sodium (137-145) mmol/L Chloride (98-107) mmol/L BUN (7-17) mg/dL Creatinine (0.52-1.04) mg/dL Glucose (74-99) mg/dL POC Glucose (mg/dL) (75-99) mg/dL Plasma Lactic Acid Nick 3.6 H* (0.7-2.0) mmol/L Calcium (8.4-10.2) mg/dL C-Reactive Protein (<10.0) mg/L Assessment and Plan Assessment: -patient presented to hospital with weakness lethargic and this patient noticed to have hypotension and did have a low-grade fever elevated white count meeting criteria for sepsis source is likely left lower lobe pneumonia as the patient currently no other obvious focus of infection abdominal soft leg examination patient is dialysis dependent and hardly makes any urine and no evidence of any cellulitis will need to call for resistant gram-positive as well as gram- negative pathogen (1) Pneumonia Current Visit: Yes Status: Acute Code(s): J18.9 - PNEUMONIA, UNSPECIFIED ORGANISM SNOMED Code(s): 552986833 (2) Sepsis Current Visit: Yes Status: Acute Code(s): A41.9 - SEPSIS, UNSPECIFIED ORGANISM SNOMED Code(s): 11734823 Plan: 1-vancomycin pharmacy to dose her with a target trough of 15 while watching her kidney function and Vanco trough closely. 2-discontinue Rocephin start the patient on Zosyn 3-try to obtain a sputum for Gram stain and culture 4-gentle IV fluid We will follow on clinical condition and cultures to further adjust medication if needed Thank you for this consultation we will follow the patient along with you Time with Patient: Greater than 30
[2019-06-28] MEDS: PIPERACILLIN-TAZOBACTAM 3.375 GM in SODIUM CHLORIDE 0.9% 100 ML IVPB SCH ×2 (02:24→12:58)
[2019-06-28 03:14] LABS: Glucose,Whole Blood 304 mg/dL (75-99)
[2019-06-28] MEDS: HYDROCORTISONE SUCCINATE 100 MG/2 ML VIAL IV SCH ×3 (04:54→18:30)
[2019-06-28] MEDS: SODIUM CHLORIDE 0.9% 1,000 ML IV SCH (05:52)
[2019-06-28] MEDS: LEVOTHYROXINE 100 MCG TAB PO SCH (06:16)
[2019-06-28 06:38] LABS: Glucose,Whole Blood 258 mg/dL (75-99)
[2019-06-28] MEDS: INSULIN ASPART (NovoLOG) 100 UNIT/ML VIAL SQ SCH ×3 (06:51→16:48)
[2019-06-28] MEDS: FOLIC ACID-VIT B COMPLEX-VIT C 1 CAP PO SCH (08:22)
[2019-06-28] MEDS: PANTOPRAZOLE 40 MG TABLET PO SCH (08:22)
[2019-06-28] MEDS: MAGNESIUM OXIDE 400 MG TAB PO SCH (08:22)
[2019-06-28] MEDS: ALLOPURINOL 100 MG TAB PO SCH (08:22)
[2019-06-28] MEDS ORDERED: VANCOMYCIN 1,500 MG in SODIUM CHLORIDE 0.9% 250 ML IVPB ONE (09:00)
[2019-06-28 09:28] LABS: Albumin 3.3 g/dL (3.5-5.0); Calcium 7.9 mg/dL (8.4-10.2); Magnesium 1.9 mg/dL (1.6-2.3); Potassium 4.6 mmol/L (3.5-5.1); Total Bilirubin 0.5 mg/dL (0.2-1.3); Total Protein 6.1 g/dL (6.3-8.2)
[2019-06-28 09:34] LABS: Anisocytosis Slight; HCT 36.3 % (34.0-46.0); HGB 10.6 gm/dL (11.4-16.0); Hypochromasia Marked; MCH 33.1 pg (25.0-35.0); MCHC 29.4 g/dL (31.0-37.0); MCV 112.6 fL (80.0-100.0); Macrocytosis Marked; Mean Platelet Volume 10.9; Platelet Count 111 k/uL (150-450); Poikilocytosis Slight; RBC 3.22 m/uL (3.80-5.40); RDW 16.4 % (11.5-15.5); WBC 14.9 k/uL (3.8-10.6)
--- NOTE | 2019-06-28 09:42 | P.NPCON ---
History of Present Illness - Reason for Consult end stage renal disease - History of Present Illness Reason for consultation: End-stage renal disease History of present illness: Patient is a 69-year-old female seen in renal consultation for end-stage renal disease. Patient states for the last 2 weeks, she hasn't been feeling well. She's been feeling nauseous and her oral intake has been poor. She had about 2 episodes of emesis. No diarrhea. No chest pain or shortness of breath. No fever or chills. No abdominal pain. Blood pressure is low in the systolic 70s to 80s. Patient states she's been feeling more weak and lethargic. She completed hemodialysis yesterday. She was found unresponsive by her son at home and was extremely brought to the hospital by the EMS. COVID-19 testing negative. She is currently awake and alert. She tolerated breakfast this morning. No vomiting so far today. She is afebrile now but did have a low-grade fever initially. Chest x-ray revealed left basilar airspace disease. She is currently maintained on broad-spectrum antibiotics. Infectious disease fo llowing. Vital signs are stable. Blood pressure on the lower side. General: The patient appeared well nourished and normally developed. HEENT: Head exam is unremarkable. Neck is without jugular venous distension. LUNGS: Lungs are clear to auscultation and percussion. Breath sounds decreased. HEART: Rate and Rhythm are regular. ABDOMEN: Soft. Nontender. Obese. EXTREMITITES: No clubbing, cyanosis, or edema. Amputation noted. Chronic changes present. Past Medical History Past Medical History: Atrial Fibrillation, Heart Failure, COPD, Diabetes Mellit us, Deep Vein Thrombosis (DVT), Eye Disorder, GERD/Reflux, Renal Disease, Thyroid Disorder Additional Past Medical History / Comment(s): Hx. 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 rt bka 02/01; right arm fistula 07/06 Past Anesthesia/Blood Transfusion Reactions: No Reported Reaction Additional Past Anesthesia/Blood Transfusion Reaction / Comment(s): HAD BLOOD TRANFUSIONS WITHOUT COMPLICATION Type of Cardiac Device: Permanent Pacemaker Device Placement Date:: 2008 Past Psychological History: Anxiety, Depression Smoking Status: Never smoker Past Alcohol Use History: None Reported Additional Past Alcohol Use History / Comment(s): Patient is a lifelong nonsmo ker. She denies any medical marijuana, marijuana, street drug or alcohol use. She lives at home with her adult son. There is 1 dog in the home. Past Drug Use History: None Reported - Past Family History Father Family Medical History: Hypertension Additional Family Medical History / Comment(s): Father at age 56 from lung cancer. Mother Family Medical History: Cancer Additional Family Medical History / Comment(s): Mother at age 56 from lung cancer. Brother(s) Family Medical History: Diabetes Mellitus, Renal Disease Additional Family Medical History / Comment(s): Patient has 2 brothers. One at age 45 from myocardial infarction with history of heart defect from . Second brother is alive at age 59 with history of coronary artery disease and diabetes, bone marrow transplant Sister(s) Additional Family Medical History / Comment(s): Patient has a sister age 57 alive with history of diabetes and spina bifida. Daughter(s) Family Medical History: No Reported History Additional Family Medical History / Comment(s): Pre-diabetes Medications and Allergies Home Medications Medication Instructions Recorded Confirmed Type Allopurinol [Zyloprim] 100 mg PO DAILY 08/16/13 06/27/19 History Amiodarone HCl [Pacerone] 200 mg PO DAILY 08/16/13 06/27/19 History INSULIN ASPART (NovoLOG) [NovoLOG 10 unit SQ AC-TID 02/05/18 06/27/19 History (formulary)] Atorvastatin [Lipitor] 40 mg PO HS 02/06/18 06/27/19 History Insulin Glargine,Hum.rec.anlog 25 unit SQ HS 02/06/18 06/27/19 History [Janinaaglsanford Zelayapen U-100] Amitriptyline HCl [Elavil] 50 mg PO HS 05/15/18 06/27/19 History Levothyroxine Sodium [Synthroid] 100 mcg PO DAILY 05/15/18 06/27/19 History Metoprolol Succinate (ER) [Toprol 12.5 mg PO DAILY 05/15/18 06/27/19 History XL] Calcium Acetate [PhosLo] 667 mg PO DAILY 10/20/18 06/27/19 History Justine Kacy 1 tab PO DAILY 10/20/18 06/27/19 History Isosorbide Mononitrate ER [Imdur] 30 mg PO DAILY 06/27/19 06/27/19 History Midodrine [ProAmatine] 5 mg PO DIRECTED PRN 06/27/19 06/27/19 History Rivaroxaban [Xarelto] 15 mg PO DAILY 06/27/19 06/27/19 History Allergies Allergy/AdvReac Type Severity Reaction Status Date / Time meperidine HCl [From Demerol] AdvReac Nausea & Verified 06/27/19 11:10 Vomiting & Diarrhea Physical Exam Vitals: Vital Signs Temp Pulse Pulse Resp BP BP Pulse Ox 06/28/19 04:58 98.2 F 70 18 80/52 100 06/28/19 00:47 98.4 F 73 20 86/52 92 L 06/27/19 21:34 98.8 F 64 20 80/50 100 06/27/19 17:28 98 06/27/19 16:38 82/52 06/27/19 15:01 85 06/27/19 14:30 97.7 F 85 16 76/41 94 L 06/27/19 13:37 75 20 85/51 100 06/27/19 12:52 75 20 81/49 100 06/27/19 12:15 76 20 78/50 100 06/27/19 11:02 98.1 F 84 20 74/40 100 06/27/19 10:02 80 20 72/48 96 06/27/19 09:57 100.5 F H 94 18 90/52 98 Intake and Output 06/27/19 06/28/19 06/28/19 22:59 06:59 14:59 Intake Total 550 300 10 Output Total 0 200 Balance 550 100 10 Intake: IV 10 10 Invasive Line 2 10 10 Intake, IV Titration 300 Amount Sodium Chloride 0.9% 1, 300 000 ml @ 75 mls/hr IV . [id number] [facility] Rx#:[id number] Oral 540 Output: Urine 0 200 Other: Weight 100.5 kg Results - Lab Results Most recent lab results Calcium 7.9 mg/dL (8.4-10.2) L 06/28/19 04:38 Magnesium 1.9 mg/dL (1.6-2.3) 06/28/19 04:38 06/27/19 09:57 06/28/19 04:38 Assessment and Plan Plan: Assessment: 1. End-stage renal disease maintained on hemodialysis on Friday schedule. She has a right upper extremity AV graft. 2. Possible pneumonia maintained on antibiotics. Infectious disease following. 3. Hypotension due to sepsis. Maintained on IV Solu-Cortef. 4. Insulin-dependent diabetes mellitus. 5. Chronic kidney disease mineral bone disease maintained on PhosLo. Plan: Hemodialysis tomorrow. Hep-Lock IV fluids. Follow-up cultures. Monitor vancomycin level. Target level less than 20. Add midodrine. Thank you for the consultation. We'll continue to follow the patient with you during her hospital stay.
[2019-06-28 11:48] LABS: Glucose,Whole Blood 287 mg/dL (75-99)
--- NOTE | 2019-06-28 12:06 | CONS ---
JEFERSON Avilez is a 69-year-old lady with history of sick sinus syndrome, status post permanent pacemaker, persistent atrial fibrillation, end-stage renal disease on hemodialysis, insulin-requiring diabetes, and hypothyroidism who had hemodialysis on Friday and subsequently started feeling fatigued, tired, and was not feeling particularly well and she thinks that somewhere along the way she passed out. Her son called EMS and subsequently was brought to the hospital. At the time of my evaluation, she is comfortable at rest. She is sitting in bed. Had her breakfast without any issues. She gets her dialysis on Friday, , and Friday. Her pacemaker is followed in our office and has not had any issues with it. On her initial presentation, she was found to be hypotensive. The chest x-ray also showed left basilar airspace disease. She was given IV fluids in the ER and subsequently started feeling better. She was tested for COVID and COVID was negative. Hemoglobin is normal at 11.1, white cell count is elevated. Platelet count was somewhat low at 114. PAST MEDICAL HISTORY: Significant for sick sinus syndrome, status post permanent pacemaker, back surgery, hysterectomy, orthopedic surgery, peripheral vascular disease, status post stent of the right superficial femoral artery, end-stage renal disease on hemodialysis, and arthritis. HOME MEDICATIONS: Include with Midodrine 5 mg, Imdur 30 mg, Xarelto 15 mg, Toprol-XL, Synthroid, insulin, PhosLo, Lipitor, Elavil, Pacerone and Zyloprim. ALLERGIES: To DEMEROL. FAMILY HISTORY: Negative for premature coronary artery disease. SOCIAL HISTORY: Negative for current smoking, EtOH abuse, or drug abuse. REVIEW OF SYSTEMS: HEENT: As described above. CARDIAC: Negative. RESPIRATORY: As described above. GI: Negative. GENITOURINARY: Significant for end-stage renal disease on hemodialysis. PSYCHOSOCIAL: Negative. ENDOCRINE: Negative. DERMATOLOGICAL: Negative. CONSTITUTIONAL: Significant for fatigue, tiredness. IN HOME AIDE: Significant for syncope. Rest of the system review is not relevant. PHYSICAL EXAMINATION: On exam, patient is comfortable at rest. Heart rate is 70 beats per minute. Blood pressure is 94/50, O2 sat is 97% on room air. Her temperature was 97.9. Chest exam reveals good air entry bilaterally. I do not hear any crackles or rhonchi. Heart exam reveals first and second heart sounds. No gallop. No murmur. There is no rub. Exam of the extremities reveals chronic bilateral pigmentation with somewhat diminished pulses. LABS: Show a potassium of 4.6, BUN is 34, creatinine is 4.6, hemoglobin is 10.6. TSH is 4.4. EKG shows paced rhythm. I do not see any pacemaker malfunction on the EKG. ASSESSMENT: 1. Syncope, rule out cardiac causes. 2. Sepsis. 3. End-stage renal disease on hemodialysis. 4. Persistent atrial fibrillation. PLAN: I am going to obtain a 2D echo on her to evaluate her LV function. Obtain information on her pacemaker and get the pacemaker checked and will follow her with you. MMODL / IJN: [id number] /
[2019-06-28] MEDS: MIDODRINE 5 MG TAB PO SCH ×2 (12:56→16:45)
[2019-06-28 13:09] LABS: Hemoglobin A1C 6.8 % (4.0-6.0)
[2019-06-28] MEDS: RIVAROXABAN 15 MG TAB PO SCH (16:45)
[2019-06-28] MEDS: CALCIUM ACETATE 667 MG TAB PO SCH (16:46)
[2019-06-28 16:50] LABS: Glucose,Whole Blood 257 mg/dL (75-99)
--- NOTE | 2019-06-28 17:17 | P.PN ---
Subjective Progress Note Date: 06/28/19 (delayed charting seen at 1015) Principal diagnosis: Confusion Patient is a 69-year-old female with a complex past medical history including insulin-dependent diabetes mellitus type 2, end-stage renal disease on hemodialysis Friday, , Friday, pacemaker implantation, right AKA, and atrial fibrillation who presented to the hospital secondary to altered mentation and weakness. In the emergency department she was found to be hypotensive with a blood pressure of 80/40 and she was started on IV fluids. She was also found to be febrile. Chest x-ray showed left basilar airspace disease. Her coronavirus was negative. She was found have a white blood cell count of 16.8, hemoglobin 11.6, platelets 114, lactic acid 2.9. The remainder of her left are consistent with chronic renal disease. She was diagnosed with pneumonia and sepsis, she was started on IV fluids secondary to her lactic acid. She was admitted for further monitoring. She was seen by infectious disease who recommended Zosyn and vancomycin for her pneumonia. Nephrology was consulted. Cardiology was consulted. By the morning of 06/27 her white blood cell count has some improved and she was much more awake and alert. Patient seen and examined at bedside. She reports that she had uncontrollable diarrhea prior to admission, she denies any chest pain, shortness breath, nausea, vomiting, or diarrhea at this point in time. She does admit to being severely confused. Objective - Vital Signs Vital signs: Vital Signs Temp 98.6 F 06/28/19 15:21 Pulse 63 06/28/19 15:21 Resp 20 06/28/19 15:21 BP 114/71 06/28/19 15:21 Pulse Ox 100 06/28/19 15:21 Intake & Output 06/27/19 06/28/19 06/28/19 18:59 06:59 18:59 Intake Total 430 420 950 Output Total 200 Balance 430 220 950 Weight 90.718 kg 100.5 kg Intake: IV 10 30 Invasive Line 2 10 30 Intake, IV Titration 300 Amount Sodium Chloride 0.9% 1, 300 000 ml @ 75 mls/hr IV . [id number] [facility] Rx#:[id number] Oral 420 120 920 Output: Urine 200 - Exam General: Ill appearing, no distress, appears at stated age, obese Dermatologic: Multiple areas of ecchymoses, some areas all open wounds on hands Head: atraumatic, normocephalic, symmetric Eyes: EOMI, no lid lag, anicteric sclera Mouth: no lip lesion, mucus membranes moist Cardiovascular: S1S2 reg, no murmur, diminished posterior tibial pulse left, AKA on the right, Lungs: Decreased breath sounds bilateral, no rhonchi, no rales , no accessory muscle use Abdominal: soft, nontender to palpation, no guarding, no appreciable organomegaly Ext: no gross muscle atrophy, no edema, no contractures Neuro: CN II-XI grossly intact, no focal neuro deficits Psych: Alert, oriented, appropriate affect - Labs CBC & Chem 7: 06/28/19 04:38 06/28/19 04:38 Labs: Abnormal Lab Results - Last 24 Hours (Table) 06/27/19 06/27/19 06/27/19 Range/Units 09:57 09:57 18:44 WBC (3.8-10.6) k/uL RBC (3.80-5.40) m/uL Hgb (11.4-16.0) gm/dL MCV (80.0-100.0) fL MCHC (31.0-37.0) g/dL RDW (11.5-15.5) % Plt Count (150-450) k/uL Macrocytosis Sodium (137-145) mmol/L Chloride (98-107) mmol/L BUN (7-17) mg/dL Creatinine (0.52-1.04) mg/dL Glucose (74-99) mg/dL POC Glucose (mg/dL) (75-99) mg/dL Hemoglobin A1c (4.0-6.0) % Plasma Lactic Acid Nick 3.7 H* (0.7-2.0) mmol/L Calcium (8.4-10.2) mg/dL Ferritin 7887.0 H (10.0-291.0) ng/mL AST (14-36) U/L Total Protein (6.3-8.2) g/dL Albumin (3.5-5.0) g/dL Procalcitonin 10.64 H (0.02-0.09) ng/mL 06/27/19 06/27/19 06/27/19 Range/Units 20:27 23:53 23:53 WBC (3.8-10.6) k/uL RBC (3.80-5.40) m/uL Hgb (11.4-16.0) gm/dL MCV (80.0-100.0) fL MCHC (31.0-37.0) g/dL RDW (11.5-15.5) % Plt Count (150-450) k/uL Macrocytosis Sodium (137-145) mmol/L Chloride (98-107) mmol/L BUN (7-17) mg/dL Creatinine (0.52-1.04) mg/dL Glucose (74-99) mg/dL POC Glucose (mg/dL) 304 H (75-99) mg/dL Hemoglobin A1c 6.8 H (4.0-6.0) % Plasma Lactic Acid Nick 3.6 H* (0.7-2.0) mmol/L Calcium (8.4-10.2) mg/dL Ferritin (10.0-291.0) ng/mL AST (14-36) U/L Total Protein (6.3-8.2) g/dL Albumin (3.5-5.0) g/dL Procalcitonin (0.02-0.09) ng/mL 06/28/19 06/28/19 06/28/19 Range/Units 03:12 04:38 04:38 WBC 14.9 H (3.8-10.6) k/uL RBC 3.22 L (3.80-5.40) m/uL Hgb 10.6 L (11.4-16.0) gm/dL MCV 112.6 H (80.0-100.0) fL MCHC 29.4 L (31.0-37.0) g/dL RDW 16.4 H (11.5-15.5) % Plt Count 111 L (150-450) k/uL Macrocytosis Marked A Sodium 134 L (137-145) mmol/L Chloride 97 L (98-107) mmol/L BUN 34 H (7-17) mg/dL Creatinine 4.63 H (0.52-1.04) mg/dL Glucose 274 H (74-99) mg/dL POC Glucose (mg/dL) 304 H (75-99) mg/dL Hemoglobin A1c (4.0-6.0) % Plasma Lactic Acid Nick (0.7-2.0) mmol/L Calcium 7.9 L (8.4-10.2) mg/dL Ferritin (10.0-291.0) ng/mL AST 47 H (14-36) U/L Total Protein 6.1 L (6.3-8.2) g/dL Albumin 3.3 L (3.5-5.0) g/dL Procalcitonin (0.02-0.09) ng/mL 06/28/19 06/28/19 06/28/19 Range/Units 06:36 11:45 16:48 WBC (3.8-10.6) k/uL RBC (3.80-5.40) m/uL Hgb (11.4-16.0) gm/dL MCV (80.0-100.0) fL MCHC (31.0-37.0) g/dL RDW (11.5-15.5) % Plt Count (150-450) k/uL Macrocytosis Sodium (137-145) mmol/L Chloride (98-107) mmol/L BUN (7-17) mg/dL Creatinine (0.52-1.04) mg/dL Glucose (74-99) mg/dL POC Glucose (mg/dL) 258 H 287 H 257 H (75-99) mg/dL Hemoglobin A1c (4.0-6.0) % Plasma Lactic Acid Nick (0.7-2.0) mmol/L Calcium (8.4-10.2) mg/dL Ferritin (10.0-291.0) ng/mL AST (14-36) U/L Total Protein (6.3-8.2) g/dL Albumin (3.5-5.0) g/dL Procalcitonin (0.02-0.09) ng/mL Microbiology - Last 24 Hours (Table) 06/27/19 10:35 Blood Culture - Preliminary Blood No Growth after 24 hours Assessment and Plan Assessment: Pneumonia with sepsis, possible gram-negative MRSA secondary to frequent healthcare contact -ID recommendations appreciated: Vanco, Zosyn -IV fluids completed -Follow chest x-rays until clear -Sputum cultures if able -Blood cultures negative to date -Pulmonary hygiene -Procalcitonin 10.4 Diabetes mellitus type 2 insulin requiring with hyperglycemia - due to stress dose steroids - levemir - SSI and fixed dose - A1C 6.8 Sick sinus syndrome status post permanent pacemaker implantation, persistent atrial fibrillation -Cardiology recommendations appreciated: Await echo, await pacemaker interrog ation - xarelto - amiodarone ESRD with bone mineral disease - nephro consulted - //Fri schedule - HD tomorrow - [facility] Congestive heart failure, Chronic and diastolic per echo in 2016 - on midodrine due to hypotension at baseline - metoprolol on hold due to hypotension Toxic metabolic encephalopathy, improved Chronic: COPD Hypothyroidism Gout Osteoporosis Anemia of chronic renal failure DVT prophylaxis: [email or web address] Discussed with: patient, nursing, Dr dewitt Anticipated discharge: 3-[address]: home health A total of 65 minutes was spent on the care of this complex patient more than 50% of the time was spent in counseling and care coordination.
--- NOTE | 2019-06-28 18:29 | PN ---
PROGRESS NOTE DATE OF SERVICE: 06/28/2019 REASON FOR FOLLOWUP: Pneumonia. INTERVAL HISTORY: The patient is currently afebrile. The patient is breathing comfortably on room air. Denies having any chest pain or shortness of breath. Minimal cough. She did mention feeling nauseated this morning, but no vomiting. No diarrhea. No abdominal pain. PHYSICAL EXAMINATION: Blood pressure 114/71, pulse of 63, temperature 98.6. She is 100% on room air. General description is an elderly female up in the bed in no distress. RESPIRATORY SYSTEM: Unlabored breathing with some decreased breath sounds at the base. No wheeze. HEART: S1, S2. Regular rate and rhythm. ABDOMEN: Soft. No distention. LABS: Hemoglobin is 10.6, white count 14.9, creatinine 4.63. Blood culture has been negative. DIAGNOSTIC IMPRESSION AND PLAN: Patient presented to hospital with episode of unresponsiveness. The patient did have low-grade fever and concern for possible vomiting and pneumonia. She is covered with Zosyn. Will check an ultrasound of the gallbladder to make sure that is not the source of her fever and we will monitor her clinical course closely. MMODL / IJN: [id number] /
[2019-06-28] MEDS: AMITRIPTYLINE HCL 50 MG TAB PO SCH (20:13)
[2019-06-28] MEDS: ATORVASTATIN 40 MG TAB PO SCH (20:13)
[2019-06-28] MEDS: INSULIN DETEMIR (LEVEMIR) 100 UNIT/ML SYR SQ SCH (20:14)
[2019-06-28 20:59] LABS: Glucose,Whole Blood 229 mg/dL (75-99)
[2019-06-29] MEDS: PIPERACILLIN-TAZOBACTAM 3.375 GM in SODIUM CHLORIDE 0.9% 100 ML IVPB SCH ×2 (00:45→17:39)
[2019-06-29] MEDS: HYDROCORTISONE SUCCINATE 100 MG/2 ML VIAL IV SCH ×3 (00:46→17:42)
[2019-06-29 02:06] LABS: Glucose,Whole Blood 248 mg/dL (75-99)
[2019-06-29] MEDS: LEVOTHYROXINE 100 MCG TAB PO SCH (06:24)
[2019-06-29] MEDS: MIDODRINE 5 MG TAB PO SCH ×3 (06:24→17:41)
[2019-06-29 06:25] LABS: Glucose,Whole Blood 274 mg/dL (75-99)
[2019-06-29 06:40] LABS: Anisocytosis Slight; HCT 34.5 % (34.0-46.0); HGB 10.1 gm/dL (11.4-16.0); Hypochromasia Marked; MCH 32.8 pg (25.0-35.0); MCHC 29.4 g/dL (31.0-37.0); MCV 111.6 fL (80.0-100.0); Mean Platelet Volume 8.8; Platelet Count 101 k/uL (150-450); Poikilocytosis Slight; RBC 3.09 m/uL (3.80-5.40); RDW 16.1 % (11.5-15.5)
[2019-06-29 06:41] LABS: Macrocytosis Marked
[2019-06-29] MEDS: INSULIN ASPART (NovoLOG) 100 UNIT/ML VIAL SQ SCH ×3 (06:55→17:42)
--- NOTE | 2019-06-29 07:34 | ECHOF ---
Referral Reason:syncope MEASUREMENTS -------- HEIGHT: 157.5 cm WEIGHT: 100.2 kg BP: 95/50 RVIDd: 4.2 cm (< 3.3) IVSd: 1.7 cm (0.6 - 1.1) LVIDd: 3.8 cm (3.9 - 5.3) LVPWd: 1.6 cm (0.6 - 1.1) IVSs: 1.8 cm LVIDs: 3.0 cm LVPWs: 1.8 cm LAESV Index (A-L): 22.23 ml/m Ao Diam: 2.8 cm (2.0 - 3.7) AV Cusp: 1.5 cm (1.5 - 2.6) MV EXCURSION: 15.662 mm (> 18.000) MV EF SLOPE: 66 mm/s (70 - 150) EPSS: 0.6 cm MV E Alfred: 0.95 m/s MV DecT: 240 ms MV A Alfred: 0.27 m/s MV E/A Ratio: 3.48 RAP: 5.00 mmHg RVSP: 17.98 mmHg FINDINGS -------- Undetermined rhythm. This was a technically difficult study with suboptimal apical views. Morbid Obesity The left ventricular size is normal. There is moderate concentric left ventricular hypertrophy. O verall left ventricular systolic function is mild-moderately impaired with, an EF between 40 - 45 %. The right ventricle is severely enlarged. Normal LA size by volume 22+/-6 ml/m2. The right atrium is moderately enlarged. Electronic pacemaker lead seen in the right atrial cavity. 5.0mg of Lumason was utilized for enhancement of images Interatrial and interventricular septum intact. There is mild to moderate aortic valve sclerosis. There is no evidence of aortic regurgitation. T here is no evidence of aortic stenosis. Mild mitral annular calcification present. Mild mitral regurgitation is present. Severe tricuspid regurgitation present. Unable to estimate RVSP due to inadequate TR jet spectral d oppler profile. Trace/mild (physiologic) pulmonic regurgitation. The aortic root size is normal. IVC Not well visulized. There is no pericardial effusion. CONCLUSIONS -------- 1. Undetermined rhythm. 2. This was a technically difficult study with suboptimal apical views. 3. Morbid Obesity 4. The left ventricular size is normal. 5. Overall left ventricular systolic function is mild-moderately impaired with, an EF between 40 - 45 %. 6. The right ventricle is severely enlarged. 7. Normal LA size by volume 22+/-6 ml/m2. 8. The right atrium is moderately enlarged. 9. Electronic pacemaker lead seen in the right atrial cavity. 10. 5.0mg of Lumason was utilized for enhancement of images 11. Interatrial and interventricular septum intact. 12. There is mild to moderate aortic valve sclerosis. 13. There is no evidence of aortic regurgitation. 14. There is no evidence of aortic stenosis. 15. Mild mitral annular calcification present. 16. Mild mitral regurgitation is present. 17. Severe tricuspid regurgitation present. 18. Unable to estimate RVSP due to inadequate TR jet spectral doppler profile. 19. Trace/mild (physiologic) pulmonic regurgitation. 20. The aortic root size is normal. 21. IVC Not well visulized. 22. There is no pericardial effusion. TUBE CUTTER OPERATOR: Dian Brown RDCS
[2019-06-29 07:43] LABS: Albumin 3.3 g/dL (3.5-5.0); Magnesium 2.1 mg/dL (1.6-2.3); Potassium 4.7 mmol/L (3.5-5.1); Total Bilirubin 0.5 mg/dL (0.2-1.3); Total Protein 6.1 g/dL (6.3-8.2)
[2019-06-29 07:48] LABS: Vancomycin,Random 21.6 ug/mL
--- NOTE | 2019-06-29 08:21 | XR ---
EXAMINATION TYPE: XR chest 1V portable DATE OF EXAM: 06/29/2019 CLINICAL HISTORY: Difficulty breathing progress study. TECHNIQUE: Single AP portable upright view of the chest is obtained. COMPARISON: Chest x-ray from 2 days earlier and older studies FINDINGS: Suboptimal study due to portable technique and patient's large body habitus. Postsurgical c hange centered in the upward to mid thoracic spine redemonstrated. Underlying cardiomegaly with dual lead pacemaker with central vascular congestion remains present. Increased left lung opacity. Backgro und chronic parenchymal change. No new focal airspace opacity, pleural effusion, or pneumothorax seen bilaterally. Osseous structures are intact. IMPRESSION: Chronic changes and cardiomegaly with suspected central vascular congestion and diffuse l eft lung edema and/or infiltrates, no significant change from x-ray 2 days earlier.
[2019-06-29] MEDS: PANTOPRAZOLE 40 MG TABLET PO SCH (08:34)
[2019-06-29] MEDS: ALLOPURINOL 100 MG TAB PO SCH (08:34)
[2019-06-29] MEDS: MAGNESIUM OXIDE 400 MG TAB PO SCH (08:34)
[2019-06-29] MEDS: FOLIC ACID-VIT B COMPLEX-VIT C 1 CAP PO SCH (08:34)
--- NOTE | 2019-06-29 10:24 | P.PN ---
Subjective Patient is seen in follow-up for end-stage renal disease. Had some dry heaving yesterday morning but none since then. No vomiting. No chest pain or shortness of breath. Vital signs are stable. General: The patient appeared well nourished and normally developed. HEENT: Head exam is unremarkable. Neck is without jugular venous distension. LUNGS: Lungs are clear to auscultation and percussion. Breath sounds decreased. HEART: Rate and Rhythm are regular. First and second heart sounds normal. No murmurs, rubs or gallops. ABDOMEN: Soft, nontender. Obese. EXTREMITITES: No edema. Amputation noted. Objective - Vital Signs Vital signs: Vital Signs Temp 97.5 F L 06/29/19 08:00 Pulse 72 06/29/19 08:00 Resp 18 06/29/19 08:00 BP 118/60 06/29/19 08:00 Pulse Ox 98 06/29/19 08:00 Intake & Output 06/28/19 06/29/19 06/29/19 18:59 06:59 18:59 Intake Total 950 560 Output Total 0 Balance 950 560 Weight 101 kg Intake: IV 30 Invasive Line 2 30 Oral 920 560 Output: Urine 0 - Labs CBC & Chem 7: 06/29/19 06:20 06/29/19 06:20 Labs: Abnormal Lab Results - Last 24 Hours (Table) 06/27/19 06/27/19 06/27/19 Range/Units 09:57 09:57 23:53 WBC (3.8-10.6) k/uL RBC (3.80-5.40) m/uL Hgb (11.4-16.0) gm/dL MCV (80.0-100.0) fL MCHC (31.0-37.0) g/dL RDW (11.5-15.5) % Plt Count (150-450) k/uL Macrocytosis Sodium (137-145) mmol/L Chloride (98-107) mmol/L BUN (7-17) mg/dL Creatinine (0.52-1.04) mg/dL Glucose (74-99) mg/dL POC Glucose (mg/dL) (75-99) mg/dL Hemoglobin A1c 6.8 H (4.0-6.0) % Calcium (8.4-10.2) mg/dL Ferritin 7887.0 H (10.0-291.0) ng/mL Total Protein (6.3-8.2) g/dL Albumin (3.5-5.0) g/dL Procalcitonin 10.64 H (0.02-0.09) ng/mL 06/28/19 06/28/19 06/28/19 Range/Units 11:45 16:48 20:55 WBC (3.8-10.6) k/uL RBC (3.80-5.40) m/uL Hgb (11.4-16.0) gm/dL MCV (80.0-100.0) fL MCHC (31.0-37.0) g/dL RDW (11.5-15.5) % Plt Count (150-450) k/uL Macrocytosis Sodium (137-145) mmol/L Chloride (98-107) mmol/L BUN (7-17) mg/dL Creatinine (0.52-1.04) mg/dL Glucose (74-99) mg/dL POC Glucose (mg/dL) 287 H 257 H 229 H (75-99) mg/dL Hemoglobin A1c (4.0-6.0) % Calcium (8.4-10.2) mg/dL Ferritin (10.0-291.0) ng/mL Total Protein (6.3-8.2) g/dL Albumin (3.5-5.0) g/dL Procalcitonin (0.02-0.09) ng/mL 06/29/19 06/29/19 06/29/19 Range/Units 02:04 06:20 06:20 WBC 13.0 H (3.8-10.6) k/uL RBC 3.09 L (3.80-5.40) m/uL Hgb 10.1 L (11.4-16.0) gm/dL MCV 111.6 H (80.0-100.0) fL MCHC 29.4 L (31.0-37.0) g/dL RDW 16.1 H (11.5-15.5) % Plt Count 101 L (150-450) k/uL Macrocytosis Marked A Sodium 134 L (137-145) mmol/L Chloride 96 L (98-107) mmol/L BUN 53 H (7-17) mg/dL Creatinine 5.70 H (0.52-1.04) mg/dL Glucose 261 H (74-99) mg/dL POC Glucose (mg/dL) 248 H (75-99) mg/dL Hemoglobin A1c (4.0-6.0) % Calcium 8.0 L (8.4-10.2) mg/dL Ferritin (10.0-291.0) ng/mL Total Protein 6.1 L (6.3-8.2) g/dL Albumin 3.3 L (3.5-5.0) g/dL Procalcitonin (0.02-0.09) ng/mL 06/29/19 Range/Units 06:23 WBC (3.8-10.6) k/uL RBC (3.80-5.40) m/uL Hgb (11.4-16.0) gm/dL MCV (80.0-100.0) fL MCHC (31.0-37.0) g/dL RDW (11.5-15.5) % Plt Count (150-450) k/uL Macrocytosis Sodium (137-145) mmol/L Chloride (98-107) mmol/L BUN (7-17) mg/dL Creatinine (0.52-1.04) mg/dL Glucose (74-99) mg/dL POC Glucose (mg/dL) 274 H (75-99) mg/dL Hemoglobin A1c (4.0-6.0) % Calcium (8.4-10.2) mg/dL Ferritin (10.0-291.0) ng/mL Total Protein (6.3-8.2) g/dL Albumin (3.5-5.0) g/dL Procalcitonin (0.02-0.09) ng/mL Microbiology - Last 24 Hours (Table) 06/27/19 10:35 Blood Culture - Preliminary Blood No Growth after 24 hours Assessment and Plan Plan: Assessment: 1. End-stage renal disease maintained on hemodialysis on Friday schedule. She has a right upper extremity AV graft. 2. Possible pneumonia maintained on antibiotics. Infectious disease following. 3. Hypotension due to sepsis. Maintained on midodrine. 4. Insulin-dependent diabetes mellitus. 5. Chronic kidney disease mineral bone disease maintained on PhosLo. 6. Chronic systolic CHF with ejection fraction of 40-45% with severe tricuspid regurgitation. Plan: Hemodialysis today. Follow-up cultures. Monitor vancomycin level. Target level less than 20.
[2019-06-29 11:59] LABS: Glucose,Whole Blood 236 mg/dL (75-99)
--- NOTE | 2019-06-29 13:13 | PN ---
PROGRESS NOTE Fatmata is a 69-year-old lady with history of sick sinus syndrome, status post permanent pacemaker, persistent atrial fibrillation, end-stage renal disease on hemodialysis, who was admitted to the hospital having had a syncope at home. She had an echocardiogram on this admission that revealed mild to moderate LV dysfunction, aortic sclerosis without any stenosis, and tricuspid regurgitation. She is feeling better. Has not had any source of dizziness or syncope. On exam, heart rate is 72, blood pressure is 181/60, respiratory rate 18. Chest exam reveals good air entry bilaterally. Heart exam reveals first and second heart sounds. No gallop. Exam of extremities did not reveal any edema. LABS: Show a hemoglobin of 10.1, potassium is 4.7, BUN is 53, creatinine is 5.7. ASSESSMENT: 1. Syncope, exact etiology is unclear. 2. End-stage renal disease on hemodialysis. 3. History of bradycardia status post pacemaker. PLAN: Actually the pacemaker had been evaluated yesterday. . She will continue rest of his medications. Hopefully home tomorrow. MMODL / IJN: [id number] /
--- NOTE | 2019-06-29 15:33 | P.PN ---
Subjective Progress Note Date: 06/29/19 (delayed charting seen at 1115) Principal diagnosis: Confusion Patient is a 69-year-old female with a complex past medical history including insulin-dependent diabetes mellitus type 2, end-stage renal disease on hemodialysis Friday, , Friday, pacemaker implantation, right AKA, and atrial fibrillation who presented to the hospital secondary to altered mentation and weakness. In the emergency department she was found to be hypotensive with a blood pressure of 80/40 and she was started on IV fluids. She was also found to be febrile. Chest x-ray showed left basilar airspace disease. Her coronavirus was negative. She was found have a white blood cell count of 16.8, hemoglobin 11.6, platelets 114, lactic acid 2.9. The remainder of her left are consistent with chronic renal disease. She was diagnosed with pneumonia and sepsis, she was started on IV fluids secondary to her lactic acid. She was admitted for further monitoring. She was seen by infectious disease who recommended Zosyn and vancomycin for her pneumonia. Nephrology was consulted. Cardiology was consulted. By the morning of 06/27 her white blood cell count has some improved and she was much more awake and alert. She underwent an echo which showed ejection fraction of 40-45% which was decreased from prior in 2016. Patient seen and examined at bedside. She is feeling better today, still having some cough, no shortness breath, no wheezing, no chest pain, no nausea, no vom iting, no diarrhea. She is feeling tired. Objective - Vital Signs Vital signs: Vital Signs Temp 97.9 F 06/29/19 14:54 Pulse 77 06/29/19 14:54 Resp 16 06/29/19 14:54 BP 105/63 06/29/19 14:54 Pulse Ox 98 06/29/19 08:00 Intake & Output 06/28/19 06/29/19 06/29/19 18:59 06:59 18:59 Intake Total 950 560 300 Output Total 0 2300 Balance 950 560 -2000 Weight 101 kg Intake: IV 30 Invasive Line 2 30 Oral 920 560 Hemodialysis 300 Output: Urine 0 Hemodialysis 2300 - Exam General: Ill appearing, no distress, appears at stated age, obese Dermatologic: Multiple areas of ecchymoses, some areas all open wounds on hands Head: atraumatic, normocephalic, symmetric Eyes: EOMI, no lid lag, anicteric sclera Mouth: no lip lesion, mucus membranes moist Cardiovascular: S1S2 reg, no murmur, diminished posterior tibial pulse left, AKA on the right, Lungs: Decreased breath sounds bilateral, no rhonchi, no rales , no accessory muscle use Abdominal: soft, nontender to palpation, no guarding, no appreciable organomegaly Ext: no gross muscle atrophy, 1+ edema left lower extremity, no contractures Neuro: CN II-XI grossly intact, no focal neuro deficits Psych: Alert, oriented, appropriate affect - Labs CBC & Chem 7: 06/29/19 06:20 06/29/19 06:20 Labs: Abnormal Lab Results - Last 24 Hours (Table) 06/28/19 06/28/19 06/29/19 Range/Units 16:48 20:55 02:04 WBC (3.8-10.6) k/uL RBC (3.80-5.40) m/uL Hgb (11.4-16.0) gm/dL MCV (80.0-100.0) fL MCHC (31.0-37.0) g/dL RDW (11.5-15.5) % Plt Count (150-450) k/uL Macrocytosis Sodium (137-145) mmol/L Chloride (98-107) mmol/L BUN (7-17) mg/dL Creatinine (0.52-1.04) mg/dL Glucose (74-99) mg/dL POC Glucose (mg/dL) 257 H 229 H 248 H (75-99) mg/dL Calcium (8.4-10.2) mg/dL Total Protein (6.3-8.2) g/dL Albumin (3.5-5.0) g/dL 06/29/19 06/29/19 06/29/19 Range/Units 06:20 06:20 06:23 WBC 13.0 H (3.8-10.6) k/uL RBC 3.09 L (3.80-5.40) m/uL Hgb 10.1 L (11.4-16.0) gm/dL MCV 111.6 H (80.0-100.0) fL MCHC 29.4 L (31.0-37.0) g/dL RDW 16.1 H (11.5-15.5) % Plt Count 101 L (150-450) k/uL Macrocytosis Marked A Sodium 134 L (137-145) mmol/L Chloride 96 L (98-107) mmol/L BUN 53 H (7-17) mg/dL Creatinine 5.70 H (0.52-1.04) mg/dL Glucose 261 H (74-99) mg/dL POC Glucose (mg/dL) 274 H (75-99) mg/dL Calcium 8.0 L (8.4-10.2) mg/dL Total Protein 6.1 L (6.3-8.2) g/dL Albumin 3.3 L (3.5-5.0) g/dL 06/29/19 Range/Units 11:56 WBC (3.8-10.6) k/uL RBC (3.80-5.40) m/uL Hgb (11.4-16.0) gm/dL MCV (80.0-100.0) fL MCHC (31.0-37.0) g/dL RDW (11.5-15.5) % Plt Count (150-450) k/uL Macrocytosis Sodium (137-145) mmol/L Chloride (98-107) mmol/L BUN (7-17) mg/dL Creatinine (0.52-1.04) mg/dL Glucose (74-99) mg/dL POC Glucose (mg/dL) 236 H (75-99) mg/dL Calcium (8.4-10.2) mg/dL Total Protein (6.3-8.2) g/dL Albumin (3.5-5.0) g/dL Microbiology - Last 24 Hours (Table) 06/27/19 10:35 Blood Culture - Preliminary Blood No Growth after 48 hours Assessment and Plan Assessment: Pneumonia with sepsis, possible gram-negative MRSA secondary to frequent healthcare contact -ID recommendations appreciated: Isabela Guerrerosyn -IV fluids completed -Follow chest x-rays until clear -Sputum cultures if able -Blood cultures negative to date -Pulmonary hygiene -Procalcitonin 10.4 consistent with bacterial pneumonia Acute on chronic systolic CHF with EF 40-45% - fluid overload exacerbtion by fluids required for sepsis - on midodrine due to hypotension at baseline - metoprolol on hold due to hypotension - no ACEI due to hypotension - cardio recs Diabetes mellitus type 2 insulin requiring with hyperglycemia - due to stress dose steroids - levemir - SSI and fixed dose - A1C 6.8 Sick sinus syndrome status post permanent pacemaker implantation, persistent atrial fibrillation -Cardiology recommendations appreciated: Await echo, await pacemaker interrogation - xarelto - amiodarone ESRD with bone mineral disease - nephro consulted - T//Fri schedule - HD tomorrow - phoslo Thrombocytopenia, reactive - follow CBC Toxic metabolic encephalopathy, improved Chronic: COPD Hypothyroidism Gout Osteoporosis Anemia of chronic renal failure DVT prophylaxis: xarelto Discussed with: patient, nursing Anticipated discharge: 2-[address]: home health A total of 25 minutes was spent on the care of this complex patient more than 50% of the time was spent in counseling and care coordination.
--- NOTE | 2019-06-29 16:45 | PN ---
PROGRESS NOTE DATE OF SERVICE: 06/29/2019 REASON FOR FOLLOWUP: Fever and possible pneumonia. INTERVAL HISTORY: The patient is currently afebrile. Patient is breathing comfortably. Patient is undergoing hemodialysis. Denies having any chest pain. Occasional cough. No sputum. No further nausea, vomiting, abdominal pain or diarrhea. PHYSICAL EXAMINATION: Blood pressure 105/60 with a pulse of 77, temperature is 97.9. General description is an elderly female, lying in bed in no distress. RESPIRATORY SYSTEM: Unlabored breathing, clear to auscultation anteriorly. HEART: S1-S2, regular rate and rhythm. ABDOMEN: Soft, no tenderness. DIAGNOSTIC IMPRESSION AND PLAN: Patient admitted to the hospital with fever and vomiting with initial concern for possible pneumonia, though the patient did have minimal respiratory symptoms, but no no distress suspicious for pneumonia. She was complaining of some vomiting. There may be concern for possible abdominal, ultrasound was ordered, not completed. Will follow on that. Continue Zosyn. Discontinue vancomycin and monitor clinical course closely. MMODL / IJN: [id number] /
[2019-06-29 17:08] LABS: Glucose,Whole Blood 156 mg/dL (75-99)
[2019-06-29] MEDS: RIVAROXABAN 15 MG TAB PO SCH (17:41)
[2019-06-29] MEDS: CALCIUM ACETATE 667 MG TAB PO SCH (17:41)
[2019-06-29] MEDS ORDERED: VANCOMYCIN 1,500 MG in SODIUM CHLORIDE 0.9% 250 ML IVPB ONE (20:00)
[2019-06-29] MEDS: ATORVASTATIN 40 MG TAB PO SCH (20:18)
[2019-06-29] MEDS: AMITRIPTYLINE HCL 50 MG TAB PO SCH (20:18)
[2019-06-29] MEDS ORDERED: INSULIN DETEMIR (LEVEMIR) 100 UNIT/ML SYR SQ SCH (21:00)
[2019-06-29 21:12] LABS: Glucose,Whole Blood 126 mg/dL (75-99)
[2019-06-30] MEDS: PIPERACILLIN-TAZOBACTAM 3.375 GM in SODIUM CHLORIDE 0.9% 100 ML IVPB SCH ×3 (00:24→23:46)
[2019-06-30] MEDS: HYDROCORTISONE SUCCINATE 100 MG/2 ML VIAL IV SCH ×2 (00:25→09:51)
[2019-06-30 02:14] LABS: Glucose,Whole Blood 122 mg/dL (75-99)
[2019-06-30] MEDS: MIDODRINE 5 MG TAB PO SCH ×3 (06:16→17:24)
[2019-06-30] MEDS: LEVOTHYROXINE 100 MCG TAB PO SCH (06:16)
[2019-06-30 06:26] LABS: Anisocytosis Slight; HCT 34.2 % (34.0-46.0); HGB 10.6 gm/dL (11.4-16.0); Hypochromasia Marked; MCHC 30.9 g/dL (31.0-37.0); MCV 110.1 fL (80.0-100.0); Macrocytosis Marked; Mean Platelet Volume 8.5; Platelet Count 128 k/uL (150-450); Poikilocytosis Slight; RBC 3.11 m/uL (3.80-5.40); RDW 16.2 % (11.5-15.5)
[2019-06-30 06:34] LABS: Glucose,Whole Blood 155 mg/dL (75-99)
[2019-06-30] MEDS: INSULIN ASPART (NovoLOG) 100 UNIT/ML VIAL SQ SCH ×3 (06:43→17:24)
[2019-06-30] MEDS: MAGNESIUM OXIDE 400 MG TAB PO SCH (09:02)
[2019-06-30] MEDS: FOLIC ACID-VIT B COMPLEX-VIT C 1 CAP PO SCH (09:02)
[2019-06-30] MEDS: ALLOPURINOL 100 MG TAB PO SCH (09:02)
[2019-06-30] MEDS: PANTOPRAZOLE 40 MG TABLET PO SCH (09:02)
[2019-06-30 12:01] LABS: Glucose,Whole Blood 211 mg/dL (75-99)
--- NOTE | 2019-06-30 12:04 | P.PN ---
Subjective Patient is seen in follow-up for end-stage renal disease. Tolerated hemodialysis well yesterday. Tolerating oral intake. No vomiting or diarrhea. Vital signs are stable. General: The patient appeared well nourished and normally developed. HEENT: Head exam is unremarkable. Neck is without jugular venous distension. LUNGS: Lungs are clear to auscultation and percussion. Breath sounds decreased. HEART: Rate and Rhythm are regular. First and second heart sounds normal. No murmurs, rubs or gallops. ABDOMEN: Soft, nontender. Obese. EXTREMITITES: No edema. Amputation noted. Objective - Vital Signs Vital signs: Vital Signs Temp 98.0 F 06/30/19 07:42 Pulse 66 06/30/19 07:42 Resp 16 06/30/19 07:42 BP 109/54 06/30/19 07:42 Pulse Ox 97 06/30/19 07:42 Intake & Output 06/29/19 06/30/19 06/30/19 18:59 06:59 18:59 Intake Total 330 570 240 Output Total 2300 Balance -1969 570 240 Weight 100 kg Intake: IV 30 Invasive Line 2 30 Intake, IV Titration 450 Amount Piperacillin-Tazobactam 3 200 .375 gm In Sodium Chloride 0.9% 100 ml @ 25 mls/hr IVPB Q12H [facility] Rx# :[id number] Vancomycin 1,500 mg In 250 Sodium Chloride 0.9% 250 ml @ 125 mls/hr IVPB ONCE ONE Rx#:[id number] Oral 120 240 Hemodialysis 300 Output: Hemodialysis 2300 Other: Voiding Method CAPD # Voids 0 # Bowel Movements 1 - Labs CBC & Chem 7: 06/30/19 05:33 06/30/19 05:33 Labs: Abnormal Lab Results - Last 24 Hours (Table) 06/29/19 06/29/19 06/30/19 Range/Units 17:05 21:11 02:12 RBC (3.80-5.40) m/uL Hgb (11.4-16.0) gm/dL MCV (80.0-100.0) fL MCHC (31.0-37.0) g/dL RDW (11.5-15.5) % Plt Count (150-450) k/uL Macrocytosis BUN (7-17) mg/dL Creatinine (0.52-1.04) mg/dL Glucose (74-99) mg/dL POC Glucose (mg/dL) 156 H 126 H 122 H (75-99) mg/dL Calcium (8.4-10.2) mg/dL 06/30/19 06/30/19 06/30/19 Range/Units 05:33 05:33 06:33 RBC 3.11 L (3.80-5.40) m/uL Hgb 10.6 L (11.4-16.0) gm/dL MCV 110.1 H (80.0-100.0) fL MCHC 30.9 L (31.0-37.0) g/dL RDW 16.2 H (11.5-15.5) % Plt Count 128 L (150-450) k/uL Macrocytosis Marked A BUN 39 H (7-17) mg/dL Creatinine 4.07 H (0.52-1.04) mg/dL Glucose 128 H (74-99) mg/dL POC Glucose (mg/dL) 155 H (75-99) mg/dL Calcium 8.0 L (8.4-10.2) mg/dL 06/30/19 Range/Units 11:48 RBC (3.80-5.40) m/uL Hgb (11.4-16.0) gm/dL MCV (80.0-100.0) fL MCHC (31.0-37.0) g/dL RDW (11.5-15.5) % Plt Count (150-450) k/uL Macrocytosis BUN (7-17) mg/dL Creatinine (0.52-1.04) mg/dL Glucose (74-99) mg/dL POC Glucose (mg/dL) 211 H (75-99) mg/dL Calcium (8.4-10.2) mg/dL Microbiology - Last 24 Hours (Table) 06/27/19 10:35 Blood Culture - Preliminary Blood No Growth after 48 hours Assessment and Plan Plan: Assessment: 1. End-stage renal disease maintained on hemodialysis on Friday schedule. She has a right upper extremity AV graft. 2. Possible pneumonia maintained on antibiotics. Infectious disease following. 3. Hypotension due to sepsis. Maintained on midodrine. Stable. 4. Insulin-dependent diabetes mellitus. 5. Chronic kidney disease mineral bone disease maintained on PhosLo. 6. Chronic systolic CHF with ejection fraction of 40-45% with severe tricuspid regurgitation. Plan: Hemodialysis tomorrow. Follow-up cultures. Vancomycin discontinued.
--- NOTE | 2019-06-30 12:11 | P.PN ---
Subjective Progress Note Date: 06/30/19 (delayed charting seen at 1020) Principal diagnosis: Confusion Patient is a 69-year-old female with a complex past medical history including insulin-dependent diabetes mellitus type 2, end-stage renal disease on hemodialysis Friday, , Friday, pacemaker implantation, right AKA, and atrial fibrillation who presented to the hospital secondary to altered mentation and weakness. In the emergency department she was found to be hypotensive with a blood pressure of 80/40 and she was started on IV fluids. She was also found to be febrile. Chest x-ray showed left basilar airspace disease. Her coronavirus was negative. She was found have a white blood cell count of 16.8, hemoglobin 11.6, platelets 114, lactic acid 2.9. The remainder of her left are consistent with chronic renal disease. She was diagnosed with pneumonia and sepsis, she was started on IV fluids secondary to her lactic acid. She was admitted for further monitoring. She was seen by infectious disease who recommended Zosyn and vancomycin for her pneumonia. Nephrology was consulted. Cardiology was consulted. By the morning of 06/27 her white blood cell count has some improved and she was much more awake and alert. She underwent an echo which showed ejection fraction of 40-45% which was decreased from prior in 2016. She continued to improve throughout her hospital stay. Patient seen and examined at bedside. Feeling well today. States that she has had gallbladder issues in the past, however no surgeons have wanted to undergo cholecystectomy secondary to her "fragile" medical state. She is well aware of known gallbladder issues. She does admit that she felt as though she had a pneumonia coming on and she has had some cough and congestion. Objective - Vital Signs Vital signs: Vital Signs Temp 98.0 F 06/30/19 07:42 Pulse 66 06/30/19 07:42 Resp 16 06/30/19 07:42 BP 109/54 06/30/19 07:42 Pulse Ox 97 06/30/19 07:42 Intake & Output 06/29/19 06/30/19 06/30/19 18:59 06:59 18:59 Intake Total 330 570 240 Output Total 2300 Balance -1970 570 240 Weight 100 kg Intake: IV 30 Invasive Line 2 30 Intake, IV Titration 450 Amount Piperacillin-Tazobactam 3 200 .375 gm In Sodium Chloride 0.9% 100 ml @ 25 mls/hr IVPB Q12H [facility] Rx# :[id number] Vancomycin 1,500 mg In 250 Sodium Chloride 0.9% 250 ml @ 125 mls/hr IVPB ONCE ONE Rx#:[id number] Oral 120 240 Hemodialysis 300 Output: Hemodialysis 2300 Other: Voiding Method CAPD # Voids 0 # Bowel Movements 1 - Exam General: Nontoxic, no distress, appears at stated age, obese Dermatologic: Multiple areas of ecchymoses, some areas all open wounds on hands Head: atraumatic, normocephalic, symmetric Eyes: EOMI, no lid lag, anicteric sclera Mouth: no lip lesion, mucus membranes moist Cardiovascular: S1S2 reg, no murmur, diminished posterior tibial pulse left, AKA on the right, Lungs: Decreased breath sounds bilateral, no rhonchi, no rales , no accessory muscle use Abdominal: soft, nontender to palpation, no guarding, no appreciable org anomegaly Ext: no gross muscle atrophy, 1+ edema left lower extremity, no contractures Neuro: CN II-XI grossly intact, no focal neuro deficits Psych: Alert, oriented, appropriate affect - Labs CBC & Chem 7: 06/30/19 05:33 06/30/19 05:33 Labs: Abnormal Lab Results - Last 24 Hours (Table) 06/29/19 06/29/19 06/29/19 Range/Units 11:56 17:05 21:11 RBC (3.80-5.40) m/uL Hgb (11.4-16.0) gm/dL MCV (80.0-100.0) fL MCHC (31.0-37.0) g/dL RDW (11.5-15.5) % Plt Count (150-450) k/uL Macrocytosis BUN (7-17) mg/dL Creatinine (0.52-1.04) mg/dL Glucose (74-99) mg/dL POC Glucose (mg/dL) 236 H 156 H 126 H (75-99) mg/dL Calcium (8.4-10.2) mg/dL 06/30/19 06/30/19 06/30/19 Range/Units 02:12 05:33 05:33 RBC 3.11 L (3.80-5.40) m/uL Hgb 10.6 L (11.4-16.0) gm/dL MCV 110.1 H (80.0-100.0) fL MCHC 30.9 L (31.0-37.0) g/dL RDW 16.2 H (11.5-15.5) % Plt Count 128 L (150-450) k/uL Macrocytosis Marked A BUN 39 H (7-17) mg/dL Creatinine 4.07 H (0.52-1.04) mg/dL Glucose 128 H (74-99) mg/dL POC Glucose (mg/dL) 122 H (75-99) mg/dL Calcium 8.0 L (8.4-10.2) mg/dL 06/30/19 Range/Units 06:33 RBC (3.80-5.40) m/uL Hgb (11.4-16.0) gm/dL MCV (80.0-100.0) fL MCHC (31.0-37.0) g/dL RDW (11.5-15.5) % Plt Count (150-450) k/uL Macrocytosis BUN (7-17) mg/dL Creatinine (0.52-1.04) mg/dL Glucose (74-99) mg/dL POC Glucose (mg/dL) 155 H (75-99) mg/dL Calcium (8.4-10.2) mg/dL Microbiology - Last 24 Hours (Table) 06/27/19 10:35 Blood Culture - Preliminary Blood No Growth after 48 hours Assessment and Plan Assessment: Pneumonia with sepsis, possible gram-negative -ID recommendations appreciated: Zosyn -vanco stopped on 06/28. -Gallbladder US ordered -IV fluids completed -Follow chest x-rays until clear -Sputum cultures if able -Blood cultures negative to date -Pulmonary hygiene -Procalcitonin 10.4 consistent with bacterial pneumonia Acute on chronic systolic CHF with EF 40-45% - fluid overload exacerbtion by fluids required for sepsis - on midodrine due to hypotension at baseline - metoprolol on hold due to hypotension - no ACEI due to hypotension - cardio recs Diabetes mellitus type 2 insulin requiring with hyperglycemia - due to stress dose steroids - levemir - SSI and fixed dose - A1C 6.8 Sick sinus syndrome status post permanent pacemaker implantation, persistent atrial fibrillation -Cardiology recommendations appreciated - xarelto - amiodarone ESRD with bone mineral disease - nephro consulted - T//Fri schedule - HD tomorrow - phoslo Thrombocytopenia, reactive - follow CBC Toxic metabolic encephalopathy, improved Chronic: COPD Hypothyroidism Gout Osteoporosis Anemia of chronic renal failure DVT prophylaxis: xarelto Discussed with: patient, nursing Anticipated discharge: in AM if GB US negative and CXR improved Anticipated discharge place: home health A total of 25 minutes was spent on the care of this complex patient more than 50% of the time was spent in counseling and care coordination.
[2019-06-30 12:45] LABS: Ferritin 1906.9 ng/mL (10.0-291.0)
--- NOTE | 2019-06-30 15:31 | CONS ---
JEFERSON Avilez is a 69-year-old lady with end-stage renal disease on hemodialysis, bradycardia status post permanent pacemaker, who is admitted to hospital with syncope. Her pacemaker had been evaluated on this admission and is functioning normally. She is doing much better today, did not have any . Denies chest pain or difficulty in breathing. PHYSICAL EXAM: Comfortable at rest. Vital signs are stable. Chest exam reveals diminished air entry at the bases. Heart exam reveals first and second heart sounds. No gallop. Exam of the extremities did not reveal any edema. LABS: Show a hemoglobin of 10.6, potassium is 4, creatinine is 4. ASSESSMENT: 1. Syncope probably related to the underlying medical problems. 2. Bradycardia, status post permanent pacemaker. PLAN: Patient is doing well. Hopefully home tomorrow. MMODL / IJN: [id number] /
--- NOTE | 2019-06-30 16:01 | US ---
EXAMINATION TYPE: US gallbladder DATE OF EXAM: 06/30/2019 COMPARISON: NONE CLINICAL HISTORY: nausea and vomiting. Nausea and vomiting EXAM MEASUREMENTS: Liver Length: 23.0 cm Gallbladder Wall: 0.4 cm CBD: 0.4 cm Right Kidney: 10.9 x 4.7 x 4.8 cm Pancreas: hypoechoic area noted = 2.4 x 1.2 x 1.8cm, possibly adjacent to body Liver: enlarged Gallbladder: multiple stones, thickened GB wall at 0.4 cm. Normal less than 0.3 cm Evidence for sonographic Leija's sign: yes CBD: appears wnl Right Kidney: thin renal cortex, perinephric fat noted anterior mid/inferior pole IMPRESSION: 1. Cholelithiasis. Correlate for acute cholecystitis
--- NOTE | 2019-06-30 16:51 | PN ---
PROGRESS NOTE DATE OF SERVICE: 06/30/2019 REASON FOR FOLLOWUP: Fever with question of pneumonia versus gallbladder disease. INTERVAL HISTORY: The patient is currently afebrile, patient is breathing comfortably. Denies having any chest pain. No shortness of breath. Occasional cough. No further vomiting. PHYSICAL EXAMINATION: Blood pressure 110/62 with a pulse of 79, temperature 97.4. She is 93% on room air. General description is an elderly female, up in the bed in no distress. RESPIRATORY SYSTEM: Unlabored breathing, clear to auscultation anteriorly. HEART: S1, S2. Regular rate and rhythm. ABDOMEN: Soft, no tenderness. No guarding, no rigidity. LABS: Hemoglobin 10.8, white count of 9.2, BUN of 39, creatinine 1.07. Blood culture has been negative. Ultrasound suspicious for cholecystitis. DIAGNOSTIC IMPRESSION AND PLAN: Patient admitted to hospital with a fever with initial concern for possible pneumonia, clinically not behaving as pneumonia. Ultrasound was requested, completed today showing possible cholecystitis. Will benefit from Surgery evaluation. The patient on Zosyn to continue and monitor clinical course closely. MMODL / IJN: [id number] /
[2019-06-30 16:52] LABS: Glucose,Whole Blood 353 mg/dL (75-99)
[2019-06-30] MEDS: RIVAROXABAN 15 MG TAB PO SCH (17:24)
[2019-06-30] MEDS: CALCIUM ACETATE 667 MG TAB PO SCH (17:24)
[2019-06-30 20:51] LABS: Glucose,Whole Blood 257 mg/dL (75-99)
[2019-06-30] MEDS: AMITRIPTYLINE HCL 50 MG TAB PO SCH (20:51)
[2019-06-30] MEDS: INSULIN DETEMIR (LEVEMIR) 100 UNIT/ML SYR SQ SCH (20:51)
[2019-06-30] MEDS: ATORVASTATIN 40 MG TAB PO SCH (20:51)
[2019-07-01 02:06] LABS: Glucose,Whole Blood 154 mg/dL (75-99)
[2019-07-01] MEDS: LEVOTHYROXINE 100 MCG TAB PO SCH (06:22)
[2019-07-01] MEDS: MIDODRINE 5 MG TAB PO SCH ×3 (06:22→17:44)
[2019-07-01 07:09] LABS: Glucose,Whole Blood 163 mg/dL (75-99)
[2019-07-01] MEDS: INSULIN ASPART (NovoLOG) 100 UNIT/ML VIAL SQ SCH ×3 (07:35→17:44)
--- NOTE | 2019-07-01 07:58 | XR ---
EXAMINATION TYPE: XR chest 1V portable DATE OF EXAM: 07/01/2019 COMPARISON: Prior chest x-ray 06/29/2019, 10/21/2018 HISTORY: Pneumonia TECHNIQUE: Single frontal view of the chest is obtained. FINDINGS: Patient is rotated. Postprocedural changes are stable. Heart size is unchanged. No evident pneumothorax or pleural effusion. Left hilar region appears prominently. Suspect rib fracture the si xth rib, as a contour abnormality similar to prior exam, this may represent an old healed fracture. T here are overlying cardiac leads. IMPRESSION: Findings are similar to previous exams. Cardiomegaly. Prominence of left hilar region is chronic. Rotation of the exam, postprocedural changes.
[2019-07-01] MEDS: ALLOPURINOL 100 MG TAB PO SCH (09:19)
[2019-07-01] MEDS: MAGNESIUM OXIDE 400 MG TAB PO SCH (09:19)
[2019-07-01] MEDS: PANTOPRAZOLE 40 MG TABLET PO SCH (09:19)
[2019-07-01] MEDS: FOLIC ACID-VIT B COMPLEX-VIT C 1 CAP PO SCH (11:09)
[2019-07-01 12:02] LABS: Glucose,Whole Blood 165 mg/dL (75-99)
--- NOTE | 2019-07-01 12:25 | P.PN ---
Subjective Patient is seen in follow-up for end-stage renal disease. Tolerating oral intake. No vomiting or diarrhea. Vital signs are stable. General: The patient appeared well nourished and normally developed. HEENT: Head exam is unremarkable. Neck is without jugular venous distension. LUNGS: Lungs are clear to auscultation and percussion. Breath sounds decreased. HEART: Rate and Rhythm are regular. First and second heart sounds normal. No murmurs, rubs or gallops. ABDOMEN: Soft, nontender. Obese. EXTREMITITES: No edema. Amputation noted. Objective - Vital Signs Vital signs: Vital Signs Temp 97.7 F 07/01/19 11:25 Pulse 72 07/01/19 11:25 Resp 16 07/01/19 11:25 BP 95/53 07/01/19 11:25 Pulse Ox 95 07/01/19 11:25 Intake & Output 06/30/19 07/01/19 07/01/19 18:59 06:59 18:59 Intake Total 940 250 240 Balance 940 250 240 Intake: Intake, IV Titration 100 100 0 Amount Piperacillin-Tazobactam 3 100 100 0 .375 gm In Sodium Chloride 0.9% 100 ml @ 25 mls/hr IVPB Q12H [facility] Rx# :[id number] Oral 840 150 240 Other: Voiding Method CAPD CAPD CAPD # Voids 0 0 0 # Bowel Movements 0 0 - Labs CBC & Chem 7: 06/30/19 05:33 06/30/19 05:33 Labs: Abnormal Lab Results - Last 24 Hours (Table) 06/30/19 06/30/19 06/30/19 Range/Units 05:33 16:49 20:50 POC Glucose (mg/dL) 353 H 257 H (75-99) mg/dL Ferritin 1906.9 H (10.0-291.0) ng/mL 07/01/19 07/01/19 07/01/19 Range/Units 02:05 07:08 11:58 POC Glucose (mg/dL) 154 H 163 H 165 H (75-99) mg/dL Ferritin (10.0-291.0) ng/mL Microbiology - Last 24 Hours (Table) 06/27/19 10:35 Blood Culture - Preliminary Blood No Growth after 72 hours Assessment and Plan Plan: Assessment: 1. End-stage renal disease maintained on hemodialysis on Friday schedule. She has a right upper extremity AV graft. 2. Possible pneumonia maintained on antibiotics. Infectious disease following. Concern for cholecystitis. Surgery has been consulted. 3. Chronic hypotension maintained on midodrine. 4. Insulin-dependent diabetes mellitus. 5. Chronic kidney disease mineral bone disease maintained on PhosLo. 6. Chronic systolic CHF with ejection fraction of 40-45% with severe tricuspid regurgitation. Plan: Currently seen while undergoing hemodialysis. Follow-up cultures. Vancomycin discontinued.
[2019-07-01] MEDS ORDERED: MIDODRINE 5 MG TAB PO ONE (12:55)
--- NOTE | 2019-07-01 13:41 | P.PN ---
Subjective Progress Note Date: 07/01/19 This is a 69-year-old female with history of diabetes, end-stage renal disease on hemodialysis, prior pacemaker implantation, right AKA, atrial fibrillation, who presented to the hospital with altered mentation and weakness, she was found to be hypotensive on presentation here and also had a near syncopal episode. Her pacemaker was interrogated, functioning appropriately. Blood pressure 95/50 with a heart rate in the 70s, 95% on room air. Objective - Vital Signs Vital signs: Vital Signs Temp 97.7 F 07/01/19 11:25 Pulse 72 07/01/19 11:25 Resp 16 07/01/19 11:25 BP 95/53 07/01/19 11:25 Pulse Ox 95 07/01/19 11:25 Intake & Output 06/30/19 07/01/19 07/01/19 18:59 06:59 18:59 Intake Total 940 250 240 Balance 940 250 240 Intake: Intake, IV Titration 100 100 0 Amount Piperacillin-Tazobactam 3 100 100 0 .375 gm In Sodium Chloride 0.9% 100 ml @ 25 mls/hr IVPB Q12H [facility] Rx# :[id number] Oral 840 150 240 Other: Voiding Method CAPD CAPD CAPD # Voids 0 0 0 # Bowel Movements 0 0 - Exam General: Ill appearing, no distress, appears at stated age, obese Dermatologic: Multiple areas of ecchymoses, some areas all open wounds on hands Head: atraumatic, normocephalic, symmetric Eyes: EOMI, no lid lag, anicteric sclera Mouth: no lip lesion, mucus membranes moist Cardiovascular: S1S2 reg, no murmur, diminished posterior tibial pulse left, AKA on the right, Lungs: Decreased breath sounds bilateral, no rhonchi, no rales , no accessory muscle use Abdominal: soft, nontender to palpation, no guarding, no appreciable organomegaly Ext: no gross muscle atrophy, 1+ edema left lower extremity, no contractures Neuro: CN II-XI grossly intact, no focal neuro deficits Psych: Alert, oriented, appropriate affect - Labs CBC & Chem 7: 06/30/19 05:33 06/30/19 05:33 Labs: Abnormal Lab Results - Last 24 Hours (Table) 06/30/19 06/30/19 07/01/19 Range/Units 16:49 20:50 02:05 POC Glucose (mg/dL) 353 H 257 H 154 H (75-99) mg/dL 07/01/19 07/01/19 Range/Units 07:08 11:58 POC Glucose (mg/dL) 163 H 165 H (75-99) mg/dL Microbiology - Last 24 Hours (Table) 06/27/19 10:35 Blood Culture - Preliminary Blood No Growth after 96 hours Assessment and Plan Plan: Assessment and plan #1 pneumonia with sepsis #2 systolic congestive heart failure acute on chronic #3 near-syncope, pacemaker was interrogated and is functioning appropriately #4 diabetes #5 hyperlipidemia #6 end-stage renal disease #7 COPD #8 GERD #9 persistent atrial fibrillation, on Xarelto for anticoagulation Plan From cardiology's perspective, we'll recommend to continue this patient on her current medications. She may be able to be discharged home once cleared by primary. DNP note has been reviewed, I agree with a documented findings and plan of care. Patient was seen and examined.
--- NOTE | 2019-07-01 16:03 | P.GSCN ---
History of Present Illness Consult date: 07/01/19 Reason for Consult: Cholecystitis Requesting physician: Demian De La Rosa History of present illness: CHIEF COMPLAINT: Cholecystitis HISTORY OF PRESENT ILLNESS: 69-year-old female who was admitted to the hospital secondary to sepsis and pneumonia. Patient had an abdominal ultrasound performed revealing gallstones and a thickened gallbladder wall. General surgery was consulted for further evaluation. It is noted that the patient is on Xarelto for atrial fibrillation. PAST MEDICAL HISTORY: See list. PAST SURGICAL HISTORY: See list. SOCIAL HISTORY: No illicit drug use. REVIEW OF SYSTEMS: CONSTITUTIONAL: Denies fever or chills. HEENT: Denies blurred vision, vision changes, or eye pain. Denies hemoptysis CARDIOVASCULAR: Denies chest pain or pressure. RESPIRATORY: No shortness of breath. GASTROINTESTINAL: Refer to HPI for pertinent findings HEMATOLOGIC: Denies bleeding disorders. GENITOURINARY: Denies any blood in urine. SKIN: Denies pruitis. Denies rash. PHYSICAL EXAM: VITAL SIGNS: Reviewed. GENERAL: Well-developed in no acute distress. HEENT: No sclera icterus. Extraocular movements grossly intact. Moist buccal mucosa. Head is atraumatic, normocephalic. ABDOMEN: Soft. Nondistended. Nontender. NEUROLOGIC: Alert and oriented. Cranial nerves II through XII grossly intact. LABORATORY DATA: WBC 9.0. Hemoglobin 10.6. Platelet count 128. Bilirubin 0.5. AST 33. ALT 20. IMAGING: Abdominal ultrasound revealing gallstones and thickened gallbladder wall ASSESSMENT: 1. Chronic cholecystitis PLAN: Recommend lap alison when medically stable Will continue Xarelto at this time. However, this will need to be held for 24-48 hours prior to any surgical intervention Continue diet as tolerated. Modify diet to low fat. Nurse practitioner note has been reviewed by physician. Signing provider agrees with the documented findings, assessment, and plan of care. 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 rt bka 02/01; right arm fistula 07/06 Past Anesthesia/Blood Transfusion Reactions: No Reported Reaction Additional Past Anesthesia/Blood Transfusion Reaction / Comm: HAD BLOOD TRANFUSIONS WITHOUT COMPLICATION Type of Cardiac Device: Permanent Pacemaker Device Placement Date:: 2008 Past Psychological History: Anxiety, Depression Smoking Status: Never smoker Past Alcohol Use History: None Reported Additional Past Alcohol Use History / Comment(s): Patient is a lifelong nonsmoker. She denies any medical marijuana, marijuana, street drug or alcohol use. She lives at home with her adult son. There is 1 dog in the home. Past Drug Use History: None Reported - Past Family History Father Family Medical History: Hypertension Additional Family Medical History / Comment(s): Father at age 56 from lung cancer. Mother Family Medical History: Cancer Additional Family Medical History / Comment(s): Mother at age 56 from lung cancer. Brother(s) Family Medical History: Diabetes Mellitus, Renal Disease Additional Family Medical History / Comment(s): Patient has 2 brothers. One at age 45 from myocardial infarction with history of heart defect from . Second brother is alive at age 59 with history of coronary artery disease and diabetes, bone marrow transplant Sister(s) Additional Family Medical History / Comment(s): Patient has a sister age 57 alive with history of diabetes and spina bifida. Daughter(s) Family Medical History: No Reported History Additional Family Medical History / Comment(s): Pre-diabetes Medications and Allergies Home Medications Medication Instructions Recorded Confirmed Type Allopurinol [Zyloprim] 100 mg PO DAILY 08/16/06/27/19 History Amiodarone HCl [Pacerone] 200 mg PO DAILY 08/16/13 06/27/19 History INSULIN ASPART (NovoLOG) [NovoLOG 10 unit SQ AC-TID 02/05/18 06/27/19 History (formulary)] Atorvastatin [Lipitor] 40 mg PO HS 02/06/18 06/27/19 History Insulin Glargine,Hum.rec.anlog 25 unit SQ HS 02/06/18 06/27/19 History [Basaglar Kwikpen U-100] Amitriptyline HCl [Elavil] 50 mg PO HS 05/15/18 06/27/19 History Levothyroxine Sodium [Synthroid] 100 mcg PO DAILY 05/15/18 06/27/19 History Metoprolol Succinate (ER) [Toprol 12.5 mg PO DAILY 05/15/18 06/27/19 History XL] Calcium Acetate [PhosLo] 667 mg PO DAILY 10/20/18 06/27/19 History Justine Kacy 1 tab PO DAILY 10/20/18 06/27/19 History Isosorbide Mononitrate ER [Imdur] 30 mg PO DAILY 06/27/19 06/27/19 History Midodrine [ProAmatine] 5 mg PO DIRECTED PRN 06/27/19 06/27/19 History Rivaroxaban [Xarelto] 15 mg PO DAILY 06/27/19 06/27/19 History Allergies Allergy/AdvReac Type Severity Reaction Status Date / Time meperidine HCl [From Demerol] AdvReac Nausea & Verified 06/28/19 09:47 Vomiting & Diarrhea Surgical - Exam Vital Signs Temp Pulse Resp BP Pulse Ox 100.5 F H 94 18 90/52 98 06/27/19 09:57 06/27/19 09:57 06/27/19 09:57 06/27/19 09:57 06/27/19 09:57 Results - Labs 06/30/19 05:33 06/30/19 05:33 Abnormal Lab Results - Last 24 Hours (Table) 06/30/19 06/30/19 07/01/19 Range/Units 16:49 20:50 02:05 POC Glucose (mg/dL) 353 H 257 H 154 H (75-99) mg/dL 07/01/19 07/01/19 Range/Units 07:08 11:58 POC Glucose (mg/dL) 163 H 165 H (75-99) mg/dL Microbiology - Last 24 Hours (Table) 06/27/19 10:35 Blood Culture - Preliminary Blood No Growth after 96 hours
[2019-07-01] MEDS: PIPERACILLIN-TAZOBACTAM 3.375 GM in SODIUM CHLORIDE 0.9% 100 ML IVPB SCH ×2 (16:20→23:50)
--- NOTE | 2019-07-01 16:26 | P.PN ---
Progress Note - Text Progress Note Date: 07/01/19 presenting complaint: Confusion Interval history: Patient is a 69-year-old female with a complex past medical history including insulin-dependent diabetes mellitus type 2, end-stage renal disease on hemodialysis Friday, , Friday, pacemaker implantation, right AKA, and atrial fibrillation who presented to the hospital secondary to altered mentation and weakness. In the emergency department she was found to be hypotensive with a blood pressure of 80/40 and she was started on IV fluids. She was also found to be febrile. Chest x-ray showed left basilar airspace disease. Her coronavirus was negative. She was found have a white blood cell count of 16.8, hemoglobin 11.6, platelets 114, lactic acid 2.9. The remainder of her left are consistent with chronic renal disease. She was diagnosed with pneumonia and sepsis, she was started on IV fluids secondary to her lactic acid. She was admitted for further monitoring. She was seen by infectious disease who recommended Zosyn and vancomycin for her pneumonia. Nephrology was consulted. Cardiology was consulted. By the morning of 06/27 her white blood cell count has some improved and she was much more awake and alert. She underwent an echo which showed ejection fraction of 40-45% which was decreased from prior in 2016. She continued to improve throughout her hospital stay Admitted with a differential diagnosis of possible pneumonia the felt to be less likely and a possible source of infection from the gallbladder. Today-laying in bed. No nausea vomiting. No fever. Breathing is good. Getting hemodialysis. Review of systems: Was done for constitutional, cardiovascular, GI, pulmonary. relevant finding as above Active Medications Albuterol/Ipratropium (Duoneb 0.5 Mg-3 Mg/3 Ml Soln) 3 ml INHALATION RT-QID PRN PRN Reason: Shortness Of Breath Or Wheezing Allopurinol (Zyloprim) 100 mg PO DAILY [facility] Last Admin: 07/01/19 09:19 Dose: 100 mg Documented by: Amitriptyline HCl (Elavil) 50 mg PO [facility] Last Admin: 06/30/19 20:51 Dose: 50 mg Documented by: Atorvastatin Calcium (Lipitor) 40 mg PO [facility] Last Admin: 06/30/19 20:51 Dose: 40 mg Documented by: Calcium Acetate (Phoslo) 667 mg PO W/SUPPER [facility] Last Admin: 06/30/19 17:24 Dose: 667 mg Documented by: Piperacillin Sod/Tazobactam (Sod 3.375 gm/ Sodium Chloride) 100 mls @ 25 mls/hr IVPB Q12H [facility] Last Admin: 06/30/19 23:46 Dose: 25 mls/hr Documented by: Insulin Aspart (Novolog) 10 unit SQ AC-TID [facility] Last Admin: 07/01/19 07:35 Dose: 10 unit Documented by: Insulin Detemir (Levemir) 25 unit SQ HS [facility] Last Admin: 06/30/19 20:51 Dose: 25 unit Documented by: Levothyroxine Sodium (Synthroid) 100 mcg PO DAILY@0630 [facility] Last Admin: 07/01/19 06:22 Dose: 100 mcg Documented by: Magnesium Oxide (Mag-Ox) 400 mg PO DAILY [facility] Last Admin: 07/01/19 09:19 Dose: 400 mg Documented by: Midodrine (Proamatine) 5 mg PO AC-TID [facility] Last Admin: 07/01/19 12:23 Dose: 5 mg Documented by: Multivit/Ca Carb/B Cmplx/FA/Prenat (Nephrocaps) 1 each PO DAILY [facility] Last Admin: 07/01/19 11:09 Dose: 1 each Documented by: Pantoprazole Sodium (Protonix) 40 mg PO DAILY [facility] Last Admin: 07/01/19 09:19 Dose: 40 mg Documented by: Rivaroxaban (Xarelto) 15 mg PO W/SUPPER [facility] Last Admin: 06/30/19 17:24 Dose: 15 mg Documented by: VITAL SIGNS: 97.7, 72, 16, 95/53, 95% on room air GENERAL: BMI 40.3,, laying in bed comfortable EYES: Pupils equal. Conjunctiva normal. HEENT: External appearance of nose and ears normal, oral cavity grossly normal. NECK: Neck is short and thick, unable to assess JVD, mass-not palpable. HEART: Sounds irregular; no edema. LUNGS: Respiratory rate normal; decreased breath sounds. ABDOMEN: Soft, nontender, liver spleen not palpable, no masses palpable, right- sided abdominal wall hernia, nontender. PSYCH: Alert and oriented x3; mood and affect normal. NEUROLOGICAL: Cranial nerves grossly intact; no facial asymmetry, power and sensation grossly intact EXTREMITY: Right below-knee amputation. LYMPHATICS: No lymph nodes palpable in the axilla and neck INVESTIGATIONS, reviewed in the clinical context: white count 9 hemoglobin 10.6 platelets 128L4 bun 39 creatinine 4.07 ferritin 02/25/2005 abdominal ultrasound-showing multiple gallstones thickened gallbladder wall liver enlarged Previous testing: White count 16.8 hemoglobin 11.7 platelets 114 potassium 4.7 bun 20 creatinine 3.97 COVID-19 PCR not detected chest x-ray-left basilar airspace disease Assessment: -possibleLeft lower lobe pneumonia suspected gram-negative organism, POA -questionable cholecystitis with choledocholithiasis. Patient is no abdominal pain. -permanent pacemaker -morbid obesity BMI 40.3 -End-stage kidney disease on hemodialysis -Mineral bone disease with chronic kidney disease -Diabetes mellitus type 2, uncontrolled with hyperglycemia -Anemia of chronic kidney disease -Hypothyroidism -Diabetic peripheral neuropathy Plan: patient continued to get IV Zosyn. discussed with the patient. General surgery was consulted by Dr. De La Rosa from [place]. Other medications to continue.discussed with Dr. Noel and Dr. Miles. Patient has no abdominal pain or present time white count is down. No fever. completea course of antibiotics. Then electively have her gallbladder taken out.
[2019-07-01 17:04] LABS: Glucose,Whole Blood 135 mg/dL (75-99)
[2019-07-01] MEDS: RIVAROXABAN 15 MG TAB PO SCH (17:44)
[2019-07-01] MEDS: CALCIUM ACETATE 667 MG TAB PO SCH (17:44)
--- NOTE | 2019-07-01 18:46 | PN ---
PROGRESS NOTE DATE OF SERVICE: 07/01/2019 REASON FOR FOLLOWUP: Fever, likely secondary to acute cholecystitis. INTERVAL HISTORY: The patient is currently afebrile. The patient is breathing comfortably. Denies having any chest pain or cough. No further vomiting or abdominal pain. No diarrhea. PHYSICAL EXAMINATION: Blood pressure 131/67 with a pulse of 76, temperature 97.3. She is 97% on room air. General description is an elderly female lying in bed in no distress. RESPIRATORY SYSTEM: Unlabored breathing. Clear to auscultation anteriorly. HEART: S1, S2. Regular rate and rhythm. ABDOMEN: Soft. No tenderness. LABS: White count normal at 9.0. Blood culture has been negative. DIAGNOSTIC IMPRESSION AND PLAN: Patient with fever. Source is likely acute cholecystitis. Surgery has been consulted. Waiting for stabilization of the medical condition before any surgery. On Zosyn. Finish therapy with oral Augmentin. Discussed with the admitting physician. MMODL / IJN: [id number] /
[2019-07-01 20:46] LABS: Glucose,Whole Blood 185 mg/dL (75-99)
[2019-07-01] MEDS: INSULIN DETEMIR (LEVEMIR) 100 UNIT/ML SYR SQ SCH (21:00)
[2019-07-01] MEDS: AMITRIPTYLINE HCL 50 MG TAB PO SCH (21:00)
[2019-07-01] MEDS: ATORVASTATIN 40 MG TAB PO SCH (21:00)
[2019-07-02 01:57] LABS: Glucose,Whole Blood 104 mg/dL (75-99)
[2019-07-02 04:51] VITALS: RESP 16
[2019-07-02 06:02] LABS: Glucose,Whole Blood 96 mg/dL (75-99)
[2019-07-02] MEDS: LEVOTHYROXINE 100 MCG TAB PO SCH (06:05)
[2019-07-02] MEDS: MIDODRINE 5 MG TAB PO SCH ×2 (06:05→12:32)
[2019-07-02 07:05] LABS: Glucose,Whole Blood 75 mg/dL (75-99)
[2019-07-02] MEDS: INSULIN ASPART (NovoLOG) 100 UNIT/ML VIAL SQ SCH ×2 (09:10→12:31)
[2019-07-02] MEDS: FOLIC ACID-VIT B COMPLEX-VIT C 1 CAP PO SCH (09:11)
[2019-07-02] MEDS: PANTOPRAZOLE 40 MG TABLET PO SCH (09:11)
[2019-07-02] MEDS: ALLOPURINOL 100 MG TAB PO SCH (09:11)
[2019-07-02] MEDS: MAGNESIUM OXIDE 400 MG TAB PO SCH (09:11)
[2019-07-02 09:15] VITALS: BP 78/35; PULSE 66; TEMP 96.3
--- NOTE | 2019-07-02 11:11 | P.PN ---
Subjective Progress Note Date: 07/02/19 This is a 69-year-old female with history of diabetes, end-stage renal disease on hemodialysis, prior pacemaker implantation, right AKA, atrial fibrillation, who presented to the hospital with altered mentation and weakness, she was found to be hypotensive on presentation here and also had a near syncopal episode. Her pacemaker was interrogated, functioning appropriately. Blood pressure 95/50 with a heart rate in the 70s, 95% on room air. 07/02/2019 Patient underwent an abdominal ultrasound which revealed gallstones and thickened gallbladder wall, chronic cholecystitis. Surgical recommendation was to continue Xarelto at this time, possible lap alison when medically stable. Blood pressure 80/40 with a heart rate in the 60s, 100% on room air. Objective - Vital Signs Vital signs: Vital Signs Temp 96.3 F L 07/02/19 08:00 Pulse 66 07/02/19 08:00 Resp 16 07/02/19 08:00 BP 78/35 07/02/19 08:00 Pulse Ox 100 07/02/19 08:00 Intake & Output 07/01/19 07/02/19 07/02/19 18:59 06:59 18:59 Intake Total 360 840 240 Output Total 2000 0 Balance -1640 840 240 Weight 100.5 kg Intake: Intake, IV Titration 0 200 Amount Piperacillin-Tazobactam 3 0 200 .375 gm In Sodium Chloride 0.9% 100 ml @ 25 mls/hr IVPB Q12H [facility] Rx# :[id number] Oral 360 640 240 Output: Urine 0 Hemodialysis 2000 Other: Voiding Method CAPD CAPD CAPD # Voids 0 0 0 # Bowel Movements 0 2 - Exam General: Ill appearing, no distress, appears at stated age, obese Dermatologic: Multiple areas of ecchymoses, some areas all open wounds on hands Head: atraumatic, normocephalic, symmetric Eyes: EOMI, no lid lag, anicteric sclera Mouth: no lip lesion, mucus membranes moist Cardiovascular: S1S2 reg, no murmur, diminished posterior tibial pulse left, AKA on the right, Lungs: Decreased breath sounds bilateral, no rhonchi, no rales , no accessory muscle use Abdominal: soft, nontender to palpation, no guarding, no appreciable organomegaly Ext: no gross muscle atrophy, 1+ edema left lower extremity, no contractures Neuro: CN II-XI grossly intact, no focal neuro deficits Psych: Alert, oriented, appropriate affect - Labs CBC & Chem 7: 06/30/19 05:33 06/30/19 05:33 Labs: Abnormal Lab Results - Last 24 Hours (Table) 07/01/19 07/01/19 07/01/19 Range/Units 11:58 16:59 20:44 POC Glucose (mg/dL) 165 H 135 H 185 H (75-99) mg/dL 07/02/19 Range/Units 01:55 POC Glucose (mg/dL) 104 H (75-99) mg/dL Microbiology - Last 24 Hours (Table) 06/27/19 10:35 Blood Culture - Preliminary Blood No Growth after 96 hours Assessment and Plan Plan: Assessment and plan #1 pneumonia with sepsis #2 systolic congestive heart failure acute on chronic #3 near-syncope, pacemaker was interrogated and is functioning appropriately #4 diabetes #5 hyperlipidemia #6 end-stage renal disease #7 COPD #8 GERD #9 persistent atrial fibrillation, on Xarelto for anticoagulation #10 chronic cholecystitis Plan From cardiology's perspective, we'll recommend to continue this patient on her current medications. She may be able to be discharged home once cleared by primary. DNP note has been reviewed, I agree with a documented findings and plan of care. Patient was seen and examined.
[2019-07-02 11:39] LABS: Glucose,Whole Blood 102 mg/dL (75-99)
[2019-07-02 12:25] VITALS: BMI 40.5
--- NOTE | 2019-07-02 12:56 | P.PN ---
Subjective Patient is seen in follow-up for end-stage renal disease. Tolerating oral intake. No vomiting or diarrhea. No abdominal pain. Vital signs are stable. General: The patient appeared well nourished and normally developed. HEENT: Head exam is unremarkable. Neck is without jugular venous distension. LUNGS: Lungs are clear to auscultation and percussion. Breath sounds decreased. HEART: Rate and Rhythm are regular. ABDOMEN: Soft, nontender. Obese. EXTREMITITES: No edema. Amputation noted. Objective - Vital Signs Vital signs: Vital Signs Temp 96.3 F L 07/02/19 08:00 Pulse 66 07/02/19 08:00 Resp 16 07/02/19 11:14 BP 78/35 07/02/19 08:00 Pulse Ox 100 07/02/19 08:00 Intake & Output 07/01/19 07/02/19 07/02/19 18:59 06:59 18:59 Intake Total 360 840 240 Output Total 2000 0 Balance -1640 840 240 Weight 100.5 kg 100.5 kg Intake: Intake, IV Titration 0 200 Amount Piperacillin-Tazobactam 3 0 200 .375 gm In Sodium Chloride 0.9% 100 ml @ 25 mls/hr IVPB Q12H [facility] Rx# :[id number] Oral 360 640 240 Output: Urine 0 Hemodialysis 2000 Other: Voiding Method CAPD CAPD CAPD # Voids 0 0 0 # Bowel Movements 0 2 - Labs CBC & Chem 7: 06/30/19 05:33 06/30/19 05:33 Labs: Abnormal Lab Results - Last 24 Hours (Table) 07/01/19 07/01/19 07/02/19 Range/Units 16:59 20:44 01:55 POC Glucose (mg/dL) 135 H 185 H 104 H (75-99) mg/dL 07/02/19 Range/Units 11:37 POC Glucose (mg/dL) 102 H (75-99) mg/dL Microbiology - Last 24 Hours (Table) 06/27/19 10:35 Blood Culture - Preliminary Blood No Growth after 120 hours Assessment and Plan Plan: Assessment: 1. End-stage renal disease maintained on hemodialysis on Friday schedule. She has a right upper extremity AV graft. 2. Possible pneumonia maintained on antibiotics. Infectious disease following. Concern for cholecystitis. Surgery has been consulted. 3. Chronic hypotension maintained on midodrine. 4. Insulin-dependent diabetes mellitus. 5. Chronic kidney disease mineral bone disease maintained on PhosLo. 6. Chronic systolic CHF with ejection fraction of 40-45% with severe tricuspid regurgitation. 7. Chronic cholecystitis. Surgery following. Plan: Hemodialysis tomorrow. Stable to be discharged home from nephrology standpoint.
--- NOTE | 2019-07-02 13:45 | P.PN ---
Subjective Progress Note Date: 07/02/19 CHIEF COMPLAINT: Cholecystitis HISTORY OF PRESENT ILLNESS: Patient examined at the bedside with Dr. Miles. She denies abdominal pain. Tolerating diet. denies vomiting. Patient is hypotensive this morning. Afebrile. PHYSICAL EXAM: VITAL SIGNS: Reviewed. GENERAL: Well-developed in no acute distress. HEENT: No sclera icterus. Extraocular movements grossly intact. Moist buccal mucosa. Head is atraumatic, normocephalic. ABDOMEN: Soft. Nondistended. Nontender. NEUROLOGIC: Alert and oriented. Cranial nerves II through XII grossly intact. ASSESSMENT: 1. Chronic cholecystitis PLAN: Recommend lap alison when medically stable. Patient may follow up with Dr. Miles outpatient post discharge. Continue low-fat diet We will sign off. Please reconsult if needed Nurse practitioner note has been reviewed by physician. Signing provider agrees with the documented findings, assessment, and plan of care. Objective - Vital Signs Vital signs: Vital Signs Temp 96.3 F L 07/02/19 08:00 Pulse 66 07/02/19 08:00 Resp 16 07/02/19 08:00 BP 78/35 07/02/19 08:00 Pulse Ox 100 07/02/19 08:00 Intake & Output 07/01/19 07/02/19 07/02/19 18:59 06:59 18:59 Intake Total 360 840 Output Total 2000 Balance -1640 840 Weight 100.5 kg Intake: Intake, IV Titration 0 200 Amount Piperacillin-Tazobactam 3 0 200 .375 gm In Sodium Chloride 0.9% 100 ml @ 25 mls/hr IVPB Q12H [facility] Rx# :[id number] Oral 360 640 Output: Hemodialysis 1999 Other: Voiding Method CAPD CAPD # Voids 0 0 # Bowel Movements 0 2 - Labs CBC & Chem 7: 06/30/19 05:33 06/30/19 05:33 Labs: Abnormal Lab Results - Last 24 Hours (Table) 07/01/19 07/01/19 07/01/19 Range/Units 11:58 16:59 20:44 POC Glucose (mg/dL) 165 H 135 H 185 H (75-99) mg/dL 07/02/19 Range/Units 01:55 POC Glucose (mg/dL) 104 H (75-99) mg/dL Microbiology - Last 24 Hours (Table) 06/27/19 10:35 Blood Culture - Preliminary Blood No Growth after 96 hours
--- NOTE | 2019-07-02 14:29 | PN ---
PROGRESS NOTE DATE OF SERVICE: 07/02/2019 REASON FOR FOLLOWUP: Acute fever and acute cholecystitis. INTERVAL HISTORY: The patient is currently afebrile. Patient is breathing comfortably. Denies having any chest pain, shortness of breath or cough. No abdominal pain. No further nausea or vomiting. On examination, blood pressure is 98/55 with a pulse of 73, temperature of 96.8. She is 100% on room air. General description: The patient is an elderly female up in the bed in no distress. Respiratory system: Unlabored breathing. Decreased breath sounds at bases. No wheeze. Heart S1, S2. Regular rate and rhythm. Abdomen soft, no tenderness. LABS: No new labs have been obtained today. DIAGNOSTIC IMPRESSION AND PLAN: Patient with fever, vomiting, source likely acute cholecystitis. Surgery recommended medical treatment at this point. Overall improvement with Zosyn. Continue with Augmentin when stable medically and continue supportive care. MMODL / IJN: [id number] /
--- NOTE | 2019-07-02 22:33 | P.DS ---
Providers Date of admission: 06/27/19 12:03 Expected date of discharge: 07/02/19 Attending physician: Sadiq Fairchild Consults: 06/27/19 12:04 Consult Physician Urgent Consulting Provider: Marquise Linares Consult Reason/Comments: Dialysis Do you want consulting provider notified?: Yes 06/27/19 16:13 Consult Physician Routine Consulting Provider: Davy Bowman Consult Reason/Comments: heart failure Do you want consulting provider notified?: Yes 06/27/19 16:14 Consult Physician Routine Consulting Provider: Demian De La Rosa Consult Reason/Comments: Pneumonnia Do you want consulting provider notified?: Yes 06/27/19 16:29 Consult Physician Routine Consulting Provider: Herbert Lazo Consult Reason/Comments: abnormal pacing of pacemaker Do you want consulting provider notified?: Yes Primary care physician: [facility] Course: presenting complaint: Confusion Interval history: Patient is a 69-year-old female with a complex past medical history i ncluding insulin-dependent diabetes mellitus type 2, end-stage renal disease on hemodialysis Friday, , Friday, pacemaker implantation, right AKA, and atrial fibrillation who presented to the hospital secondary to altered mentation and weakness. In the emergency department she was found to be hypotensive with a blood pressure of 80/40 and she was started on IV fluids. She was also found to be febrile. Chest x-ray showed left basilar airspace disease. Her coronavirus was negative. She was found have a white blood cell count of 16.8, hemoglobin 11.6, platelets 114, lactic acid 2.9. The remainder of her left are consistent with chronic renal disease. She was diagnosed with pneumonia and sepsis, she was started on IV fluids secondary to her lactic acid. She was admitted for further monitoring. She was seen by infectious disease who recommended Zosyn and vancomycin for her pneumonia. Nephrology was consulted. Cardiology was consulted. By the morning of 06/27 her white blood cell count has some improved and she was much more awake and alert. She underwent an echo which showed ejection fraction of 40-45% which was decreased from prior in 2016. She continued to improve throughout her hospital stay Admitted with a differential diagnosis of possible pneumonia the felt to be less likely and a possible source of infection from the gallbladder. Discussed with Dr. Bhesania Dr. Rj. Patient did complete a course of antibiotic. Outpatient cholecystectomy. Today-feeling well. Sitting up. Did tolerate her diet. No fever no chills. Consultation: Dr. Miles from general surgery Dr. Noel from ID VITAL SIGNS:96.3, 66, 16, 78/35, 100% on room air GENERAL: BMI 40.3,, sitting at the edge of the bed, comfortable EYES: Pupils equal. Conjunctiva normal. HEENT: External appearance of nose and ears normal, oral cavity grossly normal. NECK: Neck is short and thick, unable to assess JVD, mass-not palpable. HEART: Sounds irregular; no edema. LUNGS: Respiratory rate normal; decreased breath sounds. ABDOMEN: Soft, nontender, liver spleen not palpable, no masses palpable, right- sided abdominal wall hernia, nontender. PSYCH: Alert and oriented x3; mood and affect normal. EXTREMITY: Right below-knee amputation. INVESTIGATIONS, reviewed in the clinical context: white count 9 hemoglobin 10.6 platelets 128L4 bun 39 creatinine 4.07 ferritin 02/25/2005 abdominal ultrasound-showing multiple gallstones thickened gallbladder wall liver enlarged Previous testing: White count 16.8 hemoglobin 11.7 platelets 114 potassium 4.7 bun 20 creatinine 3.97 COVID-19 PCR not detected chest x-ray-left basilar airspace disease Assessment: -Acute cholecystitis with choledocholithiasis. POA -permanent pacemaker -morbid obesity BMI 40.3 -End-stage kidney disease on hemodialysis -Mineral bone disease with chronic kidney disease -Diabetes mellitus type 2, uncontrolled with hyperglycemia -Anemia of chronic kidney disease -Hypothyroidism -Diabetic peripheral neuropathy Disposition: Home Patient Condition at Discharge: Stable Plan - Discharge Summary Discharge Rx Participant: Yes New Discharge Prescriptions: New Amoxicillin/Potassium Clav [Augmentin 875-125 Tablet] 1 tab PO DAILY #7 tab Continue Allopurinol [Zyloprim] 100 mg PO DAILY INSULIN ASPART (NovoLOG) [NovoLOG (formulary)] 10 unit SQ AC-TID Atorvastatin [Lipitor] 40 mg PO HS Insulin Glargine,Hum.rec.anlog [Basaglar Kwikpen U-100] 25 unit SQ HS Levothyroxine Sodium [Synthroid] 100 mcg PO DAILY Amitriptyline HCl [Elavil] 50 mg PO HS Calcium Acetate [PhosLo] 667 mg PO DAILY Justine Kacy 1 tab PO DAILY Rivaroxaban [Xarelto] 15 mg PO DAILY Midodrine [ProAmatine] 5 mg PO TID #90 tab Discontinued Amiodarone HCl [Pacerone] 200 mg PO DAILY Metoprolol Succinate (ER) [Toprol XL] 12.5 mg PO DAILY Midodrine [ProAmatine] 5 mg PO DIRECTED PRN PRN Reason: DURING DIALYSIS Isosorbide Mononitrate ER [Imdur] 30 mg PO DAILY Discharge Medication List Allopurinol [Zyloprim] 100 mg PO DAILY 08/16/13 [History] INSULIN ASPART (NovoLOG) [NovoLOG (formulary)] 10 unit SQ AC-TID 02/05/18 [History] Atorvastatin [Lipitor] 40 mg PO HS 02/06/18 [History] Insulin Glargine,Hum.rec.anlog [Basaglar Kwikpen U-100] 25 unit SQ HS 02/06/18 [History] Amitriptyline HCl [Elavil] 50 mg PO HS 05/15/18 [History] Levothyroxine Sodium [Synthroid] 100 mcg PO DAILY 05/15/18 [History] Calcium Acetate [PhosLo] 667 mg PO DAILY 10/20/18 [History] Justine Kacy 1 tab PO DAILY 10/20/18 [History] Rivaroxaban [Xarelto] 15 mg PO DAILY 06/27/19 [History] Amoxicillin/Potassium Clav [Augmentin 875-125 Tablet] 1 tab PO DAILY #7 tab 07/02/19 [Rx] Midodrine [ProAmatine] 5 mg PO TID #90 tab 07/02/19 [Rx] Follow up Appointment(s)/Referral(s): cardiologydr [Other] - 07/09/19 1:30 pm [facility],Equipment [NON-STAFF] - As Needed (Contact number regarding a CPAP Machine is [phone] and the refill line. ) Jarret Arredondo MD [Primary Care Provider] - 07/07/19 10:30 am [facility], [NON-STAFF] - 1-2 Days Pierre Miles MD [STAFF PHYSICIAN] - 07/08/19 3:40 pm Discharge Disposition: HOME SELF-CARE
== END 2019-07-02 16:11 | disposition home health service (06) | DRG 871 ==
LOC: EC 09:50 → 3SCARD 12:03
PROVIDERS: ADMIT Hospitalist; ATTEND Hospitalist
PROC: 5A1D70Z Performance of Urinary Filtration, Intermittent, Less than 6 Hours Per Day (ICD-10-PCS; principal; 2019-06-29)
DX: A41.9 Sepsis, unspecified organism (principal); G92 Toxic encephalopathy; I50.23 Acute on chronic systolic (congestive) heart failure; N18.6 End stage renal disease; K80.66 Calculus of gallbladder and bile duct with acute and chronic cholecystitis without obstruction; I13.2 Hypertensive heart and chronic kidney disease with heart failure and with stage 5 chronic kidney disease, or end stage renal disease; I48.19 Other persistent atrial fibrillation; Z68.41 Body mass index [BMI] 40.0-44.9, adult; I49.5 Sick sinus syndrome; D63.1 Anemia in chronic kidney disease; D69.6 Thrombocytopenia, unspecified; I95.89 Other hypotension; E11.22 Type 2 diabetes mellitus with diabetic chronic kidney disease; E11.42 Type 2 diabetes mellitus with diabetic polyneuropathy; E11.51 Type 2 diabetes mellitus with diabetic peripheral angiopathy without gangrene; Z11.59 Encounter for screening for other viral diseases; E11.65 Type 2 diabetes mellitus with hyperglycemia; E66.01 Morbid (severe) obesity due to excess calories; E89.0 Postprocedural hypothyroidism; E78.5 Hyperlipidemia, unspecified; F32.9 Major depressive disorder, single episode, unspecified; F41.9 Anxiety disorder, unspecified; H54.7 Unspecified visual loss; I07.1 Rheumatic tricuspid insufficiency; I70.0 Atherosclerosis of aorta; J44.9 Chronic obstructive pulmonary disease, unspecified; K21.9 Gastro-esophageal reflux disease without esophagitis; M10.9 Gout, unspecified; M81.0 Age-related osteoporosis without current pathological fracture; M89.8X9 Other specified disorders of bone, unspecified site; H26.9 Unspecified cataract; M19.90 Unspecified osteoarthritis, unspecified site; R55 Syncope and collapse; R00.1 Bradycardia, unspecified; K64.9 Unspecified hemorrhoids; Z79.01 Long term (current) use of anticoagulants; Z79.4 Long term (current) use of insulin; Z79.890 Hormone replacement therapy; Z79.899 Other long term (current) drug therapy; Z89.611 Acquired absence of right leg above knee; Z99.2 Dependence on renal dialysis; Z88.8 Allergy status to other drugs, medicaments and biological substances; Z95.820 Peripheral vascular angioplasty status with implants and grafts; Z95.0 Presence of cardiac pacemaker; Z90.710 Acquired absence of both cervix and uterus; Z86.14 Personal history of Methicillin resistant Staphylococcus aureus infection; Z86.718 Personal history of other venous thrombosis and embolism; Z80.1 Family history of malignant neoplasm of trachea, bronchus and lung; Z82.49 Family history of ischemic heart disease and other diseases of the circulatory system; Z83.3 Family history of diabetes mellitus; Z84.1 Family history of disorders of kidney and ureter
CPT/HCPCS: 36415; 71045; 76705; 80048; 80053; 80202; 82728; 83036; 83605; 83615; 83735; 84145; 84443; 85025; 85027; 85379; 85610; 85730; 86140; 87040; 87635; 90935; 93005; 93306; 96361; 96365; 96375; 99291